=== PATIENT | male | born 1950 | race Caucasian/White ===

== ENCOUNTER → 2016-09-25 | Outpatient (CLI) | payer MEDICARE, OTHER ==
[2016-09-25 13:27] LABS: Blood Urea Nitrogen 21 mg/dL (9-20); Non-African American GFR(MDRD) >60 (>60 ml/min/1.73 sqM)
--- NOTE | 2016-09-25 15:21 | CT ---
CT urogram with and without contrast HISTORY: Microhematuria Helical acquisition obtained through the abdomen prior to intravenous contrast and following 100 cc O mni 300 IV through the abdomen and pelvis. No comparisons Precontrast images show a punctate posterior right renal stone. Abdominal aorta shows atheromatous ch trevor. There are some calcifications present within the dependent portion of the gallbladder. The live r shows multiple hypoattenuating foci of varying sizes, the largest measures approximately 17 to 18 m m within the right lobe posteriorly, these lesions do not show enhancement and are likely to represen t liver cysts. Colonic interposition is present anterior to the liver. The spleen, adrenal glands, an d pancreas are within normal limits. Postop changes noted to the lumbar spine, hardware causes some a rtifact, there is some lordosis centered at the thoracic lumbar level with some spinal curvature. Deg enerative disc changes, facet arthropathy change is present within the visualized spine. Postop walton e also noted to the left hip. Degenerative change, partial ankylosis suspected at the sacroiliac join t on the right with some associated postop change. Osteoarthritic change present in the right hip. Following contrast administration small cystic focus is noted at the upper pole of the right kidney m easuring approximately 13 to 14 mm. Within the left kidney upper to midpole there is also a cystic fo cus measuring approximately 13 mm. No hydronephrosis bilaterally. No evident ureteral calculus. The u reters show normal course and caliber, no filling defect. Delayed imaging shows smaller cystic foci a ssociated with both kidneys, subcentimeter cysts are suspected. The bladder shows thickened wall. Pro state is enlarged. No pelvic adenopathy or free fluid. Diverticular changes associated with the sigmo id colon. Retained fecal debris present throughout the distribution of the colon. The ascending aorta is dilated to 5.3 cm. No pleural or pericardial effusion. Lung bases show depende nt atelectasis. There are coronary artery calcifications. Distal thoracic aorta is 3.1 cm. IMPRESSION: Thoracic aortic aneurysm. Punctate right renal calculus. Multiple cystic foci within the liver and kidneys. Cholelithiasis. Correlate for fecal stasis. Possible chronic bladder outlet obstru ction, prostatic enlargement with associated calcifications. Diverticulosis and additional findings a danny.
== END | disposition home or self-care (01) ==
LOC: RADCTMAIN 12:43
PROVIDERS: ATTEND Urology
DX: N20.0 Calculus of kidney (principal); K80.20 Calculus of gallbladder without cholecystitis without obstruction; N28.1 Cyst of kidney, acquired; K76.89 Other specified diseases of liver; K57.30 Diverticulosis of large intestine without perforation or abscess without bleeding
CPT/HCPCS: 82565; 84520; 74178; 36415; 74400; Q9967

== ENCOUNTER → 2016-11-06 | Outpatient (CLI) | payer MEDICARE, OTHER ==
[2016-11-06 16:31] LABS: Blood Urea Nitrogen 21 mg/dL (9-20); Non-African American GFR(MDRD) >60 (>60 ml/min/1.73 sqM)
--- NOTE | 2016-11-06 17:22 | CT ---
EXAMINATION TYPE: CT angio chest DATE OF EXAM: 11/06/2016 5:09 PM COMPARISON: NONE HISTORY: Thoracic aneurysm found on prior Abdomen scan. No complaints at time of service. CT DLP: 794.5 mGycm Automated exposure control for dose reduction was used. CONTRAST: CTA scan of the thorax is performed with IV Contrast, patient injected with 100 mL of Omnipaque 350, pulmonary embolism protocol. . FINDINGS: The lungs are clear of consolidation. There is no evidence of a pulmonary mass. There is no pleural e ffusion. There is no pericardial effusion. There are no hilar masses. There is no mediastinal adenopa thy. There is normal contrast opacification of the pulmonary arteries. I see no filling defect. There is minimal aneurysm of the ascending aorta that measures up to 4.1 cm. There is no evidence of disse ction. There is mild atheromatous change in the thoracic aorta. The thoracic aorta at the aortic valv e measures 5.2 cm in diameter. There is some spurring in the thoracic spine. I see no focal bone destruction. There are some calcifi ed gallstones. There are low-density rounded foci in the liver that measure up to 2 cm consistent wit h several cysts. IMPRESSION: NO EVIDENCE OF PULMONARY EMBOLISM. THERE IS ANEURYSM OF THE ASCENDING AORTA. THE AORTA AT THE ROOT ME ASURES 5.2 CM AND THE MID ASCENDING AORTA MEASURES 4.1 CM. CHOLELITHIASIS. SMALL HEPATIC CYSTS.
== END | disposition home or self-care (01) ==
LOC: RADCTMAIN 15:51
PROVIDERS: ATTEND Surgery
DX: I71.2 Thoracic aortic aneurysm, without rupture (principal)
CPT/HCPCS: 82565; 84520; 71275; 36415; Q9967

== ENCOUNTER → 2016-12-04 | Outpatient (CLI) | payer MEDICARE, OTHER ==
[2016-12-04 15:55] LABS: CH 32.2; CHCM 33.6; HCT 42.7 % (39.0-53.0); HDW 2.34; HGB 14.7 gm/dL (13.0-17.5); MCH 33.2 pg (25.0-35.0); MCHC 34.5 g/dL (31.0-37.0); MCV 96.2 fL (80.0-100.0); Mean Platelet Volume 8.3; RBC 4.44 m/uL (4.30-5.90)
[2016-12-04 16:00] LABS: Anion Gap 13 mmol/L; Blood Urea Nitrogen 22 mg/dL (9-20); Carbon Dioxide 23 mmol/L (22-30); Chloride 110 mmol/L (98-107); Non-African American GFR(MDRD) >60 (>60 ml/min/1.73 sqM); Potassium 4.2 mmol/L (3.5-5.1); Sodium 146 mmol/L (137-145)
== END ==
LOC: LABWHC1 15:18
PROVIDERS: ATTEND Internal Medicine Interventional Cardiology
DX: I35.0 Nonrheumatic aortic (valve) stenosis (principal); Z01.818 Encounter for other preprocedural examination
CPT/HCPCS: 80051; 82565; 84520; 85027

== ENCOUNTER 2016-12-07 10:46 | Day surgery (SDC) | payer MEDICARE, OTHER ==
[2016-12-05 18:33] VITALS: BMI 28.8
[~2016-12-07 10:46] MED LIST: ALPRAZolam 0.25 MG TAB PO PRN; ALPRAZolam 0.5 MG TAB PO PRN; ASPIRIN 325 MG TAB PO STA; ATORVASTATIN 80 MG TAB PO STA; NITROGLYCERIN SL TABS 0.4 MG TAB SUBLINGUAL PRN; SODIUM CHLORIDE 0.9% 1,000 ML in EMPTY BAG 1 BAG IV ONE
[2016-12-07] MEDS ORDERED: fentaNYL (PF) 50 MCG/ML 2 ML AMP ONE (12:33)
[2016-12-07] MEDS ORDERED: MIDAZOLAM 2 MG/2 ML VIAL ONE (12:33)
[2016-12-07] MEDS: BENZOCAINE SPRAY 100 APPLIC/CAN TOPICAL ONE ×2 (12:41→12:49)
[2016-12-07 12:52] VITALS: RESP 18
[2016-12-07] MEDS ORDERED: MIDAZOLAM 2 MG/2 ML VIAL IVP ONE (12:58)
[2016-12-07] MEDS: fentaNYL (PF) 50 MCG/ML 2 ML AMP IV ONE ×2 (12:58→13:58)
[2016-12-07] MEDS: MIDAZOLAM 2 MG/2 ML VIAL IVP ONE ×2 (13:03→13:43)
[2016-12-07] MEDS ORDERED: LIDOCAINE 2% INJ 20 MG/ML (20 ML MDV) ONE (13:16)
[2016-12-07] MEDS ORDERED: IV FLUID CONTINUATION 1,000 ML IV ONE (13:17)
[2016-12-07] MEDS ORDERED: VERAPAMIL 2.5 MG/ML 2 ML AMP ONE (13:20)
[2016-12-07] MEDS ORDERED: LIDOCAINE 2% INJ 20 MG/ML SQ ONE (13:44)
[2016-12-07] MEDS ORDERED: HEPARIN SODIUM 1,000 UNIT/ML VIAL ONE (13:44)
[2016-12-07] MEDS ORDERED: VERAPAMIL SYRINGE (5 MG/10 ML) INTRAARTER ONE ×2 (13:45→14:02)
[2016-12-07] MEDS ORDERED: HEPARIN SODIUM 1,000 UNIT/ML VIAL IV ONE (13:46)
[2016-12-07] MEDS ORDERED: IOHEXOL 350 MG/ML 100 ML BOTTLE INJ ONE (14:04)
[2016-12-07] MEDS ORDERED: RX INFO: IV CONTRAST WAS GIVEN 1 EACH MISC MISCELLANE PRN (14:12)
[2016-12-07] MEDS ORDERED: SODIUM CHLORIDE 0.9% 1,000 ML IV SCH (14:15)
--- NOTE | 2016-12-07 14:57 | ECHOT ---
DATE OF SERVICE: December 07, 2016. CLINICAL INFORMATION: Performing physician: Osvaldo Lopes, drafter marine. PROCEDURE PERFORMED: Transesophageal echocardiogram. INDICATION: This is a pleasant 66-year-old gentleman who was seen and evaluated by Dr. Cano for aortic root dilatation and possible aortic root surgery. I was requested to perform a CLARISSA and heart catheterization on him to evaluate the aortic valve and the coronary arteries. Sedation: Conscious sedation was performed using a total of 2 mg of Versed on divided doses. COMPLICATIONS: None. Level of sedation: Moderate. DYE STAND LOADER: Osvaldo Kessler MD, drafter marine. PROCEDURE PERFORMED: Transesophageal echocardiogram. PROCEDURE DESCRIPTION: After obtaining an informed consent, explaining the procedure, benefits, risks, complications and alternatives, the patient was brought to the transesophageal echocardiogram suite. A pulse oximetry and heart rate monitors were attached to the patient prior to the procedure. The patient's throat was sprayed using lidocaine locally. Following that, the patient was turned into left lateral position. A bite guard was placed and the patient was then sedated with the above doses of Versed and fentanyl in divided doses. Following that, the transesophageal echocardiogram probe was advanced through the bite guard into the mid esophagus where 2-D echocardiogram images as well as color Doppler images of various cardiac structures were obtained. We evaluated the interatrial septum using 2-D echocardiogram, color Doppler, and contrast study. The procedure was completed. There were no complications. FINDINGS: The left ventricular dimension and systolic function appeared to be within normal limits. The ejection fraction appeared to be in the range of 50% to 55% with a normal wall motion. The right ventricle appeared to be of normal size and function. The left atrium appeared to be mildly dilated. The aortic root appeared to be dilated and measured 5.8 cm at the level of sinus of Valsalva. The aortic valve is trileaflet valve but the aortic valve annulus, seems to be dilated as well. There was mild aortic insufficiency seen. The mitral valve seems to be normal with trace physiologic MR. Normal tricuspid valve and pulmonic valve seen. CONCLUSION: 1. Dilated aortic root with 5.8 cm measurement at the level of sinus of Valsalva. 2. Trileaflet aortic valve with evidence of mild aortic insufficiency. 3. Normal mitral valve leaflets with mild physiologic MR. 4. Normal left ventricular dimension and systolic function. 5. Normal right ventricular dimension and systolic function. 6. Mild biatrial enlargement. 7. Normal left atrial appendage without any evidence of thrombus. 8. Patent vila ovale with evidence of [id number] shunt seen by bubble study.
[2016-12-07 15:08] VITALS: PULSE 48
[2016-12-07 17:55] VITALS: BP 146/56; TEMP 98.2
--- NOTE | 2016-12-08 10:00 | CC ---
DATE OF SERVICE: December 07, 2016. Performing physician: Osvaldo Kessler M.D. scabbler. PROCEDURE PERFORMED: 1. Selective right and left coronary angiogram. 2. Left heart catheterization. 3. Left ventriculography. 4. Aortic root angiogram. INDICATION: This is a pleasant 66-year-old gentleman who was found to have aneurysmal dilatation of the aortic root and the study is to evaluate the coronary artery before the surgery. Approach: Right radial artery. COMPLICATIONS: None. Level of sedation: Moderate with a sedation length of 45 minutes. PROCEDURE DESCRIPTION: After obtaining informed consent, the patient was brought to the cardiac boot and shoe laborer. The right radial artery was cannulated using micropuncture technique. The micropuncture wire passed easily, then I placed 6 Portuguese sheath in the right radial artery. Subsequently I gave the patient 2 mg of Verapamil IM 3000 units of heparin. Then I did selective right and left coronary angiogram using JR4 and JL5 catheters. Then I did left heart catheterization and LV gram and subsequently aortic root angiogram using a 6 Portuguese pigtail catheter. The procedure was completed without any complication. SELECTIVE CORONARY ANGIOGRAM: 1. The right coronary artery is a large-caliber vessel and it is a dominant vessel. It has mild disease in the midportion. Distally bifurcates into PDA and PLV branches; both are angiographically normal. 2. The left main is angiographically normal and bifurcates into the left circumflex and left anterior descending artery. 3. The left circumflex is a large-caliber vessel and it is a nondominant vessel. The proximal left circumflex has a lesion that seems to be eccentric, in the range of 70% to 80%. The mid left circumflex is normal and gives rise to the first OM branch, which seems to be angiographically normal and the circ continues as a small-caliber vessel in the AV groove. 4. Left anterior descending artery. The proximal left anterior descending coronary artery is angiographically normal and gives rise to small diagonal branch. The mid LAD is normal and the LAD distally is angiographically normal. The left anterior descending coronary artery in the midportion gives rise into the small diagonal branch. HEMODYNAMICS: The left ventricular end diastolic pressure was 16 mmHg and no gradient was identified across the aortic valve. AORTIC ROOT ANGIOGRAM: The aortic arch angiogram was performed in the ESTELA projection and using a power injection. The aortic root appeared to be dilated with evidence of 1+ aortic insufficiency. CONCLUSION: 1. Severe single vessel coronary artery disease with eccentric lesion involving the proximal left circumflex seems to be in the range of 70% to 80%. 2. Normal left ventricular systolic function. 3. Dilated aortic root. 4. 1+ aortic insufficiency.
== END 2016-12-07 18:14 | disposition home or self-care (01) ==
LOC: CATHCVL 10:46 → 3OBS 14:05 → CATHCVL 18:14
PROVIDERS: ATTEND Internal Medicine Interventional Cardiology
DX: I25.10 Atherosclerotic heart disease of native coronary artery without angina pectoris (principal); I35.1 Nonrheumatic aortic (valve) insufficiency; I71.2 Thoracic aortic aneurysm, without rupture; I51.7 Cardiomegaly; I10 Essential (primary) hypertension; E78.5 Hyperlipidemia, unspecified; Z79.82 Long term (current) use of aspirin; Z79.51 Long term (current) use of inhaled steroids; Z79.899 Other long term (current) drug therapy; F17.200 Nicotine dependence, unspecified, uncomplicated
CPT/HCPCS: 93312; 93320; 93325; 93458; 93567; 99152; C1894; J2001; J2250; Q9967; J3010; J1644

== ENCOUNTER → 2017-01-22 | Outpatient (CLI) | payer MEDICARE, OTHER ==
[2017-01-22 08:06] LABS: EKG EKG PERFORMED
[2017-01-22 09:45] LABS: CH 32.3; CHCM 33.5; HCT 43.2 % (39.0-53.0); HDW 2.33; HGB 14.4 gm/dL (13.0-17.5); MCH 32.3 pg (25.0-35.0); MCHC 33.3 g/dL (31.0-37.0); Mean Platelet Volume 8.7; Partial Thromboplastin Time 23.1 sec (22.0-30.0); Prothrombin Time 10.5 sec (9.0-12.0); RBC 4.45 m/uL (4.30-5.90); RDW 13.1 % (11.5-15.5); WBC 9.7 k/uL (3.8-10.6)
[2017-01-22 10:38] LABS: Appearance,Urine Clear (Clear); Bacteria,Urine Rare /hpf; Bilirubin,Urine Negative (Negative); Glucose,Urine (UA) Negative (Negative); Ketones,Urine Negative (Negative); Leukocyte Esterase,Urine Negative (Negative); Mucus,Urine Rare /hpf; Nitrite,Urine Negative (Negative); PH, Urine 5.5 (5.0-8.0); Particle Count 1438; Protein,Urine Negative (Negative); RBC,Urine 2 /hpf (0-5); Specific Gravity,Urine 1.018 (1.001-1.035); UA Billing (MACRO vs. MICRO) MICRO; Urobilinogen,Urine <2.0 mg/dL (<2.0); WBC,Urine 1 /hpf (0-5)
[2017-01-22 10:58] LABS: ALT 31 U/L (21-72); AST 21 U/L (17-59); Alkaline Phosphatase 79 U/L (38-126); Anion Gap 10 mmol/L; Blood Urea Nitrogen 24 mg/dL (9-20); Calcium 9.3 mg/dL (8.4-10.2); Carbon Dioxide 21 mmol/L (22-30); Chloride 111 mmol/L (98-107); Cholesterol 130 mg/dL (<200); Glucose 120 mg/dL (74-99); HDL Cholesterol 42 mg/dL (40-60); Magnesium 2.1 mg/dL (1.6-2.3); Non-African American GFR(MDRD) >60 (>60 ml/min/1.73 sqM); Potassium 4.5 mmol/L (3.5-5.1); Sodium 142 mmol/L (137-145); Total Bilirubin 1.1 mg/dL (0.2-1.3); Total Protein 6.6 g/dL (6.3-8.2); Triglycerides 155 mg/dL (<150)
[2017-01-22 11:22] LABS: Hepatitis B Surface Ag Index 0.08
[2017-01-22 11:28] LABS: Hepatitis B Core IgM Index 0.05
[2017-01-22 11:39] LABS: Hepatitis C Virus IgG Index 0.01
[2017-01-22 11:45] LABS: Hepatitis C Virus IgG Ab Negative (Negative)
[2017-01-22 11:59] LABS: Hemoglobin A1C 5.8 % (4.2-6.1)
--- NOTE | 2017-01-22 13:13 | US ---
EXAMINATION TYPE: US carotid duplex BILAT DATE OF EXAM: 01/22/2017 11:17 AM COMPARISON: NONE CLINICAL HISTORY: OPEN HEART. For presurgical clearance EXAM MEASUREMENTS: RIGHT: Peak Systolic Velocity (PSV) cm/sec ----- Right CCA: 56.5 ----- Right ICA: 60.6 ----- Right ECA: 53.5 ICA/CCA ratio: 1.1 RIGHT: End Diastole cm/sec ----- Right CCA: 14.5 ----- Right ICA: 14.5 ----- Right ECA: 16.9 LEFT: Peak Systolic Velocity (PSV) cm/sec ----- Left CCA: 84.4 ----- Left ICA: 82.2 ----- Left ECA: 71.1 ICA/CCA ratio: 1.0 LEFT: End Diastole cm/sec ----- Left CCA: 23.8 ----- Left ICA: 15.5 ----- Left ECA: 11.7 VERTEBRALS (direction of flow): Right Vertebral: Antegrade Left Vertebral: Antegrade Grayscale, color Doppler, spectral Doppler imaging performed of carotid arteries IMPRESSION: No hemodynamic significant stenosis of the proximal internal carotid arteries bilaterall y by Doppler criteria, an indirect measurement of carotid stenosis
--- NOTE | 2017-01-22 13:47 | XR ---
EXAMINATION TYPE: XR chest 2V DATE OF EXAM: 01/22/2017 11:41 AM COMPARISON: Prior chest x-ray 31 May 2014 HISTORY: Preop TECHNIQUE: Frontal and lateral views of the chest are obtained. FINDINGS: There is no focal air space opacity, pleural effusion, or pneumothorax seen. The cardiac silhouette size is within normal limits. The osseous structures are intact, postop changes stable t o distal right clavicle. Postop change noted to the lumbar spine. IMPRESSION: No acute cardiopulmonary process.
--- NOTE | 2017-01-26 11:51 | P.PN ---
Progress Note - Text 5 meter walk test: #1 5.0 sec, #2 4.98 sec, #3 4.87 sec
== END | disposition home or self-care (01) ==
LOC: LABPAT 07:58
PROVIDERS: ATTEND Surgery
DX: Z01.810 Encounter for preprocedural cardiovascular examination (principal); Z01.812 Encounter for preprocedural laboratory examination
CPT/HCPCS: 71020; 80053; 80061; 80074; 81001; 83036; 83735; 83880; 84443; 84484; 85027; 85610; 85730; 86850; 86900; 86901; 86920; 87070; 87086; 93005; 93880

== ENCOUNTER 2017-01-29 05:40 | Inpatient (IN) | payer MEDICARE, OTHER ==
[2017-01-25 15:51] VITALS: BMI 29.5
[~2017-01-29 05:40] MED LIST changes: +ALBUMIN HUMAN 25% 50 ML IV ONE; +ALBUMIN HUMAN 5% 500 ML IVPB ONE; -ALPRAZolam 0.25 MG TAB PO PRN; -ALPRAZolam 0.5 MG TAB PO PRN; +AMINOCAPROIC ACID 250 MG/ML 20 ML VIAL IV ONE; +AMINOCAPROIC ACID 5,000 MG in DEXTROSE 5% IN WATER 50 ML IV ONE; +ASPIRIN 325 MG TAB PO ONE; -ASPIRIN 325 MG TAB PO STA; +ATORVASTATIN 10 MG TAB PO ONE; -ATORVASTATIN 80 MG TAB PO STA; +CALCIUM CHLORIDE 100 MG/ML 10 ML SYRINGE IV ONE; +CHLORHEXIDINE GLUCONATE 15 ML CUP MUCOUS MEM ONE; +CLEVIDIPINE BUTYRATE 25 MG in EMPTY BAG 1 BAG IV ONE; +DEXTROSE 5% IN WATER 1,000 ML with POTASSIUM CHLORIDE 110 MEQ, MAGNESIUM SULFATE 16 MEQ... IV ONE; +DEXTROSE 5% IN WATER 1,000 ML with POTASSIUM CHLORIDE 25 MEQ, SODIUM CHLORIDE 4MEQ/ML V... IV ONE; +HEPARIN SODIUM 1,000 UNIT/ML VIAL IV ONE; +HEPARIN SODIUM,PORCINE 5,000 UNIT in SODIUM CHLORIDE 0.9% 500 ML IV ONE; +INSULIN REGULAR 100 UNIT in SODIUM CHLORIDE 0.9% 100 ML IV ONE; +LACTATED RINGERS 1,000 ML IV ONE; +MAGNESIUM SULFATE MG 500 MG/ML VIAL IV ONE; +MANNITOL 25% 12.5 GM/50 ML VIAL IV ONE; +METOPROLOL TARTRATE 12.5 MG TAB PO ONE; +MUPIROCIN 2% OINT 22 GM TUBE NASAL ONE; -NITROGLYCERIN SL TABS 0.4 MG TAB SUBLINGUAL PRN; +NITROGLYCERIN-D5W PMX 25 MG/250 ML BTL IV ONE; +NITROGLYCERIN-D5W PMX 50 MG in DEXTROSE/WATER 1 250ML.BAG IV ONE; +NOREPINEPHRIN 4 MG-0.9% NS PMX 4 MG/250 ML ML IV ONE; +PAPAVERINE 360 MG in SODIUM CHLORIDE 0.9% 90 ML IV ONE; +PHENYLEPHRINE 40 MG in SODIUM CHLORIDE 0.9% 250 ML IV ONE; +PHENYLEPHRINE-0.9% NACL SYG 1 MG/10 ML SYRINGE IV ONE; +PROPOFOL 50 ML IV ONE; +PROTAMINE SULFATE 10 MG/ML 25 ML VIAL IV ONE; +PROTAMINE SULFATE 250 MG in EMPTY BAG 1 BAG IV ONE; +SODIUM BICARB 8.4% 50 ML SYR (1 MEQ/ML) IV ONE; +SODIUM CHLORIDE 0.9% 1,000 ML IV ONE; -SODIUM CHLORIDE 0.9% 1,000 ML in EMPTY BAG 1 BAG IV ONE; +VANCOMYCIN 1,250 MG in SODIUM CHLORIDE 0.9% 250 ML IVPB ONE; +ceFAZolin 1,000 MG in SODIUM CHLORIDE 0.9% IRRIGATIO 1,000 ML IRRIGATION ONE; +ceFAZolin 2,000 MG in SODIUM CHLORIDE 0.9% 30 ML IVPB ONE
[2017-01-29] MEDS ORDERED: LACTATED RINGERS 1,000 ML IV SCH (05:47)
[2017-01-29] MEDS ORDERED: fentaNYL (PF) 50 MCG/ML 50 ML VIAL ONE (08:11)
[2017-01-29] MEDS ORDERED: PROPOFOL 10 MG/ML 20 ML VIAL IV ONE (08:11)
[2017-01-29] MEDS ORDERED: ELECTROLYTE-R (PH 7.4) 1,000 ML IV.SOLN IV ONE (08:11)
[2017-01-29] MEDS ORDERED: PROTAMINE SULFATE 10 MG/ML 25 ML VIAL IV ONE (08:11)
[2017-01-29] MEDS ORDERED: VECURONIUM 10 MG VIAL IV ONE (08:11)
[2017-01-29] MEDS ORDERED: SUCCINYLCHOLINE CHLORIDE 100 MG/5 ML SYR IV ONE (08:11)
[2017-01-29] MEDS ORDERED: MIDAZOLAM 2 MG/2 ML VIAL ONE (08:11)
[2017-01-29] MEDS ORDERED: fentaNYL (PF) 50 MCG/ML 2 ML AMP ONE (08:11)
[2017-01-29] MEDS ORDERED: SODIUM CHLORIDE 0.9% IRRIG 1,000 ML BTL IRRIGATION ONE (08:11)
[2017-01-29] MEDS ORDERED: HEPARIN SODIUM,PORCINE 10,000 UNIT/ML 1 ML VIAL ONE (08:11)
[2017-01-29] MEDS ORDERED: HEPARIN SODIUM 1,000 UNIT/ML VIAL ONE (08:11)
[2017-01-29] MEDS ORDERED: LIDOCAINE 2% SYG (PF) 100 MG/5 ML ONE (08:11)
[2017-01-29 08:56] LABS: Glucose,Whole Blood 103 mg/dL (75-99)
[2017-01-29 10:39] LABS: Glucose,Whole Blood 126 mg/dL (75-99)
[2017-01-29 11:25] LABS: Glucose,Whole Blood 214 mg/dL (75-99)
[2017-01-29 11:51] LABS: Glucose,Whole Blood 244 mg/dL (75-99)
[2017-01-29 12:36] LABS: Glucose,Whole Blood 269 mg/dL (75-99)
[2017-01-29 13:26] LABS: Glucose,Whole Blood 232 mg/dL (75-99)
[2017-01-29 14:14] LABS: Glucose,Whole Blood 286 mg/dL (75-99)
[2017-01-29 14:19] LABS: Glucose,Whole Blood 284 mg/dL (75-99)
[2017-01-29 15:53] LABS: Glucose,Whole Blood 189 mg/dL (75-99)
[2017-01-29] MEDS ORDERED: METOCLOPRAMIDE 5 MG/ML 2 ML VIAL IVP PRN (16:32)
[2017-01-29] MEDS ORDERED: ONDANSETRON 4 MG/2 ML VIAL IVP PRN (16:32)
[2017-01-29] MEDS ORDERED: CALCIUM GLUCONATE 2,000 MG in SODIUM CHLORIDE 0.9% 100 ML IVPB PRN (16:32)
[2017-01-29] MEDS ORDERED: Magnesium Replacement Protocol 1 EACH MISC MISCELLANE PRN (16:32)
[2017-01-29] MEDS ORDERED: Potassium Replacement Protocol 1 EACH MISC MISCELLANE PRN (16:32)
[2017-01-29] MEDS ORDERED: MORPHINE SULFATE 2 MG/ML SYRINGE IVP PRN (16:32)
[2017-01-29] MEDS ORDERED: Phosphorus Replacement Protoco 1 EACH MISC MISCELLANE PRN (16:32)
[2017-01-29] MEDS ORDERED: INSULIN REGULAR 100 UNIT in SODIUM CHLORIDE 0.9% 100 ML IV SCH (16:32)
[2017-01-29] MEDS ORDERED: NITROGLYCERIN-D5W PMX 50 MG in DEXTROSE/WATER 1 250ML.BAG IV SCH (16:32)
[2017-01-29] MEDS ORDERED: BENZOCAINE/MENTHOL LOZENG 1 EACH LOZENGE MUCOUS MEM PRN (16:32)
[2017-01-29 16:37] LABS: Glucose,Whole Blood 143 mg/dL (75-99)
--- NOTE | 2017-01-29 16:49 | XR ---
EXAMINATION TYPE: XR chest 1V portable DATE OF EXAM: 01/29/2017 4:45 PM HISTORY: Post Op CABG COMPARISON: 01/22/2017 TECHNIQUE: Single view of the chest is submitted. FINDINGS: Endotracheal tube, NG tube, SG catheter, mediastianal drains and chest tubes are appropriately placed . Post operative changes of CABG. No sizeable pneumothorax. Scattered Pleural-parencymal opacities may reflect atelectasis. The heart is not enlarged. IMPRESSION: 1. Post operative changes of CABG.
[2017-01-29 16:54] LABS: Ionized Calcium 4.7 mg/dL (4.5-5.3)
[2017-01-29 16:56] LABS: INR 1.2 (<1.1); Partial Thromboplastin Time 26.4 sec (22.0-30.0); Prothrombin Time 11.9 sec (9.0-12.0)
[2017-01-29 16:58] LABS: Basophils % (A) 0 %; CH 32.1; CHCM 34.1; Eosinophils % (A) 1 %; HCT 22.6 % (39.0-53.0); HDW 2.44; Luc # (Auto) 0.02; Luc % (Auto) 0; Lymphocytes # (A) 0.9 k/uL (1.0-4.8); Lymphocytes % (A) 15 %; MCH 32.5 pg (25.0-35.0); MCHC 34.3 g/dL (31.0-37.0); MCV 94.7 fL (80.0-100.0); Mean Platelet Volume 9.2; Monocytes # (A) 0.2 k/uL (0-1.0); Monocytes % (A) 3 %; Neutrophils # (A) 4.7 k/uL (1.3-7.7); Neutrophils % (A) 81 %; RBC 2.39 m/uL (4.30-5.90); RDW 12.9 % (11.5-15.5); WBC 5.8 k/uL (3.8-10.6); WBC (Perox) 5.73
[2017-01-29 17:01] LABS: HGB 7.8 gm/dL (13.0-17.5)
[2017-01-29 17:02] LABS: ALT 26 U/L (21-72); AST 36 U/L (17-59); Alkaline Phosphatase 38 U/L (38-126); Anion Gap 5 mmol/L; Blood Urea Nitrogen 17 mg/dL (9-20); Calcium 7.6 mg/dL (8.4-10.2); Carbon Dioxide 26 mmol/L (22-30); Chloride 109 mmol/L (98-107); Glucose 127 mg/dL (74-99); Magnesium 2.8 mg/dL (1.6-2.3); Non-African American GFR(MDRD) >60 (>60 ml/min/1.73 sqM); Potassium 3.8 mmol/L (3.5-5.1); Sodium 140 mmol/L (137-145); Total Protein 4.6 g/dL (6.3-8.2)
[2017-01-29] MEDS: ceFAZolin 2 GM in SODIUM CHLORIDE 0.9% 100 ML IVPB SCH ×2 (17:14→23:38)
[2017-01-29] MEDS: LACTATED RINGERS 1,000 ML IV SCH (17:16)
[2017-01-29] MEDS: ACETAMINOPHEN IV (For NPO) 1,000 MG in EMPTY BAG 1 BAG IVPB SCH ×2 (17:16→23:30)
[2017-01-29 17:21] LABS: ABG Base Excess 0.7 mmol/L; ABG HCO3 26 mmol/L (21-25); ABG PCO2 46 mmHg (35-45); ABG PH 7.36 (7.35-7.45); ABG PO2 261 mmHg (83-108); ABG TCO2 27 mmol/L (19-24)
[2017-01-29 17:33] LABS: Glucose,Whole Blood 124 mg/dL (75-99)
[2017-01-29] MEDS ORDERED: POTASSIUM CHLORIDE 20 MEQ in WATER FOR INJECTION 1 100ML.BAG IVPB ONE (18:00)
[2017-01-29 18:15] LABS: Glucose,Whole Blood 101 mg/dL (75-99)
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
[2017-01-29 18:59] LABS: Glucose,Whole Blood 108 mg/dL (75-99)
[2017-01-29 19:26] LABS: Basophils % (A) 0 %; CH 32.4; CHCM 33.6; Eosinophils # (A) 0.1 k/uL (0-0.7); Eosinophils % (A) 1 %; HCT 27.5 % (39.0-53.0); HDW 2.39; Luc # (Auto) 0.19; Luc % (Auto) 2; Lymphocytes # (A) 0.6 k/uL (1.0-4.8); Lymphocytes % (A) 7 %; MCH 31.9 pg (25.0-35.0); MCHC 32.9 g/dL (31.0-37.0); Mean Platelet Volume 8.4; Monocytes # (A) 0.6 k/uL (0-1.0); Monocytes % (A) 7 %; Neutrophils # (A) 7.2 k/uL (1.3-7.7); Neutrophils % (A) 83 %; RBC 2.83 m/uL (4.30-5.90); WBC 8.6 k/uL (3.8-10.6); WBC (Perox) 8.99
[2017-01-29] MEDS: PROPOFOL 500 MG in EMPTY BAG 1 BAG IV SCH ×2 (19:30→22:40)
--- NOTE | 2017-01-29 19:50 | P.PN ---
Progress Note - Text Procedure performed: Transesophageal echocardiography Indication for the procedure: Coronary artery bypass graft surgery, aortic valve replacement surgery, ischemia monitoring, assessment of valvular function , intracardiac air monitoring, assessment of regional wall motion abnormalities and hemodynamic monitoring. Probe insertion: Under general anesthesia, uneventful. Pre-bypass findings: Left ventricle normal in dimension and LV ejection fraction is approximately 50- 55%. Left atrium mildly dilated. No thrombus seen in the appendage. Right atrium normal in size. No patent foramen ovale or ASD seen. Right ventricle normal in structure and function. Aortic valve appears to be normal .There is mild to moderate aortic regurgitation noted. Aortic valve area by continuity equation is 4.5 cm Mitral valve normal in anatomy. No mitral regurgitation seen. Trivial tricuspid regurgitation seen. Pulmonic valve appears to be normal. Descending aorta grade 2 atheroma seen. No pericardial effusion noted. There is grade 2 diastolic dysfunction Post-bypass findings: Prosthetic aortic valve seen no paravalvular regurgitation noted. No aortic regurgitation noted. Mean gradient across the new prosthetic valve is about 8 mmHg. peak gradient 14 mmHg. LV ejection fraction appears to be 50%. No new regional wall motion abnormalities noted. The rest of the exam is same as pre-bypass.
[2017-01-29 19:58] LABS: INR 1.2 (<1.1); Prothrombin Time 11.5 sec (9.0-12.0)
[2017-01-29 20:06] LABS: Glucose,Whole Blood 141 mg/dL (75-99)
[2017-01-29] MEDS: IPRATROPIUM-ALBUTEROL 3 ML NEB INHALATION SCH ×2 (21:01→23:40)
[2017-01-29 21:03] LABS: Glucose,Whole Blood 147 mg/dL (75-99)
[2017-01-29] MEDS: CLEVIDIPINE BUTYRATE 25 MG in EMPTY BAG 1 BAG IV SCH (21:30)
[2017-01-29 22:06] LABS: Glucose,Whole Blood 122 mg/dL (75-99)
[2017-01-29 23:04] LABS: Glucose,Whole Blood 125 mg/dL (75-99)
[2017-01-29] MEDS: HEPARIN SODIUM,PORCINE 5,000 UNIT/ML 1 ML VIAL SQ SCH (23:44)
[2017-01-30 00:05] LABS: Glucose,Whole Blood 132 mg/dL (75-99)
[2017-01-30 01:08] LABS: Glucose,Whole Blood 146 mg/dL (75-99)
[2017-01-30 01:39] LABS: ABG Base Excess -0.7 mmol/L; ABG HCO3 23 mmol/L (21-25); ABG PCO2 34 mmHg (35-45); ABG PH 7.45 (7.35-7.45); ABG PO2 67 mmHg (83-108); ABG TCO2 24 mmol/L (19-24)
[2017-01-30 02:04] LABS: Glucose,Whole Blood 142 mg/dL (75-99)
[2017-01-30 03:04] LABS: Glucose,Whole Blood 137 mg/dL (75-99)
[2017-01-30 04:37] LABS: Ionized Calcium 4.8 mg/dL (4.5-5.3)
[2017-01-30 04:49] LABS: ALT 31 U/L (21-72); AST 51 U/L (17-59); Alkaline Phosphatase 46 U/L (38-126); Anion Gap 9 mmol/L; Blood Urea Nitrogen 14 mg/dL (9-20); Calcium 8.3 mg/dL (8.4-10.2); Carbon Dioxide 24 mmol/L (22-30); Chloride 108 mmol/L (98-107); Glucose 123 mg/dL (74-99); Magnesium 2.2 mg/dL (1.6-2.3); Non-African American GFR(MDRD) >60 (>60 ml/min/1.73 sqM); Potassium 3.9 mmol/L (3.5-5.1); Sodium 141 mmol/L (137-145); Total Bilirubin 1.3 mg/dL (0.2-1.3); Total Protein 5.1 g/dL (6.3-8.2)
[2017-01-30 04:56] LABS: Basophils % (A) 0 %; CH 32.2; CHCM 33.6; Eosinophils % (A) 0 %; HCT 24.1 % (39.0-53.0); HDW 2.41; HGB 7.9 gm/dL (13.0-17.5); Luc # (Auto) 0.12; Luc % (Auto) 1; Lymphocytes # (A) 0.5 k/uL (1.0-4.8); Lymphocytes % (A) 5 %; MCH 31.7 pg (25.0-35.0); MCHC 32.9 g/dL (31.0-37.0); MCV 96.5 fL (80.0-100.0); Monocytes # (A) 0.4 k/uL (0-1.0); Monocytes % (A) 5 %; Neutrophils # (A) 7.7 k/uL (1.3-7.7); Neutrophils % (A) 88 %; RDW 13.1 % (11.5-15.5); WBC 8.8 k/uL (3.8-10.6); WBC (Perox) 9.55
[2017-01-30] MEDS: ACETAMINOPHEN IV (For NPO) 1,000 MG in EMPTY BAG 1 BAG IVPB SCH ×3 (05:30→16:44)
[2017-01-30] MEDS ORDERED: POTASSIUM CHLORIDE ORAL LIQUID 40 MEQ/30 ML CUP NG-TUBE SCH (06:00)
[2017-01-30 06:22] LABS: Glucose,Whole Blood 132 mg/dL (75-99)
[2017-01-30 06:35] LABS: Glucose,Whole Blood 151 mg/dL (75-99)
[2017-01-30] MEDS: CLEVIDIPINE BUTYRATE 25 MG in EMPTY BAG 1 BAG IV SCH (07:11)
[2017-01-30 08:36] LABS: Glucose,Whole Blood 144 mg/dL (75-99)
[2017-01-30] MEDS: HEPARIN SODIUM,PORCINE 5,000 UNIT/ML 1 ML VIAL SQ SCH (08:49)
[2017-01-30] MEDS: ATORVASTATIN 40 MG TAB PO SCH (08:49)
[2017-01-30] MEDS: ceFAZolin 2 GM in SODIUM CHLORIDE 0.9% 100 ML IVPB SCH (08:49)
[2017-01-30] MEDS: METOPROLOL TARTRATE 12.5 MG TAB PO SCH ×3 (08:50→21:08)
[2017-01-30] MEDS ORDERED: ALBUMIN HUMAN 5% 250 ML IVPB ONE ×2 (08:57→08:58)
[2017-01-30] MEDS: ALBUMIN HUMAN 5% 250 ML in EMPTY BAG 1 BAG IVPB PRN ×3 (08:58→14:54)
[2017-01-30] MEDS ORDERED: CLOPIDOGREL 75 MG TAB PO SCH (09:00)
[2017-01-30] MEDS ORDERED: ASPIRIN 325 MG TAB PO SCH (09:00)
[2017-01-30] MEDS ORDERED: PANTOPRAZOLE 40 MG/10 ML VIAL IVP SCH (09:00)
--- NOTE | 2017-01-30 09:13 | XR ---
EXAMINATION TYPE: XR chest 1V portable DATE OF EXAM: 01/30/2017 6:14 AM COMPARISON: 01/29/2017 HISTORY: Postop cardiac surgery TECHNIQUE: Single frontal view of the chest is obtained. FINDINGS: ET and NG tube have been removed. Grafton-Lynnette catheter persists with mediastinal drain and c hest tube. Bilateral areas of subsegmental consolidation and tiny effusion. Heart is enlarged. Postsurgical loyd ge including valve replacement surgery noted. Could not exclude a tiny right apical pneumothorax. Hollie sures less than 5%. IMPRESSION: 1. Postsurgical change with bilateral infiltrate and pleural effusion. Could not exclude a tiny right apical pneumothorax measuring 5%.
[2017-01-30 09:30] LABS: Glucose,Whole Blood 137 mg/dL (75-99)
[2017-01-30] MEDS: ASPIRIN 81 MG CHEW PO SCH (10:05)
[2017-01-30 10:14] LABS: Glucose,Whole Blood 136 mg/dL (75-99)
--- NOTE | 2017-01-30 10:30 | OP ---
DATE OF SERVICE: 01/29/2017 SURGEON: Nadya Cano MD MATERIAL COORDINATOR: Dr. Charbel Mario. PREOPERATIVE DIAGNOSES: Aortic root, and ascending aortic aneurysm with moderate aortic valve regurgitation, single vessel coronary artery disease with stenosis of the obtuse marginal artery, preserved left ventricular function, hypertension, hyperlipidemia, mild chronic obstructive pulmonary disease. POSTOPERATIVE DIAGNOSES: Aortic root, and ascending aortic aneurysm with moderate aortic valve regurgitation, single vessel coronary artery disease with stenosis of the obtuse marginal artery, preserved left ventricular function, hypertension, hyperlipidemia, mild chronic obstructive pulmonary disease. OPERATION: 1. Aortic root and ascending aortic replacement using a modified Bentall technique with a 27 mm magna ease pericardial bioprosthesis and a 32 mm Valsalva graft with reimplantation of both coronary buttons. 2. Single vessel coronary artery bypass grafting using the left internal mammary artery to the obtuse marginal artery. 3. Intraoperative transesophageal echocardiogram and epiaortic scanning. INDICATIONS FOR SURGERY: Patient is a 66-year-old gentleman who had an incidental finding on CT scan of aortic root and ascending aortic aneurysm. Work-up included a 2-D echo and a CLARISSA that showed moderate aortic valve regurgitation, preserved left ventricular function, and a root more than 5.5 cm in diameter. The aorta before the takeoff of the innominate went back to within normal size. Cardiac catheterization showed significant stenosis of a large obtuse marginal artery. Patient is being taken today for elective ascending and aortic root replacement with modified Bentall procedure and single vessel coronary artery bypass grafting using his left internal mammary artery to the circumflex target. Risks, benefits, and alternatives were discussed and discussed with him and his . They understood and agreed to proceed. DESCRIPTION OF THE PROCEDURE: Patient in supine position, right internal jugular [place]-Lynnette catheter and left brachial arterial line were placed. Patient had normal PA pressure and good cardiac index. Subsequently was brought to the operating room, where general endotracheal anesthesia was induced uneventfully. Pringle catheter was inserted. The chest, abdomen and both lower extremities were prepped and draped using ChloraPrep. Ioban was used to cover the skin. Patient received 2 grams of cefazolin intravenously. Transesophageal echocardiogram confirmed the preoperative finding of moderate aortic valve regurgitation, dilated aortic root with asymmetric dilatation of noncoronary sinus, and preserved left ventricular function. Midline sternotomy was performed and no bone wax was used. The right pleura was opened in this process and was drained with 28 Malian chest tube. The left sternum was elevated and the left internal mammary artery was harvested in a somewhat skeletonized fashion. The left pleura was intentionally opened in this process and was drained with 28 Malian chest tube. After giving 5000 units of heparin intravenously. The mammary artery was double clipped distally and transected, had an excellent pulsatile flow in it; however, was thin-walled, spastic around 1.5 mm in diameter. Mediastinal fat was transected between 2 ties and epiaortic scanning revealed no protruding atheroma in the ascending aorta. Pericardium was opened in an inverted T-fashion and pericardial cradle was created. Findings included an aneurysmal aorta down to the root with a heart pushed inferiorly to the left side. There was no obvious visible coronary disease. The right coronary artery had a high takeoff. After placement of respective pledgeted pursestrings in the proximal arch and the right atrial appendage, aortic cannulation with a 21 Malian soft flow cannula and venous cannulation with a 29/37 dual stage venous cannula was performed. Antegrade as well as retrograde cardioplegia catheters were placed. Cardiopulmonary bypass was initiated and with the patient warm we looked at the target and we could identify the obtuse marginal artery. We dissected the mid aspect of the ascending aorta from the pulmonary artery posteriorly as a prelude for clamping. Patient's temperature was allowed to drift down to 34 degrees Celsius. The aorta was clamped and during aortic clamping, myocardial protection was achieved with an initial dose of 800 mL of antegrade cold blood cardioplegia with adequate arrest at around 400 mL, followed by 500 mL of retrograde cold blood cardioplegia. All subsequent doses were given retrograde with also additional doses eventually given via respective coronary ostia with perfusion cannula. First part of the surgery was to perform the left internal mammary artery to the obtuse marginal artery anastomosis which was a good vessel of around 2 mm in diameter using Prolene 70 in continuous fashion. This anastomosis was hemostatic. The mammary pedicle was affixed to the epicardium using Prolene 6-0 suture. Subsequently, thte aorta was transected in the middle part initially and again the right coronary artery, as predicted, had a high takeoff. The aortic valve was excised and was again asymmetrically distended and stretched at the non-coronary sinus. There was no fenestration in it. Subsequently, the coronary sinus was resected, leaving a rim of aorta. The left coronary button was developed and mobilized after placement of probe into the coronary artery to get a feel of its direction. The same was done also at the level of the right coronary where a right coronary button was developed and we took care of a conal branch, made sure not to injure it. Subsequently the annulus was sized at 27mm and a 27mm magna ease pericardial bioprosthesis was selected and prepared on the back table. We passed a total of 19 Tycron 2-0 pledgeted sutures in a horizontal fashion with the pledgets on the ventricular side at the level of the aortic annulus. Subsequently I selected a 32 mm Valsalva graft and anchored the magna ease prosthesis to the top of the graft after everting its cuff skirt, using the Malian cuff technique. All the sutures were passed into the valve cuff than this folded edge and then the needles were cut and the sutures hand tied with good apposition of the valve conduit to the aortic annulus. Subsequently I took a Prolene 4-0 SH and closed the second layer approximating the remnant of aortic wall and the cuff that we formed around the valsalva graft skirt in a running fashion. We tested this anastomosis using antegrade cardioplegia via the graft and it appeared hemostatic. I placed some CoSeal all around it. At this point, attention was moved at performing the left coronary button. Using eye-cautery and after distending the heart and judging the spot for the anastomosis, I made a hole and the Valsalva portion of the conduit. Using Prolene 5-0, we completed the left button after reinforcing the coronary side with felt as the tissue were friable. Testing again revealed good hemostasis with antegrade cardioplegia under pressure in the graft. CoSeal was applied over the left button. At this point, we distended and checked a spot for the right coronary button. A same button was made using an eye-cautery on the right sinus of the Valsalva conduit and the anastomosis of the right button completed using 5-0 Prolene without using pledgets at that level. CoSeal was applied after checking for hemostasis, which appeared satisfactory. At this point the rewarming was started. The ascending aorta was resected up to a 1 cm cuff from the clamp and the anastomosis of the conduit to the aorta was completed using Prolene 3-0 with reinforcement of the aortic wall with felt strips on the outside. Antegrade cardioplegia catheter and vent were placed into the graft now after placement of a 4-0 BB pledgeted pursestring. Usual de-airing maneuver followed and we administered lidocaine and magnesium before unclamping the aorta with the patient in tredelenburg position. . Hemostasis appeared satisfactory. After a period of reperfusion, the patient regained spontaneous sinus rhythm. De-airing was guided by CLARISSA. We had good left ventricular and right ventricular function. One bipolar ventricular pacing wire was driven via the inferior aspect of the right ventricle. Two monopolar pacing wires were affixed to the right atrial wall. The anastomosis of the mammary artery appeared to be hemostatic, however, the anchoring suture of the pedicle to the myocardium was bleeding so I disconnected it and placed 2 Prolene 6-0 superficially at the level of the myocardium to stop some venous bleeding. That was satisfactory. We were able to wean off cardiopulmonary bypass without the need of any inotropic for vasopressor support. Test dose and full dose protamine was given. Decannulation proceeded. Patient was given 2 units of platelets and 2 units of FFP to aid in hemostasis. The pericardium and pericardial fat was approximated over the heart and the aortic graft. After ensuring adequate hemostasis and hemodynamics and after correct sponge, instrument and needle count, the sternum was closed using 5 [id number] interrupted [place] cable after interposing fibrillary material between the sternal edges. Thorough irrigation with cefazolin followed. The rest of the closure proceeded in layers. Skin glue was applied. Patient was transferred to the ICU in stable condition with normal sinus rhythm at 74 and good hemodynamics, on no drips. [facility] HOSPITALDanny
--- NOTE | 2017-01-30 11:23 | PN ---
Mr. Reza underwent aortic root and ascending aortic replacement using a modified Bentall technique, a pericardial bioprosthesis and a 32 mm Valsalva graft with reimplantation of both coronary buttons as well as single vessel bypass grafting using a CARMEN to the obtuse marginal. He is doing well today postoperatively. He is alert, awake. He is extubated. Blood pressure is 103 systolic, heart rate is in the 80s. He has mild discomfort, but he looks fairly comfortable. Breath sounds are reduced bilaterally. Heart sounds are S1 and S2 are soft. No murmurs. Abdomen is soft. Extremities are warm, no edema. IMPRESSION: Aortic valve replacement, aortic root replacement and coronary artery disease, status post single vessel coronary artery bypass grafting. SUGGEST: Continue current medications for now. He is currently on aspirin, atorvastatin 40 mg a day, Plavix, and low-dose metoprolol. Today, I will not make any changes. I will reassess him tomorrow to see if there are any medication changes to be made.
[2017-01-30 11:29] LABS: Glucose,Whole Blood 137 mg/dL (75-99)
--- NOTE | 2017-01-30 11:35 | P.PN ---
Subjective Principal diagnosis: Coronary artery disease. Severe aortic stenosis. 66-year-old male patient who underwent a ascending root replacement/aortic valve replacement and single-vessel bypass surgery with CARMEN to OM1. The patient was brought into the intensive care unit for further monitoring. The patient received a total of 2 units of fresh frozen plasma and 5 units of platelet concentrates during the surgery. Currently he is intubated on a mechanical ventilator. I have an assist-control mode of ventilation at the rate of 16, tidal volume 550, FiO2 has been weaned down from 100% down to 60% with a PEEP of 5. His blood care this showed a pH of 7.36 with a pCO2 of 46 and pO2 of 261. Chest x-ray showed adequate expansion of both lungs and there is no evidence of any pneumothorax. The patient has 2 mediastinal chest tubes, a right pleural and left pleural. Output from the chest tubes were approximately no output from the right, 200 mL an hour from the mediastinal and 50 mL an hour from the left. The patient will be receiving additional platelets here in the ICU. His most recent plated count is 59,000. His hemoglobin is at 7.8. He is producing adequate amount of urine output. His cardiac index is at 2.2 with an output of 4.5. His PA pressures are 25/15 and the patient's cardiac rhythm is sinus at this point. He is sedated with Diprivan and is calm and comfortable. No other significant issues postop. The patient is seen again today 01/30/2017 in follow-up. He remains here in the intensive care unit. He was successfully extubated. He is currently awake and alert in no acute distress. He is hemodynamically stable. Most of his drips are off. He remains on insulin at 1 unit per hour. He is maintaining good O2 saturations in the low 90s on 8 L/m. His chest x-ray shows bilateral infiltrates and small pleural effusions. Chest tubes remain in place. I need to the orders the his pain is well controlled. His hemoglobin remained stable at 7.9. Objective - Vital Signs Vital signs: Vital Signs Temp 99 F 01/30/17 04:00 Pulse 86 01/30/17 10:00 Resp 24 01/30/17 10:00 BP 96/55 01/30/17 10:00 Pulse Ox 92 L 01/30/17 10:00 Intake & Output 0501/30/17 01/30/17 18:59 06:59 18:59 Intake Total 327.077 2856.266 899.742 Output Total 5051 1023 843 Balance -4678.767 -1378.734 56.742 Weight 87.997 kg 90 kg 90 kg Intake: IV 200 351 197 ACETAMINOPHEN IV (For NPO 100 ) 1,000 mg In Empty Bag 1 bag @ 400 mls/hr IVPB Q6HR [facility] Rx#:[id number] CO/CI 120 20 LR @50 100 50 150 Pressure Bag 81 27 ceFAZolin 2 gm In Sodium 100 Chloride 0.9% 100 ml @ 100 mls/hr IVPB Q8HR MIKE Rx#:[id number] Intake, IV Titration 1.233 98.266 582.742 Amount Albumin Human 5% 250 ml 250 As IVPB .STK-MED ONE Rx#: [id number] Albumin Human 5% 250 ml 250 As IVPB .STK-MED ONE Rx#: [id number] Clevidipine Butyrate 25 0.5 44.333 mg In Empty Bag 1 bag @ 1 MG/HR 2 mls/hr IV .Q24H [facility]KE Rx#:[id number] Insulin Regular 100 unit 0.458 0 22.159 In Sodium Chloride 0.9% 100 ml @ Per Protocol IV .Q0M [facility]KE Rx#:[id number] Nitroglycerin-D5w Pmx 50 0.775 16.725 16.25 mg In Dextrose/Water 1 250ml.bag @ 5 MCG/MIN 1.5 mls/hr IV .Q24H MIKE Rx#: [id number] Propofol 500 mg In Empty 81.041 Bag 1 bag @ Titrate IV . Q0M MIKE Rx#:[id number] Oral 120 Blood Product 0 693 Ffp 24 Cp2d Unit 190 [id number] Ffp 24 Cpd Unit 0 [id number] Ffp 24 Cpd Unit 0 [id number] Ffp 24 Cpd Unit 301 [id number] Platelet Pheresis Acda1 0 202 Unit [id number] Platelet Pheresis Acda2 0 Unit [id number] Output: Chest Tube Drainage 400 1041 519 Bilateral Mediastinal 310 755 207 Chest Tube Left Lateral 85 200 170 Chest Chest Tube Right Lateral 5 86 142 Chest Urine 2580 1480 324 Estimated Blood Loss 1900 Other: Voiding Method Indwelling Catheter Indwelling Catheter ABP, PAP, CO, CI - Last Documented Arterial Blood Pressure 102/44 Pulmonary Artery Pressure 21/8 Cardiac Output 5.4 Cardiac Index 2.7 - Exam GENERAL EXAM: Alert, fairly comfortable in no apparent distress. HEAD: Normocephalic. EYES: Normal reaction of pupils, equal size. NOSE: Clear with pink turbinates. THROAT: No erythema or exudates. NECK: No masses, no JVD. CHEST: No chest wall deformity. Surgical dressing is dry and intact. Chest tubes are in place. LUNGS: Equal air entry with crackles in the posterior bases. Diminished. CVS: S1 and S2 normal with no audible murmurs, regular rhythm. ABDOMEN: No hepatosplenomegaly, normal bowel sounds, no guarding or rigidity. SPINE: No scoliosis or deformity SKIN: No rashes CENTRAL NERVOUS SYSTEM: No focal deficits, tone is normal in all 4 extremities. Extremities: There is trace peripheral edema. Arsenio wraps to lower extremities. Peripheral pulses are intact. - Labs CBC & Chem 7: 01/30/17 04:05 01/30/17 04:05 Labs: Abnormal Lab Results - Last 24 Hours (Table) 01/22/17 01/29/17 01/29/17 Range/Units 09:05 11:14 11:48 RBC (4.30-5.90) m/uL Hgb (13.0-17.5) gm/dL Hct (39.0-53.0) % Plt Count (150-450) k/uL Lymphocytes # (1.0-4.8) k/uL ABG pCO2 (35-45) mmHg ABG pO2 (83-108) mmHg ABG HCO3 (21-25) mmol/L ABG Total CO2 (19-24) mmol/L ABG O2 Saturation (94-97) % Chloride (98-107) mmol/L Glucose (74-99) mg/dL POC Glucose (mg/dL) 214 H 244 H (75-99) mg/dL Calcium (8.4-10.2) mg/dL Magnesium (1.6-2.3) mg/dL Total Protein (6.3-8.2) g/dL Albumin (3.5-5.0) g/dL Crossmatch See Detail 01/29/17 01/29/17 01/29/17 Range/Units 12:33 13:22 14:10 RBC (4.30-5.90) m/uL Hgb (13.0-17.5) gm/dL Hct (39.0-53.0) % Plt Count (150-450) k/uL Lymphocytes # (1.0-4.8) k/uL ABG pCO2 (35-45) mmHg ABG pO2 (83-108) mmHg ABG HCO3 (21-25) mmol/L ABG Total CO2 (19-24) mmol/L ABG O2 Saturation (94-97) % Chloride (98-107) mmol/L Glucose (74-99) mg/dL POC Glucose (mg/dL) 269 H 232 H 286 H (75-99) mg/dL Calcium (8.4-10.2) mg/dL Magnesium (1.6-2.3) mg/dL Total Protein (6.3-8.2) g/dL Albumin (3.5-5.0) g/dL Crossmatch 01/29/17 01/29/17 01/29/17 Range/Units 14:16 15:38 16:35 RBC (4.30-5.90) m/uL Hgb (13.0-17.5) gm/dL Hct (39.0-53.0) % Plt Count (150-450) k/uL Lymphocytes # (1.0-4.8) k/uL ABG pCO2 (35-45) mmHg ABG pO2 (83-108) mmHg ABG HCO3 (21-25) mmol/L ABG Total CO2 (19-24) mmol/L ABG O2 Saturation (94-97) % Chloride (98-107) mmol/L Glucose (74-99) mg/dL POC Glucose (mg/dL) 284 H 189 H 143 H (75-99) mg/dL Calcium (8.4-10.2) mg/dL Magnesium (1.6-2.3) mg/dL Total Protein (6.3-8.2) g/dL Albumin (3.5-5.0) g/dL Crossmatch 01/29/17 01/29/17 01/29/17 Range/Units 16:36 16:36 17:10 RBC 2.39 L (4.30-5.90) m/uL Hgb 7.8 L D (13.0-17.5) gm/dL Hct 22.6 L (39.0-53.0) % Plt Count 59 L D (150-450) k/uL Lymphocytes # 0.9 L (1.0-4.8) k/uL ABG pCO2 46 H (35-45) mmHg ABG pO2 261 H (83-108) mmHg ABG HCO3 26 H (21-25) mmol/L ABG Total CO2 27 H (19-24) mmol/L ABG O2 Saturation 99.0 H (94-97) % Chloride 109 H (98-107) mmol/L Glucose 127 H (74-99) mg/dL POC Glucose (mg/dL) (75-99) mg/dL Calcium 7.6 L (8.4-10.2) mg/dL Magnesium 2.8 H (1.6-2.3) mg/dL Total Protein 4.6 L (6.3-8.2) g/dL Albumin 2.8 L (3.5-5.0) g/dL Crossmatch 01/29/17 01/29/17 01/29/17 Range/Units 17:12 18:08 18:56 RBC (4.30-5.90) m/uL Hgb (13.0-17.5) gm/dL Hct (39.0-53.0) % Plt Count (150-450) k/uL Lymphocytes # (1.0-4.8) k/uL ABG pCO2 (35-45) mmHg ABG pO2 (83-108) mmHg ABG HCO3 (21-25) mmol/L ABG Total CO2 (19-24) mmol/L ABG O2 Saturation (94-97) % Chloride (98-107) mmol/L Glucose (74-99) mg/dL POC Glucose (mg/dL) 124 H 101 H 108 H (75-99) mg/dL Calcium (8.4-10.2) mg/dL Magnesium (1.6-2.3) mg/dL Total Protein (6.3-8.2) g/dL Albumin (3.5-5.0) g/dL Crossmatch 01/29/17 01/29/17 01/29/17 Range/Units 19:20 20:04 21:01 RBC 2.83 L (4.30-5.90) m/uL Hgb 9.0 L (13.0-17.5) gm/dL Hct 27.5 L (39.0-53.0) % Plt Count 106 L D (150-450) k/uL Lymphocytes # 0.6 L (1.0-4.8) k/uL ABG pCO2 (35-45) mmHg ABG pO2 (83-108) mmHg ABG HCO3 (21-25) mmol/L ABG Total CO2 (19-24) mmol/L ABG O2 Saturation (94-97) % Chloride (98-107) mmol/L Glucose (74-99) mg/dL POC Glucose (mg/dL) 141 H 147 H (75-99) mg/dL Calcium (8.4-10.2) mg/dL Magnesium (1.6-2.3) mg/dL Total Protein (6.3-8.2) g/dL Albumin (3.5-5.0) g/dL Crossmatch 01/29/17 01/29/17 01/30/17 Range/Units 22:05 23:02 00:04 RBC (4.30-5.90) m/uL Hgb (13.0-17.5) gm/dL Hct (39.0-53.0) % Plt Count (150-450) k/uL Lymphocytes # (1.0-4.8) k/uL ABG pCO2 (35-45) mmHg ABG pO2 (83-108) mmHg ABG HCO3 (21-25) mmol/L ABG Total CO2 (19-24) mmol/L ABG O2 Saturation (94-97) % Chloride (98-107) mmol/L Glucose (74-99) mg/dL POC Glucose (mg/dL) 122 H 125 H 132 H (75-99) mg/dL Calcium (8.4-10.2) mg/dL Magnesium (1.6-2.3) mg/dL Total Protein (6.3-8.2) g/dL Albumin (3.5-5.0) g/dL Crossmatch 01/30/17 01/30/17 01/30/17 Range/Units 01:06 01:38 02:03 RBC (4.30-5.90) m/uL Hgb (13.0-17.5) gm/dL Hct (39.0-53.0) % Plt Count (150-450) k/uL Lymphocytes # (1.0-4.8) k/uL ABG pCO2 34 L (35-45) mmHg ABG pO2 67 L (83-108) mmHg ABG HCO3 (21-25) mmol/L ABG Total CO2 (19-24) mmol/L ABG O2 Saturation (94-97) % Chloride (98-107) mmol/L Glucose (74-99) mg/dL POC Glucose (mg/dL) 146 H 142 H (75-99) mg/dL Calcium (8.4-10.2) mg/dL Magnesium (1.6-2.3) mg/dL Total Protein (6.3-8.2) g/dL Albumin (3.5-5.0) g/dL Crossmatch 01/30/17 01/30/17 01/30/17 Range/Units 03:02 04:05 04:05 RBC 2.50 L (4.30-5.90) m/uL Hgb 7.9 L (13.0-17.5) gm/dL Hct 24.1 L (39.0-53.0) % Plt Count 100 L (150-450) k/uL Lymphocytes # 0.5 L (1.0-4.8) k/uL ABG pCO2 (35-45) mmHg ABG pO2 (83-108) mmHg ABG HCO3 (21-25) mmol/L ABG Total CO2 (19-24) mmol/L ABG O2 Saturation (94-97) % Chloride 108 H (98-107) mmol/L Glucose 123 H (74-99) mg/dL POC Glucose (mg/dL) 137 H (75-99) mg/dL Calcium 8.3 L (8.4-10.2) mg/dL Magnesium (1.6-2.3) mg/dL Total Protein 5.1 L (6.3-8.2) g/dL Albumin 3.3 L (3.5-5.0) g/dL Crossmatch 01/30/17 01/30/17 01/30/17 Range/Units 06:21 06:34 08:33 RBC (4.30-5.90) m/uL Hgb (13.0-17.5) gm/dL Hct (39.0-53.0) % Plt Count (150-450) k/uL Lymphocytes # (1.0-4.8) k/uL ABG pCO2 (35-45) mmHg ABG pO2 (83-108) mmHg ABG HCO3 (21-25) mmol/L ABG Total CO2 (19-24) mmol/L ABG O2 Saturation (94-97) % Chloride (98-107) mmol/L Glucose (74-99) mg/dL POC Glucose (mg/dL) 132 H 151 H 144 H (75-99) mg/dL Calcium (8.4-10.2) mg/dL Magnesium (1.6-2.3) mg/dL Total Protein (6.3-8.2) g/dL Albumin (3.5-5.0) g/dL Crossmatch 01/30/17 01/30/17 Range/Units 09:27 10:09 RBC (4.30-5.90) m/uL Hgb (13.0-17.5) gm/dL Hct (39.0-53.0) % Plt Count (150-450) k/uL Lymphocytes # (1.0-4.8) k/uL ABG pCO2 (35-45) mmHg ABG pO2 (83-108) mmHg ABG HCO3 (21-25) mmol/L ABG Total CO2 (19-24) mmol/L ABG O2 Saturation (94-97) % Chloride (98-107) mmol/L Glucose (74-99) mg/dL POC Glucose (mg/dL) 137 H 136 H (75-99) mg/dL Calcium (8.4-10.2) mg/dL Magnesium (1.6-2.3) mg/dL Total Protein (6.3-8.2) g/dL Albumin (3.5-5.0) g/dL Crossmatch Assessment and Plan Plan: Assessment: 1 aortic valve and aortic root replacement/Bentall procedure, along with a single-vessel bypass surgery with CARMEN to obtuse marginal. The patient is postop day #1 2 Post thoracotomy ventilator support. Successfully extubated. Chest tubes are all in place. 3 increased output from the mediastinal chest tubes, we'll monitor 4 postop to thrombocytopenia and the platelet count is at 59,000 5 postoperative anemia hemoglobin is at 7.8 6 hemodynamically stable with adequate blood pressure and urine output. Currently the patient is on no pressors. Cardiac output and index are well maintained 7 postoperative hypertension currently on nitroglycerin drip 8 hypertension 9 hyperlipidemia 10 diabetes mellitus currently on insulin drip for blood sugar control 11 history of BPH 12 COPD Plan: The patient was seen and evaluated by Dr. Rea. His chest x-ray and labs were reviewed. The patient is progressing nicely. We'll continue to wean down the FiO2 as tolerated. We've been again encourage increased use of the incentive spirometer and cough and deep breathing exercises. We'll continue with his current medications. He is on heparin for DVT prophylaxis. We will increase his activity as tolerated. We'll continue to follow. Time with Patient: Greater than 30
[2017-01-30 12:09] LABS: ABG Base Excess -2.2 mmol/L; ABG HCO3 22 mmol/L (21-25); ABG PCO2 40 mmHg (35-45); ABG PH 7.37 (7.35-7.45); ABG PO2 104 mmHg (83-108); ABG TCO2 24 mmol/L (19-24)
[2017-01-30 12:10] LABS: ABG Oxygen Saturation 97.8 % (94-97)
[2017-01-30 12:11] LABS: ABG Base Excess 0.3 mmol/L; ABG HCO3 24 mmol/L (21-25); ABG Oxygen Saturation 99.9 % (94-97); ABG PCO2 37 mmHg (35-45); ABG PH 7.43 (7.35-7.45); ABG PO2 277 mmHg (83-108); ABG TCO2 25 mmol/L (19-24)
[2017-01-30 12:12] LABS: ABG Base Excess -2.1 mmol/L; ABG HCO3 23 mmol/L (21-25); ABG Oxygen Saturation 98.4 % (94-97); ABG PCO2 42 mmHg (35-45); ABG PH 7.35 (7.35-7.45); ABG PO2 117 mmHg (83-108); ABG TCO2 24 mmol/L (19-24)
[2017-01-30] MEDS ORDERED: HYDROcodone/APAP 5-325MG 1 EACH TAB PO PRN (12:13)
[2017-01-30 12:14] LABS: ABG Base Excess -0.3 mmol/L; ABG HCO3 25 mmol/L (21-25); ABG Oxygen Saturation 99.8 % (94-97); ABG PCO2 48 mmHg (35-45); ABG PH 7.34 (7.35-7.45); ABG PO2 229 mmHg (83-108); ABG TCO2 27 mmol/L (19-24)
[2017-01-30 12:15] LABS: ABG HCO3 24 mmol/L (21-25); ABG Oxygen Saturation 99.7 % (94-97); ABG PCO2 46 mmHg (35-45); ABG PH 7.34 (7.35-7.45); ABG PO2 210 mmHg (83-108); ABG TCO2 26 mmol/L (19-24)
[2017-01-30 12:16] LABS: ABG Base Excess -1.1 mmol/L; ABG HCO3 24 mmol/L (21-25); ABG Oxygen Saturation 99.9 % (94-97); ABG PCO2 42 mmHg (35-45); ABG PH 7.37 (7.35-7.45); ABG PO2 288 mmHg (83-108); ABG TCO2 25 mmol/L (19-24)
[2017-01-30 12:18] LABS: ABG Base Excess -0.9 mmol/L; ABG HCO3 24 mmol/L (21-25); ABG Oxygen Saturation 99.9 % (94-97); ABG PCO2 43 mmHg (35-45); ABG PH 7.36 (7.35-7.45); ABG PO2 331 mmHg (83-108); ABG TCO2 25 mmol/L (19-24)
[2017-01-30 12:19] LABS: ABG Base Excess -0.8 mmol/L; ABG HCO3 23 mmol/L (21-25); ABG Oxygen Saturation 99.8 % (94-97); ABG PCO2 38 mmHg (35-45); ABG PO2 224 mmHg (83-108); ABG TCO2 24 mmol/L (19-24)
[2017-01-30] MEDS: HYDROcodone/APAP 5-325MG 1 EACH TAB PO PRN ×2 (12:25→16:37)
[2017-01-30 12:35] LABS: Glucose,Whole Blood 142 mg/dL (75-99)
[2017-01-30 13:06] LABS: Anion Gap 8 mmol/L; Blood Urea Nitrogen 17 mg/dL (9-20); Calcium 8.4 mg/dL (8.4-10.2); Carbon Dioxide 23 mmol/L (22-30); Chloride 111 mmol/L (98-107); Glucose 120 mg/dL (74-99); Magnesium 2.2 mg/dL (1.6-2.3); Non-African American GFR(MDRD) >60 (>60 ml/min/1.73 sqM); Potassium 4.2 mmol/L (3.5-5.1); Sodium 142 mmol/L (137-145)
[2017-01-30 13:15] LABS: Basophils % (A) 0 %; CH 32.5; CHCM 33.8; Eosinophils % (A) 0 %; HCT 22.9 % (39.0-53.0); HDW 2.43; HGB 7.6 gm/dL (13.0-17.5); Luc % (Auto) 2; Lymphocytes # (A) 0.7 k/uL (1.0-4.8); Lymphocytes % (A) 8 %; MCH 32.4 pg (25.0-35.0); MCHC 33.4 g/dL (31.0-37.0); Mean Platelet Volume 8.5; Monocytes # (A) 0.5 k/uL (0-1.0); Monocytes % (A) 5 %; Neutrophils # (A) 7.3 k/uL (1.3-7.7); Neutrophils % (A) 84 %; RBC 2.36 m/uL (4.30-5.90); RDW 13.3 % (11.5-15.5); WBC 8.7 k/uL (3.8-10.6); WBC (Perox) 8.87
[2017-01-30 14:11] LABS: Glucose,Whole Blood 170 mg/dL (75-99)
--- NOTE | 2017-01-30 14:42 | P.PN ---
<Marlene Patrick - Last Filed: 01/30/17 14:28> Subjective Principal diagnosis: Aortic root, and ascending aortic aneurysm with moderate aortic valve regurgitation, single vessel coronary artery disease with stenosis of the obtuse marginal artery, preserved left ventricular function, hypertension, hyperlipidemia, mild chronic obstructive pulmonary disease. POD #1 aortic root and ascending aortic replacement using a modified Bentall technique with a 27 mm magna ease pericardial bioprosthesis and a 32 mm Valsalva graft with reimplantation of both coronary buttons. Single vessel coronary artery bypass grafting using the left internal mammary artery to the obtuse marginal artery. Intraoperative transesophageal echocardiogram and epi- aortic scanning. Patient sitting up in the bed in no apparent distress. Had increased output in his chest tubes last night and received platelets. Had episode of hypotension this morning, reversed with albumin infusion. Objective - Vital Signs Vital signs: Vital Signs Temp 99.2 F 01/30/17 12:00 Pulse 101 H 01/30/17 13:00 Resp 35 H 01/30/17 13:00 BP 96/55 01/30/17 11:00 Pulse Ox 90 L 01/30/17 13:00 Intake & Output 01/29/17 01/30/17 01/30/17 18:59 06:59 18:59 Intake Total 308.455 6122.266 1062.816 Output Total 4880 2521 1243 Balance -4678.767 -1378.734 -180.184 Weight 87.997 kg 90 kg 90 kg Intake: IV 200 351 356 ACETAMINOPHEN IV (For NPO 100 100 ) 1,000 mg In Empty Bag 1 bag @ 400 mls/hr IVPB Q6HR [facility] Rx#:[id number] CO/CI 120 20 LR @50 100 50 200 Pressure Bag 81 36 ceFAZolin 2 gm In Sodium 100 Chloride 0.9% 100 ml @ 100 mls/hr IVPB Q8HR [facility] Rx#:[id number] Intake, IV Titration 1.233 98.266 586.816 Amount Albumin Human 5% 250 ml 250 As IVPB .STK-MED ONE Rx#: [id number] Albumin Human 5% 250 ml 250 As IVPB .STK-MED ONE Rx#: [id number] Clevidipine Butyrate 25 0.5 44.333 mg In Empty Bag 1 bag @ 1 MG/HR 2 mls/hr IV .Q24H [facility] Rx#:[id number] Insulin Regular 100 unit 0.458 0 26.233 In Sodium Chloride 0.9% 100 ml @ Per Protocol IV .Q0M [facility] Rx#:[id number] Nitroglycerin-D5w Pmx 50 0.775 16.725 16.25 mg In Dextrose/Water 1 250ml.bag @ 5 MCG/MIN 1.5 mls/hr IV .Q24H [facility] Rx#: [id number] Propofol 500 mg In Empty 81.041 Bag 1 bag @ Titrate IV . Q0M [facility] Rx#:[id number] Oral 120 Blood Product 0 693 Ffp 24 Cp2d Unit 190 [id number] Ffp 24 Cpd Unit 0 [id number] Ffp 24 Cpd Unit 0 [id number] Ffp 24 Cpd Unit 301 [id number] Platelet Pheresis Acda1 0 202 Unit [id number] Platelet Pheresis Acda2 0 Unit [id number] Output: Chest Tube Drainage 400 1041 849 Bilateral Mediastinal 310 755 337 Chest Tube Left Lateral 85 200 290 Chest Chest Tube Right Lateral 5 86 222 Chest Urine 2580 1480 394 Estimated Blood Loss 1900 Other: Voiding Method Indwelling Catheter Indwelling Catheter Indwelling Catheter ABP, PAP, CO, CI - Last Documented Arterial Blood Pressure 102/43 Pulmonary Artery Pressure 24/11 Cardiac Output 5.4 Cardiac Index 2.7 - Constitutional General appearance: Present: cooperative, no acute distress - Respiratory Details: Lungs sounds bilaterally. Respirations even, nonlabored. Currently on 6 L nasal cannula with this oxygen saturation 96%. Left pleural chest tube with 120 mL serosanguineous fluid drainage overnight, 300 mL since surgery. Mediastinal chest tube with 300 mL serosanguineous fluid overnight, 1200 mL since surgery. Right pleural chest tube had 65 mL serosanguineous fluid overnight, 130 mL since surgery. No air leaks present. Able to achieve 750 mL on his incentive spirometer. - Cardiovascular Details: S1, S2 present. Regular rate and rhythm, normal sinus rhythm on telemetry. Sternum stable. Heart hugger placed patient demonstrating appropriate use. Left brachial arterial line present, right internal jugular Cordis present. [place]te catheter DC'd this morning. A/V epicardial pacemaker wires present, attached to generator, generator off. Teds/SCDs present. - Gastrointestinal Gastrointestinal Comment(s): Abdomen soft, nontender, nondistended. Active bowel sounds 4 quadrants. Tolerating diet. - Genitourinary Genitourinary Comment(s): Pringle present draining clear, yellow urine. Output 60-150 mL per hour. - Integumentary Integumentary Comment(s): Anterior chest incision well approximated and covered with dry intact dressing. - Musculoskeletal Musculoskeletal: Present: strength equal bilaterally - Psychiatric Psychiatric: Present: A&O x's 3, appropriate affect, intact judgment & insight - Allied health notes Allied health notes reviewed: nursing - Labs CBC & Chem 7: 01/30/17 12:36 01/30/17 12:36 Labs: Abnormal Lab Results - Last 24 Hours (Table) 01/22/17 01/29/17 01/29/17 Range/Units 09:05 08:55 10:25 RBC (4.30-5.90) m/uL Hgb (13.0-17.5) gm/dL Hct (39.0-53.0) % Plt Count (150-450) k/uL Lymphocytes # (1.0-4.8) k/uL ABG pH (7.35-7.45) ABG pCO2 (35-45) mmHg ABG pO2 117 H (83-108) mmHg ABG HCO3 (21-25) mmol/L ABG Total CO2 (19-24) mmol/L ABG O2 Saturation 97.8 H 98.4 H (94-97) % ABG Hematocrit (34.0-46.0) % ABG Sodium 148 H 147 H (135-146) mmol/L ABG Potassium (3.4-4.5) mmol/L Chloride (98-107) mmol/L Glucose (74-99) mg/dL POC Glucose (mg/dL) (75-99) mg/dL Calcium (8.4-10.2) mg/dL Magnesium (1.6-2.3) mg/dL Total Protein (6.3-8.2) g/dL Albumin (3.5-5.0) g/dL Arterial Blood Potassium (3.4-4.5) mmol/L Crossmatch See Detail 01/29/17 01/29/17 01/29/17 Range/Units 11:14 11:48 12:34 RBC (4.30-5.90) m/uL Hgb (13.0-17.5) gm/dL Hct (39.0-53.0) % Plt Count (150-450) k/uL Lymphocytes # (1.0-4.8) k/uL ABG pH 7.34 L 7.34 L (7.35-7.45) ABG pCO2 48 H 46 H (35-45) mmHg ABG pO2 277 H 229 H 210 H (83-108) mmHg ABG HCO3 (21-25) mmol/L ABG Total CO2 25 H 27 H 26 H (19-24) mmol/L ABG O2 Saturation 99.9 H 99.8 H 99.7 H (94-97) % ABG Hematocrit 30 L 30 L 31 L (34.0-46.0) % ABG Sodium (135-146) mmol/L ABG Potassium 5.2 H 5.1 H 4.8 H (3.4-4.5) mmol/L Chloride (98-107) mmol/L Glucose (74-99) mg/dL POC Glucose (mg/dL) (75-99) mg/dL Calcium (8.4-10.2) mg/dL Magnesium (1.6-2.3) mg/dL Total Protein (6.3-8.2) g/dL Albumin (3.5-5.0) g/dL Arterial Blood Potassium 5.2 H 5.1 H 4.8 H (3.4-4.5) mmol/L Crossmatch 01/29/17 01/29/17 01/29/17 Range/Units 13:24 14:16 15:38 RBC (4.30-5.90) m/uL Hgb (13.0-17.5) gm/dL Hct (39.0-53.0) % Plt Count (150-450) k/uL Lymphocytes # (1.0-4.8) k/uL ABG pH (7.35-7.45) ABG pCO2 (35-45) mmHg ABG pO2 288 H 331 H (83-108) mmHg ABG HCO3 (21-25) mmol/L ABG Total CO2 25 H 25 H (19-24) mmol/L ABG O2 Saturation 99.9 H 99.9 H (94-97) % ABG Hematocrit 31 L 27 L (34.0-46.0) % ABG Sodium (135-146) mmol/L ABG Potassium 4.9 H 5.4 H (3.4-4.5) mmol/L Chloride (98-107) mmol/L Glucose (74-99) mg/dL POC Glucose (mg/dL) 189 H (75-99) mg/dL Calcium (8.4-10.2) mg/dL Magnesium (1.6-2.3) mg/dL Total Protein (6.3-8.2) g/dL Albumin (3.5-5.0) g/dL Arterial Blood Potassium 4.9 H 5.4 H (3.4-4.5) mmol/L Crossmatch 01/29/17 01/29/17 01/29/17 Range/Units 15:39 16:35 16:36 RBC 2.39 L (4.30-5.90) m/uL Hgb 7.8 L D (13.0-17.5) gm/dL Hct 22.6 L (39.0-53.0) % Plt Count 59 L D (150-450) k/uL Lymphocytes # 0.9 L (1.0-4.8) k/uL ABG pH (7.35-7.45) ABG pCO2 (35-45) mmHg ABG pO2 224 H (83-108) mmHg ABG HCO3 (21-25) mmol/L ABG Total CO2 (19-24) mmol/L ABG O2 Saturation 99.8 H (94-97) % ABG Hematocrit 29 L (34.0-46.0) % ABG Sodium (135-146) mmol/L ABG Potassium (3.4-4.5) mmol/L Chloride (98-107) mmol/L Glucose (74-99) mg/dL POC Glucose (mg/dL) 143 H (75-99) mg/dL Calcium (8.4-10.2) mg/dL Magnesium (1.6-2.3) mg/dL Total Protein (6.3-8.2) g/dL Albumin (3.5-5.0) g/dL Arterial Blood Potassium (3.4-4.5) mmol/L Crossmatch 01/29/17 01/29/17 01/29/17 Range/Units 16:36 17:10 17:12 RBC (4.30-5.90) m/uL Hgb (13.0-17.5) gm/dL Hct (39.0-53.0) % Plt Count (150-450) k/uL Lymphocytes # (1.0-4.8) k/uL ABG pH (7.35-7.45) ABG pCO2 46 H (35-45) mmHg ABG pO2 261 H (83-108) mmHg ABG HCO3 26 H (21-25) mmol/L ABG Total CO2 27 H (19-24) mmol/L ABG O2 Saturation 99.0 H (94-97) % ABG Hematocrit (34.0-46.0) % ABG Sodium (135-146) mmol/L ABG Potassium (3.4-4.5) mmol/L Chloride 109 H (98-107) mmol/L Glucose 127 H (74-99) mg/dL POC Glucose (mg/dL) 124 H (75-99) mg/dL Calcium 7.6 L (8.4-10.2) mg/dL Magnesium 2.8 H (1.6-2.3) mg/dL Total Protein 4.6 L (6.3-8.2) g/dL Albumin 2.8 L (3.5-5.0) g/dL Arterial Blood Potassium (3.4-4.5) mmol/L Crossmatch 01/29/17 01/29/17 01/29/17 Range/Units 18:08 18:56 19:20 RBC 2.83 L (4.30-5.90) m/uL Hgb 9.0 L (13.0-17.5) gm/dL Hct 27.5 L (39.0-53.0) % Plt Count 106 L D (150-450) k/uL Lymphocytes # 0.6 L (1.0-4.8) k/uL ABG pH (7.35-7.45) ABG pCO2 (35-45) mmHg ABG pO2 (83-108) mmHg ABG HCO3 (21-25) mmol/L ABG Total CO2 (19-24) mmol/L ABG O2 Saturation (94-97) % ABG Hematocrit (34.0-46.0) % ABG Sodium (135-146) mmol/L ABG Potassium (3.4-4.5) mmol/L Chloride (98-107) mmol/L Glucose (74-99) mg/dL POC Glucose (mg/dL) 101 H 108 H (75-99) mg/dL Calcium (8.4-10.2) mg/dL Magnesium (1.6-2.3) mg/dL Total Protein (6.3-8.2) g/dL Albumin (3.5-5.0) g/dL Arterial Blood Potassium (3.4-4.5) mmol/L Crossmatch 01/29/17 01/29/17 01/29/17 Range/Units 20:04 21:01 22:05 RBC (4.30-5.90) m/uL Hgb (13.0-17.5) gm/dL Hct (39.0-53.0) % Plt Count (150-450) k/uL Lymphocytes # (1.0-4.8) k/uL ABG pH (7.35-7.45) ABG pCO2 (35-45) mmHg ABG pO2 (83-108) mmHg ABG HCO3 (21-25) mmol/L ABG Total CO2 (19-24) mmol/L ABG O2 Saturation (94-97) % ABG Hematocrit (34.0-46.0) % ABG Sodium (135-146) mmol/L ABG Potassium (3.4-4.5) mmol/L Chloride (98-107) mmol/L Glucose (74-99) mg/dL POC Glucose (mg/dL) 141 H 147 H 122 H (75-99) mg/dL Calcium (8.4-10.2) mg/dL Magnesium (1.6-2.3) mg/dL Total Protein (6.3-8.2) g/dL Albumin (3.5-5.0) g/dL Arterial Blood Potassium (3.4-4.5) mmol/L Crossmatch 01/29/17 01/30/17 01/30/17 Range/Units 23:02 00:04 01:06 RBC (4.30-5.90) m/uL Hgb (13.0-17.5) gm/dL Hct (39.0-53.0) % Plt Count (150-450) k/uL Lymphocytes # (1.0-4.8) k/uL ABG pH (7.35-7.45) ABG pCO2 (35-45) mmHg ABG pO2 (83-108) mmHg ABG HCO3 (21-25) mmol/L ABG Total CO2 (19-24) mmol/L ABG O2 Saturation (94-97) % ABG Hematocrit (34.0-46.0) % ABG Sodium (135-146) mmol/L ABG Potassium (3.4-4.5) mmol/L Chloride (98-107) mmol/L Glucose (74-99) mg/dL POC Glucose (mg/dL) 125 H 132 H 146 H (75-99) mg/dL Calcium (8.4-10.2) mg/dL Magnesium (1.6-2.3) mg/dL Total Protein (6.3-8.2) g/dL Albumin (3.5-5.0) g/dL Arterial Blood Potassium (3.4-4.5) mmol/L Crossmatch 01/30/17 01/30/17 01/30/17 Range/Units 01:38 02:03 03:02 RBC (4.30-5.90) m/uL Hgb (13.0-17.5) gm/dL Hct (39.0-53.0) % Plt Count (150-450) k/uL Lymphocytes # (1.0-4.8) k/uL ABG pH (7.35-7.45) ABG pCO2 34 L (35-45) mmHg ABG pO2 67 L (83-108) mmHg ABG HCO3 (21-25) mmol/L ABG Total CO2 (19-24) mmol/L ABG O2 Saturation (94-97) % ABG Hematocrit (34.0-46.0) % ABG Sodium (135-146) mmol/L ABG Potassium (3.4-4.5) mmol/L Chloride (98-107) mmol/L Glucose (74-99) mg/dL POC Glucose (mg/dL) 142 H 137 H (75-99) mg/dL Calcium (8.4-10.2) mg/dL Magnesium (1.6-2.3) mg/dL Total Protein (6.3-8.2) g/dL Albumin (3.5-5.0) g/dL Arterial Blood Potassium (3.4-4.5) mmol/L Crossmatch 01/30/17 01/30/17 01/30/17 Range/Units 04:05 04:05 06:21 RBC 2.50 L (4.30-5.90) m/uL Hgb 7.9 L (13.0-17.5) gm/dL Hct 24.1 L (39.0-53.0) % Plt Count 100 L (150-450) k/uL Lymphocytes # 0.5 L (1.0-4.8) k/uL ABG pH (7.35-7.45) ABG pCO2 (35-45) mmHg ABG pO2 (83-108) mmHg ABG HCO3 (21-25) mmol/L ABG Total CO2 (19-24) mmol/L ABG O2 Saturation (94-97) % ABG Hematocrit (34.0-46.0) % ABG Sodium (135-146) mmol/L ABG Potassium (3.4-4.5) mmol/L Chloride 108 H (98-107) mmol/L Glucose 123 H (74-99) mg/dL POC Glucose (mg/dL) 132 H (75-99) mg/dL Calcium 8.3 L (8.4-10.2) mg/dL Magnesium (1.6-2.3) mg/dL Total Protein 5.1 L (6.3-8.2) g/dL Albumin 3.3 L (3.5-5.0) g/dL Arterial Blood Potassium (3.4-4.5) mmol/L Crossmatch 01/30/17 01/30/17 01/30/17 Range/Units 06:34 08:33 09:27 RBC (4.30-5.90) m/uL Hgb (13.0-17.5) gm/dL Hct (39.0-53.0) % Plt Count (150-450) k/uL Lymphocytes # (1.0-4.8) k/uL ABG pH (7.35-7.45) ABG pCO2 (35-45) mmHg ABG pO2 (83-108) mmHg ABG HCO3 (21-25) mmol/L ABG Total CO2 (19-24) mmol/L ABG O2 Saturation (94-97) % ABG Hematocrit (34.0-46.0) % ABG Sodium (135-146) mmol/L ABG Potassium (3.4-4.5) mmol/L Chloride (98-107) mmol/L Glucose (74-99) mg/dL POC Glucose (mg/dL) 151 H 144 H 137 H (75-99) mg/dL Calcium (8.4-10.2) mg/dL Magnesium (1.6-2.3) mg/dL Total Protein (6.3-8.2) g/dL Albumin (3.5-5.0) g/dL Arterial Blood Potassium (3.4-4.5) mmol/L Crossmatch 01/30/17 01/30/17 01/30/17 Range/Units 10:09 11:28 12:33 RBC (4.30-5.90) m/uL Hgb (13.0-17.5) gm/dL Hct (39.0-53.0) % Plt Count (150-450) k/uL Lymphocytes # (1.0-4.8) k/uL ABG pH (7.35-7.45) ABG pCO2 (35-45) mmHg ABG pO2 (83-108) mmHg ABG HCO3 (21-25) mmol/L ABG Total CO2 (19-24) mmol/L ABG O2 Saturation (94-97) % ABG Hematocrit (34.0-46.0) % ABG Sodium (135-146) mmol/L ABG Potassium (3.4-4.5) mmol/L Chloride (98-107) mmol/L Glucose (74-99) mg/dL POC Glucose (mg/dL) 136 H 137 H 142 H (75-99) mg/dL Calcium (8.4-10.2) mg/dL Magnesium (1.6-2.3) mg/dL Total Protein (6.3-8.2) g/dL Albumin (3.5-5.0) g/dL Arterial Blood Potassium (3.4-4.5) mmol/L Crossmatch 01/30/17 01/30/17 01/30/17 Range/Units 12:36 12:36 14:04 RBC 2.36 L (4.30-5.90) m/uL Hgb 7.6 L (13.0-17.5) gm/dL Hct 22.9 L (39.0-53.0) % Plt Count 95 L (150-450) k/uL Lymphocytes # 0.7 L (1.0-4.8) k/uL ABG pH (7.35-7.45) ABG pCO2 (35-45) mmHg ABG pO2 (83-108) mmHg ABG HCO3 (21-25) mmol/L ABG Total CO2 (19-24) mmol/L ABG O2 Saturation (94-97) % ABG Hematocrit (34.0-46.0) % ABG Sodium (135-146) mmol/L ABG Potassium (3.4-4.5) mmol/L Chloride 111 H (98-107) mmol/L Glucose 120 H (74-99) mg/dL POC Glucose (mg/dL) 170 H (75-99) mg/dL Calcium (8.4-10.2) mg/dL Magnesium (1.6-2.3) mg/dL Total Protein (6.3-8.2) g/dL Albumin (3.5-5.0) g/dL Arterial Blood Potassium (3.4-4.5) mmol/L Crossmatch - Imaging and Cardiology Chest x-ray: report reviewed, image reviewed Assessment and Plan (1) Ascending aortic aneurysm Status: Acute (2) Aortic valve regurgitation Status: Acute (3) Coronary artery disease Status: Acute (4) Hypertension Status: Acute (5) Hyperlipidemia Status: Acute (6) Chronic obstructive pulmonary disease Status: Acute Plan: 1. Continue low-dose aspirin, Lipitor, Lopressor. Hold Plavix, subcu heparin for now secondary to thrombus sideropenia. 2. [place]-Lynnette catheter remove this morning. Keep chest tubes, Pringle for 1 more day. 3. Wean O2 as tolerated. Encourage incentive spirometer use. 4. Increase activity, out of bed to chair. Physical therapy to follow. 5. GI/DVT prophylaxis. 6. Continue to monitor daily labs, chest x-rays, chest tube output. 7. Insulin drip/diabetic management per primary care service. 8. More recommendations as patient progresses. Time with Patient: Greater than 30 <Charbel Mario - Last Filed: 02/01/17 16:17> Objective - Vital Signs Vital signs: Vital Signs Temp 98.5 F 02/01/17 12:00 Pulse 72 02/01/17 12:00 Resp 18 02/01/17 12:00 BP 100/54 02/01/17 12:00 Pulse Ox 94 L 02/01/17 12:00 Intake & Output 01/31/17 02/01/17 02/01/17 18:59 06:59 18:59 Intake Total 872 600 200 Output Total 725 710 90 Balance 147 -110 110 Weight 94.4 kg 92.5 kg Intake: IV 212 0.9 at 30 ml/hr 120 LR @50 50 Pressure Bag 42 Oral 660 600 200 Output: Chest Tube Drainage 335 290 90 Bilateral Mediastinal 90 Chest Tube Left Lateral 110 110 30 Chest Chest Tube Right Lateral 135 180 60 Chest Urine 390 420 Other: Voiding Method Indwelling Catheter Indwelling Catheter Indwelling Catheter ABP, PAP, CO, CI - Last Documented Arterial Blood Pressure 101/52 Pulmonary Artery Pressure 24/11 Cardiac Output 5.4 Cardiac Index 2.7 - Labs CBC & Chem 7: 02/01/17 06:27 02/01/17 06:27 Labs: Abnormal Lab Results - Last 24 Hours (Table) 01/31/17 01/31/17 02/01/17 Range/Units 16:49 20:36 01:59 RBC (4.30-5.90) m/uL Hgb (13.0-17.5) gm/dL Hct (39.0-53.0) % Plt Count (150-450) k/uL Chloride (98-107) mmol/L BUN (9-20) mg/dL Glucose (74-99) mg/dL POC Glucose (mg/dL) 132 H 107 H 117 H (75-99) mg/dL Calcium (8.4-10.2) mg/dL Total Protein (6.3-8.2) g/dL Albumin (3.5-5.0) g/dL 02/01/17 02/01/17 02/01/17 Range/Units 05:38 06:27 06:27 RBC 2.17 L (4.30-5.90) m/uL Hgb 7.4 L (13.0-17.5) gm/dL Hct 21.0 L (39.0-53.0) % Plt Count 70 L (150-450) k/uL Chloride 108 H (98-107) mmol/L BUN 23 H (9-20) mg/dL Glucose 105 H (74-99) mg/dL POC Glucose (mg/dL) 128 H (75-99) mg/dL Calcium 8.2 L (8.4-10.2) mg/dL Total Protein 5.0 L (6.3-8.2) g/dL Albumin 2.9 L (3.5-5.0) g/dL 02/01/17 Range/Units 11:56 RBC (4.30-5.90) m/uL Hgb (13.0-17.5) gm/dL Hct (39.0-53.0) % Plt Count (150-450) k/uL Chloride (98-107) mmol/L BUN (9-20) mg/dL Glucose (74-99) mg/dL POC Glucose (mg/dL) 134 H (75-99) mg/dL Calcium (8.4-10.2) mg/dL Total Protein (6.3-8.2) g/dL Albumin (3.5-5.0) g/dL Assessment and Plan Plan: The patient was seen and examined. I agree with the above assessment and plan. The patient was extubated late last night. We will remove his [place]-Lynnette catheter this morning. He remains on a significant amount of supplemental oxygen. We will wean him as tolerated. His Plavix and subcutaneous heparin are currently on hold secondary to thrombocytopenia. He did receive low-dose aspirin. We will keep his chest tubes for now. We will get him up in a chair as tolerated.
[2017-01-30 14:54] LABS: Glucose,Whole Blood 147 mg/dL (75-99)
[2017-01-30 15:07] LABS: Glucose,Whole Blood 128 mg/dL (75-99)
[2017-01-30] MEDS ORDERED: MAGNESIUM HYDROXIDE 2,400 MG/10 ML CUP PO PRN (15:58)
[2017-01-30] MEDS ORDERED: BISACODYL 10 MG SUPP RECTAL PRN (15:58)
[2017-01-30 16:25] LABS: Glucose,Whole Blood 124 mg/dL (75-99)
[2017-01-30 17:40] LABS: Glucose,Whole Blood 121 mg/dL (75-99)
[2017-01-30] MEDS: INSULIN LISPRO (humaLOG) 300 UNIT/3 ML VIAL SQ SCH ×2 (17:40→21:08)
--- NOTE | 2017-01-30 19:09 | CONS ---
DATE OF CONSULTATION: 01/30/2017 REASON FOR CONSULTATION: Medical management requested by Dr. Cano. CONSULTATION: This is a pleasant 66-year-old patient of Dr. Meyers. The patient has undergone a single-vessel bypass and also underwent aortic root graft replacement. Patient has got 2 mediastinal and [address] pleural chest tubes in place. Sitting up in a chair earlier today, did tolerate clear liquids. The patient's chronic stable medical conditions include COPD, hyperlipidemia, hypertension, osteoarthritis, BPH. The patient does feel slightly short of short of breath and tired. REVIEW OF SYSTEMS: CONSTITUTIONAL: Tired. HEENT: None. RESPIRATORY: Baseline some shortness of breath. CARDIOVASCULAR: As above. GASTROINTESTINAL: None. GENITOURINARY: BPH symptoms. DERMATOLOGICAL: None. HEMATOLOGICAL: None. LYMPHATICS: None. PSYCHIATRY: None. NEUROLOGICAL: None. PAST HISTORY: COPD, coronary artery disease, hypertension, hyperlipidemia, GA previously, osteoarthritis, BPH. PAST SURGICAL HISTORY: Appendectomy, back surgery, cardiac catheterization, right knee and left knee replaced, right carpal tunnel trigger finger, bilateral knee arthroscopy, right rotator cuff repair. SOCIAL HISTORY: . Retired from the [employer]. Also retired from the [employer]. Worked as a ( ). Patient smoked cigars and cigarettes in the past. FAMILY HISTORY: DVT, colon, renal and lung cancer. HOME MEDICATIONS: 1. Crestor 10 mg p.o. q.h.s. 2. Motrin 800 mg p.o. every 6 hours p.r.n. 3. Gabapentin 800 milligrams p.o. b.i.d. 4. Felodipine ER 5 mg p.o. daily. 5. Vitamin B12 500 mg p.o. daily. 6. Vitamin D3, 1000 units p.o. daily. 7. Symbicort 160/4.5, 2 puffs b.i.d. 8. Tenormin 12.5 mg p.o. q.h.s. 9. Aspirin 81 mg daily. ALLERGIES: ( ) AND CRANBERRY. On examination, temperature 99.8, pulse 87, respirations 22, blood pressure 104/45, pulse ox 96% on 6L. GENERAL APPEARANCE: Well built, BMI of 30.2. Sitting up in a chair. EYES: Pupils equal. Conjunctivae normal. HEENT: Oral cavity normal. NECK: JVD difficult to assess. Mass not palpable. RESPIRATORY: Effort increased. LUNGS: Diminished breath sounds. CARDIOVASCULAR: First and second sounds normal. No edema. ABDOMEN: Soft. Liver and spleen not palpable. LYMPHATIC: No lymph nodes palpable in neck or axillae. PSYCHIATRY: Alert and oriented x3. Mood and affect normal. CHEST WALL. Patient has 2 mediastinal and [address]. INVESTIGATIONS: White count 5.8, hemoglobin 7.8, platelets 59. Potassium 3.8. BUN and creatinine are normal. Albumin 2.8. Patient's preop hemoglobin was 14.4 and preop platelets were 154. Chest x-ray: Small pleural effusion, small ( ) around 5%. ASSESSMENT: 1. Status post single-vessel coronary artery bypass and aortic root replacement with graft. 2. Coronary artery disease. 3. Chronic obstructive pulmonary disease in an ex-smoker. 4. Hyperlipidemia. 5. Essential hypertension. 6. Primary osteoarthritis of multiple joints, bilaterally. 7. Benign prostatic hypertrophy. 8. Acute postoperative blood loss anemia as expected from surgery. 9. Dilutional thrombocytopenia. 10. Atelectasis. PLAN: Patient is to receive Ativan and DuoNeb, also on aspirin and Lipitor, Lopressor, Protonix. Patient's blood pressure has been running on the lower side right now. I will also add JACKIE inhibitor. Care was discussed with the patient. Thank you, Dr. Cano.
[2017-01-30 20:28] LABS: Glucose,Whole Blood 120 mg/dL (75-99)
[2017-01-30 20:45] LABS: Glucose,Whole Blood 115 mg/dL (75-99)
[2017-01-30] MEDS: LACTATED RINGERS 1,000 ML IV SCH (21:07)
[2017-01-30] MEDS: SENNOSIDES-DOCUSATE SODIUM 1 EACH TAB PO SCH (21:08)
[2017-01-31] MEDS: HYDROcodone/APAP 5-325MG 1 EACH TAB PO PRN (00:01)
[2017-01-31 05:44] LABS: Basophils % (A) 0 %; CH 32.4; CHCM 34.6; Eosinophils # (A) 0.1 k/uL (0-0.7); Eosinophils % (A) 1 %; HCT 20.4 % (39.0-53.0); HDW 2.54; HGB 7.1 gm/dL (13.0-17.5); Luc # (Auto) 0.29; Luc % (Auto) 3; Lymphocytes % (A) 10 %; MCH 32.6 pg (25.0-35.0); MCHC 34.6 g/dL (31.0-37.0); MCV 94.1 fL (80.0-100.0); Mean Platelet Volume 9.1; Monocytes # (A) 0.5 k/uL (0-1.0); Monocytes % (A) 5 %; Neutrophils # (A) 7.9 k/uL (1.3-7.7); Neutrophils % (A) 81 %; RBC 2.17 m/uL (4.30-5.90); RDW 12.9 % (11.5-15.5); WBC 9.7 k/uL (3.8-10.6); WBC (Perox) 8.94
[2017-01-31 05:49] LABS: INR 1.1 (<1.1)
[2017-01-31 06:38] LABS: Ionized Calcium 4.9 mg/dL (4.5-5.3)
[2017-01-31 06:43] LABS: ALT 25 U/L (21-72); AST 47 U/L (17-59); Alkaline Phosphatase 43 U/L (38-126); Anion Gap 9 mmol/L; Blood Urea Nitrogen 16 mg/dL (9-20); Calcium 8.4 mg/dL (8.4-10.2); Carbon Dioxide 24 mmol/L (22-30); Chloride 107 mmol/L (98-107); Glucose 119 mg/dL (74-99); Non-African American GFR(MDRD) >60 (>60 ml/min/1.73 sqM); Potassium 3.9 mmol/L (3.5-5.1); Sodium 140 mmol/L (137-145); Total Bilirubin 1.4 mg/dL (0.2-1.3); Total Protein 5.3 g/dL (6.3-8.2)
[2017-01-31] MEDS: IPRATROPIUM-ALBUTEROL 3 ML NEB INHALATION PRN (07:21)
[2017-01-31] MEDS: KETOROLAC 30 MG/ML 1 ML VIAL IVP SCH ×3 (07:59→17:36)
[2017-01-31] MEDS ORDERED: POTASSIUM CHLORIDE ER 20 MEQ TAB.ER PO SCH (08:00)
[2017-01-31 08:14] LABS: Glucose,Whole Blood 148 mg/dL (75-99)
[2017-01-31] MEDS: PANTOPRAZOLE 40 MG TABLET PO SCH (08:22)
[2017-01-31] MEDS: ASPIRIN 81 MG CHEW PO SCH (08:22)
[2017-01-31] MEDS: INSULIN LISPRO (humaLOG) 300 UNIT/3 ML VIAL SQ SCH ×3 (08:23→17:43)
[2017-01-31] MEDS: ATORVASTATIN 40 MG TAB PO SCH (08:23)
[2017-01-31] MEDS: FERROUS SULFATE 325 MG TAB PO SCH ×2 (08:23→17:44)
[2017-01-31] MEDS: METOPROLOL TARTRATE 25 MG TAB PO SCH ×2 (08:24→21:39)
[2017-01-31] MEDS ORDERED: HYDROcodone/APAP 7.5-325MG 1 EACH TAB ONE (08:25)
[2017-01-31] MEDS: HYDROcodone/APAP 7.5-325MG 1 EACH TAB PO PRN ×3 (08:25→21:28)
--- NOTE | 2017-01-31 09:26 | XR ---
EXAMINATION TYPE: XR chest 1V portable DATE OF EXAM: 01/31/2017 5:54 AM COMPARISON: 01/30/2017 HISTORY: Post cardiac surgery TECHNIQUE: Single frontal view of the chest is obtained. FINDINGS: Bilateral infiltrate and small effusion. [place] catheter removed. Postsurgical changes noted. Less than 5% right apical pneumothorax stable. Chest tubes and mediastinal drain noted. IMPRESSION: 1. Stable less than 5% right apical pneumothorax. 2. Bilateral infiltrate and pleural effusion stable
[2017-01-31] MEDS: FONDAPARINUX 2.5 MG/0.5 ML SYRINGE SQ SCH (12:36)
[2017-01-31 12:40] LABS: Glucose,Whole Blood 130 mg/dL (75-99)
--- NOTE | 2017-01-31 13:31 | PN ---
Mr. Reza is doing very well. He underwent aortic root and ascending aortic root replacement and bypass grafting to the obtuse marginal. His central line is out. The mediastinal chest tube is out. His blood pressure is normal. His heart rates are 80s to 90s. He is in sinus rhythm. Breath sounds are equal bilaterally with good air entry bilaterally. Heart sounds are soft and distant. Abdomen is soft. Extremities are warm, no edema. IMPRESSION: Aortic valve replacement, aortic root replacement, coronary artery disease, status post single vessel coronary artery bypass grafting. He is on appropriate medical treatment right now. PLAN: Continue current medications without any changes and he may go to the telemetry.
--- NOTE | 2017-01-31 14:46 | P.PN ---
<Marlene Patrick - Last Filed: 01/31/17 14:46> Subjective Principal diagnosis: Aortic root, and ascending aortic aneurysm with moderate aortic valve regurgitation, single vessel coronary artery disease with stenosis of the obtuse marginal artery, preserved left ventricular function, hypertension, hyperlipidemia, mild chronic obstructive pulmonary disease. POD #2 aortic root and ascending aortic replacement using a modified Bentall technique with a 27 mm magna ease pericardial bioprosthesis and a 32 mm Valsalva graft with reimplantation of both coronary buttons. Single vessel coronary artery bypass grafting using the left internal mammary artery to the obtuse marginal artery. Intraoperative transesophageal echocardiogram and epi- aortic scanning. Patient currently sitting up in a recliner in no apparent distress. Has had some pain issues overnight. Blood pressure improved since yesterday. Objective - Vital Signs Vital signs: Vital Signs Temp 98.3 F 01/31/17 04:00 Pulse 94 01/31/17 07:34 Resp 28 H 01/31/17 07:00 BP 96/57 01/30/17 16:00 Pulse Ox 99 01/31/17 07:24 Intake & Output 01/30/17 01/31/17 01/31/17 18:59 06:59 18:59 Intake Total 2859.109 774 56 Output Total 1878 1090 205 Balance 981.109 -316 -149 Weight 90 kg 94.4 kg Intake: IV 810 534 56 ACETAMINOPHEN IV (For NPO 200 ) 1,000 mg In Empty Bag 1 bag @ 400 mls/hr IVPB Q6HR [facility] Rx#:[id number] CO/CI 20 LR @50 500 450 50 Pressure Bag 90 84 6 Intake, IV Titration 1089.109 Amount Albumin Human 5% 250 ml 250 As IVPB .STK-MED ONE Rx#: [id number] Albumin Human 5% 250 ml 250 As IVPB .STK-MED ONE Rx#: [id number] Albumin Human 5% 250 ml 500 In Empty Bag 1 bag @ 250 mls/hr IVPB Q1HR PRN Rx#: [id number] Clevidipine Butyrate 25 44.333 mg In Empty Bag 1 bag @ 1 MG/HR 2 mls/hr IV .Q24H [facility] Rx#:[id number] Insulin Regular 100 unit 28.526 In Sodium Chloride 0.9% 100 ml @ Per Protocol IV .Q0M [facility] Rx#:[id number] Nitroglycerin-D5w Pmx 50 16.25 mg In Dextrose/Water 1 250ml.bag @ 5 MCG/MIN 1.5 mls/hr IV .Q24H [facility] Rx#: [id number] Oral 960 240 Output: Chest Tube Drainage 1269 250 130 Bilateral Mediastinal 457 50 30 Chest Tube Left Lateral 520 140 50 Chest Chest Tube Right Lateral 292 60 50 Chest Urine 609 840 75 Other: Voiding Method Indwelling Catheter Indwelling Catheter ABP, PAP, CO, CI - Last Documented Arterial Blood Pressure 128/58 Pulmonary Artery Pressure 24/11 Cardiac Output 5.4 Cardiac Index 2.7 - Constitutional General appearance: Present: cooperative, no acute distress - Respiratory Details: Lungs sounds diminished bilaterally. Respirations even, nonlabored. Currently on 2 L nasal cannula with oxygen saturation 95%. Left pleural chest tube to - 20 cm wall suction, drained 100 mL serosanguineous fluid overnight, 400 mL in the last 24 hours. Right pleural chest tube to -20 cm wall suction, drained 50 mL serosanguineous fluid overnight, 270 mL in the last 24 hours. Mediastinal chest tube to -20 cm wall suction, drained 40 mL serosanguineous fluid overnight , 300 mL last 24 hours. Minimal air leak right pleural chest tube. Able to achieve 750 mL on incentive spirometry. - Cardiovascular Details: S1, S2 present. Regular rate and rhythm, normal sinus rhythm with occasional PACs on telemetry. Sternum stable. A/V epicardial pacemaker wires present, attached to generator, generator off. No edema present. Heart hugger in place with patient demonstrating appropriate use. Teds/SCDs present. Left brachial a line, right internal jugular Cordis still present. - Gastrointestinal Gastrointestinal Comment(s): Abdomen soft, nontender, nondistended. Active bowel sounds 4 quadrants. Tolerating diet. - Genitourinary Genitourinary Comment(s): Pringle present draining clear, yellow urine. Output 60-90 mL/h. - Integumentary Integumentary Comment(s): Anterior chest incision well approximated and covered with dry intact dressing. - Musculoskeletal Musculoskeletal: Present: strength equal bilaterally - Psychiatric Psychiatric: Present: A&O x's 3, appropriate affect, intact judgment & insight - Allied health notes Allied health notes reviewed: nursing - Labs CBC & Chem 7: 01/31/17 05:20 01/31/17 05:20 Labs: Abnormal Lab Results - Last 24 Hours (Table) 01/29/17 01/29/17 01/29/17 Range/Units 08:55 10:25 11:14 RBC (4.30-5.90) m/uL Hgb (13.0-17.5) gm/dL Hct (39.0-53.0) % Plt Count (150-450) k/uL Neutrophils # (1.3-7.7) k/uL Lymphocytes # (1.0-4.8) k/uL ABG pH (7.35-7.45) ABG pCO2 (35-45) mmHg ABG pO2 117 H 277 H (83-108) mmHg ABG Total CO2 25 H (19-24) mmol/L ABG O2 Saturation 97.8 H 98.4 H 99.9 H (94-97) % ABG Hematocrit 30 L (34.0-46.0) % ABG Sodium 148 H 147 H (135-146) mmol/L ABG Potassium 5.2 H (3.4-4.5) mmol/L Chloride (98-107) mmol/L Glucose (74-99) mg/dL POC Glucose (mg/dL) (75-99) mg/dL Total Bilirubin (0.2-1.3) mg/dL Total Protein (6.3-8.2) g/dL Albumin (3.5-5.0) g/dL Arterial Blood Potassium 5.2 H (3.4-4.5) mmol/L 01/29/17 01/29/17 01/29/17 Range/Units 11:48 12:34 13:24 RBC (4.30-5.90) m/uL Hgb (13.0-17.5) gm/dL Hct (39.0-53.0) % Plt Count (150-450) k/uL Neutrophils # (1.3-7.7) k/uL Lymphocytes # (1.0-4.8) k/uL ABG pH 7.34 L 7.34 L (7.35-7.45) ABG pCO2 48 H 46 H (35-45) mmHg ABG pO2 229 H 210 H 288 H (83-108) mmHg ABG Total CO2 27 H 26 H 25 H (19-24) mmol/L ABG O2 Saturation 99.8 H 99.7 H 99.9 H (94-97) % ABG Hematocrit 30 L 31 L 31 L (34.0-46.0) % ABG Sodium (135-146) mmol/L ABG Potassium 5.1 H 4.8 H 4.9 H (3.4-4.5) mmol/L Chloride (98-107) mmol/L Glucose (74-99) mg/dL POC Glucose (mg/dL) (75-99) mg/dL Total Bilirubin (0.2-1.3) mg/dL Total Protein (6.3-8.2) g/dL Albumin (3.5-5.0) g/dL Arterial Blood Potassium 5.1 H 4.8 H 4.9 H (3.4-4.5) mmol/L 01/29/17 01/29/17 01/30/17 Range/Units 14:16 15:39 08:33 RBC (4.30-5.90) m/uL Hgb (13.0-17.5) gm/dL Hct (39.0-53.0) % Plt Count (150-450) k/uL Neutrophils # (1.3-7.7) k/uL Lymphocytes # (1.0-4.8) k/uL ABG pH (7.35-7.45) ABG pCO2 (35-45) mmHg ABG pO2 331 H 224 H (83-108) mmHg ABG Total CO2 25 H (19-24) mmol/L ABG O2 Saturation 99.9 H 99.8 H (94-97) % ABG Hematocrit 27 L 29 L (34.0-46.0) % ABG Sodium (135-146) mmol/L ABG Potassium 5.4 H (3.4-4.5) mmol/L Chloride (98-107) mmol/L Glucose (74-99) mg/dL POC Glucose (mg/dL) 144 H (75-99) mg/dL Total Bilirubin (0.2-1.3) mg/dL Total Protein (6.3-8.2) g/dL Albumin (3.5-5.0) g/dL Arterial Blood Potassium 5.4 H (3.4-4.5) mmol/L 01/30/17 01/30/17 01/30/17 Range/Units 09:27 10:09 11:28 RBC (4.30-5.90) m/uL Hgb (13.0-17.5) gm/dL Hct (39.0-53.0) % Plt Count (150-450) k/uL Neutrophils # (1.3-7.7) k/uL Lymphocytes # (1.0-4.8) k/uL ABG pH (7.35-7.45) ABG pCO2 (35-45) mmHg ABG pO2 (83-108) mmHg ABG Total CO2 (19-24) mmol/L ABG O2 Saturation (94-97) % ABG Hematocrit (34.0-46.0) % ABG Sodium (135-146) mmol/L ABG Potassium (3.4-4.5) mmol/L Chloride (98-107) mmol/L Glucose (74-99) mg/dL POC Glucose (mg/dL) 137 H 136 H 137 H (75-99) mg/dL Total Bilirubin (0.2-1.3) mg/dL Total Protein (6.3-8.2) g/dL Albumin (3.5-5.0) g/dL Arterial Blood Potassium (3.4-4.5) mmol/L 01/30/17 01/30/17 01/30/17 Range/Units 12:33 12:36 12:36 RBC 2.36 L (4.30-5.90) m/uL Hgb 7.6 L (13.0-17.5) gm/dL Hct 22.9 L (39.0-53.0) % Plt Count 95 L (150-450) k/uL Neutrophils # (1.3-7.7) k/uL Lymphocytes # 0.7 L (1.0-4.8) k/uL ABG pH (7.35-7.45) ABG pCO2 (35-45) mmHg ABG pO2 (83-108) mmHg ABG Total CO2 (19-24) mmol/L ABG O2 Saturation (94-97) % ABG Hematocrit (34.0-46.0) % ABG Sodium (135-146) mmol/L ABG Potassium (3.4-4.5) mmol/L Chloride 111 H (98-107) mmol/L Glucose 120 H (74-99) mg/dL POC Glucose (mg/dL) 142 H (75-99) mg/dL Total Bilirubin (0.2-1.3) mg/dL Total Protein (6.3-8.2) g/dL Albumin (3.5-5.0) g/dL Arterial Blood Potassium (3.4-4.5) mmol/L 01/30/17 01/30/17 01/30/17 Range/Units 14:04 14:51 15:06 RBC (4.30-5.90) m/uL Hgb (13.0-17.5) gm/dL Hct (39.0-53.0) % Plt Count (150-450) k/uL Neutrophils # (1.3-7.7) k/uL Lymphocytes # (1.0-4.8) k/uL ABG pH (7.35-7.45) ABG pCO2 (35-45) mmHg ABG pO2 (83-108) mmHg ABG Total CO2 (19-24) mmol/L ABG O2 Saturation (94-97) % ABG Hematocrit (34.0-46.0) % ABG Sodium (135-146) mmol/L ABG Potassium (3.4-4.5) mmol/L Chloride (98-107) mmol/L Glucose (74-99) mg/dL POC Glucose (mg/dL) 170 H 147 H 128 H (75-99) mg/dL Total Bilirubin (0.2-1.3) mg/dL Total Protein (6.3-8.2) g/dL Albumin (3.5-5.0) g/dL Arterial Blood Potassium (3.4-4.5) mmol/L 01/30/17 01/30/17 01/30/17 Range/Units 16:23 17:38 20:26 RBC (4.30-5.90) m/uL Hgb (13.0-17.5) gm/dL Hct (39.0-53.0) % Plt Count (150-450) k/uL Neutrophils # (1.3-7.7) k/uL Lymphocytes # (1.0-4.8) k/uL ABG pH (7.35-7.45) ABG pCO2 (35-45) mmHg ABG pO2 (83-108) mmHg ABG Total CO2 (19-24) mmol/L ABG O2 Saturation (94-97) % ABG Hematocrit (34.0-46.0) % ABG Sodium (135-146) mmol/L ABG Potassium (3.4-4.5) mmol/L Chloride (98-107) mmol/L Glucose (74-99) mg/dL POC Glucose (mg/dL) 124 H 121 H 120 H (75-99) mg/dL Total Bilirubin (0.2-1.3) mg/dL Total Protein (6.3-8.2) g/dL Albumin (3.5-5.0) g/dL Arterial Blood Potassium (3.4-4.5) mmol/L 01/30/17 01/31/17 01/31/17 Range/Units 20:43 05:20 05:20 RBC 2.17 L (4.30-5.90) m/uL Hgb 7.1 L (13.0-17.5) gm/dL Hct 20.4 L (39.0-53.0) % Plt Count 76 L (150-450) k/uL Neutrophils # 7.9 H (1.3-7.7) k/uL Lymphocytes # (1.0-4.8) k/uL ABG pH (7.35-7.45) ABG pCO2 (35-45) mmHg ABG pO2 (83-108) mmHg ABG Total CO2 (19-24) mmol/L ABG O2 Saturation (94-97) % ABG Hematocrit (34.0-46.0) % ABG Sodium (135-146) mmol/L ABG Potassium (3.4-4.5) mmol/L Chloride (98-107) mmol/L Glucose 119 H (74-99) mg/dL POC Glucose (mg/dL) 115 H (75-99) mg/dL Total Bilirubin 1.4 H (0.2-1.3) mg/dL Total Protein 5.3 L (6.3-8.2) g/dL Albumin 3.2 L (3.5-5.0) g/dL Arterial Blood Potassium (3.4-4.5) mmol/L 01/31/17 Range/Units 08:11 RBC (4.30-5.90) m/uL Hgb (13.0-17.5) gm/dL Hct (39.0-53.0) % Plt Count (150-450) k/uL Neutrophils # (1.3-7.7) k/uL Lymphocytes # (1.0-4.8) k/uL ABG pH (7.35-7.45) ABG pCO2 (35-45) mmHg ABG pO2 (83-108) mmHg ABG Total CO2 (19-24) mmol/L ABG O2 Saturation (94-97) % ABG Hematocrit (34.0-46.0) % ABG Sodium (135-146) mmol/L ABG Potassium (3.4-4.5) mmol/L Chloride (98-107) mmol/L Glucose (74-99) mg/dL POC Glucose (mg/dL) 148 H (75-99) mg/dL Total Bilirubin (0.2-1.3) mg/dL Total Protein (6.3-8.2) g/dL Albumin (3.5-5.0) g/dL Arterial Blood Potassium (3.4-4.5) mmol/L - Imaging and Cardiology Chest x-ray: image reviewed Assessment and Plan (1) Ascending aortic aneurysm Status: Acute (2) Aortic valve regurgitation Status: Acute (3) Coronary artery disease Status: Acute (4) Hypertension Status: Acute (5) Hyperlipidemia Status: Acute (6) Chronic obstructive pulmonary disease Status: Acute Plan: 1. Continue low-dose aspirin, Lipitor. Will increase Lopressor to 25 mg twice a day. 2. No Plavix or subcu heparin. Will start Arixtra. Will add iron supplementation. 3. Add Toradol. Increase [place] for better pain control. 4. Wean O2 as tolerated. Encourage incentive spirometer use. 5. Increase activity, ambulate in hallway. Physical therapy to follow. 6. DC Pringle. Will DC mediastinal chest tubes. Ground epicardial pacemaker wires. 7. GI/DVT prophylaxis. 8. Continue to monitor daily labs, chest x-rays, chest tube output. 9. Diabetic management per primary care service. 10. Anticipate transfer out of the ICU within the next 24 hours. Time with Patient: Greater than 30 <Charbel Mario - Last Filed: 02/01/17 16:19> Objective - Vital Signs Vital signs: Vital Signs Temp 98.5 F 02/01/17 12:00 Pulse 72 02/01/17 12:00 Resp 18 02/01/17 12:00 BP 100/54 02/01/17 12:00 Pulse Ox 94 L 02/01/17 12:00 Intake & Output 01/31/17 02/01/17 02/01/17 18:59 06:59 18:59 Intake Total 872 600 200 Output Total 725 710 90 Balance 147 -110 110 Weight 94.4 kg 92.5 kg Intake: IV 212 0.9 at 30 ml/hr 120 LR @50 50 Pressure Bag 42 Oral 660 600 200 Output: Chest Tube Drainage 335 290 90 Bilateral Mediastinal 90 Chest Tube Left Lateral 110 110 30 Chest Chest Tube Right Lateral 135 180 60 Chest Urine 390 420 Other: Voiding Method Indwelling Catheter Indwelling Catheter Indwelling Catheter ABP, PAP, CO, CI - Last Documented Arterial Blood Pressure 101/52 Pulmonary Artery Pressure 24/11 Cardiac Output 5.4 Cardiac Index 2.7 - Labs CBC & Chem 7: 02/01/17 06:27 02/01/17 06:27 Labs: Abnormal Lab Results - Last 24 Hours (Table) 01/31/17 01/31/17 02/01/17 Range/Units 16:49 20:36 01:59 RBC (4.30-5.90) m/uL Hgb (13.0-17.5) gm/dL Hct (39.0-53.0) % Plt Count (150-450) k/uL Chloride (98-107) mmol/L BUN (9-20) mg/dL Glucose (74-99) mg/dL POC Glucose (mg/dL) 132 H 107 H 117 H (75-99) mg/dL Calcium (8.4-10.2) mg/dL Total Protein (6.3-8.2) g/dL Albumin (3.5-5.0) g/dL 02/01/17 02/01/17 02/01/17 Range/Units 05:38 06:27 06:27 RBC 2.17 L (4.30-5.90) m/uL Hgb 7.4 L (13.0-17.5) gm/dL Hct 21.0 L (39.0-53.0) % Plt Count 70 L (150-450) k/uL Chloride 108 H (98-107) mmol/L BUN 23 H (9-20) mg/dL Glucose 105 H (74-99) mg/dL POC Glucose (mg/dL) 128 H (75-99) mg/dL Calcium 8.2 L (8.4-10.2) mg/dL Total Protein 5.0 L (6.3-8.2) g/dL Albumin 2.9 L (3.5-5.0) g/dL 02/01/17 Range/Units 11:56 RBC (4.30-5.90) m/uL Hgb (13.0-17.5) gm/dL Hct (39.0-53.0) % Plt Count (150-450) k/uL Chloride (98-107) mmol/L BUN (9-20) mg/dL Glucose (74-99) mg/dL POC Glucose (mg/dL) 134 H (75-99) mg/dL Calcium (8.4-10.2) mg/dL Total Protein (6.3-8.2) g/dL Albumin (3.5-5.0) g/dL Assessment and Plan Plan: The patient was seen and examined. I agree with the above assessment and plan. Overall he looks much better today. His oxygen requirement is lower. His mediastinal chest tubes were removed. We will keep his pleural tubes for now. We'll continue to control his pain. A beta avani will be added as tolerated. He may be transferred to [facility] this afternoon.
[2017-01-31] MEDS: CLEVIDIPINE BUTYRATE 25 MG in EMPTY BAG 1 BAG IV SCH (16:03)
[2017-01-31 17:02] LABS: Glucose,Whole Blood 132 mg/dL (75-99)
--- NOTE | 2017-01-31 20:09 | PN ---
DATE OF SERVICE: 01/31/2017. PRESENTING COMPLAINT: Medical management in a patient status post CABG surgery. INTERVAL HISTORY: This is a 66-year-old patient who underwent a single vessel bypass and aortic root graft replacement. Today on exam, patient is sitting up in a chair. Three chest tubes remain in place. Heart hugger remains in place. Patient is awake and alert. No drips noted to be infusing. Patient does complain of feeling some pain, but it is manageable. Review of systems done for constitutional, cardiovascular, pulmonary; relevant findings as above. CURRENT MEDICATIONS: [place], aspirin, Lipitor, Arixtra, Humalog, Lopressor, Protonix, GENERAL APPEARANCE: Patient sitting up, looks slightly uncomfortable; however and holding heart hugger, says it makes his chest feels better. Has some pain but again patient states it is manageable. No acute distress noted or voiced. EYES: Pupils equal. Conjunctivae normal. JVD unable to assess. Mass not palpable. LUNGS: Diminished bilaterally. RESPIRATORY: Effort normal. Mildly labored. CARDIOVASCULAR: First and second sounds normal. +2 edema to bilateral lower extremities and ankles. ABDOMEN: Soft, nontender. Liver and spleen not palpable. PSYCHIATRY: Alert and oriented x3. Mood and affect normal. Chest wall, midline incision intact. Surgical dressing in place. Pacer wires noted. Three chest tubes in place, left right and mediastinal draining serosanguineous drainage. INVESTIGATIONS: White blood cell count 9.7, hemoglobin 7.1, platelet count 81. Sodium 140, potassium 3.9. BUN 16, creatinine 0.75. PLAN: Continue current medications and treatment plan. Tentatively planning to pull chest tubes out later this afternoon. As well as patient's central access. Patient is doing well enough where he may be stable enough to transfer to [address] [place] [address]. Will continue to follow closely. Patient was seen and examined by nurse practitioner, Dianne Hassan, and all elements of the case discussed with attending, Dr. Upton. I performed a history and physical examination of this patient and discussed the same with the dictator. I agree with the dictator's note. Any additional findings/opinions, etc. will be noted.
[2017-01-31 20:38] LABS: Glucose,Whole Blood 107 mg/dL (75-99)
[2017-01-31] MEDS: SENNOSIDES-DOCUSATE SODIUM 1 EACH TAB PO SCH (21:36)
[2017-02-01 02:01] LABS: Glucose,Whole Blood 117 mg/dL (75-99)
[2017-02-01 05:39] LABS: Glucose,Whole Blood 128 mg/dL (75-99)
[2017-02-01] MEDS: INSULIN LISPRO (humaLOG) 300 UNIT/3 ML VIAL SQ SCH ×5 (06:46→21:11)
[2017-02-01] MEDS: KETOROLAC 30 MG/ML 1 ML VIAL IVP SCH ×2 (06:47→06:49)
[2017-02-01] MEDS: MUPIROCIN 2% OINT 22 GM TUBE NASAL SCH ×3 (06:47→20:50)
[2017-02-01] MEDS: PANTOPRAZOLE 40 MG TABLET PO SCH (07:01)
[2017-02-01] MEDS: FERROUS SULFATE 325 MG TAB PO SCH ×2 (07:01→18:30)
[2017-02-01 07:15] LABS: ALT 25 U/L (21-72); AST 31 U/L (17-59); Alkaline Phosphatase 44 U/L (38-126); Anion Gap 6 mmol/L; Blood Urea Nitrogen 23 mg/dL (9-20); Calcium 8.2 mg/dL (8.4-10.2); Carbon Dioxide 24 mmol/L (22-30); Chloride 108 mmol/L (98-107); Glucose 105 mg/dL (74-99); Non-African American GFR(MDRD) >60 (>60 ml/min/1.73 sqM); Potassium 4.2 mmol/L (3.5-5.1); Sodium 138 mmol/L (137-145); Total Bilirubin 1.1 mg/dL (0.2-1.3)
[2017-02-01 07:52] LABS: Basophils % (A) 0 %; CHCM 33.2; Eosinophils # (A) 0.3 k/uL (0-0.7); Eosinophils % (A) 4 %; HGB 7.4 gm/dL (13.0-17.5); Luc # (Auto) 0.35; Luc % (Auto) 4; Lymphocytes # (A) 1.5 k/uL (1.0-4.8); Lymphocytes % (A) 16 %; MCH 34.2 pg (25.0-35.0); MCHC 35.3 g/dL (31.0-37.0); MCV 96.9 fL (80.0-100.0); Mean Platelet Volume 9.2; Monocytes # (A) 0.5 k/uL (0-1.0); Monocytes % (A) 6 %; Neutrophils # (A) 6.9 k/uL (1.3-7.7); Neutrophils % (A) 71 %; RBC 2.17 m/uL (4.30-5.90); WBC 9.7 k/uL (3.8-10.6)
[2017-02-01] MEDS: FONDAPARINUX 2.5 MG/0.5 ML SYRINGE SQ SCH (09:22)
[2017-02-01] MEDS: ASPIRIN 81 MG CHEW PO SCH (09:22)
[2017-02-01] MEDS: ATORVASTATIN 40 MG TAB PO SCH (09:22)
[2017-02-01] MEDS: HYDROcodone/APAP 7.5-325MG 1 EACH TAB PO PRN ×2 (09:23→20:59)
[2017-02-01] MEDS: METOPROLOL TARTRATE 25 MG TAB PO SCH ×2 (09:23→20:50)
--- NOTE | 2017-02-01 10:17 | XR ---
EXAMINATION TYPE: XR chest 1V DATE OF EXAM: 02/01/2017 10:04 AM COMPARISON: 01/31/2017 HISTORY: Postop TECHNIQUE: Single frontal view of the chest is obtained. FINDINGS: There are tiny bilateral less than 5% apical pneumothoraces with bilateral chest tubes. Postsurgical change, cardiomegaly and bilateral subsegmental consolidation are seen. Mediastinal drai n not noted with certainty. Correlate clinically. IMPRESSION: 1. Stable bilateral infiltrate. Central interstitial prominence on the left is stable mild underlying congestion in the differential. 2. Tiny less than 5% bilateral apical pneumothorax.
--- NOTE | 2017-02-01 10:22 | P.PN ---
<Wilson Hart Damien - Last Filed: 02/01/17 10:06> Progress Note - Text CV Surgery Nursing POD: #3, 1. aortic root and ascending aortic replacement using a modified Bentall technique with a 27 mm magna ease pericardial bioprosthesis and a 32 mm Valsalva graft with reimplantation of both coronary buttons. 2. Single-vessel coronary artery bypass graft using the left internal mammary artery to the obtuse marginal artery 3. Intraoperative transesophageal echocardiogram and epi-aortic ultrasonography Patient awake and alert, sitting in chair, no distress noted, no specific complaints. Vital Signs: Afebrile , T-max 100.5 yesterday Vital Signs - 24 hr 01/31/17 01/31/17 01/31/17 11:00 12:00 13:00 Temperature 100.3 F H Pulse Rate 83 75 75 Pulse Rate [ 87 Right Sitting Pulse Oximetery ] Respiratory 26 H 17 22 Rate Blood Pressure Blood Pressure [Sitting] O2 Sat by Pulse 91 L 99 93 L Oximetry 01/31/17 01/31/17 01/31/17 14:00 15:00 17:00 Temperature 98.7 F 96.9 F L Pulse Rate 75 74 Pulse Rate [ 79 Right Sitting Pulse Oximetery ] Respiratory 17 17 18 Rate Blood Pressure 101/60 91/55 Blood Pressure 104/61 [Sitting] O2 Sat by Pulse 97 98 93 L Oximetry 01/31/17 02/01/17 02/01/17 20:00 00:00 04:00 Temperature 98.4 F 98.3 F 97.2 F L Pulse Rate Pulse Rate [ 82 83 77 Right Sitting Pulse Oximetery ] Respiratory 20 20 20 Rate Blood Pressure Blood Pressure 100/58 109/59 108/58 [Sitting] O2 Sat by Pulse 91 L 92 L 94 L Oximetry Labs: Short CBC 02/01/17 Range/Units 06:27 WBC 9.7 (3.8-10.6) k/uL Hgb 7.4 L (13.0-17.5) gm/dL Hct 21.0 L (39.0-53.0) % Plt Count 70 L (150-450) k/uL Neutrophils # 6.9 (1.3-7.7) k/uL BMP 02/01/17 06:27 Sodium 138 Potassium 4.2 Chloride 108 H Carbon Dioxide 24 BUN 23 H Creatinine 0.83 Glucose 105 H Calcium 8.2 L Liver Function 02/01/17 Range/Units 06:27 Total Bilirubin 1.1 (0.2-1.3) mg/dL AST 31 (17-59) U/L ALT 25 (21-72) U/L Alkaline Phosphatase 44 (38-126) U/L Albumin 2.9 L (3.5-5.0) g/dL Lungs: Respirations are even and nonlabored, breath sounds slightly diminished bilaterally with few scattered rhonchi O2 sat: 94% on 4 L nasal cannula I/S: 1000 mL, patient gave return demonstration of proper use the incentive spirometer and stated that he has been making regular use of it Heart: S1S2, regular rate and rhythm, portable telemetry shows a normal sinus rhythm with a rate of 82 Sternum stable, chest incision clean with silverlon dressing clean and dry. Abdomen: Soft, Positive bowel sounds present in all 4 quadrants. CBGs: 107-132 mg/dL U/O: Patient is voiding urine without difficulty, urine output is adequate Chest Tubes: Left pleural chest tube without visible air leak and 110 mL of serosanguineous drainage over the last 8 hours. Right pleural chest tube without visible air leak and 180 mL of serosanguineous drainage over the last 8 hours. Intake & Output 01/30/17 01/31/17 02/01/17 02/02/17 06:59 06:59 06:59 06:59 Intake Total 2200.499 3633.109 1472 Output Total 7401 2968 1435 Balance -5200.501 665.109 37 Weight 90 kg 94.4 kg 92.5 kg Active Medications Hydrocodone Bitart/Acetaminophen ([place] 7.5-325) 1 each PO Q4H PRN PRN Reason: Pain Last Admin: 01/31/17 21:28 Dose: 1 each Hydrocodone Bitart/Acetaminophen ([place] 7.5-325) 2 each PO Q4H PRN PRN Reason: Pain Last Admin: 02/01/17 09:23 Dose: 2 each Albuterol/Ipratropium (Duoneb 0.5 Mg-3 Mg/3 Ml Soln) 3 ml INHALATION RT-Q2H PRN PRN Reason: Shortness Of Breath Or Wheezing Last Admin: 01/31/17 07:21 Dose: 3 ml Aspirin (Aspirin) 81 mg PO DAILY [facility] Last Admin: 02/01/17 09:22 Dose: 81 mg Atorvastatin Calcium (Lipitor) 40 mg PO DAILY [facility] Last Admin: 02/01/17 09:22 Dose: 40 mg Benzocaine/Menthol (Cepacol Lozenge) 1 each MUCOUS MEM Q2H PRN PRN Reason: Sore Throat Bisacodyl (Dulcolax) 10 mg RECTAL DAILY PRN PRN Reason: Constipation Ferrous Sulfate (Feosol) 325 mg PO BID-W/MEALS [facility] Last Admin: 02/01/17 07:01 Dose: 325 mg Fondaparinux (Arixtra) 2.5 mg SQ DAILY [facility] Last Admin: 02/01/17 09:22 Dose: 2.5 mg Insulin Human Lispro (Humalog) 0 unit SQ ACHS [facility] PRN Reason: Protocol Last Admin: 02/01/17 09:17 Dose: Not Given Magnesium Hydroxide (Milk Of Magnesia) 2,400 mg PO BID PRN PRN Reason: Constipation Metoprolol Tartrate (Lopressor) 25 mg PO BID [facility] Last Admin: 02/01/17 09:23 Dose: 25 mg Miscellaneous Information (Magnesium Per Protocol) 1 each MISCELLANE DAILY PRN ; Protocol PRN Reason: Per Protocol Miscellaneous Information (Phosphorus Per Protocol) 1 each MISCELLANE DAILY PRN ; Protocol PRN Reason: Per Protocol Miscellaneous Information (Potassium Per Protocol) 1 each MISCELLANE DAILY PRN ; Protocol PRN Reason: Per Protocol Mupirocin (Bactroban Oint) 1 applic NASAL BID [facility] Last Admin: 02/01/17 06:47 Dose: Not Given Ondansetron HCl (Zofran) 4 mg IVP Q6HR PRN PRN Reason: Nausea And Vomiting Pantoprazole Sodium (Protonix) 40 mg PO AC-BRKFST [facility] Last Admin: 02/01/17 07:01 Dose: 40 mg Senna/Docusate Sodium (Senokot-S) 2 each PO HS [facility] Last Admin: 01/31/17 21:36 Dose: 2 each Sodium Chloride (Saline Flush) 10 ml IV BID [facility] Last Admin: 02/01/17 07:02 Dose: 10 ml Sodium Chloride (Saline Flush) 10 ml IV Q12HR [facility] Last Admin: 02/01/17 09:25 Dose: 10 ml Plan: Continue aggressive pulmonary toilet utilizing incentive spirometry, coughing and deep breathing, and inhalation treatments per respiratory therapy department. Continue to increase activity as tolerated. Discontinue Toradol. Discontinue temporary pacemaker wires. Discontinue bilateral chest tubes. Check chest x-ray in a.m. <Charbel Mario - Last Filed: 02/01/17 16:47> Progress Note - Text The patient was seen and examined. I agree with the above assessment and plan. Overall he looks well. He remains on nasal cannula supplemental oxygen. His chest tubes were discontinued earlier today. We will continue to encourage ambulation. His pain is better controlled and his Toradol was discontinued.
[2017-02-01 12:12] LABS: Glucose,Whole Blood 134 mg/dL (75-99)
--- NOTE | 2017-02-01 12:25 | PN ---
DATE OF SERVICE: 02/01/2017 PRESENTING COMPLAINT: Medical management. The patient is status post CABG surgery. INTERVAL HISTORY: This is a 66-year-old patient who underwent a single vessel bypass and aortic root graft replacement. Today on exam, patient is sitting up in the chair; however, he looks more tired. Patient has lost laissez- faire type of attitude, meaning that he does not seem to care one way or the other. Two chest tubes remain in place. Heart hugger is on, patient is holding it currently. Patient does state his pain is fairly well-controlled, just took a walk with PT and stated that he is pretty tired right now. No drips infusing. Review of systems done for constitutional, cardiovascular, pulmonary; relevant findings as above. CURRENT MEDICATIONS: [place], aspirin, Lipitor, Arixtra, Humalog, Lopressor, Protonix. PHYSICAL EXAM: VITAL SIGNS: Temperature 98.7, pulse 72, respiratory rate 18, blood pressure 122/60, oxygen saturation 96% on 4 L nasal cannula. GENERAL APPEARANCE: Patient is sitting up in chair. However, does not look like he feels well today, patient does not look well-rested. Has some concerns regarding placement in a room with the patient has active pneumonia. EYES: Pupils equal. Conjunctivae are normal. NECK: JVD not raised. Mass not palpable. Lungs diminished bilaterally throughout bilateral lung herrera. RESPIRATORY: Effort normal, unlabored. CARDIOVASCULAR: S1, S2 noted, trace edema noted to bilateral lower extremities. ABDOMEN: Soft, nontender, abdomen and spleen not palpable. PSYCHIATRY: Alert and oriented x3. Mood and affect normal. CHEST WALL: Midline incision intact. Surgical dressing in place. Pacer wires noted. Two chest tubes remain in place, left and right draining serosanguineous drainage. INVESTIGATIONS: White blood cell count 9.7, hemoglobin 7.4, platelet count 70. Sodium 138, potassium 4.2, BUN 23, creatinine 0.83. Chest x-ray shows stable bilateral infiltrates and tiny, less than 5% bilateral apical pneumothorax. ASSESSMENT: 1. Status post single-vessel coronary artery bypass and aortic root replacement with graft. 2. Coronary artery disease. 3. Chronic obstructive pulmonary disease in an ex-smoker. 4. Hyperlipidemia. 5. Essential hypertension. 6. Primary osteoarthritis of multiple joints bilaterally. 7. Benign prostatic hypertrophy. 8. Acute postoperative blood loss anemia as expected from surgery. 9. Delusional thrombocytopenia. 10. Atelectasis. PLAN: Cardiothoracic Surgery planning to remove both chest tubes today provided drainage quantities are within the limits they allow for removal. Will continue with current medication and treatment plan. Will continue encouraging patient to cough and deep breathe, use his incentive spirometer and inhalation treatments. Will follow. Patient was seen and examined by nurse practitioner, Dianne Hassan and all elements of the case discussed with attending, Dr. Upton.
--- NOTE | 2017-02-01 13:36 | P.PN ---
Subjective Principal diagnosis: Aortic Valve Stenosis This is a pleasant 66-year-old gentleman who recently underwent aortic valve and ascending aortic root replacement with bypass grafting to the obtuse marginal. He is doing fairly well. He is now on the telemetry unit. Upon examination, he is resting comfortably in bed. Vital signs are stable. He has no current complaints. Says his pain is pretty well controlled. Does complain of some mild shortness of breath with ambulation. Is using his incentive spirometer reaching 750. Objective - Vital Signs Vital signs: Vital Signs Temp 98.7 F 02/01/17 08:00 Pulse 72 02/01/17 08:00 Resp 18 02/01/17 08:00 BP 122/60 02/01/17 08:00 Pulse Ox 96 02/01/17 08:00 Intake & Output 01/31/17 02/01/17 02/01/17 18:59 06:59 18:59 Intake Total 872 600 200 Output Total 725 710 90 Balance 147 -110 110 Weight 94.4 kg 92.5 kg Intake: IV 212 0.9 at 30 ml/hr 120 LR @50 50 Pressure Bag 42 Oral 660 600 200 Output: Chest Tube Drainage 335 290 90 Bilateral Mediastinal 90 Chest Tube Left Lateral 110 110 30 Chest Chest Tube Right Lateral 135 180 60 Chest Urine 390 420 Other: Voiding Method Indwelling Catheter Indwelling Catheter Indwelling Catheter ABP, PAP, CO, CI - Last Documented Arterial Blood Pressure 101/52 Pulmonary Artery Pressure 24/11 Cardiac Output 5.4 Cardiac Index 2.7 - Exam PHYSICAL EXAMINATION: HEENT: Head is atraumatic, normocephalic. Pupils equal, round. Neck is supple. There is no elevated jugular venous pressure. HEART EXAMINATION: Heart sounds regular, S1 and S2 normal. No murmur or gallop heard. CHEST EXAMINATION: Lungs are clear to auscultation and precussion. No chest wall tenderness is noted on palpation or with deep breathing. Midsternal dressing is intact ABDOMEN: Soft, nontender. Bowel sounds are heard. No organomegaly noted. EXTREMITIES: 2+ peripheral pulses with no evidence of peripheral edema and no calf tenderness noted. NEUROLOGIC patient is awake, alert and oriented x3. . - Labs CBC & Chem 7: 02/01/17 06:27 02/01/17 06:27 Labs: Abnormal Lab Results - Last 24 Hours (Table) 01/31/17 01/31/17 02/01/17 Range/Units 16:49 20:36 01:59 RBC (4.30-5.90) m/uL Hgb (13.0-17.5) gm/dL Hct (39.0-53.0) % Plt Count (150-450) k/uL Chloride (98-107) mmol/L BUN (9-20) mg/dL Glucose (74-99) mg/dL POC Glucose (mg/dL) 132 H 107 H 117 H (75-99) mg/dL Calcium (8.4-10.2) mg/dL Total Protein (6.3-8.2) g/dL Albumin (3.5-5.0) g/dL 02/01/17 02/01/17 02/01/17 Range/Units 05:38 06:27 06:27 RBC 2.17 L (4.30-5.90) m/uL Hgb 7.4 L (13.0-17.5) gm/dL Hct 21.0 L (39.0-53.0) % Plt Count 70 L (150-450) k/uL Chloride 108 H (98-107) mmol/L BUN 23 H (9-20) mg/dL Glucose 105 H (74-99) mg/dL POC Glucose (mg/dL) 128 H (75-99) mg/dL Calcium 8.2 L (8.4-10.2) mg/dL Total Protein 5.0 L (6.3-8.2) g/dL Albumin 2.9 L (3.5-5.0) g/dL 02/01/17 Range/Units 11:56 RBC (4.30-5.90) m/uL Hgb (13.0-17.5) gm/dL Hct (39.0-53.0) % Plt Count (150-450) k/uL Chloride (98-107) mmol/L BUN (9-20) mg/dL Glucose (74-99) mg/dL POC Glucose (mg/dL) 134 H (75-99) mg/dL Calcium (8.4-10.2) mg/dL Total Protein (6.3-8.2) g/dL Albumin (3.5-5.0) g/dL Assessment and Plan Plan: Assessment and plan #1 aortic stenosis with insufficiency, status post aortic valve and aortic root replacement #2 status post single vessel coronary artery bypass grafting #3 hypertension #4 hyperlipidemia #5 mild COPD From cardiac standpoint, patient is on appropriate medical therapy. We will continue the same. We will continue to follow the patient provide further recommendations accordingly. ASSOCIATE PROFESSOR OF COMMUNICATION note has been reviewed, I agree with a documented findings and plan of care. Patient was seen and examined.
--- NOTE | 2017-02-01 13:56 | P.PN ---
Progress Note - Text CV Surgery Nursing Note Addendum: Atrial pacing wires 2 and ventricular pacing wire DC'd without incident. Right pleural and left pleural chest tubes without visible air leak- discontinued without incident. Check chest x-ray in a.m.
--- NOTE | 2017-02-01 15:01 | P.PN ---
Subjective Principal diagnosis: Coronary artery disease. Severe aortic stenosis. 66-year-old male patient who underwent a ascending root replacement/aortic valve replacement and single-vessel bypass surgery with CARMEN to OM1. The patient was brought into the intensive care unit for further monitoring. The patient received a total of 2 units of fresh frozen plasma and 5 units of platelet concentrates during the surgery. Currently he is intubated on a mechanical ventilator. I have an assist-control mode of ventilation at the rate of 16, tidal volume 550, FiO2 has been weaned down from 100% down to 60% with a PEEP of 5. His blood care this showed a pH of 7.36 with a pCO2 of 46 and pO2 of 261. Chest x-ray showed adequate expansion of both lungs and there is no evidence of any pneumothorax. The patient has 2 mediastinal chest tubes, a right pleural and left pleural. Output from the chest tubes were approximately no output from the right, 200 mL an hour from the mediastinal and 50 mL an hour from the left. The patient will be receiving additional platelets here in the ICU. His most recent plated count is 59,000. His hemoglobin is at 7.8. He is producing adequate amount of urine output. His cardiac index is at 2.2 with an output of 4.5. His PA pressures are 25/15 and the patient's cardiac rhythm is sinus at this point. He is sedated with Diprivan and is calm and comfortable. No other significant issues postop. The patient is seen again today 01/30/2017 in follow-up. He remains here in the intensive care unit. He was successfully extubated. He is currently awake and alert in no acute distress. He is hemodynamically stable. Most of his drips are off. He remains on insulin at 1 unit per hour. He is maintaining good O2 saturations in the low 90s on 8 L/m. His chest x-ray shows bilateral infiltrates and small pleural effusions. Chest tubes remain in place. I need to the orders the his pain is well controlled. His hemoglobin remained stable at 7.9. The patient is seen again today 01/31/2017 in follow-up in the intensive care unit. He's been up ambulating with assistance. He is doing quite well. He denies any worsening shortness of breath, cough or congestion. He is working well with the incentive spirometer. His chest x-ray continues to real reveal small bilateral pleural effusions. Chest tubes remain in place and the plan is for them to be removed later this morning. He is maintaining good O2 saturations in the upper 90s on 6 L/m per nasal cannula. He has a slight temperature at 100.5 today. He has been hemodynamically stable. Hemoglobin 7.1 today. Platelet count 76,000. The patient is seen again today 02/01/2017 in follow-up on the regular medical floor. He is awake and alert in no acute distress. He is sitting up in bed. He had previously been up in the chair today as well. His pain is well controlled. He is requiring 4 L of oxygen per nasal cannula to maintain O2 saturations in the 90s. He is working well with the incentive spirometer. His chest tubes remain in place. Chest x-ray continues to show stable bilateral infiltrates with less than 5% bilateral apical pneumothoraces. He is currently afebrile. Hemodynamically stable. No leukocytosis. Hemoglobin is stable at 7.4. Platelet count 70,000. Objective - Vital Signs Vital signs: Vital Signs Temp 98.5 F 02/01/17 12:00 Pulse 72 02/01/17 12:00 Resp 18 02/01/17 12:00 BP 100/54 02/01/17 12:00 Pulse Ox 94 L 02/01/17 12:00 Intake & Output 01/31/17 02/01/17 02/01/17 18:59 06:59 18:59 Intake Total 872 600 200 Output Total 725 710 90 Balance 147 -110 110 Weight 94.4 kg 92.5 kg Intake: IV 212 0.9 at 30 ml/hr 120 LR @50 50 Pressure Bag 42 Oral 660 600 200 Output: Chest Tube Drainage 335 290 90 Bilateral Mediastinal 90 Chest Tube Left Lateral 110 110 30 Chest Chest Tube Right Lateral 135 180 60 Chest Urine 390 420 Other: Voiding Method Indwelling Catheter Indwelling Catheter Indwelling Catheter ABP, PAP, CO, CI - Last Documented Arterial Blood Pressure 101/52 Pulmonary Artery Pressure 24/11 Cardiac Output 5.4 Cardiac Index 2.7 - Exam GENERAL EXAM: Alert, fairly comfortable in no apparent distress. HEAD: Normocephalic. EYES: Normal reaction of pupils, equal size. NOSE: Clear with pink turbinates. THROAT: No erythema or exudates. NECK: No masses, no JVD. CHEST: No chest wall deformity. Surgical dressing is dry and intact. Chest tubes are in place. LUNGS: Equal air entry with crackles in the posterior bases. Diminished. CVS: S1 and S2 normal with no audible murmurs, regular rhythm. ABDOMEN: No hepatosplenomegaly, normal bowel sounds, no guarding or rigidity. SPINE: No scoliosis or deformity SKIN: No rashes CENTRAL NERVOUS SYSTEM: No focal deficits, tone is normal in all 4 extremities. Extremities: There is trace peripheral edema. Arsenio wraps to lower extremities. Peripheral pulses are intact. - Labs CBC & Chem 7: 02/01/17 06:27 02/01/17 06:27 Labs: Abnormal Lab Results - Last 24 Hours (Table) 01/31/17 01/31/17 02/01/17 Range/Units 16:49 20:36 01:59 RBC (4.30-5.90) m/uL Hgb (13.0-17.5) gm/dL Hct (39.0-53.0) % Plt Count (150-450) k/uL Chloride (98-107) mmol/L BUN (9-20) mg/dL Glucose (74-99) mg/dL POC Glucose (mg/dL) 132 H 107 H 117 H (75-99) mg/dL Calcium (8.4-10.2) mg/dL Total Protein (6.3-8.2) g/dL Albumin (3.5-5.0) g/dL 02/01/17 02/01/17 02/01/17 Range/Units 05:38 06:27 06:27 RBC 2.17 L (4.30-5.90) m/uL Hgb 7.4 L (13.0-17.5) gm/dL Hct 21.0 L (39.0-53.0) % Plt Count 70 L (150-450) k/uL Chloride 108 H (98-107) mmol/L BUN 23 H (9-20) mg/dL Glucose 105 H (74-99) mg/dL POC Glucose (mg/dL) 128 H (75-99) mg/dL Calcium 8.2 L (8.4-10.2) mg/dL Total Protein 5.0 L (6.3-8.2) g/dL Albumin 2.9 L (3.5-5.0) g/dL 02/01/17 Range/Units 11:56 RBC (4.30-5.90) m/uL Hgb (13.0-17.5) gm/dL Hct (39.0-53.0) % Plt Count (150-450) k/uL Chloride (98-107) mmol/L BUN (9-20) mg/dL Glucose (74-99) mg/dL POC Glucose (mg/dL) 134 H (75-99) mg/dL Calcium (8.4-10.2) mg/dL Total Protein (6.3-8.2) g/dL Albumin (3.5-5.0) g/dL Assessment and Plan Plan: Assessment: 1 aortic valve and aortic root replacement/Bentall procedure, along with a single-vessel bypass surgery with CARMEN to obtuse marginal. The patient is postop day #3 2 Post thoracotomy ventilator support. Successfully extubated. Chest tubes are all in place. 3 increased output from the mediastinal chest tubes, improved 4 postop to thrombocytopenia and the platelet count is at 70,000 5 postoperative anemia hemoglobin is at 7.4 6 hemodynamically stable with adequate blood pressure and urine output. 7 postoperative hypertension currently on nitroglycerin drip, recovered. 8 hypertension 9 hyperlipidemia 10 diabetes mellitus currently on insulin drip for blood sugar control 11 history of BPH 12 COPD Plan: The patient was seen and evaluated by Dr. Rea. His chest x-ray and labs were reviewed. The patient's pulmonary status is stable. We'll continue to wean down the FiO2 as tolerated. We have again encouraged the increased use of the incentive spirometer and cough and deep breathing exercises. We'll continue with his current medications. We will increase his activity as tolerated. We' ll continue to follow.
[2017-02-01 17:19] LABS: Glucose,Whole Blood 124 mg/dL (75-99)
--- NOTE | 2017-02-01 20:48 | PN ---
DATE OF SERVICE: 01/31/2017 ATTENDING NOTE: This patient was seen and examined by me yesterday on 01/31/17. This patient is status post single-vessel coronary artery bypass, now taken for ( ) graft replacement. Continues to do better. Three chest tubes are still in place. He did a little bit of food. Did sit out in the chair. Current medications are reviewed. On examination, pulse 22, respiration 16, blood pressure 101/52, pulse ox 96% on 6 L. GENERAL APPEARANCE: Lying in bed. LUNGS: Decreased breath sounds. RESPIRATORY: Effort normal. CARDIOVASCULAR: Heart sounds are muffled. Some edema is present. INVESTIGATIONS: BUN 16, creatinine 0.75. Hemoglobin 7.1. PLAN: Continue current medication and supportive care. Care was discussed with the patient. Will follow.
[2017-02-01] MEDS: SENNOSIDES-DOCUSATE SODIUM 1 EACH TAB PO SCH (20:50)
[2017-02-01 20:56] LABS: Glucose,Whole Blood 152 mg/dL (75-99)
--- NOTE | 2017-02-01 21:56 | PN ---
DATE OF SERVICE: 02/01/2017 ATTENDING NOTE: This patient was seen and examined by me. I reviewed the note of my nurse practitioner, Ms. Hassan, agree with the same and discussed with her. Patient is status post bypass, aortic root graft replacement. Doing well. Tolerating some diet. Tired. Has been out of bed. On examination, lungs have decreased breath sounds. CARDIOVASCULAR: First and second sounds normal. PSYCH: Alert and oriented x3. INVESTIGATIONS: Hemoglobin 7.4. Accu-Cheks are noted. ASSESSMENT: 1. Status post single-vessel coronary artery bypass and aortic ( ) replacement. 2. Coronary artery disease. PLAN: Continue current medication and treatment plan. Chest tubes are to be removed today. Will follow.
[2017-02-02 03:13] LABS: Glucose,Whole Blood 127 mg/dL (75-99)
[2017-02-02] MEDS: PANTOPRAZOLE 40 MG TABLET PO SCH (06:46)
[2017-02-02] MEDS: FERROUS SULFATE 325 MG TAB PO SCH ×2 (06:46→17:25)
[2017-02-02 06:47] LABS: Glucose,Whole Blood 117 mg/dL (75-99)
[2017-02-02] MEDS: INSULIN LISPRO (humaLOG) 300 UNIT/3 ML VIAL SQ SCH ×4 (06:47→21:14)
[2017-02-02 07:12] LABS: Basophils % (A) 0 %; CHCM 34.1; Eosinophils # (A) 0.4 k/uL (0-0.7); Eosinophils % (A) 4 %; HDW 2.74; HGB 7.6 gm/dL (13.0-17.5); Luc # (Auto) 0.44; Luc % (Auto) 5; Lymphocytes # (A) 2.6 k/uL (1.0-4.8); Lymphocytes % (A) 26 %; MCH 32.7 pg (25.0-35.0); MCHC 34.6 g/dL (31.0-37.0); MCV 94.6 fL (80.0-100.0); Mean Platelet Volume 8.6; Monocytes # (A) 0.5 k/uL (0-1.0); Monocytes % (A) 6 %; Neutrophils # (A) 5.8 k/uL (1.3-7.7); Neutrophils % (A) 59 %; RBC 2.33 m/uL (4.30-5.90); RDW 13.1 % (11.5-15.5); WBC 9.8 k/uL (3.8-10.6); WBC (Perox) 9.38
--- NOTE | 2017-02-02 07:52 | XR ---
EXAMINATION TYPE: XR chest 2V DATE OF EXAM: 02/02/2017 6:24 AM COMPARISON: 02/01/2017 HISTORY: 66 year-old male status post aortic valve replacement TECHNIQUE: Frontal and lateral views FINDINGS: Median sternotomy wires are present with post-CABG clips as well as prosthetic aortic valve. There is focal medial right basilar opacity. Left-sided chest tube has been removed. There is an edge seen pr ojecting at the left midlung but lung markings are seen beyond. The previous tiny apical pneumothorac es are no longer visualized. Patchy left basilar opacity is noted. IMPRESSION: 1. Left sided chest tube removed. The previous tiny apical pneumothoraces are no longer seen. However , there is a convexly marginated edge projecting at the left midlung. A skin fold is suspected. Pneum othorax is considered less likely as lung markings are seen beyond. Clinical and radiographic follow- up recommended. 2. Patchy bibasilar atelectasis or infiltrates with the former being favored.
[2017-02-02 08:18] LABS: ALT 36 U/L (21-72); AST 31 U/L (17-59); Alkaline Phosphatase 50 U/L (38-126); Anion Gap 7 mmol/L; Blood Urea Nitrogen 20 mg/dL (9-20); Calcium 8.4 mg/dL (8.4-10.2); Carbon Dioxide 24 mmol/L (22-30); Chloride 109 mmol/L (98-107); Glucose 105 mg/dL (74-99); Non-African American GFR(MDRD) >60 (>60 ml/min/1.73 sqM); Potassium 3.7 mmol/L (3.5-5.1); Sodium 140 mmol/L (137-145); Total Bilirubin 1.1 mg/dL (0.2-1.3); Total Protein 5.2 g/dL (6.3-8.2)
[2017-02-02] MEDS: METOPROLOL TARTRATE 25 MG TAB PO SCH ×2 (08:35→20:46)
[2017-02-02] MEDS: ASPIRIN 81 MG CHEW PO SCH (08:35)
[2017-02-02] MEDS: ATORVASTATIN 40 MG TAB PO SCH (08:35)
[2017-02-02] MEDS: MUPIROCIN 2% OINT 22 GM TUBE NASAL SCH ×2 (08:36→20:40)
[2017-02-02] MEDS: FONDAPARINUX 2.5 MG/0.5 ML SYRINGE SQ SCH (08:38)
--- NOTE | 2017-02-02 11:13 | P.PN ---
Progress Note - Text CV Surgery Nursing POD: #4 1. Aortic root and ascending aortic replacement using a modified Bentall technique with a 27 mm magna ease pericardial bioprosthesis and a 32 mm Valsalva graft with reimplantation of both coronary buttons. 2. Single-vessel coronary artery bypass graft utilizing the left internal mammary artery to the obtuse marginal branch. 3. Intraoperative transesophageal echocardiogram and epi-aortic ultrasonography. Patient awake and alert, no distress noted, no specific complaints. Patient states that his pain is greatly improved since chest tubes were discontinued. Vital Signs: Afebrile, T-max 98.7F Vital Signs - 24 hr 02/01/17 02/01/17 02/01/17 12:00 16:00 20:00 Temperature 98.5 F 97.8 F 97.4 F L Pulse Rate [ 72 85 83 Right Sitting Pulse Oximetery ] Respiratory 18 18 16 Rate Blood Pressure [Left Arm Sitting] Blood Pressure 100/54 105/62 91/68 [Sitting] O2 Sat by Pulse 94 L 93 L 93 L Oximetry 02/02/17 02/02/17 02/02/17 00:00 04:00 08:00 Temperature 97.4 F L 97.5 F L 98.7 F Pulse Rate [ 83 74 77 Right Sitting Pulse Oximetery ] Respiratory 16 17 18 Rate Blood Pressure 100/57 [Left Arm Sitting] Blood Pressure 91/68 88/44 102/55 [Sitting] O2 Sat by Pulse 93 L 97 99 Oximetry Labs: Short CBC 02/02/17 Range/Units 06:27 WBC 9.8 (3.8-10.6) k/uL Hgb 7.6 L (13.0-17.5) gm/dL Hct 22.0 L (39.0-53.0) % Plt Count 93 L (150-450) k/uL Neutrophils # 5.8 (1.3-7.7) k/uL BMP 02/02/17 06:27 Sodium 140 Potassium 3.7 Chloride 109 H Carbon Dioxide 24 BUN 20 Creatinine 0.80 Glucose 105 H Calcium 8.4 Liver Function 02/02/17 Range/Units 06:27 Total Bilirubin 1.1 (0.2-1.3) mg/dL AST 31 (17-59) U/L ALT 36 (21-72) U/L Alkaline Phosphatase 50 (38-126) U/L Albumin 3.0 L (3.5-5.0) g/dL Lungs: Respirations are even and nonlabored, breath sounds with few rhonchi in the right base. O2 sat: 99% on 3 L of oxygen delivered via nasal cannula I/S: 1000 mL-patient gave return demonstration of proper use of the incentive spirometer and verbalized the need for regular use of it. Heart: S1S2, regular rate and rhythm, portable telemetry shows a normal sinus rhythm with a rate of 71. Sternum stable, chest incision clean with silverlon dressing clean and dry. Abdomen: Soft, Positive bowel sounds present in all 4 quadrants. Positive flatus, no bowel movement to date since surgery CBGs: 117-152 mg/dL U/O: Patient is voiding adequate amounts of urine Intake & Output 01/31/17 02/01/17 02/02/17 02/03/17 06:59 06:59 06:59 06:59 Intake Total 3633.109 1472 1460 240 Output Total 2968 1435 765 Balance 665.109 37 695 240 Weight 94.4 kg 92.5 kg 68 kg Active Medications Hydrocodone Bitart/Acetaminophen ([place] 7.5-325) 1 each PO Q4H PRN PRN Reason: Pain Last Admin: 01/31/17 21:28 Dose: 1 each Hydrocodone Bitart/Acetaminophen ([place] 7.5-325) 2 each PO Q4H PRN PRN Reason: Pain Last Admin: 02/01/17 20:59 Dose: 2 each Albuterol/Ipratropium (Duoneb 0.5 Mg-3 Mg/3 Ml Soln) 3 ml INHALATION RT-Q2H PRN PRN Reason: Shortness Of Breath Or Wheezing Last Admin: 01/31/17 07:21 Dose: 3 ml Aspirin (Aspirin) 81 mg PO DAILY [facility] Last Admin: 02/02/17 08:35 Dose: 81 mg Atorvastatin Calcium (Lipitor) 40 mg PO DAILY [facility] Last Admin: 02/02/17 08:35 Dose: 40 mg Benzocaine/Menthol (Cepacol Lozenge) 1 each MUCOUS MEM Q2H PRN PRN Reason: Sore Throat Bisacodyl (Dulcolax) 10 mg RECTAL DAILY PRN PRN Reason: Constipation Ferrous Sulfate (Feosol) 325 mg PO BID-W/MEALS [facility] Last Admin: 02/02/17 06:46 Dose: 325 mg Fondaparinux (Arixtra) 2.5 mg SQ DAILY [facility] Last Admin: 02/02/17 08:38 Dose: 2.5 mg Insulin Human Lispro (Humalog) 0 unit SQ ACHS [facility] PRN Reason: Protocol Last Admin: 02/02/17 06:47 Dose: Not Given Magnesium Hydroxide (Milk Of Magnesia) 2,400 mg PO BID PRN PRN Reason: Constipation Last Admin: 02/02/17 10:11 Dose: 2,400 mg Metoprolol Tartrate (Lopressor) 25 mg PO BID [facility] Last Admin: 02/02/17 08:35 Dose: 25 mg Miscellaneous Information (Magnesium Per Protocol) 1 each MISCELLANE DAILY PRN ; Protocol PRN Reason: Per Protocol Miscellaneous Information (Phosphorus Per Protocol) 1 each MISCELLANE DAILY PRN ; Protocol PRN Reason: Per Protocol Miscellaneous Information (Potassium Per Protocol) 1 each MISCELLANE DAILY PRN ; Protocol PRN Reason: Per Protocol Mupirocin (Bactroban Oint) 1 applic NASAL BID [facility] Last Admin: 02/02/17 08:36 Dose: 1 applic Ondansetron HCl (Zofran) 4 mg IVP Q6HR PRN PRN Reason: Nausea And Vomiting Pantoprazole Sodium (Protonix) 40 mg PO AC-BRKFST [facility] Last Admin: 02/02/17 06:46 Dose: 40 mg Senna/Docusate Sodium (Senokot-S) 2 each PO HS [facility] Last Admin: 02/01/17 20:50 Dose: 2 each Sodium Chloride (Saline Flush) 10 ml IV BID [facility] Last Admin: 02/02/17 08:58 Dose: 10 ml Sodium Chloride (Saline Flush) 10 ml IV Q12HR [facility] Last Admin: 02/02/17 08:58 Dose: 10 ml Plan: Good progress postop day #4 Continue aggressive pulmonary toilet utilizing coughing and deep breathing, incentive spirometry, inhalation treatments per respiratory therapy department and wean oxygen as tolerated. Continue to increase activity as tolerated.
[2017-02-02 11:48] LABS: Glucose,Whole Blood 116 mg/dL (75-99)
--- NOTE | 2017-02-02 12:57 | PN ---
Gordo Reza is a 66-year-old male patient who underwent aortic root and aortic valve replacement and single-vessel bypass surgery. He is doing well. He is lying flat in bed. He is also walking around in the hallways. He is afebrile. Heart rates are in the 70s. Blood pressure 102/54 mmHg. Respirations are normal. Breath sounds are reduced, with some crackles on the left side. Heart sounds are soft. Abdomen is soft. Extremities are warm. No edema. IMPRESSION: Aortic valve disease, aortic root disease, status post surgery, single-vessel coronary artery bypass grafting. PLAN: Continue current medications. Hopefully he will be discharged in the next 24 to 48 hours.
--- NOTE | 2017-02-02 14:25 | P.PN ---
Subjective 66-year-old male patient who underwent a ascending root replacement/aortic valve replacement and single-vessel bypass surgery with CARMEN to OM1. The patient was brought into the intensive care unit for further monitoring. The patient received a total of 2 units of fresh frozen plasma and 5 units of platelet concentrates during the surgery. Currently he is intubated on a mechanical ventilator. I have an assist-control mode of ventilation at the rate of 16, tidal volume 550, FiO2 has been weaned down from 100% down to 60% with a PEEP of 5. His blood care this showed a pH of 7.36 with a pCO2 of 46 and pO2 of 261. Chest x-ray showed adequate expansion of both lungs and there is no evidence of any pneumothorax. The patient has 2 mediastinal chest tubes, a right pleural and left pleural. Output from the chest tubes were approximately no output from the right, 200 mL an hour from the mediastinal and 50 mL an hour from the left. The patient will be receiving additional platelets here in the ICU. His most recent plated count is 59,000. His hemoglobin is at 7.8. He is producing adequate amount of urine output. His cardiac index is at 2.2 with an output of 4.5. His PA pressures are 25/15 and the patient's cardiac rhythm is sinus at this point. He is sedated with Diprivan and is calm and comfortable. No other significant issues postop. The patient is seen again today 01/30/2017 in follow-up. He remains here in the intensive care unit. He was successfully extubated. He is currently awake and alert in no acute distress. He is hemodynamically stable. Most of his drips are off. He remains on insulin at 1 unit per hour. He is maintaining good O2 saturations in the low 90s on 8 L/m. His chest x-ray shows bilateral infiltrates and small pleural effusions. Chest tubes remain in place. I need to the orders the his pain is well controlled. His hemoglobin remained stable at 7.9. The patient is seen again today 01/31/2017 in follow-up in the intensive care unit. He's been up ambulating with assistance. He is doing quite well. He denies any worsening shortness of breath, cough or congestion. He is working well with the incentive spirometer. His chest x-ray continues to real reveal small bilateral pleural effusions. Chest tubes remain in place and the plan is for them to be removed later this morning. He is maintaining good O2 saturations in the upper 90s on 6 L/m per nasal cannula. He has a slight temperature at 100.5 today. He has been hemodynamically stable. Hemoglobin 7.1 today. Platelet count 76,000. The patient is seen again today 02/01/2017 in follow-up on the regular medical floor. He is awake and alert in no acute distress. He is sitting up in bed. He had previously been up in the chair today as well. His pain is well controlled. He is requiring 4 L of oxygen per nasal cannula to maintain O2 saturations in the 90s. He is working well with the incentive spirometer. His chest tubes remain in place. Chest x-ray continues to show stable bilateral infiltrates with less than 5% bilateral apical pneumothoraces. He is currently afebrile. Hemodynamically stable. No leukocytosis. Hemoglobin is stable at 7.4. Platelet count 70,000. On 02/02/2017 the patient is being seen in follow-up. The patient is resting comfortably in bed. The patient's chest tubes have been ordered removed. No chest pain. Surgical wound site is intact. The patient is using incentive spirometer. Hemoglobin is stable at 7.6. Rest of the electrolytes and renal function are all stable. The chest x-ray from today shows no pneumothorax. Patchy basilar atelectatic changes Seen bilaterally. Hemodynamically stable. No other significant events overnight. Objective - Vital Signs Vital signs: Vital Signs Temp 98.7 F 02/02/17 08:00 Pulse 75 02/02/17 12:00 Resp 16 02/02/17 12:00 BP 102/54 02/02/17 12:00 Pulse Ox 97 02/02/17 12:00 Intake & Output 02/01/17 02/02/17 02/02/17 18:59 06:59 18:59 Intake Total 200 1260 540 Output Total 90 675 150 Balance 110 585 390 Weight 68 kg Intake: IV 0 0.9 at 30 ml/hr 0 Oral 200 1260 540 Output: Chest Tube Drainage 90 Chest Tube Left Lateral 30 Chest Chest Tube Right Lateral 60 Chest Urine 675 150 Other: Voiding Method Indwelling Catheter Urinal Urinal # Voids 1 2 ABP, PAP, CO, CI - Last Documented Arterial Blood Pressure 101/52 Pulmonary Artery Pressure 24/11 Cardiac Output 5.4 Cardiac Index 2.7 - Exam The patient appeared well nourished and normally developed. Vital signs as documented. Head exam is unremarkable. No scleral icterus or corneal arcus noted. Neck is without jugular venous distension, thyromegaly, or carotid bruits. Carotid upstrokes are brisk bilaterally. Lungs diminished in lung bases bilaterally and the patient has some bibasilar crackles.. Cardiac exam reveals the PMI to be normally sized and situated. Rhythm is regular. First and second heart sounds normal. No murmurs, rubs or gallops. The sternum stable clean and intact.. Abdominal exam reveals normal bowel sounds, no masses, no organomegaly and no aortic enlargement. Extremities are nonedematous and both femoral and pedal pulses are normal. - Labs CBC & Chem 7: 02/02/17 06:27 02/02/17 06:27 Labs: Abnormal Lab Results - Last 24 Hours (Table) 02/01/17 02/01/17 02/02/17 Range/Units 17:00 20:54 03:12 RBC (4.30-5.90) m/uL Hgb (13.0-17.5) gm/dL Hct (39.0-53.0) % Plt Count (150-450) k/uL Chloride (98-107) mmol/L Glucose (74-99) mg/dL POC Glucose (mg/dL) 124 H 152 H 127 H (75-99) mg/dL Total Protein (6.3-8.2) g/dL Albumin (3.5-5.0) g/dL 02/02/17 02/02/17 02/02/17 Range/Units 06:27 06:27 06:45 RBC 2.33 L (4.30-5.90) m/uL Hgb 7.6 L (13.0-17.5) gm/dL Hct 22.0 L (39.0-53.0) % Plt Count 93 L (150-450) k/uL Chloride 109 H (98-107) mmol/L Glucose 105 H (74-99) mg/dL POC Glucose (mg/dL) 117 H (75-99) mg/dL Total Protein 5.2 L (6.3-8.2) g/dL Albumin 3.0 L (3.5-5.0) g/dL 02/02/17 Range/Units 11:46 RBC (4.30-5.90) m/uL Hgb (13.0-17.5) gm/dL Hct (39.0-53.0) % Plt Count (150-450) k/uL Chloride (98-107) mmol/L Glucose (74-99) mg/dL POC Glucose (mg/dL) 116 H (75-99) mg/dL Total Protein (6.3-8.2) g/dL Albumin (3.5-5.0) g/dL Assessment and Plan Plan: Assessment 1 aortic valve and aortic root replacement/Bentall procedure, along with a single-vessel bypass surgery with CARMEN to obtuse marginal. The patient is postop day #4 2 post thoracotomy ventilator support, recovered and the patient has been extubated without any major difficulties in the chest tubes have been all removed. Limited atelectatic changes in lung bases bilaterally. 3 skeletal chest wall pain secondary to thoracotomy, currently inactive in stable 4 postop to thrombocytopenia , improving 5 postoperative anemia hemoglobin, stable 6 hypertension 7 hyperlipidemia 8 diabetes mellitus , currently on Humalog for sliding scale coverage 9 history of BPH 10 COPD Plan Admit this patient a hallway. No active pulmonary issues. Continues incentive spirometer. Monitor hemoglobin. Chest x-ray was reviewed. The patient is progressing adequately. We'll continue to follow.
--- NOTE | 2017-02-02 15:27 | PN ---
DATE OF SERVICE: 02/02/2017 PRESENTING COMPLAINT: Medical management. Patient is status post CABG surgery. INTERVAL HISTORY: This is a 66-year-old patient who underwent a single-vessel bypass and aortic root graft replacement. Today on exam patient is sitting on the bedside having just worked with Physical Therapy. He looks well. Just washed up. States he feels better. Pain is well controlled. Tolerating his diet. Ambulating in the hallway. All chest tubes have been removed. Surgical dressing remains in place. Review of systems done for constitutional, cardiovascular, pulmonary; relevant findings as above. CURRENT MEDICATIONS: 1. [place]. 2. Aspirin. 3. Lipitor. 4. Arixtra. 5. Humalog. 6. Lopressor. 7. Protonix. PHYSICAL EXAMINATION: VITAL SIGNS: Temperature 98.7, pulse 77, respirations 18, blood pressure 102/55, oxygen saturation 99% on 3 L nasal cannula. GENERAL APPEARANCE: Patient is sitting up, looking well, awake, alert. No complaints of pain or distress noted or voiced. EYES: Pupils equal. Conjunctivae normal. NECK: JVD not raised. Mass not palpable. Lung sounds diminished bilaterally. RESPIRATORY: Effort normal, unlabored. CARDIOVASCULAR: First and second sounds noted. No edema. ABDOMEN: Soft, nontender. Liver and spleen not palpable. PSYCHIATRY: Alert and oriented x3. Mood and affect are normal. INVESTIGATIONS: Blood glucose 116. White blood cell count 9.8, hemoglobin 7.6, platelet count 93. Sodium 140, potassium 3.7. BUN 20, creatinine 0.80. Chest x-ray reveals patchy bibasilar atelectasis or infiltrates. ASSESSMENT: 1. Status post single-vessel coronary artery bypass graft and aortic root replacement with graft. 2. Coronary artery disease. 3. Chronic obstructive pulmonary disease in an ex-smoker. 4. Hyperlipidemia. 5. Essential hypertension. 6. 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 7. Benign prostatic hypertrophy. 8. Acute postoperative blood loss anemia as expected from surgery. 9. Dilutional thrombocytopenia. 10. Atelectasis, improving. PLAN: Will continue current medication and treatment regimen. Patient has made excellent progress in his postoperative course. Patient continues to be encouraged to use incentive spirometer, cough and deep breathing and continue to increase activity as he can tolerate. Will follow. Patient was seen and examined by nurse practitioner, Dianne Hassan, and all elements of the case were discussed with attending, Dr. Upton.
[2017-02-02 16:29] LABS: Glucose,Whole Blood 120 mg/dL (75-99)
--- NOTE | 2017-02-02 19:05 | PN ---
DATE OF SERVICE: 02/02/2017 ATTENDING NOTE: This patient was seen and examined by me earlier today. I reviewed the note of my nurse practitioner, Ms. Hassan, and discussed with her. the patient is status post bypass and aortic valve replacement, doing better. Has been up in the hallway, tolerating a diet. On examination, blood pressure 102/55, pulse ox 99% on 3L. LUNGS: Decreased breath sounds. CARDIOVASCULAR: First and second sounds normal. INVESTIGATIONS: Hemoglobin is 10.6. Potassium is 3.7. ASSESSMENT: Status post single-vessel coronary artery bypass grafting and aortic root replacement graft. PLAN: Continue current medication and treatment plan. The patient doing much better.
[2017-02-02] MEDS: SENNOSIDES-DOCUSATE SODIUM 1 EACH TAB PO SCH (20:46)
[2017-02-02] MEDS: HYDROcodone/APAP 7.5-325MG 1 EACH TAB PO PRN (20:47)
[2017-02-02] MEDS: IPRATROPIUM-ALBUTEROL 3 ML NEB INHALATION PRN (20:49)
[2017-02-02] MEDS: SYMBICORT 160-4.5 MCG INHALER INHALATION SCH (20:49)
[2017-02-02 21:05] LABS: Glucose,Whole Blood 131 mg/dL (75-99)
[2017-02-03 02:57] LABS: Glucose,Whole Blood 118 mg/dL (75-99)
[2017-02-03] MEDS: HYDROcodone/APAP 7.5-325MG 1 EACH TAB PO PRN ×2 (05:20→20:19)
[2017-02-03 05:32] LABS: Glucose,Whole Blood 123 mg/dL (75-99)
[2017-02-03] MEDS: INSULIN LISPRO (humaLOG) 300 UNIT/3 ML VIAL SQ SCH ×4 (05:49→21:22)
[2017-02-03] MEDS: FERROUS SULFATE 325 MG TAB PO SCH ×2 (06:43→17:25)
[2017-02-03] MEDS: PANTOPRAZOLE 40 MG TABLET PO SCH (06:43)
[2017-02-03 06:58] LABS: ALT 47 U/L (21-72); AST 34 U/L (17-59); Alkaline Phosphatase 52 U/L (38-126); Anion Gap 11 mmol/L; Blood Urea Nitrogen 16 mg/dL (9-20); Calcium 8.5 mg/dL (8.4-10.2); Carbon Dioxide 23 mmol/L (22-30); Chloride 106 mmol/L (98-107); Glucose 111 mg/dL (74-99); Non-African American GFR(MDRD) >60 (>60 ml/min/1.73 sqM); Potassium 3.8 mmol/L (3.5-5.1); Sodium 140 mmol/L (137-145); Total Bilirubin 1.1 mg/dL (0.2-1.3); Total Protein 5.1 g/dL (6.3-8.2)
--- NOTE | 2017-02-03 07:01 | P.PN ---
Subjective Patient is doing well. Breath sounds are improved since yesterday bilaterally especially on the left side He denies any chest discomfort No dizziness lightheadedness On examination His blood pressure is 115/66 mmHg Afebrile 98.2F earlier was 99.4F, normal respirations normal heart rates Breath sounds are better especially on the left side heart sounds are normal S2 are soft Heart sounds Impression Aortic valve and aortic root replacement and single-vessel coronary artery disease status post bypass surgery progressing well Plan Continue current medications Objective - Vital Signs Vital signs: Vital Signs Temp 98.2 F 02/03/17 04:00 Pulse 78 02/03/17 04:00 Resp 17 02/03/17 04:00 BP 115/66 02/03/17 04:00 Pulse Ox 92 L 02/03/17 04:00 Intake & Output 02/02/17 02/03/17 02/03/17 18:59 06:59 18:59 Intake Total 1020 480 Output Total 150 700 Balance 870 -220 Weight 69 kg Intake: Oral 1020 480 Output: Urine 150 700 Other: Voiding Method Urinal Urinal # Voids 2 1 ABP, PAP, CO, CI - Last Documented Arterial Blood Pressure 101/52 Pulmonary Artery Pressure 24/11 Cardiac Output 5.4 Cardiac Index 2.7 - Labs CBC & Chem 7: 02/02/17 06:27 02/02/17 06:27 Labs: Abnormal Lab Results - Last 24 Hours (Table) 02/02/17 02/02/17 02/02/17 Range/Units 06:27 06:27 11:46 RBC 2.33 L (4.30-5.90) m/uL Hgb 7.6 L (13.0-17.5) gm/dL Hct 22.0 L (39.0-53.0) % Plt Count 93 L (150-450) k/uL Chloride 109 H (98-107) mmol/L Glucose 105 H (74-99) mg/dL POC Glucose (mg/dL) 116 H (75-99) mg/dL Total Protein 5.2 L (6.3-8.2) g/dL Albumin 3.0 L (3.5-5.0) g/dL 02/02/17 02/02/17 02/03/17 Range/Units 16:28 21:03 02:45 RBC (4.30-5.90) m/uL Hgb (13.0-17.5) gm/dL Hct (39.0-53.0) % Plt Count (150-450) k/uL Chloride (98-107) mmol/L Glucose (74-99) mg/dL POC Glucose (mg/dL) 120 H 131 H 118 H (75-99) mg/dL Total Protein (6.3-8.2) g/dL Albumin (3.5-5.0) g/dL 02/03/17 Range/Units 05:31 RBC (4.30-5.90) m/uL Hgb (13.0-17.5) gm/dL Hct (39.0-53.0) % Plt Count (150-450) k/uL Chloride (98-107) mmol/L Glucose (74-99) mg/dL POC Glucose (mg/dL) 123 H (75-99) mg/dL Total Protein (6.3-8.2) g/dL Albumin (3.5-5.0) g/dL
[2017-02-03] MEDS: METOPROLOL TARTRATE 25 MG TAB PO SCH ×2 (08:13→20:19)
[2017-02-03] MEDS: ATORVASTATIN 40 MG TAB PO SCH (08:13)
[2017-02-03] MEDS: ASPIRIN 81 MG CHEW PO SCH (08:13)
[2017-02-03] MEDS: FONDAPARINUX 2.5 MG/0.5 ML SYRINGE SQ SCH (08:14)
[2017-02-03] MEDS: MUPIROCIN 2% OINT 22 GM TUBE NASAL SCH ×2 (08:14→20:19)
[2017-02-03] MEDS: SYMBICORT 160-4.5 MCG INHALER INHALATION SCH ×2 (11:27→20:20)
[2017-02-03 11:59] LABS: Glucose,Whole Blood 108 mg/dL (75-99)
--- NOTE | 2017-02-03 12:54 | P.PN ---
Progress Note - Text CV Surgery Nursing POD: #5, aortic root and ascending aortic replacement using a modified Bentall technique with a 27 mm magna ease pericardial bioprosthesis and a 32 mm Valsalva graft with reimplantation of both coronary buttons. Single-vessel coronary artery bypass graft utilizing the left internal mammary artery to the obtuse marginal branch. Intraoperative transesophageal echocardiogram and epi- aortic ultrasonography. Patient awake and alert, no distress noted, no specific complaints. Vital Signs: Afebrile, T-max 100.8F Vital Signs - 24 hr 02/02/17 02/02/17 02/02/17 15:54 20:00 20:49 Temperature 100.8 F H Pulse Rate 76 Pulse Rate [ 79 83 Right Sitting Pulse Oximetery ] Respiratory 16 17 Rate Blood Pressure 109/63 121/61 [Sitting] O2 Sat by Pulse 92 L 92 L Oximetry 02/02/17 02/03/17 02/03/17 21:00 00:00 03:28 Temperature 99.4 F Pulse Rate 80 Pulse Rate [ 85 Right Sitting Pulse Oximetery ] Respiratory 16 17 Rate Blood Pressure 117/62 [Sitting] O2 Sat by Pulse 92 L Oximetry 02/03/17 02/03/17 04:00 08:00 Temperature 98.2 F 98.9 F Pulse Rate Pulse Rate [ 78 79 Right Sitting Pulse Oximetery ] Respiratory 17 18 Rate Blood Pressure 115/66 105/58 [Sitting] O2 Sat by Pulse 92 L 93 L Oximetry Labs: [facility] 02/03/17 06:05 Sodium 140 Potassium 3.8 Chloride 106 Carbon Dioxide 23 BUN 16 Creatinine 0.80 Glucose 111 H Calcium 8.5 Liver Function 02/03/17 Range/Units 06:05 Total Bilirubin 1.1 (0.2-1.3) mg/dL AST 34 (17-59) U/L ALT 47 (21-72) U/L Alkaline Phosphatase 52 (38-126) U/L Albumin 2.9 L (3.5-5.0) g/dL Lungs: Respirations are even and nonlabored, breath sounds are essentially clear O2 sat: 93% on 2 L of oxygen delivered via nasal cannula I/S: 1500 mL Heart: S1S2, regular rate and rhythm, portable telemetry shows normal sinus rhythm with a rate of 71 Sternum stable, chest incision clean with dressing clean and dry. Abdomen: Soft, Positive bowel sounds present in all 4 quadrants. CBGs: 118-131 mg/dL U/O: Patient is voiding adequate amounts of urine Intake & Output 02/01/17 02/02/17 02/03/17 02/04/17 06:59 06:59 06:59 06:59 Intake Total 1472 1460 1500 370 Output Total 1435 765 850 Balance 37 695 650 370 Weight 92.5 kg 68 kg 69 kg Active Medications Hydrocodone Bitart/Acetaminophen ([place] 7.5-325) 1 each PO Q4H PRN PRN Reason: Pain Last Admin: 02/03/17 05:20 Dose: 1 each Hydrocodone Bitart/Acetaminophen ([place] 7.5-325) 2 each PO Q4H PRN PRN Reason: Pain Last Admin: 02/02/17 20:47 Dose: 2 each Albuterol/Ipratropium (Duoneb 0.5 Mg-3 Mg/3 Ml Soln) 3 ml INHALATION RT-Q2H PRN PRN Reason: Shortness Of Breath Or Wheezing Last Admin: 02/02/17 20:49 Dose: 3 ml Aspirin (Aspirin) 81 mg PO DAILY [facility] Last Admin: 02/03/17 08:13 Dose: 81 mg Atorvastatin Calcium (Lipitor) 40 mg PO DAILY [facility] Last Admin: 02/03/17 08:13 Dose: 40 mg Benzocaine/Menthol (Cepacol Lozenge) 1 each MUCOUS MEM Q2H PRN PRN Reason: Sore Throat Bisacodyl (Dulcolax) 10 mg RECTAL DAILY PRN PRN Reason: Constipation Last Admin: 02/03/17 05:25 Dose: 10 mg Budesonide/Formoterol Fumarate (Symbicort 160-4.5 Mcg Inhaler) 2 puff INHALATION RT-BID [facility] Last Admin: 02/03/17 11:27 Dose: Not Given Ferrous Sulfate (Feosol) 325 mg PO BID-W/MEALS [facility] Last Admin: 02/03/17 06:43 Dose: 325 mg Fondaparinux (Arixtra) 2.5 mg SQ DAILY [facility] Last Admin: 02/03/17 08:14 Dose: 2.5 mg Insulin Human Lispro (Humalog) 0 unit SQ ACHS [facility] PRN Reason: Protocol Last Admin: 02/03/17 12:10 Dose: Not Given Magnesium Hydroxide (Milk Of Magnesia) 2,400 mg PO BID PRN PRN Reason: Constipation Last Admin: 02/02/17 10:11 Dose: 2,400 mg Metoprolol Tartrate (Lopressor) 25 mg PO BID [facility] Last Admin: 02/03/17 08:13 Dose: 25 mg Miscellaneous Information (Magnesium Per Protocol) 1 each MISCELLANE DAILY PRN ; Protocol PRN Reason: Per Protocol Miscellaneous Information (Phosphorus Per Protocol) 1 each MISCELLANE DAILY PRN ; Protocol PRN Reason: Per Protocol Miscellaneous Information (Potassium Per Protocol) 1 each MISCELLANE DAILY PRN ; Protocol PRN Reason: Per Protocol Mupirocin (Bactroban Oint) 1 applic NASAL BID [facility] Last Admin: 02/03/17 08:14 Dose: 1 applic Ondansetron HCl (Zofran) 4 mg IVP Q6HR PRN PRN Reason: Nausea And Vomiting Pantoprazole Sodium (Protonix) 40 mg PO AC-BRKFST [facility] Last Admin: 02/03/17 06:43 Dose: 40 mg Senna/Docusate Sodium (Senokot-S) 2 each PO HS [facility] Last Admin: 02/02/17 20:46 Dose: 2 each Sodium Chloride (Saline Flush) 10 ml IV BID [facility] Last Admin: 02/02/17 20:51 Dose: 10 ml Sodium Chloride (Saline Flush) 10 ml IV Q12HR [facility] Last Admin: 02/03/17 08:14 Dose: 10 ml Plan: Continue aggressive pulmonary toilet Continue to increase activity Continue to wean O2 Home in 1-2 days if remains stable
--- NOTE | 2017-02-03 13:59 | P.PN ---
Subjective 66-year-old male patient who underwent a ascending root replacement/aortic valve replacement and single-vessel bypass surgery with CARMEN to OM1. The patient was brought into the intensive care unit for further monitoring. The patient received a total of 2 units of fresh frozen plasma and 5 units of platelet concentrates during the surgery. Currently he is intubated on a mechanical ventilator. I have an assist-control mode of ventilation at the rate of 16, tidal volume 550, FiO2 has been weaned down from 100% down to 60% with a PEEP of 5. His blood care this showed a pH of 7.36 with a pCO2 of 46 and pO2 of 261. Chest x-ray showed adequate expansion of both lungs and there is no evidence of any pneumothorax. The patient has 2 mediastinal chest tubes, a right pleural and left pleural. Output from the chest tubes were approximately no output from the right, 200 mL an hour from the mediastinal and 50 mL an hour from the left. The patient will be receiving additional platelets here in the ICU. His most recent plated count is 59,000. His hemoglobin is at 7.8. He is producing adequate amount of urine output. His cardiac index is at 2.2 with an output of 4.5. His PA pressures are 25/15 and the patient's cardiac rhythm is sinus at this point. He is sedated with Diprivan and is calm and comfortable. No other significant issues postop. The patient is seen again today 01/30/2017 in follow-up. He remains here in the intensive care unit. He was successfully extubated. He is currently awake and alert in no acute distress. He is hemodynamically stable. Most of his drips are off. He remains on insulin at 1 unit per hour. He is maintaining good O2 saturations in the low 90s on 8 L/m. His chest x-ray shows bilateral infiltrates and small pleural effusions. Chest tubes remain in place. I need to the orders the his pain is well controlled. His hemoglobin remained stable at 7.9. The patient is seen again today 01/31/2017 in follow-up in the intensive care unit. He's been up ambulating with assistance. He is doing quite well. He denies any worsening shortness of breath, cough or congestion. He is working well with the incentive spirometer. His chest x-ray continues to real reveal small bilateral pleural effusions. Chest tubes remain in place and the plan is for them to be removed later this morning. He is maintaining good O2 saturations in the upper 90s on 6 L/m per nasal cannula. He has a slight temperature at 100.5 today. He has been hemodynamically stable. Hemoglobin 7.1 today. Platelet count 76,000. The patient is seen again today 02/01/2017 in follow-up on the regular medical floor. He is awake and alert in no acute distress. He is sitting up in bed. He had previously been up in the chair today as well. His pain is well controlled. He is requiring 4 L of oxygen per nasal cannula to maintain O2 saturations in the 90s. He is working well with the incentive spirometer. His chest tubes remain in place. Chest x-ray continues to show stable bilateral infiltrates with less than 5% bilateral apical pneumothoraces. He is currently afebrile. Hemodynamically stable. No leukocytosis. Hemoglobin is stable at 7.4. Platelet count 70,000. On 02/02/2017 the patient is being seen in follow-up. The patient is resting comfortably in bed. The patient's chest tubes have been ordered removed. No chest pain. Surgical wound site is intact. The patient is using incentive spirometer. Hemoglobin is stable at 7.6. Rest of the electrolytes and renal function are all stable. The chest x-ray from today shows no pneumothorax. Patchy basilar atelectatic changes Seen bilaterally. Hemodynamically stable. No other significant events overnight. On 02/03/2017 the patient is being seen in follow-up. He has no specific complaints. Is doing extremely well. Surgical wound site is dry clean and intact. No nausea. No vomiting. He is ambulating. Still on oxygen at 2 L/m nasal cannula. Objective - Vital Signs Vital signs: Vital Signs Temp 98.9 F 02/03/17 08:00 Pulse 79 02/03/17 08:00 Resp 18 02/03/17 08:00 BP 105/58 02/03/17 08:00 Pulse Ox 93 L 02/03/17 08:00 Intake & Output 02/02/17 02/03/17 02/03/17 18:59 06:59 18:59 Intake Total 1020 480 370 Output Total 150 700 Balance 870 -220 370 Weight 69 kg Intake: Oral 1020 480 370 Output: Urine 150 700 Other: Voiding Method Urinal Urinal # Voids 2 1 1 ABP, PAP, CO, CI - Last Documented Arterial Blood Pressure 101/52 Pulmonary Artery Pressure 24/11 Cardiac Output 5.4 Cardiac Index 2.7 - Exam The patient appeared well nourished and normally developed. Vital signs as documented. Head exam is unremarkable. No scleral icterus or corneal arcus noted. Neck is without jugular venous distension, thyromegaly, or carotid bruits. Carotid upstrokes are brisk bilaterally. Lungs diminished in lung bases bilaterally and the patient has some bibasilar crackles.. Cardiac exam reveals the PMI to be normally sized and situated. Rhythm is regular. First and second heart sounds normal. No murmurs, rubs or gallops. The sternum stable clean and intact.. Abdominal exam reveals normal bowel sounds, no masses, no organomegaly and no aortic enlargement. Extremities are nonedematous and both femoral and pedal pulses are normal. - Labs CBC & Chem 7: 02/02/17 06:27 02/03/17 06:05 Labs: Abnormal Lab Results - Last 24 Hours (Table) 02/02/17 02/02/17 02/03/17 Range/Units 16:28 21:03 02:45 Glucose (74-99) mg/dL POC Glucose (mg/dL) 120 H 131 H 118 H (75-99) mg/dL Total Protein (6.3-8.2) g/dL Albumin (3.5-5.0) g/dL 02/03/17 02/03/17 02/03/17 Range/Units 05:31 06:05 11:58 Glucose 111 H (74-99) mg/dL POC Glucose (mg/dL) 123 H 108 H (75-99) mg/dL Total Protein 5.1 L (6.3-8.2) g/dL Albumin 2.9 L (3.5-5.0) g/dL Assessment and Plan Plan: Assessment 1 aortic valve and aortic root replacement/Bentall procedure, along with a single-vessel bypass surgery with CARMEN to obtuse marginal. The patient is postop day #5 2 post thoracotomy ventilator support, recovered and the patient has been extubated without any major difficulties in the chest tubes have been all removed. Limited atelectatic changes in lung bases bilaterally. 3 skeletal chest wall pain secondary to thoracotomy, currently inactive in stable 4 postop to thrombocytopenia , improving 5 postoperative anemia hemoglobin, stable 6 hypertension 7 hyperlipidemia 8 diabetes mellitus , currently on Humalog for sliding scale coverage 9 history of BPH 10 COPD Plan Clinically stable. Encourage using incentive spirometer. Wean off FiO2 and discontinue oxygen if the saturation remains above 92%. We'll follow
--- NOTE | 2017-02-03 16:13 | PN ---
DATE OF SERVICE: 02/03/2017 PRESENTING COMPLAINT: Medical management, patient is status post CABG surgery. INTERVAL HISTORY: This is a patient who underwent a single vessel bypass and aortic root graft replacement. Today on exam, patient is lying in bed, resting. States he feels better. Pain well controlled. Tolerating his diet. Ambulating in the hallway. Moved his bowels today. Review of systems done for constitutional, cardiovascular, pulmonary with relevant findings as above. CURRENT MEDICATIONS: [place], aspirin, Lipitor, ( ), Humalog, Lopressor, Protonix. PHYSICAL EXAMINATION: VITAL SIGNS: Temperature 98.9, pulse 79, respiratory rate 18, and blood pressure 105/58, oxygen saturation 92% on 2 liters nasal cannula. GENERAL APPEARANCE: Patient lying in bed appears comfortable. Pupils equal. Conjunctivae normal. NECK: JVD not raised. Mass not palpable. LUNGS: Diminished bilaterally. RESPIRATORY: Effort normal. Unlabored. CARDIOVASCULAR: First and second sounds noted. Trace edema. ABDOMEN: Soft, nontender. Liver and spleen not palpable. PSYCHIATRY: Alert and oriented x3. Mood and affect are normal. CHEST WALL: Midline incision exposed to air. Edges well approximated. No drainage noted. INVESTIGATIONS: Sodium 140, potassium 3.8, BUN 16, creatinine 0.80, calcium 8.5. Blood glucose 108. ASSESSMENT: 1. Status post single-vessel coronary artery bypass graft and aortic root replacement with graft, improving. 2. Coronary artery disease. 3. Chronic obstructive pulmonary disease in an ex-smoker. 4. Hyperlipidemia. 5. Essential hypertension. 6. Primary osteoarthritis of multiple joints bilaterally. 7. Benign prosthetic hypertrophy. 8. Acute postoperative blood loss anemia as expected from surgery. 9. Delusional thrombocytopenia. 10. Atelectasis, improving. PLAN: We will continue medication and treatment plan. Patient continues to do well in his postoperative course. Pulmonology will continue to follow as well as encouraging patient use incentive spirometer cough and deep breathe and increase activity as he can tolerate. Discharge plan for cardiothoracic surgery is in the next 1 to 2 days. Patient was seen and examined by nurse practitioner, Dianne Hassan, and all elements of the case were discussed with the attending, Dr. Upton.
[2017-02-03 16:55] LABS: Glucose,Whole Blood 111 mg/dL (75-99)
[2017-02-03] MEDS: SENNOSIDES-DOCUSATE SODIUM 1 EACH TAB PO SCH (20:19)
[2017-02-03 21:27] LABS: Glucose,Whole Blood 126 mg/dL (75-99)
[2017-02-04] MEDS: INSULIN LISPRO (humaLOG) 300 UNIT/3 ML VIAL SQ SCH ×2 (06:43→12:24)
[2017-02-04] MEDS: FERROUS SULFATE 325 MG TAB PO SCH (06:44)
[2017-02-04] MEDS: PANTOPRAZOLE 40 MG TABLET PO SCH (06:44)
[2017-02-04] MEDS: HYDROcodone/APAP 7.5-325MG 1 EACH TAB PO PRN ×2 (06:49→11:06)
[2017-02-04 07:07] LABS: Glucose,Whole Blood 127 mg/dL (75-99)
--- NOTE | 2017-02-04 08:38 | PN ---
DATE OF SERVICE: 02/03/2017 ATTENDING NOTE: This patient was seen and examined by me yesterday. I reviewed the note of my nurse practitioner, Ms. Hassan and discussed with her. Patient is doing better, up in the hallway. Family is at the bedside. Breathing is much improved. On examination, afebrile, blood pressure 105/58. LUNGS: Slightly decreased breath sounds. CARDIOVASCULAR: First and second sounds are normal. PSYCH: Alert and oriented x3. ASSESSMENT: 1. Status post single-vessel coronary artery bypass and aortic roof replacement with graft. 2. Chronic obstructive pulmonary disease. PLAN: Continue with current medication and treatment plan. Questions were answered.
[2017-02-04] MEDS: SYMBICORT 160-4.5 MCG INHALER INHALATION SCH (08:53)
[2017-02-04] MEDS: MUPIROCIN 2% OINT 22 GM TUBE NASAL SCH (09:26)
[2017-02-04] MEDS: METOPROLOL TARTRATE 25 MG TAB PO SCH (09:26)
[2017-02-04] MEDS: FONDAPARINUX 2.5 MG/0.5 ML SYRINGE SQ SCH (09:26)
[2017-02-04] MEDS: ASPIRIN 81 MG CHEW PO SCH (09:26)
[2017-02-04] MEDS: ATORVASTATIN 40 MG TAB PO SCH (09:27)
[2017-02-04 09:32] VITALS: RESP 18
--- NOTE | 2017-02-04 10:57 | P.PN ---
Subjective Principal diagnosis: Status post aortic valve replacement and single-vessel bypass surgery. 66-year-old male patient who underwent a ascending root replacement/aortic valve replacement and single-vessel bypass surgery with CARMEN to OM1. The patient was brought into the intensive care unit for further monitoring. The patient received a total of 2 units of fresh frozen plasma and 5 units of platelet concentrates during the surgery. Currently he is intubated on a mechanical ventilator. I have an assist-control mode of ventilation at the rate of 16, tidal volume 550, FiO2 has been weaned down from 100% down to 60% with a PEEP of 5. His blood care this showed a pH of 7.36 with a pCO2 of 46 and pO2 of 261. Chest x-ray showed adequate expansion of both lungs and there is no evidence of any pneumothorax. The patient has 2 mediastinal chest tubes, a right pleural and left pleural. Output from the chest tubes were approximately no output from the right, 200 mL an hour from the mediastinal and 50 mL an hour from the left. The patient will be receiving additional platelets here in the ICU. His most recent plated count is 59,000. His hemoglobin is at 7.8. He is producing adequate amount of urine output. His cardiac index is at 2.2 with an output of 4.5. His PA pressures are 25/15 and the patient's cardiac rhythm is sinus at this point. He is sedated with Diprivan and is calm and comfortable. No other significant issues postop. The patient is seen again today 01/30/2017 in follow-up. He remains here in the intensive care unit. He was successfully extubated. He is currently awake and alert in no acute distress. He is hemodynamically stable. Most of his drips are off. He remains on insulin at 1 unit per hour. He is maintaining good O2 saturations in the low 90s on 8 L/m. His chest x-ray shows bilateral infiltrates and small pleural effusions. Chest tubes remain in place. I need to the orders the his pain is well controlled. His hemoglobin remained stable at 7.9. The patient is seen again today 01/31/2017 in follow-up in the intensive care unit. He's been up ambulating with assistance. He is doing quite well. He denies any worsening shortness of breath, cough or congestion. He is working well with the incentive spirometer. His chest x-ray continues to real reveal small bilateral pleural effusions. Chest tubes remain in place and the plan is for them to be removed later this morning. He is maintaining good O2 saturations in the upper 90s on 6 L/m per nasal cannula. He has a slight temperature at 100.5 today. He has been hemodynamically stable. Hemoglobin 7.1 today. Platelet count 76,000. The patient is seen again today 02/01/2017 in follow-up on the regular medical floor. He is awake and alert in no acute distress. He is sitting up in bed. He had previously been up in the chair today as well. His pain is well controlled. He is requiring 4 L of oxygen per nasal cannula to maintain O2 saturations in the 90s. He is working well with the incentive spirometer. His chest tubes remain in place. Chest x-ray continues to show stable bilateral infiltrates with less than 5% bilateral apical pneumothoraces. He is currently afebrile. Hemodynamically stable. No leukocytosis. Hemoglobin is stable at 7.4. Platelet count 70,000. On 02/02/2017 the patient is being seen in follow-up. The patient is resting comfortably in bed. The patient's chest tubes have been ordered removed. No chest pain. Surgical wound site is intact. The patient is using incentive spirometer. Hemoglobin is stable at 7.6. Rest of the electrolytes and renal function are all stable. The chest x-ray from today shows no pneumothorax. Patchy basilar atelectatic changes Seen bilaterally. Hemodynamically stable. No other significant events overnight. On 02/03/2017 the patient is being seen in follow-up. He has no specific complaints. Is doing extremely well. Surgical wound site is dry clean and intact. No nausea. No vomiting. He is ambulating. Still on oxygen at 2 L/m nasal cannula. Patient was reevaluated today on 02/04/2017, doing well, asymptomatic, no cough no wheezing no shortness of breath, off oxygen, he is presently on room air. Patient is being considered for discharge planning today. Objective - Vital Signs Vital signs: Vital Signs Temp 98.2 F 02/04/17 08:00 Pulse 83 02/04/17 08:00 Resp 18 02/04/17 08:00 BP 112/53 02/04/17 08:00 Pulse Ox 93 L 02/04/17 08:00 Intake & Output 02/03/17 02/04/17 02/04/17 18:59 06:59 18:59 Intake Total 690 240 Output Total 250 1125 Balance 440 -1125 240 Weight 89.7 kg Intake: Oral 690 240 Output: Urine 250 1125 Other: Voiding Method Urinal Urinal # Voids 1 1 ABP, PAP, CO, CI - Last Documented Arterial Blood Pressure 101/52 Pulmonary Artery Pressure 24/11 Cardiac Output 5.4 Cardiac Index 2.7 - Exam Physical Exam: Revealed a 66-year-old in no distress HEENT:[Neck is supple.] [No neck masses.] [No thyromegaly.] [No JVD.] Chest: [Diminished breath sounds at the bases no crackles or rhonchi or wheezes] Cardiac Exam: [Normal S1 and S2, no S3 gallop, no murmur.] Abdomen: [Soft, nontender, no megaly, no rebound, no guarding, normal bowel sounds.] Extremities: [No clubbing, no edema, no cyanosis.] Neurological Exam: [No focal neurologic deficit.] - Labs CBC & Chem 7: 02/02/17 06:27 02/03/17 06:05 Labs: Abnormal Lab Results - Last 24 Hours (Table) 02/03/17 02/03/17 02/03/17 Range/Units 11:58 16:54 21:19 POC Glucose (mg/dL) 108 H 111 H 126 H (75-99) mg/dL 02/04/17 Range/Units 06:42 POC Glucose (mg/dL) 127 H (75-99) mg/dL Assessment and Plan Plan: 1 aortic valve and aortic root replacement/Bentall procedure, along with a single-vessel bypass surgery with CARMEN to obtuse marginal. The patient is postop day #6 2 post thoracotomy ventilator support, recovered and the patient has been extubated without any major difficulties in the chest tubes have been all removed. Limited atelectatic changes in lung bases bilaterally. 3 skeletal chest wall pain secondary to thoracotomy, currently inactive in stable 4 postop to thrombocytopenia , improving 5 postoperative anemia hemoglobin, stable 6 hypertension 7 hyperlipidemia 8 diabetes mellitus , currently on Humalog for sliding scale coverage 9 history of BPH 10 COPD Recommendation: Continue present treatment plan, cleared for discharge planning today, follow-up with Dr. Rea on outpatient basis. Advised to continue incentive spirometry on outpatient basis until reevaluated in our office by Dr. Rea. Time with Patient: Less than 30
--- NOTE | 2017-02-04 11:16 | P.DS ---
Providers Date of admission: 01/29/17 05:40 Attending physician: Nadya Cano Consults: 01/29/17 16:32 Consult Physician Routine Consulting Provider: Rachel Rea Consult Reason/Comments: [employer] Consult: post cardiac surgery Do you want consulting provider notified?: Yes Consult Physician Routine Consulting Provider: Raudel Upton Consult Reason/Comments: medical management Do you want consulting provider notified?: Yes Consult Physician Routine Consulting Provider: Osvaldo Kessler Consult Reason/Comments: [employer] Member Consult: post cardiac surgery Do you want consulting provider notified?: Yes Primary care physician: Noe Meyers - [place] Diagnosis(es) (1) Ascending aortic aneurysm Current Visit: Yes Status: Acute (2) Aortic valve regurgitation Current Visit: Yes Status: Acute (3) Coronary artery disease Current Visit: Yes Status: Acute (4) Hypertension Current Visit: Yes Status: Acute (5) Hyperlipidemia Current Visit: Yes Status: Acute (6) Chronic obstructive pulmonary disease Current Visit: Yes Status: Acute Hospital Course: FINAL DIAGNOSIS: 1.[Aortic root and ascending aortic aneurysm with moderate aortic valve regurgitation] 2.[Single vessel coronary artery disease with stenosis of the obtuse marginal artery, preserved left ventricular function] 3.[Hypertension] 4.[Hyperlipidemia] 5.[Mild chronic obstructive pulmonary disease] PRINCIPAL PROCEDURE: [] 1.[Aortic root and ascending aortic replacement using a modified Bentall technique with a 27 mm magna ease pericardial bioprosthesis and a 32 mm Valsalva graft with reimplantation of both coronary buttons. ] 2.[Single vessel coronary artery bypass grafting using the left internal mammary artery to the obtuse marginal artery.] 3.[Intraoperative transesophageal echocardiogram and epi-aortic scanning.] HISTORY OF PRESENT ILLNESS: [This 66-year-old gentleman had an incidental finding on CAT scan of aortic root and ascending aortic aneurysm. Workup included a 2-D echo and a CLARISSA that showed moderate aortic valve regurgitation, preserved left ventricular function, and a root more than 5.5 cm diameter. Current catheterization demonstrated significant stenosis in a large obtuse marginal artery. Dr. Cano from cardiothoracic surgery was consulted for the possibility of surgical revascularization as well as aortic valve replacement. An extensive discussion was had with the patient and his family, all risks and benefits were explained, and consent was obtained to proceed with surgery.] HOSPITAL COURSE:[The patient was brought to the hospital on 01/29/2017, taken to the preoperative area, prepared in the usual fashion, and subsequently taken to the operating room where Dr. Cano performed an elective aortic root and ascending aortic replacement using a modified Bentall technique with a 27 mm magna ease pericardial bioprosthesis and a 32 mm Valsalva graft with reimplantation of both coronary buttons, single vessel coronary artery bypass grafting using the left internal mammary artery to the obtuse marginal artery, intraoperative transesophageal echocardiogram and epi-aortic scanning. Upon completion of surgery, the patient was transferred to the cardiovascular intensive care unit where he was recovered, monitored hemodynamically, and where he progressed to cardiac rehabilitation phase 1. He was extubated, all lines, tubes, and drips were discontinued when appropriate, and he was transferred to [address] [place] [address] for further monitoring and rehabilitation. His oxygen was titrated down, he continued to work with physical therapy, and was ready to be discharged home on postoperative day #6 with [facility] to follow. He received written and verbal instruction regarding his medications , activity restrictions, signs and symptoms requiring physician notification, and follow-up appointments.] COMPLICATIONS: [The patient experienced thrombocytopenia which was treated appropriately.] CONSULTATIONS: 1.[Dr. Kessler for cardiology] 2.[Dr. Rea for pulmonology] 3.[Dr. Upton for medical management] DISCHARGE INSTRUCTIONS: 1. No driving for 4 weeks, or until physician gives their ok. 2. The patient should sleep in their own bed, no medical bed needed. 3. Stairs are not an issue. If the bedroom is upstairs, it is advised that the patient go up at night and down in the morning for the first week. Go slowly, using handrail and take 1 step at a time. 4. DALI hose are to be worn for 30 days or until physician discontinues. 5. Heart hugger is to be worn 100% of the time until physician discontinues.( except when showering) 6. No lifting, pushing, or pulling more than 5 pounds for 12 weeks. The physician will advise of any restriction changes. 7. The patient is expected to continue the prescribed walking program. 8. Continue pain control per as needed orders. 9. Continue with incentive spirometry and splinting/heart hugger until otherwise directed by the physician. 10. Must shower daily using liquid antibacterial soap and a separate white washcloth for each individual incision. 11. Routine sternal incision care. No lotions, powders, ointments on incisions. HOME HEALTH SERVICES TO PROVIDE: RN SKILLED HOME CARE SERVICES FOR POST-OP SURGICAL PATIENTS WITH THE FOLLOWING: Coronary Artery Bypass Surgery (CABG), Mitral Valve Replacement/ Repair ( MVR), Aortic Valve Replacement/Repair (AVR) RN TO CONTINUE EDUCATION FROM ``ROAD TO A HEALTH HEART PATIENT EDUCATION MANUAL (GIVEN TO PATIENT IN THE HOSPITAL) MEDICATION RECONCILIATION WITH EDUCATION NEEDED ON FIRST HOME VISIT EMPHASIZE IMPORTANCE OF WEARING HEART HUGGER ENCOURAGE USE OF INCENTIVE SPIROMETER 10 X EVERY HOUR WHILE AWAKE ENCOURAGE UTILIZATION OF LOWER EXTREMITY COMPRESSION STOCKINGS/DALI HOSE and ELEVATE LEGS ABOVE LEVEL OF HEART WHILE AT REST. ENCOURAGE AMBULATION 3-5x/day INCREASING TOLERATES, WHILE AVOID EXTREMES IN TEMPERATURE FREQUENCY: RN TO OPEN THE PATIENT WITHIN 24 HOURS OF DISCHARGE FROM THE HOSPITAL WITH TELEHEALTH INSTALLED AT [facility] [place], RN TO VISIT 2-3 X A WEEK FOR 4 WEEKS ESTABLISHED BY PATIENT NEEDS. REMOVAL OF SUTURES: NURSING SERVICES TO REMOVE SUTURES TWO WEEKS POST SURGICAL DATE [02/12/17 ]. If any questions regarding suture removal please call the office at [phone]. LABORATORY: CBC, CMP TO BE DRAWN ON THE THIRD DAY HOME, 02/07/2017 (RAN STAT ) FAX RESULTS TO [phone]. TELEHEALTH PARAMETERS: WEIGHT: NOTIFY MD OF WEIGHT GAIN OF 2 LBS IN 24 HOURS OR 5 LBS IN ONE WEEK HR: NOTIFY MD OF HR <55 BPM OR HR>100 BPM BP: NOTIFY MD IF BP <90/55 OR BP>140/100 O2 SAT: NOTIFY MD IF PO2<93% ON ROOM AIR SEND TELEHEALTH REPORT TO BUS GREASER AND CARDIOVASCULAR SURGEON THE FIRST WEEK OF CARE AND THEN BI-WEEKLY. PLEASE ADDITIONALLY COMMUNICATE ANY ABNORMALS AND NEW FINDINGS TO THE SURGEONS OFFICE. Plan - Discharge Summary New Discharge Prescriptions: Atorvastatin [Lipitor] 40 mg PO DAILY #30 tab HYDROcodone/APAP 7.5-325MG [[place] 7.5-325] 1 - 2 each PO Q6HR PRN #120 tab PRN Reason: Pain Metoprolol Tartrate [Lopressor] 25 mg PO BID #60 tab Pantoprazole [Protonix] 40 mg PO AC-BRKFST #30 tab Discharge Medication List Budesonide-Formot 160-4.5 Mcg [Symbicort 160-4.5 Mcg Inhaler] 2 puff INHALATION RT-BID 05/20/14 [History] Aspirin [Adult Low Dose Aspirin EC] 81 mg PO DAILY 12/01/15 [History] Cholecalciferol [Vitamin D3] 1,000 unit PO DAILY 12/01/15 [History] Cyanocobalamin [Vitamin B-12] 500 mg PO DAILY 12/01/15 [History] Gabapentin 800 mg PO BID 12/14/15 [History] Atorvastatin [Lipitor] 40 mg PO DAILY #30 tab 02/04/17 [Rx] HYDROcodone/APAP 7.5-325MG [[place] 7.5-325] 1 - 2 each PO Q6HR PRN #120 tab 02/04 [Rx] Metoprolol Tartrate [Lopressor] 25 mg PO BID #60 tab 02/04/17 [Rx] Pantoprazole [Protonix] 40 mg PO AC-BRKFST #30 tab 02/04/17 [Rx] Sennosides-Docusate Sodium [Senokot-S] 2 each PO HS tab 02/04/17 [Rx] Follow up Appointment(s)/Referral(s): [facility], [NON-STAFF] - As Needed Nadya Cano MD [STAFF PHYSICIAN] - 03/01/17 9:30 am Marlene Patrick NPC [Nurse Practitioner] - 02/08/17 12:00 pm Osvaldo Kessler MD [STAFF PHYSICIAN] - 02/15/17 3:00 pm Rachel Rea MD [STAFF PHYSICIAN] - 02/25/17 1:45 pm Noe Meyers MD [Primary Care Provider] - 02/18/17 12:00 pm Ambulatory/Diagnostic Orders: Complete Blood Count w/diff [LAB.AMB] Time Frame: 3 Days, Location: Determined By Patient Comprehensive Metabolic Panel [LAB.AMB] Time Frame: 3 Days, Location: Determined By Patient
[2017-02-04 11:23] VITALS: BP 106/60; PULSE 86; TEMP 98
[2017-02-04 12:07] LABS: Glucose,Whole Blood 101 mg/dL (75-99)
--- NOTE | 2017-02-04 14:50 | P.PN ---
Subjective Principal diagnosis: Aortic valve replacement and single-vessel bypass surgery This is a 66-year-old gentleman who is status post aortic valve and single- vessel bypass surgery, he was seen and examined today, overall doing well. Denies any chest pain or difficulty in breathing. He's been up ambulating without any difficulty. He is quite eager to be discharged home soon. At pressure today 106/60 with a heart rate in the 70s to 80s. He is 92% on room air. Objective - Vital Signs Vital signs: Vital Signs Temp 98.0 F 02/04/17 11:21 Pulse 86 02/04/17 11:23 Resp 18 02/04/17 11:23 BP 106/60 02/04/17 11:21 Pulse Ox 92 L 02/04/17 11:21 Intake & Output 02/03/17 02/04/17 02/04/17 18:59 06:59 18:59 Intake Total 690 400 Output Total 250 1125 425 Balance 440 -1125 -25 Weight 89.7 kg Intake: Oral 690 400 Output: Urine 250 1125 425 Other: Voiding Method Urinal Urinal # Voids 1 1 1 ABP, PAP, CO, CI - Last Documented Arterial Blood Pressure 101/52 Pulmonary Artery Pressure 24/11 Cardiac Output 5.4 Cardiac Index 2.7 - Exam PHYSICAL EXAMINATION: HEENT: [Head is atraumatic, normocephalic. Pupils equal, round. Neck is supple. There is no elevated jugular venous pressure.] HEART EXAMINATION: [Heart S1, S2 normal. No murmur or gallop heard.] CHEST EXAMINATION:[ Lungs are clear to auscultation and precussion. No chest wall tenderness is noted on palpation or with deep breathing.] ABDOMEN: [ Soft, nontender. Bowel sounds are heard. No organomegaly noted]. EXTREMITIES:[ 2+ peripheral pulses with no evidence of peripheral edema and no calf tenderness noted]. NEUROLOGIC [patient is awake, alert and oriented -3.] . - Labs CBC & Chem 7: 02/02/17 06:27 02/03/17 06:05 Labs: Abnormal Lab Results - Last 24 Hours (Table) 02/03/17 02/03/17 02/04/17 Range/Units 16:54 21:19 06:42 POC Glucose (mg/dL) 111 H 126 H 127 H (75-99) mg/dL 02/04/17 Range/Units 11:44 POC Glucose (mg/dL) 101 H (75-99) mg/dL Assessment and Plan (1) S/P AVR (aortic valve replacement) Status: Acute (2) S/P CABG x 1 Status: Acute (3) HTN (hypertension) Status: Acute (4) Hyperlipemia Status: Acute (5) Diabetes Status: Acute (6) COPD (chronic obstructive pulmonary disease) Status: Acute Plan: From cardiology's perspective, patient may be able to be discharged home today. We will make him a follow-up appointment in the office 2 weeks post discharge. DNP note has been reviewed, I agree with a documented findings and plan of care. Patient was seen and examined.
--- NOTE | 2017-02-05 11:28 | PN ---
DATE OF SERVICE: 02/04/2017 PRESENTING COMPLAINT: Status post CABG. INTERVAL HISTORY: This patient was seen and examined by me yesterday. Patient is status post CABG doing much better; up and about in the hallway, tolerating a diet. Breathing is better. Family is at the bedside. Review of systems done for constitutional, cardiovascular, GI, pulmonary; relevant findings as above. Current medications are reviewed. On examination, temperature 98, pulse 86, respiration 18, blood pressure was 106/60, pulse ox 92% on room air. GENERAL APPEARANCE: Lying in bed, comfortable. EYES: Pupils equal. Conjunctivae normal. NECK: JVD not raised. Mass not palpable. RESPIRATORY: Effort normal. LUNGS: Diminished breath sounds. CARDIOVASCULAR: Heart sounds first and second are normal. Minimal edema. ABDOMEN: Soft, nontender. PSYCHIATRY: Alert and oriented x3. Mood and affect normal. INVESTIGATIONS: Accu-Cheks are noted. ASSESSMENT: 1. Status post single-vessel coronary artery bypass grafting and aortic root replacement with graft. 2. Coronary artery disease. 3. Chronic obstructive pulmonary disease in an ex-smoker. 4. Hyperlipidemia. 5. Essential hypertension. 6. 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 7. Benign prostatic hypertrophy. 8. Acute postoperative blood loss anemia as expected from surgery. 9. Dilutional thrombocytopenia. 10. Atelectasis. PLAN: The patient doing much better. He can be discharged. He will follow up with his family doctor.
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
--- NOTE | 2017-03-05 23:29 | PN ---
ADDENDUM DATE OF SERVICE: 01/31/2017 ASSESSMENT: 1. Status post single-vessel coronary artery bypass and aortic root replacement with graft. 2. Coronary artery disease. 3. Chronic obstructive pulmonary disease in an ex-smoker. 4. Hyperlipidemia. 5. Essential hypertension. 6. 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 7. Benign prostrate hypertrophy. 8. Acute postoperative blood loss anemia, expected from surgery. 9. Dilutional thrombocytopenia. 10. Atelectasis.
== END 2017-02-04 14:42 | disposition home health service (06) | DRG 220 ==
LOC: 2ORMAIN 05:40 → 6ICU 15:15 → 6SEL 01-31 15:48
PROVIDERS: ADMIT Surgery; ATTEND Surgery
PROC: 02RF08Z Replacement of Aortic Valve with Zooplastic Tissue, Open Approach (ICD-10-PCS; 2017-01-29)
PROC: 30243R1 Transfusion of Nonautologous Platelets into Central Vein, Percutaneous Approach (ICD-10-PCS; principal; 2017-01-29 08:00)
PROC: 02100Z9 Bypass Coronary Artery, One Artery from Left Internal Mammary, Open Approach (ICD-10-PCS; principal; 2017-01-29 08:00)
PROC: 02RX08Z Replacement of Thoracic Aorta, Ascending/Arch with Zooplastic Tissue, Open Approach (ICD-10-PCS; principal; 2017-01-29 08:00)
PROC: 5A1221Z Performance of Cardiac Output, Continuous (ICD-10-PCS; principal; 2017-01-29 08:00)
PROC: 30243L1 Transfusion of Nonautologous Fresh Plasma into Central Vein, Percutaneous Approach (ICD-10-PCS; principal; 2017-01-29 08:00)
PROC: B24BZZ4 Ultrasonography of Heart with Aorta, Transesophageal (ICD-10-PCS; principal; 2017-01-29 08:00)
DX: I71.2 Thoracic aortic aneurysm, without rupture (principal); Q25.43 Congenital aneurysm of aorta; D69.59 Other secondary thrombocytopenia; J44.9 Chronic obstructive pulmonary disease, unspecified; D62 Acute posthemorrhagic anemia; J98.11 Atelectasis; I35.1 Nonrheumatic aortic (valve) insufficiency; I10 Essential (primary) hypertension; E78.5 Hyperlipidemia, unspecified; I25.10 Atherosclerotic heart disease of native coronary artery without angina pectoris; I25.2 Old myocardial infarction; J45.909 Unspecified asthma, uncomplicated; M19.91 Primary osteoarthritis, unspecified site; N40.0 Benign prostatic hyperplasia without lower urinary tract symptoms; I97.3 Postprocedural hypertension; E11.9 Type 2 diabetes mellitus without complications; Z96.651 Presence of right artificial knee joint; Z96.641 Presence of right artificial hip joint; Z87.891 Personal history of nicotine dependence; Z79.82 Long term (current) use of aspirin; Z79.51 Long term (current) use of inhaled steroids; Z79.899 Other long term (current) drug therapy
CPT/HCPCS: 71010; 71020; 80048; 80053; 82330; 82805; 83735; 85025; 85384; 85520; 85610; 85730; 86850; 86891; 86900; 86901; 86920; 88304; 88305; 94640

== ENCOUNTER → 2017-11-08 | Outpatient (CLI) | payer MEDICARE, OTHER ==
[2017-11-08 09:43] LABS: Appearance,Urine Clear (Clear); Bilirubin,Urine Negative (Negative); Blood,Urine Negative (Negative); Color,Urine Yellow; Glucose,Urine (UA) Negative (Negative); Ketones,Urine Negative (Negative); Leukocyte Esterase,Urine Negative (Negative); PH, Urine 5.5 (5.0-8.0); Protein,Urine Trace (Negative); Specific Gravity,Urine 1.022 (1.001-1.035); Urobilinogen,Urine <2.0 mg/dL (<2.0)
== END | disposition home or self-care (01) ==
LOC: LABPAT 08:47
PROVIDERS: ATTEND Orthopaedic Surgery
DX: Z01.812 Encounter for preprocedural laboratory examination (principal); Z79.01 Long term (current) use of anticoagulants
CPT/HCPCS: 36415; 81003; 86850; 86900; 86901; 87070

== ENCOUNTER 2017-11-19 10:09 | Inpatient (IN) | payer MEDICARE, OTHER ==
[2017-11-12 12:17] VITALS: BMI 30.4
[~2017-11-19 10:09] MED LIST changes: +ACETAMINOPHEN TAB 500 MG TAB PO ONE; -ALBUMIN HUMAN 25% 50 ML IV ONE; -ALBUMIN HUMAN 5% 500 ML IVPB ONE; -AMINOCAPROIC ACID 250 MG/ML 20 ML VIAL IV ONE; -AMINOCAPROIC ACID 5,000 MG in DEXTROSE 5% IN WATER 50 ML IV ONE; -ASPIRIN 325 MG TAB PO ONE; -ATORVASTATIN 10 MG TAB PO ONE; -CALCIUM CHLORIDE 100 MG/ML 10 ML SYRINGE IV ONE; -CHLORHEXIDINE GLUCONATE 15 ML CUP MUCOUS MEM ONE; -CLEVIDIPINE BUTYRATE 25 MG in EMPTY BAG 1 BAG IV ONE; +DEXAMETHASONE SOD PHOSPHATE 10 MG/ML 1 ML VIAL IV ONE; -DEXTROSE 5% IN WATER 1,000 ML with POTASSIUM CHLORIDE 110 MEQ, MAGNESIUM SULFATE 16 MEQ... IV ONE; -DEXTROSE 5% IN WATER 1,000 ML with POTASSIUM CHLORIDE 25 MEQ, SODIUM CHLORIDE 4MEQ/ML V... IV ONE; -HEPARIN SODIUM 1,000 UNIT/ML VIAL IV ONE; -HEPARIN SODIUM,PORCINE 5,000 UNIT in SODIUM CHLORIDE 0.9% 500 ML IV ONE; -INSULIN REGULAR 100 UNIT in SODIUM CHLORIDE 0.9% 100 ML IV ONE; -LACTATED RINGERS 1,000 ML IV ONE; -MAGNESIUM SULFATE MG 500 MG/ML VIAL IV ONE; -MANNITOL 25% 12.5 GM/50 ML VIAL IV ONE; +MELOXICAM 7.5 MG TAB PO ONE; -METOPROLOL TARTRATE 12.5 MG TAB PO ONE; +MIDAZOLAM 2 MG/2 ML VIAL IV PRN; -MUPIROCIN 2% OINT 22 GM TUBE NASAL ONE; -NITROGLYCERIN-D5W PMX 25 MG/250 ML BTL IV ONE; -NITROGLYCERIN-D5W PMX 50 MG in DEXTROSE/WATER 1 250ML.BAG IV ONE; -NOREPINEPHRIN 4 MG-0.9% NS PMX 4 MG/250 ML ML IV ONE; +ONDANSETRON 4 MG/2 ML VIAL IVP ONE; -PAPAVERINE 360 MG in SODIUM CHLORIDE 0.9% 90 ML IV ONE; -PHENYLEPHRINE 40 MG in SODIUM CHLORIDE 0.9% 250 ML IV ONE; -PHENYLEPHRINE-0.9% NACL SYG 1 MG/10 ML SYRINGE IV ONE; -PROPOFOL 50 ML IV ONE; -PROTAMINE SULFATE 10 MG/ML 25 ML VIAL IV ONE; -PROTAMINE SULFATE 250 MG in EMPTY BAG 1 BAG IV ONE; -SODIUM BICARB 8.4% 50 ML SYR (1 MEQ/ML) IV ONE; -SODIUM CHLORIDE 0.9% 1,000 ML IV ONE; +TRANEXAMIC ACID 1,000 MG in SODIUM CHLORIDE 0.9% 50 ML IVPB ONE; -VANCOMYCIN 1,250 MG in SODIUM CHLORIDE 0.9% 250 ML IVPB ONE; -ceFAZolin 1,000 MG in SODIUM CHLORIDE 0.9% IRRIGATIO 1,000 ML IRRIGATION ONE; -ceFAZolin 2,000 MG in SODIUM CHLORIDE 0.9% 30 ML IVPB ONE
[2017-11-19] MEDS ORDERED: LIDOCAINE 1% 20 ML VIAL (10MG/ML) FOR IV START INTRADERMA ONE (10:31)
[2017-11-19] MEDS: LACTATED RINGERS 1,000 ML IV SCH (10:59)
[2017-11-19] MEDS: ceFAZolin IN SWFI 2 GM/20 ML SYRINGE IVP ONE ×2 (13:04→13:25)
[2017-11-19] MEDS: ROPIVACAINE 246.25 MG, EPINEPHrine 0.5 MG, KETOROLAC 30 MG, cloNIDine HCL/PF 80 MCG, WA... MISCELLANE ONE ×10 (13:04→13:40)
[2017-11-19] MEDS ORDERED: LACTATED RINGERS 1,000 ML BAG IV ONE (13:14)
[2017-11-19] MEDS ORDERED: LIDOCAINE 1% INJ 10MG/ML (20 ML MDV) ONE (13:14)
[2017-11-19] MEDS ORDERED: MIDAZOLAM 2 MG/2 ML VIAL ONE (13:14)
[2017-11-19] MEDS ORDERED: SUCCINYLCHOLINE CHLORIDE 100 MG/5 ML SYR IV ONE (13:14)
[2017-11-19] MEDS ORDERED: SODIUM CHLORIDE 0.9% 100 ML BAG ONE (13:14)
[2017-11-19] MEDS ORDERED: TRANEXAMIC ACID 1,000 MG/10 ML VIAL ONE (13:14)
[2017-11-19] MEDS ORDERED: fentaNYL (PF) 50 MCG/ML 2 ML AMP ONE (13:14)
[2017-11-19] MEDS ORDERED: GLYCOPYRROLATE 0.2 MG/ML 2 ML VIAL ONE (13:14)
[2017-11-19] MEDS ORDERED: PROPOFOL 10 MG/ML 20 ML VIAL IV ONE (13:14)
[2017-11-19] MEDS ORDERED: HEPARIN SODIUM,PORCINE 10,000 UNIT/ML 1 ML VIAL ONE (13:14)
[2017-11-19] MEDS ORDERED: PHENYLEPHRINE-0.9% NACL SYG 1 MG/10 ML SYRINGE ONE (13:14)
[2017-11-19] MEDS ORDERED: ROCURONIUM BROMIDE 10 MG/ML 10 ML VIAL IV ONE (13:14)
[2017-11-19] MEDS ORDERED: NEOSTIGMINE 1 MG/ML 10 ML VIAL ONE (13:14)
[2017-11-19] MEDS ORDERED: MORPHINE SULFATE 4 MG/ML SYRINGE IVP PRN ×3 (13:23)
[2017-11-19] MEDS ORDERED: NALOXONE 0.4 MG/ML 1 ML VIAL IV PRN (13:23)
[2017-11-19] MEDS ORDERED: DIAZEPAM 5 MG TAB PO PRN ×2 (13:23)
[2017-11-19] MEDS ORDERED: hydrOXYzine PAMOATE 25 MG CAP PO PRN (13:23)
[2017-11-19] MEDS ORDERED: HYDROcodone/APAP 7.5-325MG 1 EACH TAB PO PRN (13:23)
[2017-11-19] MEDS ORDERED: MAGNESIUM HYDROXIDE 2,400 MG/10 ML CUP PO PRN (13:23)
[2017-11-19] MEDS ORDERED: ONDANSETRON 4 MG/2 ML VIAL IVP PRN (13:23)
[2017-11-19] MEDS ORDERED: ceFAZolin 3,000 MG in SODIUM CHLORIDE 0.9% IRRIGATIO 3,000 ML IRRIGATION ONE (13:41)
--- NOTE | 2017-11-19 14:43 | P.OP ---
Date of Procedure: 11/19/17 Preoperative Diagnosis: Severe osteoarthritis right hip Postoperative Diagnosis: Severe osteoarthritis right hip Procedure(s) Performed: Right total hip arthroplasty direct anterior approach Implants: Hines and nephew Polarstem size 2 standard with a collar [employer] R3, 3 hole acetabular shell, 54 mm [employer] reflection 6.5 mm cancellus screw, 20 mm 2 [employer] R3, XLPE 20 acetabular liner [employer]hew Oxinium femoral head 36 m, +4 All components were press-fit. The articulation is Oxinium on polyethylene. Anesthesia: spinal Surgeon: Scott Lerma Lowerator Operator #1: Jovita Rao Estimated Blood Loss (ml): 200 (64 mL returned with Cell Saver) Pathology: other (Femoral head) Condition: stable Disposition: PACU Indications for Procedure: After failure of conservative treatment we discussed the surgical and nonsurgical treatment options at length. Patient wishes to proceed with a total hip arthroplasty with a direct anterior approach. Complications specific to this procedure were discussed at length, including but not limited to infection, leg length discrepancy, dislocation, and nerve injury. Patient is aware of all these complications and informed consent was obtained Operative Findings: The operative findings are consistent with severe osteoarthritis of the right hip Description of Procedure: Patient was seen and evaluated in the preoperative area, consent was reviewed, and the surgical site was marked with a skin marker. Patient was then brought to the operating room and given prophylactic antibiotics intravenously. 1 g of Tranexamic acid was also given. A spinal anesthetic was administered by the anesthesia department. The patient was then placed on the [place] table with the bony prominences well-padded. The hip area was then prepped and draped in usual sterile fashion. A universal timeout was then performed, which confirmed the patient's name, surgical site, ALLERGIES, and procedure being performed. Next the incision site was located at 1 cm distal and 1 cm lateral to the anterior superior iliac spine. The skin and subcutaneous tissues were sharply incised. Incision was carefully dissected down to the fascia overlying the tensor fascia alena muscle. This fascia was then incised in line with the incision. Next, using blunt finger dissection, the tensor fascia alena muscle was dissected off its investing fascia. The muscle was then carefully retracted laterally with a cobra retractor over the lateral neck of the femur. Next, the circumflex vessels were identified and cauterized using the AquaMantis device. The anterior hip capsule was then exposed. The capsule was then opened and an inverted T fashion. Cobra retractors were then placed intracapsularly. The proximal femur was then visualized. The femoral neck was then osteotomized appropriate level above the lesser trochanter. Small amount of traction was placed with the [place] table. A small wedge of bone was then removed from the remaining femoral head. Next, using a corkscrew femoral head was easily removed from the acetabulum. On gross visual inspection, the femoral head had complete loss of articular cartilage in multiple periarticular osteophytes. Attention was then turned to the acetabulum. the acetabulum was exposed and any remaining labrum was excised. Sequential reaming of the acetabulum was performed using fluoroscopic guidance. When the appropriate size was reached, a trial was then placed. The position and fit of the trial was checked with fluoroscopy. The trial was then removed. Then, using fluoroscopic guidance, the final implant was impacted at 20 of anteversion and 40 of abduction, and fully seated in the acetabulum. 2 screws were then placed in the acetabulum. Again fluoroscopy was used to check position of the screws. Next, the liner was then impacted, with a 20 elevated liner located in the anterior superior quadrant. Component locking was confirmed. Attention was then directed to the femur. With the aid of the [place] table, the femur was externally rotated to approximately 130, extended, and abducted under the opposite leg. A side hook was then placed under the proximal femur, and the side hook elevator was used to elevate the proximal femur. Retractors were then placed. A capsular release was performed, as well as a release of the conjoined tendon, which afforded excellent visualization of the proximal femur. Next, a box osteotome was used to lateralize the proximal femur. A handling tech was then used to locate the femoral canal. Sequential broaching was then performed with appropriate size which afforded excellent fixation in the proximal femur. A trial was then placed with appropriate head and neck, and the hip was gently reduced with the aid of the [place] table. Fluoroscopy was then used to check position of the components, as well as to ensure equal leg lengths. The hip was then gently dislocated and the trials were then removed. Final implants were then impacted and the hip was again reduced. Final fluoroscopic x-rays confirmed that the components were in anatomic position, as well as equal leg lengths. The hip was also taken through range of motion, and found to be stable. The hip was then copiously irrigated with antibiotic solution with pulsatile lavage. The hip was then irrigated with Irrisept solution. The soft tissues were then injected with a ropivacaine solution, which consisted of 246.25 mg of ropivacaine, 0.5 mg of epinephrine, 30 mg of Toradol, 80 g of clonidine, and 48.45 mL of sterile water, for a total of 100 mL of fluid injected. A second dose of 1 g of Tranexamic acid was also given. the fascia was then closed with 2-0 strata fix suture. The subcutaneous tissue was closed with 3-0 Vicryl. The subcuticular tissue was closed with 3-0 strata fix suture. The skin was then closed with Dermabond glue and a sterile silver dressing. The patient was then transferred to the recovery room in stable condition. The university administrative assistant KARLIE Prince was required due to the complexity of surgery, and the need for skilled neurosurgical nurse for positioning, draping, exposure, retraction, and closure of the wound.
--- NOTE | 2017-11-19 14:45 | XR ---
EXAMINATION TYPE: XR Hip Limited RT DATE OF EXAM: 11/19/2017 COMPARISON: NONE HISTORY: Postop TECHNIQUE: One view submitted. FINDINGS: There is a prosthetic hip in near anatomic alignment. There is soft tissue edema and emphysema. IMPRESSION: 1. Postoperative change. Appears in near-anatomic alignment.
--- NOTE | 2017-11-19 14:45 | FL ---
EXAMINATION TYPE: FL guidance operating room DATE OF EXAM: 11/19/2017 HISTORY: Flouroscopy time 53 seconds of fluoroscopy provided. IMPRESSION: 1. Fluoroscopy time.
[2017-11-19] MEDS ORDERED: LACTATED RINGERS 1,000 ML IV ONE (14:53)
[2017-11-19] MEDS ORDERED: HYDROmorphone 0.5 MG/0.5 ML SYRINGE IVP ONE ×2 (15:15→15:20)
[2017-11-19] MEDS ORDERED: ONDANSETRON 4 MG/2 ML VIAL IVP ONE (15:31)
[2017-11-19] MEDS: MORPHINE SULFATE 4 MG/ML SYRINGE IV PRN ×2 (15:32→16:05)
[2017-11-19] MEDS: SODIUM CHLORIDE 0.9% 1,000 ML IV SCH (16:07)
[2017-11-19] MEDS ORDERED: ALBUTEROL NEBULIZED 2.5 MG/3 ML INHALATION PRN (17:11)
[2017-11-19] MEDS: HYDROcodone/APAP 7.5-325MG 1 EACH TAB PO PRN ×2 (17:25→23:22)
[2017-11-19] MEDS ORDERED: CHOLECALCIFEROL 1,000 UNIT TAB PO SCH (21:00)
[2017-11-19] MEDS ORDERED: GABAPENTIN 400 MG CAP PO SCH (21:00)
[2017-11-19] MEDS ORDERED: SENNOSIDES-DOCUSATE SODIUM 1 EACH TAB PO SCH (21:00)
[2017-11-19] MEDS ORDERED: ATORVASTATIN 40 MG TAB PO SCH (21:00)
[2017-11-19] MEDS: ceFAZolin IN SWFI 2 GM/20 ML SYRINGE IVP SCH (21:49)
[2017-11-19] MEDS: METOPROLOL TARTRATE 12.5 MG TAB PO SCH (21:49)
[2017-11-19] MEDS: ASPIRIN 325 MG TAB PO SCH (21:49)
[2017-11-20] MEDS: LACTATED RINGERS 1,000 ML IV SCH (04:51)
[2017-11-20] MEDS: ceFAZolin IN SWFI 2 GM/20 ML SYRINGE IVP SCH (05:16)
[2017-11-20] MEDS: SODIUM CHLORIDE 0.9% 1,000 ML IV SCH (05:17)
--- NOTE | 2017-11-20 05:42 | CONS ---
CONSULTATION DATE OF SERVICE: 11/19/2017. REASON FOR CONSULTATION: Advice regarding hypertension, hyperlipidemia requested by Orthopedic Surgery. HISTORY OF PRESENT ILLNESS: This 67-year-old gentleman with the past medical history of asthma, hypertension , hyperlipidemia, history of DJD, history of pneumonia being followed by Dr. Meyers in the outpatient setting underwent right total hip joint knee arthroplasty by Dr. Lerma. There is no history of any fever, rigors. No history of headache, loss of consciousness or seizures. PAST MEDICAL HISTORY: History of asthma, hypertension, hyperlipidemia, history of myocardial infarction, history of pneumonia, history of BPH. MEDICATIONS: Medications prior to admission include home medications: 1. Protonix 40 mg daily. 2. Lopressor 12.5 mg b.i.d. 3. [place] 7.5 q.6 p.r.n. 4. Gabapentin 800 mg q.h.s. 5. Vitamin B12, 500 mg p.o. daily. 6. Vitamin D3, 1000 q.h.s. 7. Lipitor 40 mg q.h.s. 8. Aspirin 81 mg q.h.s. 9. Albuterol 1 to 2 puffs q.6 p.r.n. ALLERGIES: VENOM, CRANBERRY. FAMILY HISTORY: History of cancer, DVT, colon and lung cancer. SOCIAL HISTORY: History of occasional alcohol. Previous history of smoking. REVIEW OF SYSTEMS: ENT: No diminished hearing or diminished vision. CARDIOVASCULAR SYSTEM: No angina or palpitations. RESPIRATORY SYSTEM: No cough. GI: No nausea. : No dysuria. NERVOUS SYSTEM: No numbness or weakness. ALLERGY/IMMUNOLOGY: Asthma. MUSCULOSKELETAL: As mentioned earlier. HEMATOLOGY/ONCOLOGY: No history of anemia. ENDOCRINE: No history of diabetes or hypothyroidism. CONSTITUTIONAL: As mentioned earlier. DERMATOLOGY: Negative. RHEUMATOLOGY: Negative. PSYCHIATRY: As mentioned earlier. PHYSICAL EXAMINATION: The patient is alert and oriented x3. Pulse is 86, blood pressure 100/55, respiration 18, temperature 98.9, pulse ox 98% on room air. HEENT: Conjunctivae normal. Oral mucosa moist. NECK: No jugular venous distention. No carotid bruit. No lymph node enlargement. CARDIOVASCULAR: S1 and S2 muffled. RESPIRATORY: Breath sounds diminished at the bases. No rhonchi, no crackles. ABDOMEN: Soft, nontender. No mass palpable. LEGS: No edema, no swelling. Status post hip surgery. NERVOUS SYSTEM: Higher function as mentioned earlier. Moves all 4 limbs. No focal motor or sensory deficits. LYMPHATICS: No lymphadenopathy of the neck, axillae or groin. SKIN: No ulcer, rash or bleeding. LABS: Labs are not available. The previous labs on 02/07 last year was hemoglobin 7.3. ASSESSMENT: 1. Status post right total hip joint arthroplasty. 2. History of asthma. 3. Hypertension. 4. Hyperlipidemia. 5. History of myocardial infarction. 6. History of degenerative joint disease. 7. History of benign prostatic hypertrophy. 8. History of back surgery. 9. History of coronary artery disease, stent. 10.History of abdominal aortic aneurysm and valve repair. 11.Remote history of nicotine dependence. RECOMMENDATIONS AND DISCUSSION: This 67-year-old gentleman who presented with multiple complex medical issues, we will monitor the patient closely. Continue the current medications. Continue symptomatic treatment. We will resume the home medications and otherwise I would also recommend repeat labs also. DVT prophylaxis. We will follow the patient closely with you. Thank you Dr. Lerma for letting us participate in the care of this patient. Patient may be asked to follow up with a primary physician closely after discharge. MMODL / IJN: [id number] / JORDANA
[2017-11-20] MEDS: HYDROcodone/APAP 7.5-325MG 1 EACH TAB PO PRN ×2 (06:46→11:57)
[2017-11-20 07:29] VITALS: BP 126/70; PULSE 81; RESP 16; TEMP 99.1
[2017-11-20] MEDS ORDERED: PANTOPRAZOLE 40 MG TABLET PO SCH (07:30)
[2017-11-20 08:03] LABS: Anisocytosis Slight; Basophils % (A) 0 %; Eosinophils % (A) 0 %; HCT 30.5 % (39.0-53.0); HGB 9.6 gm/dL (13.0-17.5); Lymphocytes # (A) 1.5 k/uL (1.0-4.8); Lymphocytes % (A) 11 %; MCH 25.3 pg (25.0-35.0); MCHC 31.4 g/dL (31.0-37.0); MCV 80.3 fL (80.0-100.0); Mean Platelet Volume 9.1; Microcytosis Slight; Monocytes % (A) 8 %; Neutrophils # (A) 10.2 k/uL (1.3-7.7); Neutrophils % (A) 78 %; Platelet Count 148 k/uL (150-450); RDW 17.7 % (11.5-15.5)
[2017-11-20 08:25] LABS: Albumin 3.2 g/dL (3.5-5.0); Potassium 4.2 mmol/L (3.5-5.1); Total Bilirubin 0.7 mg/dL (0.2-1.3); Total Protein 5.4 g/dL (6.3-8.2)
[2017-11-20] MEDS ORDERED: MELOXICAM 7.5 MG TAB PO SCH (09:00)
--- NOTE | 2017-11-20 09:12 | P.DS ---
Providers Date of admission: 11/19/17 10:09 Expected date of discharge: 11/20/17 Attending physician: Scott Lerma Consults: 11/19/17 13:23 Consult Physician Routine Consulting Provider: Raudel Upton Consult Reason/Comments: medical management Do you want consulting provider notified?: Yes Primary care physician: Neo Meyers - Discharge Diagnosis(es) (1) Primary osteoarthritis of right hip Current Visit: Yes Status: Acute (2) S/P total hip arthroplasty Current Visit: Yes Status: Acute Hospital Course: This is a 67-year-old male with known history of degenerative arthritis of the right hip. The patient presents for evaluation. After discussion and consideration patient elects to proceed with total hip arthroplasty. The patient is seen preoperatively by Dr. Lerma and medically cleared for surgery by their primary care physician. Patient is admitted to [facility] on 11/19/2017 for total hip arthroplasty. The procedures performed without complication or sequelae. The patient is doing well postoperatively. Labs and vital signs are stable on day of discharge. On day of discharge patient's hip incision is healing well. There is minimal erythema. There is no drainage noted at this time. There is minimal soft tissue swelling to the hip and thigh. Patient has full foot and ankle motion without difficulty or pain. Neurovascular status to the right lower extremity is intact. Patient is discharged home in good condition. Please see med rec for accurate list of home medications. Plan - Discharge Summary Discharge Rx Participant: Yes New Discharge Prescriptions: New Aspirin 325 mg PO BID #60 tab HYDROcodone/APAP 7.5-325MG [[place] 7.5-325] 1 - 2 tab PO Q4-6H PRN #90 tab PRN Reason: Pain Sennosides [Senokot] 1 tab PO BID #60 tablet No Action Cyanocobalamin [Vitamin B-12] 500 mg PO DAILY Cholecalciferol [Vitamin D3] 1,000 unit PO HS Aspirin [Adult Low Dose Aspirin EC] 81 mg PO HS Gabapentin 800 mg PO HS Pantoprazole [Protonix] 40 mg PO AC-BRKFST #30 tab Atorvastatin [Lipitor] 40 mg PO HS Metoprolol Tartrate [Lopressor] 12.5 mg PO BID Albuterol Inhaler [Ventolin Hfa Inhaler] 1 - 2 puff INHALATION RT-Q6H PRN PRN Reason: Dyspnea HYDROcodone/APAP 7.5-325MG [[place] 7.5-325] 1 - 2 tab PO Q6HR PRN PRN Reason: Pain Discharge Medication List Aspirin [Adult Low Dose Aspirin EC] 81 mg PO HS 12/01/15 [History] Cholecalciferol [Vitamin D3] 1,000 unit PO HS 12/01/15 [History] Cyanocobalamin [Vitamin B-12] 500 mg PO DAILY 12/01/15 [History] Gabapentin 800 mg PO HS 12/14/15 [History] Pantoprazole [Protonix] 40 mg PO AC-BRKFST #30 tab 02/04/17 [Rx] Albuterol Inhaler [Ventolin Hfa Inhaler] 1 - 2 puff INHALATION RT-Q6H PRN [History] Atorvastatin [Lipitor] 40 mg PO HS 11/12/17 [History] Metoprolol Tartrate [Lopressor] 12.5 mg PO BID 11/12/17 [History] HYDROcodone/APAP 7.5-325MG [[place] 7.5-325] 1 - 2 tab PO Q6HR PRN 11/19/17 [ History] Aspirin 325 mg PO BID #60 tab 11/20/17 [Rx] HYDROcodone/APAP 7.5-325MG [[place] 7.5-325] 1 - 2 tab PO Q4-6H PRN #90 tab [Rx] Sennosides [Senokot] 1 tab PO BID #60 tablet 11/20/17 [Rx] Follow up Appointment(s)/Referral(s): Scott Lerma DO [Doctor of Osteopathic Medicine] - 2 Weeks Activity/Diet/Wound Care/Special Instructions: Weightbearing as tolerated with walker Leave dressing intact. Dressing may be removed by home care nurse in 10 days, 11/29/2017. May shower with dressing on. Follow[facility]up with [facility] in 2 weeks, please call with any questions or concerns [phone] Discharge Disposition: HOME WITH HOME HEALTH SERVICES
[2017-11-20] MEDS: ASPIRIN 325 MG TAB PO SCH (09:23)
[2017-11-20] MEDS: METOPROLOL TARTRATE 12.5 MG TAB PO SCH (09:24)
[2017-11-20] MEDS ORDERED: CYANOCOBALAMIN 500 MCG TAB PO SCH (12:00)
[2017-11-20 12:28] LABS: Appearance,Urine Clear (Clear); Bilirubin,Urine Negative (Negative); Blood,Urine Negative (Negative); Color,Urine Yellow; Glucose,Urine (UA) Negative (Negative); Ketones,Urine Trace (Negative); Leukocyte Esterase,Urine Negative (Negative); PH, Urine 5.5 (5.0-8.0); Protein,Urine Trace (Negative); Specific Gravity,Urine 1.036 (1.001-1.035)
--- NOTE | 2017-11-20 16:30 | PN ---
PROGRESS NOTE DATE OF SERVICE: 11/20/2017 This 67-year-old gentleman who was admitted with right hip arthroplasty is improving significantly. No chest pain. No palpitations. No fever. EXAM: Alert and oriented times three. Pulse 81. Blood pressure 126/70, respirations 16, temperature 99.1, pulse ox 98% on room air. HEENT: Conjunctivae normal. Neck: No jugular venous distention. Cardiovascular: S1, S2 muffled. Respiratory: Breath sounds diminished in the bases. Abdomen soft, nontender. Legs: No edema. No swelling. Central nervous system: No focal deficits. LABS: WBC 13, hemoglobin 9.6. UA negative. ASSESSMENT: 1. Status post right total hip joint arthroplasty. 2. Increased WBC possibly reactive. 3. History of asthma. 4. Hypertension. 5. Hyperlipidemia. 6. History of myocardial infarction. 7. History of degenerative joint disease. 8. History of benign prostatic hypertrophy. 9. History of back surgery. 10.History of coronary artery disease stent. 11.History of abdominal aortic aneurysm and valve repair. 12.Remote history of nicotine dependence. DISCUSSION AND RECOMMENDATIONS: Recommend to continue current medications, management and symptomatic treatment. Otherwise at this time, UA is unremarkable. I would recommend repeat labs with the primary physician. The rest of the recommendations per Orthopedic surgery. The patient is stable currently, medically stable. MMODL / IJN: [id number] /
== END 2017-11-20 15:07 | disposition home health service (06) | DRG 470 ==
LOC: 2ORMAIN 10:09 → 3SUR 15:01
PROVIDERS: ADMIT Orthopaedic Surgery; ATTEND Orthopaedic Surgery
PROC: 30233N0 Transfusion of Autologous Red Blood Cells into Peripheral Vein, Percutaneous Approach (ICD-10-PCS; 2017-11-19)
PROC: 0SR906A Replacement of Right Hip Joint with Oxidized Zirconium on Polyethylene Synthetic Substitute, Uncemented, Open Approach (ICD-10-PCS; principal; 2017-11-19 12:10)
DX: M16.11 Unilateral primary osteoarthritis, right hip (principal); Z96.642 Presence of left artificial hip joint; E78.5 Hyperlipidemia, unspecified; I10 Essential (primary) hypertension; M25.751 Osteophyte, right hip; I25.10 Atherosclerotic heart disease of native coronary artery without angina pectoris; J45.909 Unspecified asthma, uncomplicated; N40.0 Benign prostatic hyperplasia without lower urinary tract symptoms; Z79.899 Other long term (current) drug therapy; Z79.891 Long term (current) use of opiate analgesic; Z79.82 Long term (current) use of aspirin; I25.2 Old myocardial infarction; Z91.018 Allergy to other foods; Z87.01 Personal history of pneumonia (recurrent); Z91.048 Other nonmedicinal substance allergy status; Z80.1 Family history of malignant neoplasm of trachea, bronchus and lung; Z83.2 Family history of diseases of the blood and blood-forming organs and certain disorders involving the immune mechanism; Z80.0 Family history of malignant neoplasm of digestive organs; Z95.5 Presence of coronary angioplasty implant and graft; Z86.79 Personal history of other diseases of the circulatory system; Z91.030 Bee allergy status; Z96.651 Presence of right artificial knee joint; Z90.49 Acquired absence of other specified parts of digestive tract; Z72.0 Tobacco use
CPT/HCPCS: 36415; 73501; 80053; 81003; 85025; 86850; 86891; 86900; 86901; 88300

== ENCOUNTER 2018-07-07 08:56 | Day surgery (SDC) | payer MEDICARE, OTHER ==
[2018-07-02 15:03] VITALS: BMI 29.6
[~2018-07-07 08:56] MED LIST changes: -ACETAMINOPHEN TAB 500 MG TAB PO ONE; -DEXAMETHASONE SOD PHOSPHATE 10 MG/ML 1 ML VIAL IV ONE; +LACTATED RINGERS 1,000 ML IV SCH; +LIDOCAINE 1% 20 ML VIAL (10MG/ML) FOR IV START INTRADERMA PRN; -MELOXICAM 7.5 MG TAB PO ONE; -ONDANSETRON 4 MG/2 ML VIAL IVP ONE; -TRANEXAMIC ACID 1,000 MG in SODIUM CHLORIDE 0.9% 50 ML IVPB ONE
[2018-07-07 09:57] VITALS: TEMP 97.8
[2018-07-07] MEDS ORDERED: LIDOCAINE 1% INJ 10MG/ML (20 ML MDV) ONE (11:06)
[2018-07-07] MEDS ORDERED: PROPOFOL 10 MG/ML 20 ML VIAL IV ONE (11:06)
[2018-07-07 11:41] VITALS: BP 107/50
--- NOTE | 2018-07-07 11:47 | P.PCN ---
Date of Procedure: 07/07/18 Procedure(s) Performed: Procedure: Total colonoscopy. Preoperative diagnosis: Screening for neoplasia. Postoperative diagnosis: 1. Sigmoid diverticulosis with no evidence of acute diverticulitis or strictures. 2. No polyps or tumors seen. 3. Low-grade internal hemorrhoids not bleeding at the time of this exam. Preparation: HalfLytely prep. Sedation: Was provided by anesthesia. Brief clinical history: The patient is a 67-year-old male who is scheduled for this evaluation for screening for neoplasia. He had several exams in the past because of history of polyps, the last was around 5 years ago. The patient has no abdominal complaints or anemia. Procedure: With the patient on his left lateral decubitus position and after informed consent and adequate sedation, the perianal area was inspected and it did not show any fissures or fistulas. There were no masses felt on digital rectal examination. The Olympus CFQ 160L video colonoscope was then inserted in the rectum in the usual fashion and advanced to the cecum. There were several diverticular orifices seen scattered in the sigmoid but I saw no evidence of acute diverticulitis or strictures. I retroflexed the endoscope in the rectum before the endoscope was withdrawn. Low-grade internal hemorrhoids were noted but there was no evidence of bleeding. The patient tolerated the procedure well. Plan: The patient was reassured. Discussed dietary measures and local care for hemorrhoids. He will follow up with you as planned. Repeat colonoscopy in 5 years.
[2018-07-07 12:05] VITALS: PULSE 51; RESP 16
== END 2018-07-07 12:29 | disposition home or self-care (01) ==
LOC: ORWHC2ENDO 08:56
DX: Z12.11 Encounter for screening for malignant neoplasm of colon (principal); K57.30 Diverticulosis of large intestine without perforation or abscess without bleeding; K64.8 Other hemorrhoids; Z86.010 Personal history of colon polyps; K21.9 Gastro-esophageal reflux disease without esophagitis; I10 Essential (primary) hypertension; E78.5 Hyperlipidemia, unspecified; N40.0 Benign prostatic hyperplasia without lower urinary tract symptoms; M19.90 Unspecified osteoarthritis, unspecified site; J45.909 Unspecified asthma, uncomplicated; Z95.1 Presence of aortocoronary bypass graft; I25.10 Atherosclerotic heart disease of native coronary artery without angina pectoris; Z87.891 Personal history of nicotine dependence; Z95.5 Presence of coronary angioplasty implant and graft; J44.9 Chronic obstructive pulmonary disease, unspecified; Z79.82 Long term (current) use of aspirin; Z79.891 Long term (current) use of opiate analgesic; Z79.899 Other long term (current) drug therapy; Z91.038 Other insect allergy status; Z91.018 Allergy to other foods
CPT/HCPCS: J2001; J2704; G0105; 45378

== ENCOUNTER → 2019-12-01 | Outpatient (CLI) | payer MEDICARE ==
--- NOTE | 2019-12-01 15:26 | NM ---
EXAMINATION TYPE: NM bone/joint limited DATE OF EXAM: 12/01/2019 COMPARISON: None, plain film is not supplied for correlation. HISTORY: Right knee pain since surgery 2016 TECHNIQUE: After the intravenous administration of 22.2 mCi Tc 99m MDP. Images acquired 3.5 hours p ost injection. Multiple views of the knees are submitted. FINDINGS: Photopenic area at the right knee is consistent with prior knee arthroplasty. There is upta ke along the distal metaphysis of the right femur which is mild, also along the proximal right tibia at the right patella. There is no abnormal uptake within the visualized osseous structures to suggest acute process. IMPRESSION: Correlate to exclude infection, loosening of the prosthesis not excluded. Correlate with plain film.
== END | disposition home or self-care (01) ==
LOC: RADNMMAIN 09:59
PROVIDERS: ATTEND Orthopaedic Surgery
DX: M25.561 Pain in right knee (principal); Z96.651 Presence of right artificial knee joint
CPT/HCPCS: 78300; A9503

== ENCOUNTER → 2020-06-28 | Outpatient (CLI) | payer MEDICARE ==
[2020-06-28 08:16] LABS: African American GFR (CKD) >90 (>60 ml/min/1.73 sqM); Blood Urea Nitrogen 26 mg/dL (9-20); Non-African American GFR(CKD) 83 (>60 ml/min/1.73 sqM)
--- NOTE | 2020-06-28 20:07 | CT ---
CT CHEST FOR PULMONARY EMBOLISM. EXAMINATION TYPE: CT angio chest DATE OF EXAM: 06/28/2020 INDICATION: Thoracic aortic aneurysm, without rupture CT DLP: 792.30 mGycm, Automated exposure control for dose reduction was used. CONTRAST: Patient injected with 100 ml mL of Isovue 370. COMPARISON: 11/06/2016 TECHNIQUE: CT of the chest is performed on a spiral scan at 2 mm thick sections. Study is performed with intravenous contrast timed for evaluation for pulmonary embolism. This will limit additional po rtions of the evaluation. 3-D MIP images reconstructed by the technologist are reviewed on the compu ter in the coronal and sagittal planes. FINDINGS: No suspicious acute pulmonary emboli are identified. The ascending thoracic aorta at the aortic root is 3.5 cm. Ascending thoracic aorta at the main pulmo nary artery is 3.7 cm. Aorta transverse dimension at the aortic arch is 2.9 cm. Aorta at the diaphrag m measures 3.2 cm. No dissection is evident. No mediastinal or hilar adenopathy enlarged by CT criteria is evident. The ascending aorta diameter at the level of the main pulmonary artery is 3.7 cm. The main pulmonary artery diameter at the bifur cation is 3.1 cm. Minimal compressive atelectasis within the dependent portions of the lung bases. Limited CT section through the upper abdomen are unremarkable. IMPRESSIONS: 1. Mild Fusiform prominence of the ascending thoracic aorta and distal thoracic aorta.
== END | disposition home or self-care (01) ==
LOC: RADCTMAIN 07:26
PROVIDERS: ATTEND Internal Medicine Interventional Cardiology
DX: I71.2 Thoracic aortic aneurysm, without rupture (principal)
CPT/HCPCS: 82565; 84520; 71275; 36415; Q9967

== ENCOUNTER → 2021-01-06 | Outpatient (CLI) | payer MEDICARE ==
--- NOTE | 2021-01-06 12:52 | US ---
EXAMINATION TYPE: US prostate transrectal DATE OF EXAM: 01/06/2021 COMPARISON: 01/13/2015 CLINICAL HISTORY: R97.20 elevated prostate. This examination was performed using the transrectal probe. EXAM MEASUREMENTS: Gland Size: 6.3 x 4.5 x 5.1cm Volume: 77.3 Predicted PSA: 9.3 Actual PSA (if available):patient states 10. The peripheral zone. Demonstrates diffuse heterogeneity increased from prior examination. Biopsy is r ecommended to exclude malignancy. Seminal vesicles are within normal limits IMPRESSION: The peripheral zone demonstrates diffuse heterogeneity increased from prior examination. Biopsy is recommended to exclude malignancy. Predicted PSA = volume x 0.12 ng/ml Calculated Volume = 0.5236 x L x W x H
== END | disposition home or self-care (01) ==
LOC: RADUSWWP 07:27
PROVIDERS: ATTEND Family Medicine
DX: R97.20 Elevated prostate specific antigen [PSA] (principal)
CPT/HCPCS: 76872

== ENCOUNTER → 2021-09-01 | Outpatient (CLI) | payer MEDICARE | END | disposition home or self-care (01) | LOC: LABWHC1 08:34 | PROVIDERS: ATTEND Urology | DX: C61 Malignant neoplasm of prostate (principal) | CPT/HCPCS: 36415; 84153 ==

== ENCOUNTER → 2021-09-01 | Outpatient (CLI) | payer MEDICARE ==
[2021-09-01 09:11] LABS: HCT 46.4 % (39.0-53.0); HGB 15.2 gm/dL (13.0-17.5); MCH 32.4 pg (25.0-35.0); MCHC 32.7 g/dL (31.0-37.0); Mean Platelet Volume 8.8; Platelet Count 156 k/uL (150-450); RBC 4.69 m/uL (4.30-5.90); RDW 13.6 % (11.5-15.5); WBC 12.9 k/uL (3.8-10.6)
[2021-09-01 09:19] LABS: Albumin 4.1 g/dL (3.5-5.0); Calcium 9.8 mg/dL (8.4-10.2); Potassium 4.7 mmol/L (3.5-5.1); Total Bilirubin 1.1 mg/dL (0.2-1.3); Total Protein 6.7 g/dL (6.3-8.2)
[2021-09-01 09:23] LABS: Partial Thromboplastin Time 22.4 sec (22.0-30.0); Prothrombin Time 10.7 sec (9.0-12.0)
[2021-09-01 09:49] LABS: Appearance,Urine Clear (Clear); Bilirubin,Urine Negative (Negative); Blood,Urine Trace (Negative); Color,Urine Yellow; Glucose,Urine (UA) Negative (Negative); Ketones,Urine Negative (Negative); Leukocyte Esterase,Urine Negative (Negative); Mucus,Urine Rare /hpf; Nitrite,Urine Negative (Negative); Protein,Urine Negative (Negative); RBC,Urine 6 /hpf (0-5); Squamous Epithelial Cell,Urine <1 /hpf (0-4); Urobilinogen,Urine <2.0 mg/dL (<2.0); WBC,Urine <1 /hpf (0-5)
== END | disposition home or self-care (01) ==
LOC: LABWHC1 07:51
PROVIDERS: ATTEND Orthopaedic Surgery
DX: Z01.812 Encounter for preprocedural laboratory examination (principal); C61 Malignant neoplasm of prostate
CPT/HCPCS: 80053; 81001; 85027; 85610; 85730; 87070; 93005

== ENCOUNTER 2021-09-25 05:35 | Inpatient (IN) | payer MEDICARE ==
[2021-09-11 14:28] VITALS: BMI 31.9
[~2021-09-25 05:35] MED LIST changes: +ACETAMINOPHEN TAB 500 MG TAB PO PRN; +GABAPENTIN 300 MG CAP PO PRN; -LACTATED RINGERS 1,000 ML IV SCH; -LIDOCAINE 1% 20 ML VIAL (10MG/ML) FOR IV START INTRADERMA PRN; +MELOXICAM 7.5 MG TAB PO PRN; -MIDAZOLAM 2 MG/2 ML VIAL IV PRN; +TRANEXAMIC ACID 1,000 MG in SODIUM CHLORIDE 0.9% 100 ML IVPB PRN
[2021-09-25] MEDS ORDERED: LIDOCAINE 1% (10MG/ML) FOR IV START INTRADERMA PRN (05:49)
[2021-09-25] MEDS ORDERED: DEXAMETHASONE SOD PHOSPHATE 4 MG/ML 1 ML VIAL IV ONE (05:49)
[2021-09-25] MEDS ORDERED: MIDAZOLAM 2 MG/2 ML VIAL IV PRN (05:49)
[2021-09-25] MEDS ORDERED: ONDANSETRON 4 MG/2 ML VIAL IVP ONE (05:49)
[2021-09-25] MEDS: LACTATED RINGERS 1,000 ML IV SCH (06:26)
[2021-09-25] MEDS ORDERED: MIDAZOLAM 2 MG/2 ML VIAL IVP ONE (06:38)
[2021-09-25] MEDS ORDERED: fentaNYL (PF) 50 MCG/ML 2 ML AMP IVP ONE (06:38)
[2021-09-25] MEDS ORDERED: HYDROmorphone (PF) 1 MG/ML ONE (07:05)
[2021-09-25] MEDS ORDERED: SODIUM CHLORIDE 0.9% (PF) 10 ML VIAL ONE (07:05)
[2021-09-25] MEDS ORDERED: NEOSTIGMINE 1 MG/ML 10 ML VIAL ONE (07:05)
[2021-09-25] MEDS ORDERED: PROPOFOL 10 MG/ML 20 ML VIAL IV ONE (07:05)
[2021-09-25] MEDS ORDERED: SUCCINYLCHOLINE CHLORIDE 100 MG/5 ML SYR IV ONE (07:05)
[2021-09-25] MEDS ORDERED: GLYCOPYRROLATE 0.2 MG/ML 2 ML VIAL ONE (07:05)
[2021-09-25] MEDS ORDERED: WATER FOR INJECTION, STERILE 10 ML VIAL IV ONE (07:05)
[2021-09-25] MEDS ORDERED: ROCURONIUM 10 MG/ML (5 ML VIAL) IV ONE (07:05)
[2021-09-25] MEDS ORDERED: ROPIVACAINE 5 MG/ML 30 ML VIAL ONE (07:05)
[2021-09-25] MEDS ORDERED: fentaNYL (PF) 50 MCG/ML 2 ML AMP ONE (07:05)
[2021-09-25] MEDS ORDERED: LIDOCAINE 1% INJ 10MG/ML (20 ML MDV) ONE (07:05)
[2021-09-25] MEDS ORDERED: SODIUM CHLORIDE 0.9% 100 ML BAG ONE (07:05)
[2021-09-25] MEDS ORDERED: TRANEXAMIC ACID 1,000 MG/10 ML VIAL ONE (07:05)
[2021-09-25] MEDS ORDERED: ePHEDrine 50 MG/ML 1 ML AMP ONE (07:05)
[2021-09-25] MEDS ORDERED: HYDROmorphone 0.5 MG/0.5 ML SYRINGE IVP PRN ×2 (07:08)
[2021-09-25] MEDS ORDERED: ONDANSETRON 4 MG/2 ML VIAL IVP PRN (07:08)
[2021-09-25] MEDS ORDERED: MAGNESIUM HYDROXIDE 2,400 MG/10 ML CUP PO PRN (07:08)
[2021-09-25] MEDS ORDERED: NA PHOS,M-B/NA PHOS,DI-BA 133 ML ENEMA RECTAL PRN (07:08)
[2021-09-25] MEDS ORDERED: bisacodyL 10 MG SUPP RECTAL PRN (07:08)
[2021-09-25] MEDS ORDERED: NALOXONE 0.4 MG/ML 1 ML VIAL IV PRN (07:08)
[2021-09-25] MEDS ORDERED: HYDROmorphone 0.2 MG/1 ML SYRINGE IVP PRN (07:08)
[2021-09-25] MEDS ORDERED: HYDROcodone/APAP 7.5-325MG 1 EACH TAB PO PRN (07:11)
--- NOTE | 2021-09-25 07:35 | P.ANPRN ---
Procedure Note - Anesthesia - Nerve Block Performed Right Adductor Canal Infusion Time Out Performed: Yes Date of Procedure: 09/25/21 Procedure Start Time: 06:36 Procedure Stop Time: 06:46 Location of Patient: PreOp Indication: Requested by Surgeon Specifically requested for management of pain by DrConcepción: Scott Lerma Sedation Type: Sedate with meaningful contact maintained Preparation: Sterile Prep, Sterile Dressing Position: Supine Catheter: Indwelling Needle Types: Pajunk Needle Gauge: 18 Ultrasound used to visualize needle placement: Yes Ultrasound used to observe medication spread: Yes Injectate: 0.5% Ropivacaine (see comment for volume) (15 ml +10 ml 0.9 % NS PF) Blood Aspirated: No Pain Paresthesia on Injection Noted: No Resistance on Injection: Normal Image Stored and Saved: Yes Events: Uneventful and Well Tolerated
[2021-09-25] MEDS ORDERED: LACTATED RINGERS 1,000 ML IV ONE (07:37)
--- NOTE | 2021-09-25 07:37 | P.ANPRN ---
Procedure Note - Anesthesia - Nerve Block Performed Right iPack Single Time Out Performed: Yes Date of Procedure: 09/25/21 Procedure Start Time: 06:47 Procedure Stop Time: 06:53 Location of Patient: PreOp Indication: Requested by Surgeon Specifically requested for management of pain by DrConcepción: Scott Lerma Sedation Type: Sedate with meaningful contact maintained Preparation: Sterile Prep Position: Left Lateral Needle Types: Pajunk Needle Gauge: 21 Ultrasound used to visualize needle placement: Yes Ultrasound used to observe medication spread: Yes Injectate: 0.5% Ropivacaine (see comment for volume) (15 ml + 10 ml 0.9 % NS) Blood Aspirated: No Pain Paresthesia on Injection Noted: No Resistance on Injection: Normal Image Stored and Saved: Yes Events: Uneventful and Well Tolerated
[2021-09-25] MEDS ORDERED: ROPIVACAINE 0.2%-NS ON-Q PUMP 1,090 MG, EMPTY PAIN BALL 1 EACH MISCELLANE PRN (07:58)
--- NOTE | 2021-09-25 09:21 | P.OP ---
Date of Procedure: 09/25/21 Preoperative Diagnosis: Failed right total knee arthroplasty Postoperative Diagnosis: Failed right total knee arthroplasty Procedure(s) Performed: Revision right total knee arthroplasty Implants: [employer] Legion Oxinium constrained femoral component size 5, right [employer] Legion press-fit stem, straight 13 mm x 160 mm [employer] legion revision tibial baseplate size 4, right [employer] Legion press-fit stem, straight 11 mm x 160 mm [employer] Angelique II constrained articular insert size 3-4, 21 mm All components were cemented using Simplex P bone cement with tobramycin 2 The articulation is Oxinium on polyethylene. Anesthesia: GETA Surgeon: Scott Lerma Frame Feeder #1: Jovita Rao Estimated Blood Loss (ml): 50 Pathology: other (Cultures 2) Condition: stable Disposition: PACU Indications for Procedure: This is a 71-year-old gentleman that has a painful total knee arthroplasty which was done in 2016. Continues to have more more pain in his right knee. The bone scan shows possibility of loosening of the tibial component. After discussing the surgical nonsurgical treatment options with her at length wished to proceed with a revision of his total knee arthroplasty and informed consent was obtained. Operative Findings: The operative findings are consistent with a failed right total knee arthroplasty with loosening of the tibial component. Description of Procedure: Patient was seen in the preoperative area consent was reviewed and operative site was marked with a skin marker. An adductor canal pain catheter and an iPACK block was placed by anesthesia in the preoperative area. Patient was then brought to the operating room and given preoperative antibiotics intravenously. A spinal anesthetic was administered by the anesthesia department. A tourniquet was placed on the upper thigh and the lower extremity was prepped and draped in usual sterile fashion. A gram of transexamic acid was given. A universal timeout was then performed which confirmed the patient's name, surgical site, ALLERGIES, and consent. The lower extremity was then exsanguinated and tourniquet was inflated to 250 mmHg. A standard and anterior midline approach to the knee was performed. The skin and subcutaneous tissue was dissected down to the patellar tendon. A medial parapatellar arthrotomy was then performed. The knee was then extended, the patellar was everted, and the knee was again flexed. The knee was then cultured 2. The prosthesis was then evaluated and the tibial component was found to be loose. Using a small oscillating saw, the cement implant interface was disrupted and the femoral and tibial components were then removed without difficulty. Next, sequential reaming of the femoral canal was then performed by hand. The femur was then sized and the distal cutting block was then placed in the distal femur was then freshened with a cut. Next the 4-in-1 cutting block was then placed, and set for the appropriate rotation. Anterior posterior chamfer cuts were then performed as well as anterior posterior cuts. The trial femur was then placed with appropriate length stem. Next the box cutting guide was placed in the bone for the box was then reamed and removed. Femoral trial was then removed. Attention was then directed to the tibia. Sequential reaming of the tibial canal was then performed with appropriate size. The intramedullary tibial cutting guide was then placed the tibia was then freshened with a minimal resection. The tibia was then sized and the canal was prepared for the stem. The tibial trial was then placed and found to have a good fit. The femoral trial was then placed as well. Next, the insert trials were then sequentially used until the appropriate-sized insert was reached. Knee was able to fully extend and flex to 120 and was stable to varus and valgus and anterior posterior stresses throughout all range of motion. Trials were then removed. The cut surfaces of bone were then irrigated with pulsatile lavage. The knee was also irrigated with Irrisept solution. The components were then opened, the cement was mixed, and the components were then cemented in place. The cement was allowed to harden with the knee in full extension. After the cemented hardened. The tourniquet was released, and hemostasis was obtained. A second gram of transexamic acid was given. The knee was again irrigated. The knee was again taken through range of motion and found to be stable throughout all range of motion of 0-130, and the patella tracked normally. The fascia was then closed with #2 strata fix suture. The subcutaneous tissue was closed with 3-0 Vicryl and 3-0 strata fix. Exofin glue was used for the skin and placed with the knee in flexion. The patient was placed in a sterile silver dressing. Patient was then transferred to recovery room in stable condition. The collections assistant KARLIE Prince was required due the complexity surgery and the need for a skilled captain's assistant. She assisted in positioning, draping, retraction, and closure of the wound.
[2021-09-25] MEDS: HYDROmorphone 0.5 MG/0.5 ML SYRINGE IVP PRN ×2 (10:11→10:43)
--- NOTE | 2021-09-25 10:14 | XR ---
Limited right knee HISTORY: Status post right knee arthroplasty Frontal and lateral views the right knee submitted on 3 images, correlation prior exam 12/14/2015 Patient is status post right knee arthroplasty revision. Joint space appears somewhat widened. Vascul ar calcifications are noted incidentally. There is lucency in the soft tissues. Alignment is anatomic . Small ossific density present at the medial aspect of the right femoral condyle. IMPRESSION: Orthopedic follow-up.
[2021-09-25] MEDS: SODIUM CHLORIDE 0.9% 1,000 ML IV SCH ×2 (13:49→23:56)
[2021-09-25] MEDS: HYDROcodone/APAP 7.5-325MG 1 EACH TAB PO PRN ×2 (13:49→20:02)
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
[2021-09-25] MEDS: CHOLECALCIFEROL 25 MCG (1000 IU) TABLET PO SCH (20:01)
[2021-09-25] MEDS: ASPIRIN 325 MG TAB PO SCH (20:02)
[2021-09-25] MEDS: GABAPENTIN 400 MG CAP PO SCH (20:02)
[2021-09-25] MEDS: SENNOSIDES-DOCUSATE SODIUM 1 EACH TAB PO SCH (20:02)
[2021-09-25] MEDS ORDERED: SENNOSIDES 8.6 MG TAB PO SCH (21:00)
[2021-09-26] MEDS: HYDROcodone/APAP 7.5-325MG 1 EACH TAB PO PRN ×4 (01:42→20:09)
--- NOTE | 2021-09-26 07:03 | P.PN ---
Progress Note - Text Progress Note Date: 09/26/21 Postoperative day # 1 status post total knee arthroplasty, and adductor canal catheter placed for postoperative analgesia, currently at ropivacaine 0.2% 8 mL per hour and continuous infusion, visual analogue scale is 4-5/10, patient using oral pain medication for breakthrough pain. Assessment and plan= Acute postoperative pain, adductor canal catheter for pain control, pain is well controlled we'll continue the same management.
[2021-09-26] MEDS: LACTATED RINGERS 1,000 ML IV SCH (07:21)
[2021-09-26] MEDS: GABAPENTIN 400 MG CAP PO SCH ×2 (07:39→20:08)
[2021-09-26] MEDS: ASPIRIN 325 MG TAB PO SCH ×2 (07:39→20:09)
[2021-09-26] MEDS: ATORVASTATIN 40 MG TAB PO SCH (07:40)
[2021-09-26] MEDS: PANTOPRAZOLE 40 MG TABLET PO SCH (07:41)
[2021-09-26] MEDS: CYANOCOBALAMIN 500 MCG TAB PO SCH (07:41)
[2021-09-26] MEDS: METOPROLOL TARTRATE 25 MG TAB PO SCH (07:41)
[2021-09-26] MEDS: LISINOPRIL-HCTZ 10-12.5 MG 1 EACH TAB PO SCH (07:45)
[2021-09-26] MEDS ORDERED: MELOXICAM 7.5 MG TAB PO SCH (09:00)
--- NOTE | 2021-09-26 09:57 | P.PN ---
Subjective Progress Note Date: 09/26/21 This is a 71-year-old male who is status post revision right total knee arthroplasty. This is postoperative day #1 and patient is seen and evaluated at bedside with Dr. Scott Lerma. Patient states that his pain is well controlled and he has been working with physical therapy. Patient denies any new complaints today. Objective - Vital Signs Vital signs: Vital Signs Temp 98.2 F 09/26/21 07:41 Pulse 65 09/26/21 07:41 Resp 18 09/26/21 07:41 BP 118/63 09/26/21 07:41 Pulse Ox 91 L 09/26/21 07:41 Intake & Output 09/25/21 09/26/21 09/26/21 18:59 06:59 18:59 Intake Total 1150 Output Total 50 Balance 1100 Weight 97 kg Intake: IV 1150 Output: Estimated Blood Loss 50 Other: Voiding Method Toilet Toilet # Voids 1 2 - Exam Vital signs are stable. Patient is in no acute distress and is alert and oriented 3. Calf is soft and nontender to palpation. Dressing is intact with mild bloody drainage present. Patient has full foot and ankle motion without pain or difficulty. Sensation intact. Neurovascular status and circulatory status are intact. - Labs Labs: Microbiology - Last 24 Hours (Table) 09/25/21 08:40 Gram Stain - Preliminary Knee - Right Wound Culture - Preliminary 09/25/21 08:40 Gram Stain - Preliminary Knee - Right Wound Culture - Preliminary 09/25/21 08:40 Anaerobic Culture - Preliminary Knee - Right 09/25/21 08:40 Anaerobic Culture - Preliminary Knee - Right Assessment and Plan (1) Status post revision of total replacement of right knee Current Visit: Yes Status: Acute Code(s): Z96.651 - PRESENCE OF RIGHT ARTIFICIAL KNEE JOINT SNOMED Code(s): 889530649097374 Plan: #1 Continue with routine postoperative care and pain control, leave dressing in place for ten days. #2 Anticoagulation with aspirin. #3 Physical therapy today. #4 Appreciate input from medicine. #5 Anticipate discharge to [facility] in the next 48 hours.
[2021-09-26 11:03] LABS: Basophils # (A) 0.02 X 10*3/uL (0.00-0.10); Basophils % (A) 0.1 %; Eosinophils # (A) 0.04 X 10*3/uL (0.04-0.35); Eosinophils % (A) 0.3 %; HGB 12.2 g/dL (13.0-17.0); Lymphocytes # (A) 2.71 X 10*3/uL (0.90-5.00); Lymphocytes % (A) 19.7 %; MCH 31.5 pg (27.0-32.0); MCHC 32.1 g/dL (32.0-37.0); MCV 98.2 fL (80.0-97.0); Mean Platelet Volume 11.7 fL (9.5-12.2); Monocytes % (A) 10.9 %; Neutrophils # (A) 9.43 X 10*3/uL (1.80-7.70); Neutrophils % (A) 68.5 %; Platelet Count 134 X 10*3/uL (140-440); RBC 3.87 X 10*6/uL (4.40-5.60); RDW 13.9 % (11.5-14.5); WBC 13.77 X 10*3/uL (4.50-10.00)
--- NOTE | 2021-09-26 11:23 | P.PN ---
<Mike Caicedo - Last Filed: 09/26/21 16:53> Subjective Progress Note Date: 09/26/21 Hospital course: Patient is a very pleasant 71-year-old male with a past medical history of aortic aneurysm with repair, CAD with history of CABG and aortic valve replacement, hypertension, hyperlipidemia, and asthma. Patient currently admitted under orthopedic surgery team status post revision of right total knee arthroplasty completed by Dr. Lerma on 09/25/21. We have been consulted for continued medical management throughout patient's hospitalization. Physical exam: Patient was seen and fully evaluated at bedside this morning he is postoperative day 1. He reports pain is currently controlled and denies having any numbness/tingling/weakness in his lower extremity. Patient denies having any other complaints or concerns at this time including headache, lightheadedness, dizziness, chest pain, palpitations, shortness of breath, abdominal pain, nausea, or vomiting. Morning labs revealed mild leukocytosis with WBC count of 13.77 and stable postoperative hemoglobin of 12.2. We will repeat CBC with a.m. labs. Preliminary wound cultures showing no growth at this time. Vital signs reviewed and stable. General: Nontoxic, no distress and appears stated age. Derm: Skin warm and dry, normal coloration for ethnicity. Dressing right lower extremity intact, mild shadowing noted on dressing from reports of postoperative bleeding. Head: Atraumatic, normocephalic and symmetric. Eyes: EOMs intact, no lid lag, and anicteric sclera Mouth: no lip lesions, mucus membranes moist Cardiovascular: regular rate and rhythm with normal S1S2, Systolic murmur, positive posterior tibial pulses bilaterally, and cap refill < 2 seconds. Lungs: Respirations even, regular, and unlabored on room air. Lungs CTA bilaterally, no rhonchi, no rales, no wheezing, and no accessory muscle usage. Abdominal: soft, nontender to palpation, no guarding, no appreciable organomegaly Ext: ROM intact. No gross muscle atrophy, no edema, no contractures Neuro: Speech clear, face symmetrical and CN II-XII grossly intact with no noted focal neuro deficits Psych: Alert and oriented to person, place, time, and situation. Appropriate and pleasant affect. Assessment and Plan of Care: Status post revision of right total knee arthroplasty, postop day 1 -Management per primary admitting orthopedic surgery team and including pain management, postoperative wound care, PT/OT, weightbearing, and DVT prophylaxis. -Safe and supportive care with pain management as needed. -Fall precautions -Encourage use of incentive spirometry 10-15 times hourly while awake. Hypertension Monitor vital signs and continue daily medication regimen with lisinopril/hydrochlorothiazide and metoprolol. Asthma Duo nebs as needed for shortness of breath and/or wheezing. Incentive spirometry, encourage use 10-15 times hourly while awake. Hyperlipidemia Continue daily medication regimen with atorvastatin 40 mg nightly. History of CAD with previous CABG and aortic valve replacement Continue daily medication regimen with aspirin, atorvastatin, and metoprolol. Thank you for allowing us to participate in the care of this pleasant patient. Do not hesitate to contact us with questions. Someone can be reached from the [facility] hospitalist group all hours of the day at [phone] or via [employer]. Objective - Vital Signs Vital signs: Vital Signs Temp 98.2 F 09/26/21 07:41 Pulse 65 09/26/21 07:41 Resp 18 09/26/21 07:41 BP 118/63 09/26/21 07:41 Pulse Ox 91 L 09/26/21 07:41 Intake & Output 09/25/21 09/26/21 09/26/21 18:59 06:59 18:59 Intake Total 1150 Output Total 50 Balance 1100 Weight 97 kg Intake: IV 1150 Output: Estimated Blood Loss 50 Other: Voiding Method Toilet Toilet # Voids 1 2 - Labs CBC & Chem 7: 09/26/21 05:19 Labs: Abnormal Lab Results - Last 24 Hours (Table) 09/26/21 Range/Units 05:19 WBC 13.77 H (4.50-10.00) X 10*3/uL RBC 3.87 L (4.40-5.60) X 10*6/uL Hgb 12.2 L (13.0-17.0) g/dL Hct 38.0 L (39.6-50.0) % MCV 98.2 H (80.0-97.0) fL Plt Count 134 L (140-440) X 10*3/uL Immature Gran # 0.07 H (0.00-0.04) X 10*3/uL Neutrophils # 9.43 H (1.80-7.70) X 10*3/uL Monocytes # 1.50 H (0.20-1.00) X 10*3/uL Microbiology - Last 24 Hours (Table) 09/25/21 08:40 Gram Stain - Preliminary Knee - Right Wound Culture - Preliminary 09/25/21 08:40 Gram Stain - Preliminary Knee - Right Wound Culture - Preliminary 09/25/21 08:40 Anaerobic Culture - Preliminary Knee - Right 09/25/21 08:40 Anaerobic Culture - Preliminary Knee - Right <Wally Joyner - Last Filed: 09/27/21 07:59> Subjective I reviewed the documentation as provided by the YUDI above, who is the original author of this note. I agree with the documented assessment and plan, with the following changes: none Objective - Vital Signs Vital signs: Vital Signs Temp 98.1 F 09/27/21 07:48 Pulse 94 09/27/21 07:48 Resp 20 09/27/21 07:48 BP 143/81 09/27/21 07:48 Pulse Ox 95 09/27/21 07:48 Intake & Output 09/26/21 09/27/21 09/27/21 18:59 06:59 18:59 Other: Voiding Method Toilet Toilet # Voids 4 2 - Labs CBC & Chem 7: 09/26/21 05:19 Labs: Abnormal Lab Results - Last 24 Hours (Table) 09/26/21 Range/Units 05:19 WBC 13.77 H (4.50-10.00) X 10*3/uL RBC 3.87 L (4.40-5.60) X 10*6/uL Hgb 12.2 L (13.0-17.0) g/dL Hct 38.0 L (39.6-50.0) % MCV 98.2 H (80.0-97.0) fL Plt Count 134 L (140-440) X 10*3/uL Immature Gran # 0.07 H (0.00-0.04) X 10*3/uL Neutrophils # 9.43 H (1.80-7.70) X 10*3/uL Monocytes # 1.50 H (0.20-1.00) X 10*3/uL Microbiology - Last 24 Hours (Table) 09/25/21 08:40 Gram Stain - Preliminary Knee - Right Wound Culture - Preliminary 09/25/21 08:40 Gram Stain - Preliminary Knee - Right Wound Culture - Preliminary
[2021-09-26] MEDS: SODIUM CHLORIDE 0.9% 1,000 ML IV SCH (11:31)
[2021-09-26] MEDS: SENNOSIDES-DOCUSATE SODIUM 1 EACH TAB PO SCH (20:09)
[2021-09-26] MEDS: CHOLECALCIFEROL 25 MCG (1000 IU) TABLET PO SCH (20:09)
[2021-09-26] MEDS ORDERED: ASPIRIN 81 MG PO SCH (21:00)
[2021-09-27] MEDS: HYDROcodone/APAP 7.5-325MG 1 EACH TAB PO PRN ×2 (04:09→10:18)
[2021-09-27] MEDS: SODIUM CHLORIDE 0.9% 1,000 ML IV SCH (05:03)
[2021-09-27] MEDS: LACTATED RINGERS 1,000 ML IV SCH (07:31)
[2021-09-27] MEDS: CYANOCOBALAMIN 500 MCG TAB PO SCH (07:37)
[2021-09-27] MEDS: PANTOPRAZOLE 40 MG TABLET PO SCH (07:37)
[2021-09-27] MEDS: METOPROLOL TARTRATE 25 MG TAB PO SCH (07:38)
[2021-09-27] MEDS: LISINOPRIL-HCTZ 10-12.5 MG 1 EACH TAB PO SCH (07:38)
[2021-09-27] MEDS: ASPIRIN 325 MG TAB PO SCH (07:38)
[2021-09-27] MEDS: ATORVASTATIN 40 MG TAB PO SCH (07:38)
[2021-09-27] MEDS: GABAPENTIN 400 MG CAP PO SCH (07:38)
--- NOTE | 2021-09-27 11:04 | P.PN ---
<Mike Caicedo - Last Filed: 09/27/21 14:47> Subjective Progress Note Date: 09/27/21 Hospital course: Patient is a very pleasant 71-year-old male with a past medical history of aortic aneurysm with repair, CAD with history of CABG and aortic valve replacement, hypertension, hyperlipidemia, and asthma. Patient currently admitted under orthopedic surgery team status post revision of right total knee arthroplasty completed by Dr. Lerma on 09/25/21. We have been consulted for continued medical management throughout patient's hospitalization. Physical exam: Patient was seen and fully evaluated at bedside this morning he is postoperative day 2. He reports pain is currently controlled, but reports increased pain with movement. Patient reports he has been ambulatory with assistance with walker in his room. He denies having any numbness/tingling/weakness in his lower extremity. Patient denies having any other complaints or concerns at this time including headache, lightheadedness, dizziness, chest pain, palpitations, shortness of breath, abdominal pain, nausea, or vomiting. Patient is medically stable at this time. Vital signs reviewed and stable. General: Nontoxic, no distress and appears stated age. Derm: Skin warm and dry, normal coloration for ethnicity. Dressing right lower extremity intact, mild shadowing noted on dressing from reports of postoperative bleeding. Head: Atraumatic, normocephalic and symmetric. Eyes: EOMs intact, no lid lag, and anicteric sclera Mouth: no lip lesions, mucus membranes moist Cardiovascular: regular rate and rhythm with normal S1S2, Systolic murmur, positive posterior tibial pulses bilaterally, and cap refill < 2 seconds. Lungs: Respirations even, regular, and unlabored on room air. Lungs CTA bilaterally, no rhonchi, no rales, no wheezing, and no accessory muscle usage. Abdominal: soft, nontender to palpation, no guarding, no appreciable organomegaly Ext: ROM intact. No gross muscle atrophy, no edema, no contractures Neuro: Speech clear, face symmetrical and CN II-XII grossly intact with no noted focal neuro deficits Psych: Alert and oriented to person, place, time, and situation. Appropriate and pleasant affect. Assessment and Plan of Care: Status post revision of right total knee arthroplasty, postop day 2 -Management per primary admitting orthopedic surgery team and including pain management, postoperative wound care, PT/OT, weightbearing, and DVT prophylaxis. -Safe and supportive care with pain management as needed. -Fall precautions -Encourage use of incentive spirometry 10-15 times hourly while awake. Hypertension Monitor vital signs and continue daily medication regimen with lisinopril/hydrochlorothiazide and metoprolol. Asthma Duo nebs as needed for shortness of breath and/or wheezing. Incentive spirometry, encourage use 10-15 times hourly while awake. Hyperlipidemia Continue daily medication regimen with atorvastatin 40 mg nightly. History of CAD with previous CABG and aortic valve replacement Continue daily medication regimen with aspirin, atorvastatin, and metoprolol. Thank you for allowing us to participate in the care of this pleasant patient. Do not hesitate to contact us with questions. Someone can be reached from the [facility] hospitalist group all hours of the day at [phone] or via [employer]. Objective - Vital Signs Vital signs: Vital Signs Temp 98.1 F 09/27/21 07:48 Pulse 94 09/27/21 07:48 Resp 20 09/27/21 07:48 BP 143/81 09/27/21 07:48 Pulse Ox 95 09/27/21 07:48 Intake & Output 09/26/21 09/27/21 09/27/21 18:59 06:59 18:59 Other: Voiding Method Toilet Toilet Toilet # Voids 4 2 - Labs CBC & Chem 7: 09/26/21 05:19 Labs: Microbiology - Last 24 Hours (Table) 09/25/21 08:40 Gram Stain - Preliminary Knee - Right Wound Culture - Preliminary 09/25/21 08:40 Gram Stain - Preliminary Knee - Right Wound Culture - Preliminary <Wally Joyner - Last Filed: 09/27/21 16:59> Subjective I reviewed the documentation as provided by the YUDI above, who is the original author of this note. I agree with the documented assessment and plan, with the following changes: None Objective - Vital Signs Vital signs: Vital Signs Temp 97.8 F 09/27/21 14:00 Pulse 67 09/27/21 14:00 Resp 18 09/27/21 14:00 BP 110/68 09/27/21 14:00 Pulse Ox 96 09/27/21 14:00 Intake & Output 09/26/21 09/27/21 09/27/21 18:59 06:59 18:59 Other: Voiding Method Toilet Toilet Toilet # Voids 4 2 - Labs CBC & Chem 7: 09/26/21 05:19 Labs: Microbiology - Last 24 Hours (Table) 09/25/21 08:40 Anaerobic Culture - Preliminary Knee - Right 09/25/21 08:40 Anaerobic Culture - Preliminary Knee - Right 09/25/21 08:40 Gram Stain - Final Knee - Right Wound Culture - Final 09/25/21 08:40 Gram Stain - Final Knee - Right Wound Culture - Final
--- NOTE | 2021-09-27 13:32 | P.DS ---
Providers Date of admission: 09/25/21 05:35 Expected date of discharge: 09/27/21 Attending physician: Scott Lerma Consults: 09/25/21 07:08 Consult Physician Routine Consulting Provider: Wally Joyner Consult Reason/Comments: medical management Do you want consulting provider notified?: Yes Primary care physician: Noe Meyers MD - Discharge Diagnosis(es) (1) Failed orthopedic implant Current Visit: Yes Status: Acute (2) Status post revision of total replacement of right knee Current Visit: Yes Status: Acute Hospital Course: This is a 71 year-old male last seen in our office with complaints of right knee pain. The patient has a known history of a right total knee arthroplasty by Dr. Kiran. The tibial component was found to be loose by bone scan. After discussion and consideration the patient elected to proceed with a right revision total knee arthroplasty. The patient was seen preoperatively by his primary care physician and cleared for surgery. The patient was admitted to [facility] on 09/25/2021 and underwent a right revision total knee arthroplasty by Dr. Scott Lerma. The procedure was performed without complications or sequelae. The patient was seen and evaluated at bedside today. The patient's pain is well-controlled. The patient has no new complaints today denies any fevers, chills, nausea, vomiting, or shortness of breath. Vital signs are stable. The dressing is changed to due to bloody drainage. Incision looks fine with no erythema or active drainage. Calf is soft and nontender. The patient has full ankle motion without difficulty. The patient's right lower extremity is neurovascularly intact. The patient is orthopedically stable for discharge home today in stable condition. Pertinent Studies: Laboratory Tests 09/26/21 05:19 WBC 13.77 H RBC 3.87 L Hgb 12.2 L Hct 38.0 L MCV 98.2 H Patient Condition at Discharge: Stable Plan - Discharge Summary Discharge Rx Participant: No New Discharge Prescriptions: New HYDROcodone/APAP 7.5-325MG [[place] 7.5-325] 1 - 2 tab PO Q6H PRN #32 tab PRN Reason: Pain Sennosides [Senokot] 2 tab PO DAILY PRN #60 tablet PRN Reason: Constipation Aspirin 325 mg PO BID #60 tab No Action Cyanocobalamin [Vitamin B-12] 1,000 mg PO DAILY Cholecalciferol [Vitamin D3 (25 Mcg = 1000 Iu)] 1,000 unit PO HS Aspirin [Adult Low Dose Aspirin EC] 81 mg PO HS Gabapentin 800 mg PO BID Atorvastatin [Lipitor] 40 mg PO DAILY Metoprolol Tartrate [Lopressor] 25 mg PO QAM Albuterol Inhaler (Mhu) [Ventolin Hfa Inhaler] 1 - 2 puff INHALATION RT-Q6H PRN PRN Reason: Dyspnea HYDROcodone/APAP 7.5-325MG [[place] 7.5-325] 1 - 2 tab PO Q6HR PRN PRN Reason: Pain Sennosides [Senokot] 1 tab PO BID #60 tablet Pantoprazole [Protonix] 40 mg PO QAM Lisinopril-Hctz 10-12.5 mg [Zestoretic 10-12.5] 1 tab PO QAM Meloxicam 15 mg PO QAM Discharge Medication List Aspirin [Adult Low Dose Aspirin EC] 81 mg PO HS 12/01/15 [History] Cholecalciferol [Vitamin D3 (25 Mcg = 1000 Iu)] 1,000 unit PO HS 12/01/15 [History] Cyanocobalamin [Vitamin B-12] 1,000 mg PO DAILY 12/01/15 [History] Gabapentin 800 mg PO BID 12/14/15 [History] Albuterol Inhaler (Mhu) [Ventolin Hfa Inhaler] 1 - 2 puff INHALATION RT-Q6H PRN 11/12/17 [History] Atorvastatin [Lipitor] 40 mg PO DAILY 11/12/17 [History] Metoprolol Tartrate [Lopressor] 25 mg PO QAM 11/12/17 [History] HYDROcodone/APAP 7.5-325MG [[place] 7.5-325] 1 - 2 tab PO Q6HR PRN 11/19/17 [History] Sennosides [Senokot] 1 tab PO BID #60 tablet 11/20/17 [Rx] Lisinopril-Hctz 10-12.5 mg [Zestoretic 10-12.5] 1 tab PO QAM 09/11/21 [History] Meloxicam 15 mg PO QAM 09/11/21 [History] Pantoprazole [Protonix] 40 mg PO QAM 12/27/21 [History] Aspirin 325 mg PO BID #60 tab 09/25/21 [Rx] HYDROcodone/APAP 7.5-325MG [[place] 7.5-325] 1 - 2 tab PO Q6H PRN #32 tab 09/25/21 [Rx] Sennosides [Senokot] 2 tab PO DAILY PRN #60 tablet 09/25/21 [Rx] Follow up Appointment(s)/Referral(s): Scott Lerma DO [Doctor of Osteopathic Medicine] - 10/11/21 1:35 pm [facility] Visiting Nurse, [NON-STAFF] - As Needed Activity/Diet/Wound Care/Special Instructions: Weightbearing as tolerated with a walker. Leave dressing intact. Dressing may be removed by home care nurse or by patient in 7 days. Then change dressing twice daily until follow up. May shower with initial dressing intact and after removal. If dressing become saturated, please remove. Recommend use of compression stockings daily until follow up to help prevent swelling and blood clots. May remove at night before sleeping. Please take aspirin 325mg twice daily for 30 days to prevent blood clots. Please follow up with [facility] and call with any questions or concerns, . Discharge Disposition: HOME WITH HOME HEALTH SERVICES
[2021-09-27 14:38] VITALS: BP 110/68; PULSE 67; RESP 18; TEMP 97.8
--- NOTE | 2021-09-29 08:31 | CDI ---
Documentation Clarification Form Date: 09/29/2021 08:17:00 AM From: Stacia Ríos Admit Date: 09/25/2021 05:35:00 AM Patient Name: Gordo Reza Visit Number: [id number] Discharge Date: 09/27/2021 03:29:00 PM ATTENTION: The Clinical Documentation Specialists (CDI) and [facility] Coding Staff appreciate your assistance in clarifying documentation. Please respond to the clarification below the line at the bottom and electronically sign. The CDI & [facility] Coding staff will review the response and follow-up if needed. Please note: Queries are made part of the Legal Health Record. If you have any questions, please contact the author of this message via ITS. Dr. Scott Lerma The COVID-19 test obtained on 09/23/2021 is documented as detected (positive). There is no documentation in chart of patient being Covid positive. Please clarify if patient had Covid 19. History/risk factors: Positive Covid test Clinical Indicators: Positive Covid Test Please clarify the COVID-19 status: [ ] False positive test [ ] COVID-19 ruled out [ ] Covid 19 positive [ ] Other, please specify MTDD
--- NOTE | 2021-10-05 12:51 | CDI ---
Documentation Clarification Form Date: 09/29/2021 08:17:00 AM From: Stacia Ríos Admit Date: 09/25/2021 05:35:00 AM Patient Name: Gordo Reza Visit Number: [id number] Discharge Date: 09/27/2021 03:29:00 PM ATTENTION: The Clinical Documentation Specialists (CDI) and [facility] Coding Staff appreciate your assistance in clarifying documentation. Please respond to the clarification below the line at the bottom and electronically sign. The CDI & [facility] Coding staff will review the response and follow-up if needed. Please note: Queries are made part of the Legal Health Record. If you have any questions, please contact the author of this message via ITS. Dr. Scott Lerma The COVID-19 test obtained on 09/23/2021 is documented as detected (positive). There is no documentation in chart of patient being Covid positive. Please clarify if patient had Covid 19. History/risk factors: Positive Covid test Clinical Indicators: Positive Covid Test Please clarify the COVID-19 status: [ ] False positive test [ ] COVID-19 ruled out [ ] Covid 19 positive [ ] Other, please specify MTDD
== END 2021-09-27 15:29 | disposition home health service (06) | DRG 468 ==
LOC: 2ORMAIN 05:35 → EDSTATUS 07:00 → 4SSUR 13:16
PROVIDERS: ADMIT Orthopaedic Surgery; ATTEND Orthopaedic Surgery
PROC: 0SRC069 Replacement of Right Knee Joint with Oxidized Zirconium on Polyethylene Synthetic Substitute, Cemented, Open Approach (ICD-10-PCS; principal; 2021-09-25 07:00)
PROC: 0SPC0LZ Removal of Medial Unicondylar Synthetic Substitute from Right Knee Joint, Open Approach (ICD-10-PCS; principal; 2021-09-25 07:00)
DX: T84.032A Mechanical loosening of internal right knee prosthetic joint, initial encounter (principal); T84.84XA Pain due to internal orthopedic prosthetic devices, implants and grafts, initial encounter; Y79.2 Prosthetic and other implants, materials and accessory orthopedic devices associated with adverse incidents; Y83.1 Surgical operation with implant of artificial internal device as the cause of abnormal reaction of the patient, or of later complication, without mention of misadventure at the time of the procedure; N40.0 Benign prostatic hyperplasia without lower urinary tract symptoms; I10 Essential (primary) hypertension; J45.909 Unspecified asthma, uncomplicated; M19.90 Unspecified osteoarthritis, unspecified site; Z79.82 Long term (current) use of aspirin; Z79.899 Other long term (current) drug therapy; Z80.1 Family history of malignant neoplasm of trachea, bronchus and lung; Z80.42 Family history of malignant neoplasm of prostate; Z80.8 Family history of malignant neoplasm of other organs or systems; Z87.891 Personal history of nicotine dependence; Z95.1 Presence of aortocoronary bypass graft; M16.0 Bilateral primary osteoarthritis of hip; I25.2 Old myocardial infarction; I25.10 Atherosclerotic heart disease of native coronary artery without angina pectoris; E78.5 Hyperlipidemia, unspecified; Z20.822 Contact with and (suspected) exposure to COVID-19; Z95.2 Presence of prosthetic heart valve; Z96.643 Presence of artificial hip joint, bilateral; Z96.651 Presence of right artificial knee joint; Z91.018 Allergy to other foods; Z91.048 Other nonmedicinal substance allergy status; Z98.890 Other specified postprocedural states
CPT/HCPCS: 64448; 64999; 76942; 85025; 87070; 87075; 87205; 87635

== ENCOUNTER 2021-11-10 15:03 | Inpatient (IN) | payer MEDICARE ==
[2021-11-10] MEDS ORDERED: SODIUM CHLORIDE 0.9% 500 ML 500 ML IV STA (15:54)
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
[2021-11-10 16:36] LABS: Basophils # (A) 0.1 k/uL (0-0.2); Basophils % (A) 1 %; Eosinophils # (A) 0.1 k/uL (0-0.7); Eosinophils % (A) 0 %; HGB 13.5 gm/dL (13.0-17.5); Lymphocytes # (A) 1.8 k/uL (1.0-4.8); Lymphocytes % (A) 9 %; MCH 33.4 pg (25.0-35.0); MCHC 33.7 g/dL (31.0-37.0); MCV 99.1 fL (80.0-100.0); Mean Platelet Volume 9.1; Monocytes # (A) 0.8 k/uL (0-1.0); Monocytes % (A) 4 %; Neutrophils # (A) 16.3 k/uL (1.3-7.7); Neutrophils % (A) 84 %; Platelet Count 107 k/uL (150-450); RBC 4.04 m/uL (4.30-5.90); RDW 13.4 % (11.5-15.5); WBC 19.5 k/uL (3.8-10.6)
[2021-11-10 16:45] LABS: Albumin 3.6 g/dL (3.5-5.0); Calcium 9.2 mg/dL (8.4-10.2); Magnesium 2.1 mg/dL (1.6-2.3); Total Bilirubin 2.3 mg/dL (0.2-1.3); Total Protein 6.4 g/dL (6.3-8.2)
[2021-11-10 16:53] LABS: Potassium 4.7 mmol/L (3.5-5.1)
[2021-11-10 16:54] LABS: INR 0.9 (<1.2); Partial Thromboplastin Time 22.7 sec (22.0-30.0); Prothrombin Time 10.4 sec (9.0-12.0)
[2021-11-10 16:58] LABS: Appearance,Urine Cloudy (Clear); Bacteria,Urine Many /hpf; Bilirubin,Urine Negative (Negative); Blood,Urine Moderate (Negative); Color,Urine Yellow; Glucose,Urine (UA) Negative (Negative); Ketones,Urine Negative (Negative); Leukocyte Esterase,Urine Large (Negative); Mucus,Urine Few /hpf; Nitrite,Urine Positive (Negative); PH, Urine 6.5 (5.0-8.0); Protein,Urine 1+ (Negative); RBC,Urine 3 /hpf (0-5); Specific Gravity,Urine 1.024 (1.001-1.035); Squamous Epithelial Cell,Urine <1 /hpf (0-4); Urobilinogen,Urine <2.0 mg/dL (<2.0); WBC,Urine 42 /hpf (0-5)
[2021-11-10] MEDS ORDERED: HEPARIN SODIUM 1,000 UN/ML (10ML VL) IV ONE (17:37)
[2021-11-10] MEDS ORDERED: HEPARIN SODIUM 1,000 UN/ML (10ML VL) IV PRN (17:37)
[2021-11-10] MEDS ORDERED: ASPIRIN 81 MG PO STA (17:38)
[2021-11-10] MEDS ORDERED: KETOROLAC 15 MG/ML 1 ML VIAL IVP PRN (17:51)
[2021-11-10] MEDS ORDERED: NALOXONE 0.4 MG/ML 1 ML VIAL IV PRN (17:51)
[2021-11-10] MEDS ORDERED: MORPHINE SULFATE 4 MG/ML SYRINGE IV PRN (17:51)
[2021-11-10] MEDS ORDERED: ONDANSETRON 4 MG/2 ML VIAL IVP PRN (17:51)
--- NOTE | 2021-11-10 18:01 | XR ---
EXAMINATION TYPE: XR chest 2V DATE OF EXAM: 11/10/2021 COMPARISON: 02/25/2017 HISTORY: 71 years Male. STUDY INDICATION GIVEN: Weakness . TECHNIQUE: Frontal and lateral chest radiographs. IMPRESSION: Low lung volumes, medial lung base atelectasis greater on the left, cannot exclude developing infecti on in the left lower lobe. Normal heart size. Midline sternotomy wires and prosthetic valve, no significant change. No acute fracture or dislocation seen.
[2021-11-10] MEDS: HEPARIN SOD,PORK IN 0.45% NACL 25,000 UNIT in 0.45% NACL 1 250ML.BAG IV SCH (19:18)
[2021-11-10] MEDS: ACETAMINOPHEN TAB 325 MG TAB PO PRN (19:33)
[2021-11-10] MEDS: GABAPENTIN 400 MG CAP PO SCH (21:06)
[2021-11-10 23:17] LABS: Glucose,Whole Blood 136 mg/dL (75-99)
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
[2021-11-11] MEDS: KETOROLAC 30 MG/ML 1 ML VIAL IVP PRN ×2 (05:30→23:04)
[2021-11-11] MEDS: PANTOPRAZOLE 40 MG TABLET PO SCH (05:30)
[2021-11-11 07:45] LABS: African American GFR (CKD) >90 (>60 ml/min/1.73 sqM); Anion Gap 5 mmol/L; Basophils % (A) 0 %; Blood Urea Nitrogen 29 mg/dL (9-20); Calcium 8.3 mg/dL (8.4-10.2); Carbon Dioxide 22 mmol/L (22-30); Chloride 108 mmol/L (98-107); Eosinophils # (A) 0.2 k/uL (0-0.7); Eosinophils % (A) 1 %; Glucose 110 mg/dL (74-99); HCT 37.6 % (39.0-53.0); HGB 12.3 gm/dL (13.0-17.5); Lymphocytes # (A) 1.3 k/uL (1.0-4.8); Lymphocytes % (A) 8 %; MCH 32.3 pg (25.0-35.0); MCHC 32.7 g/dL (31.0-37.0); Mean Platelet Volume 9.2; Monocytes # (A) 0.7 k/uL (0-1.0); Monocytes % (A) 5 %; Neutrophils # (A) 12.4 k/uL (1.3-7.7); Neutrophils % (A) 81 %; Non-African American GFR(CKD) 79 (>60 ml/min/1.73 sqM); Platelet Count 106 k/uL (150-450); Potassium 3.5 mmol/L (3.5-5.1); RDW 13.8 % (11.5-15.5); Sodium 135 mmol/L (137-145); WBC 15.3 k/uL (3.8-10.6)
[2021-11-11 08:02] LABS: Prothrombin Time 10.4 sec (9.0-12.0)
[2021-11-11] MEDS: GABAPENTIN 400 MG CAP PO SCH ×2 (09:17→19:53)
[2021-11-11] MEDS: METOPROLOL SUCCINATE (ER) 25 MG TAB.ER.24H PO SCH (09:17)
[2021-11-11] MEDS: LISINOPRIL-HCTZ 10-12.5 MG 1 EACH TAB PO SCH (09:17)
[2021-11-11] MEDS: ATORVASTATIN 40 MG TAB PO SCH (09:18)
--- NOTE | 2021-11-11 10:00 | ECHOF ---
Referral Reason:NSTEMI MEASUREMENTS -------- HEIGHT: 172.7 cm WEIGHT: 92.1 kg BP: 124/61 RVIDd: 3.9 cm (< 3.3) IVSd: 1.6 cm (0.6 - 1.1) LVIDd: 5.3 cm (3.9 - 5.3) LVPWd: 1.3 cm (0.6 - 1.1) IVSs: 2.0 cm LVIDs: 3.3 cm LVPWs: 1.9 cm LAESV Index (A-L): 29.16 ml/m Ao Diam: 3.9 cm (2.0 - 3.7) MV EXCURSION: 20.216 mm (> 18.000) MV EF SLOPE: 69 mm/s (70 - 150) EPSS: 0.9 cm MV E Vincenzo: 0.85 m/s MV DecT: 289 ms MV A Vincenzo: 0.95 m/s MV E/A Ratio: 0.89 AV maxP.99 mmHg AV meanP.76 mmHg AR PHT: 576 ms RAP: 5.00 mmHg RVSP: 27.59 mmHg FINDINGS -------- Sinus rhythm. This was a technically adequate study. The left ventricular size is normal. There is moderate concentric left ventricular hypertrophy. O verall left ventricular systolic function is low-normal with, an EF between 50 - 55 %. Septal wall motion is delayed and consistent with prior cardiac surgery. The right ventricle is mild to moderately enlarged. LA is midly dilated 29-33ml/m2. The right atrium is mildly enlarged. Interatrial and interventricular septum intact. The maximum pressure gradient across the aortic valve is 40.99mmHg. Peak/mean gradient across the A ortic Valve is 40.99mmHg / 22.76mmHg. There is mild regurgitation of the bioprosthetic aortic valve . There is mild stenosis of the bioprosthetic aortic valve. Mild mitral regurgitation is present. Mild tricuspid regurgitation present. There is no evidence of pulmonary hypertension. The right v entricular systolic pressure, as measured by Doppler, is 27.59mmHg. There is no pulmonic regurgitation present. S/P ascending aorta repair IVC Not well visulized. Echo free space represents a pericardial fat pad. There is no pericardial effusion. CONCLUSIONS -------- 1. The left ventricular size is normal. 2. There is moderate concentric left ventricular hypertrophy. 3. Overall left ventricular systolic function is low-normal with, an EF between 50 - 55 %. 4. Septal wall motion is delayed and consistent with prior cardiac surgery. 5. The right ventricle is mild to moderately enlarged. 6. LA is midly dilated 29-33ml/m2. 7. The right atrium is mildly enlarged. 8. The maximum pressure gradient across the aortic valve is 40.99mmHg. 9. Peak/mean gradient across the Aortic Valve is 40.99mmHg / 22.76mmHg. 10. There is mild regurgitation of the bioprosthetic aortic valve. 11. There is mild stenosis of the bioprosthetic aortic valve. 12. Mild mitral regurgitation is present. 13. Mild tricuspid regurgitation present. 14. S/P ascending aorta repair BARREL CLEANER: Flores Braun RDCS
--- NOTE | 2021-11-11 10:16 | P.PN ---
Subjective Progress Note Date: 11/11/21 Principal diagnosis: CC dysuria Patient is a 71-year-old male with a PMH of coronary artery disease status post CABG, hypertension, hyperlipidemia, asthma, status post right knee revision surgery 1 month ago who presents to the emergency room with complaints of chills, urinary complaints, and generalized weakness. Patient was found to have a UTI. He was started on IV Rocephin This morning patient states that he still having dysuria however it is improving. He states that he did feel warm this morning and had asked the nurse to remove blankets that were covering his legs. Patient denies any chest pain or shortness of breath Objective - Vital Signs Vital signs: Vital Signs Temp 98.7 F 11/11/21 08:00 Pulse 65 11/11/21 08:00 Resp 16 11/11/21 08:00 BP 102/45 11/11/21 08:00 Pulse Ox 96 11/11/21 08:00 Intake & Output 11/10/21 11/11/21 11/11/21 18:59 06:59 18:59 Intake Total 156.667 87.687 Output Total 300 Balance -143.333 87.687 Weight 91.172 kg 92.2 kg Intake: Intake, IV Titration 56.667 87.687 Amount Heparin Sod,Pork in 0.45% 56.667 87.687 NaCl 25,000 unit In 0.45 % NaCl 1 250ml.bag @ 10. 968 UNITS/KG/HR 10 mls/hr IV .Q24H [facility] Rx#: [id number] Oral 100 Output: Urine 300 Other: Voiding Method Urinal Urinal - Exam General examination - Alert and Oriented 3 in NAD Heart - + S1S2 no murmurs Lungs - Clear to auscultation Abdomen soft NT ND +ve BS Extremities - No edema NIGHT ASSISTANT - Moving all 4 extremities spontaneously Psych - Calm and cooperative - Labs CBC & Chem 7: 11/11/21 07:28 11/11/21 07:28 Labs: Abnormal Lab Results - Last 24 Hours (Table) 11/10/21 11/10/21 11/10/21 Range/Units 16:00 16:00 16:00 WBC 19.5 H (3.8-10.6) k/uL RBC 4.04 L (4.30-5.90) m/uL Hgb (13.0-17.5) gm/dL Hct (39.0-53.0) % Plt Count 107 L (150-450) k/uL Neutrophils # 16.3 H (1.3-7.7) k/uL APTT (22.0-30.0) sec Sodium 134 L (137-145) mmol/L Chloride (98-107) mmol/L BUN 30 H (9-20) mg/dL Glucose (74-99) mg/dL POC Glucose (mg/dL) (75-99) mg/dL Calcium (8.4-10.2) mg/dL Total Bilirubin 2.3 H (0.2-1.3) mg/dL Troponin I (0.000-0.034) ng/mL Urine Protein 1+ H (Negative) Urine Blood Moderate H (Negative) Ur Leukocyte Esterase Large H (Negative) Urine WBC 42 H (0-5) /hpf Urine Bacteria Many H (None) /hpf Urine Mucus Few H (None) /hpf 11/10/21 11/10/21 11/10/21 Range/Units 16:00 18:48 23:00 WBC (3.8-10.6) k/uL RBC (4.30-5.90) m/uL Hgb (13.0-17.5) gm/dL Hct (39.0-53.0) % Plt Count (150-450) k/uL Neutrophils # (1.3-7.7) k/uL APTT 35.3 H (22.0-30.0) sec Sodium (137-145) mmol/L Chloride (98-107) mmol/L BUN (9-20) mg/dL Glucose (74-99) mg/dL POC Glucose (mg/dL) (75-99) mg/dL Calcium (8.4-10.2) mg/dL Total Bilirubin (0.2-1.3) mg/dL Troponin I 0.139 H* 0.130 H* (0.000-0.034) ng/mL Urine Protein (Negative) Urine Blood (Negative) Ur Leukocyte Esterase (Negative) Urine WBC (0-5) /hpf Urine Bacteria (None) /hpf Urine Mucus (None) /hpf 11/10/21 11/10/21 11/11/21 Range/Units 23:00 23:16 07:28 WBC 15.3 H (3.8-10.6) k/uL RBC 3.80 L (4.30-5.90) m/uL Hgb 12.3 L (13.0-17.5) gm/dL Hct 37.6 L (39.0-53.0) % Plt Count 106 L (150-450) k/uL Neutrophils # 12.4 H (1.3-7.7) k/uL APTT (22.0-30.0) sec Sodium (137-145) mmol/L Chloride (98-107) mmol/L BUN (9-20) mg/dL Glucose (74-99) mg/dL POC Glucose (mg/dL) 136 H (75-99) mg/dL Calcium (8.4-10.2) mg/dL Total Bilirubin (0.2-1.3) mg/dL Troponin I 0.120 H* (0.000-0.034) ng/mL Urine Protein (Negative) Urine Blood (Negative) Ur Leukocyte Esterase (Negative) Urine WBC (0-5) /hpf Urine Bacteria (None) /hpf Urine Mucus (None) /hpf 11/11/21 11/11/21 11/11/21 Range/Units 07:28 07:28 07:28 WBC (3.8-10.6) k/uL RBC (4.30-5.90) m/uL Hgb (13.0-17.5) gm/dL Hct (39.0-53.0) % Plt Count (150-450) k/uL Neutrophils # (1.3-7.7) k/uL APTT 38.1 H (22.0-30.0) sec Sodium 135 L (137-145) mmol/L Chloride 108 H (98-107) mmol/L BUN 29 H (9-20) mg/dL Glucose 110 H (74-99) mg/dL POC Glucose (mg/dL) (75-99) mg/dL Calcium 8.3 L (8.4-10.2) mg/dL Total Bilirubin (0.2-1.3) mg/dL Troponin I 0.090 H* (0.000-0.034) ng/mL Urine Protein (Negative) Urine Blood (Negative) Ur Leukocyte Esterase (Negative) Urine WBC (0-5) /hpf Urine Bacteria (None) /hpf Urine Mucus (None) /hpf Microbiology - Last 24 Hours (Table) 11/10/21 16:00 Urine Culture - Preliminary Urine,Voided Assessment and Plan Assessment: Sepsis on admission UTI -Resume IV Rocephin -Resume IV fluids -Follow blood cultures and urine culture -Patient will need to follow with his urologist outpatient -WBC trending down -Patient afebrile this morning. T-max of 101.1 and past 24 hours -Blood pressure is normotensive Non-ST elevation DE -Continue with heparin drip -Cardiology consult -Troponins are flat so unlikely ACS -Resume aspirin -Check echocardiogram Thrombocytopenia -Stable. Monitor platelets Chronic conditions: Hypertension, hyperlipidemia, asthma -Continue with home meds DVT prophylaxis -Heparin infusion CODE STATUS: Full Code Discussed with: Patient Anticipated discharge date: 2-[address]: Home
[2021-11-11 11:31] LABS: Glucose,Whole Blood 95 mg/dL (75-99)
[2021-11-11] MEDS: HEPARIN SOD,PORK IN 0.45% NACL 25,000 UNIT in 0.45% NACL 1 250ML.BAG IV SCH (14:29)
--- NOTE | 2021-11-11 15:16 | CONS ---
CONSULTATION Gordo Reza is a 71-year-old gentleman who sees Dr. Kessler in the outpatient setting. He has a history of severe aortic regurgitation and severe dilatation of his ascending aorta. He underwent aortic valve replacement with repair of ascending aorta with a conduit. He had also single-vessel bypass surgery performed at that time. He was going through rehab for his right knee arthroplasty that was performed in September, which was a redo procedure. While he was at the rehab facility in [facility], he felt feverish and somewhat weak and clammy. He went home and he had the same fever with chills. He lay down room under a blanket, then his granddaughter came and saw him and advised that he should be going to the hospital. After arrival his main complaint was feeling weak tired, lack of energy, some chills and a feverish sensation. His urinalysis is positive for urinary tract infection. His clinical presentation strongly suggests sepsis with fever and chills. He does not have any elevated temperature, but white count is elevated. He has had previous urological evaluations performed. I do not know exactly what his urological problem is, but he sees Dr. Stephenson. He has no evidence of any chest discomfort to suggest angina. His troponins are equivocal at 0.1 and 0.1. He has no anginal symptoms. He is not short of breath but just feels weak and exhausted. PAST MEDICAL HISTORY: 1. CAD. 2. Aortic valve regurgitation and ascending aortic dilatation. 3. Status post aortic valve replacement with ascending aorta repair with conduit. 4. Hypertension. 5. Hyperlipidemia. 6. History of degenerative joint disease with recent redo right total knee arthroplasty. MEDICATIONS: Medications at home include lisinopril, hydrochlorothiazide, atorvastatin, aspirin, metoprolol succinate, meloxicam, albuterol inhaler and Protonix. PHYSICAL EXAMINATION: Blood pressure is 124/70, pulse rate is about 60 per minute. HEENT unremarkable. Fundus was not examined by me. Neck is supple. There is no JVD. I do not hear a carotid bruit. Heart exam reveals S1, S2 with ejection systolic murmur at the base. Second heart sound is preserved. Lungs reveal decent air entry. Abdomen is soft. Lower extremities reveal palpable pulses. No edema. Central nervous system is normal. EKG revealed a sinus mechanism with right bundle branch block pattern, leftward axis and repolarization abnormality. IMPRESSION: 1. Rule out sepsis in a patient with fever, chills and elevated white count. Urinary tract infection is evident. 2. History of coronary artery disease, which I think is stable. 3. Status post aortic valve replacement and repair of ascending aorta. 4. History of hypertension. 5. Hyperlipidemia. RECOMMENDATIONS: I am recommending blood cultures to be performed and if abnormal to seek input from Infectious Disease. Given the fact he has a prosthetic aortic valve and clinical picture of sepsis, I will do an echocardiogram today. I discussed my thoughts in detail with the patient. We will keep him well hydrated. Continue the IV heparin for now until one more level of troponin comes back and then make further recommendations. Discussed my thoughts in detail with the patient and his . ABRAHAN / SHERI: [id number] /
--- NOTE | 2021-11-11 19:00 | US ---
EXAMINATION TYPE: US kidneys/renal and bladder DATE OF EXAM: 11/11/2021 COMPARISON: US 2011 , CT 09/25/2016. CLINICAL HISTORY: uti and bacteremia. EXAM MEASUREMENTS: Right Kidney: 10.9 x 5.7 x 6.1 cm Left Kidney: 11.4 x 6.1 x 6.9 cm Right Kidney: No hydronephrosis or masses seen Left Kidney: Lateral septated cyst measures 1.1 x 1.2 x 1.3 cm Bladder: wnl Incidental note is made of prominent prostate gland There is no evidence for hydronephrosis at this point in time. No nephrolithiasis is seen. No esperanza s are identified. The urinary bladder is anechoic. IMPRESSION: 1. No evidence of hydronephrosis 2. Minimally complex left renal cyst with septation as seen in 2016.
[2021-11-11] MEDS: ASPIRIN 81 MG PO SCH (19:53)
[2021-11-11] MEDS: HEPARIN SODIUM,PORCINE/PF 5,000 UNIT/0.5 ML SYRINGE SQ SCH (19:53)
[2021-11-11] MEDS: ALBUTEROL NEBULIZED 2.5 MG/3 ML INHALATION PRN (20:09)
[2021-11-11] MEDS ORDERED: bisacodyL 5 MG TABLET.DR PO STA (21:04)
[2021-11-11] MEDS: SODIUM CHLORIDE 0.9% 1,000 ML IV SCH (21:10)
[2021-11-12] MEDS: PANTOPRAZOLE 40 MG TABLET PO SCH (06:45)
[2021-11-12] MEDS: KETOROLAC 30 MG/ML 1 ML VIAL IVP PRN ×2 (06:45→21:25)
[2021-11-12] MEDS: SODIUM CHLORIDE 0.9% 1,000 ML IV SCH ×2 (06:46→18:19)
[2021-11-12] MEDS: ALBUTEROL NEBULIZED 2.5 MG/3 ML INHALATION PRN (07:28)
[2021-11-12] MEDS ORDERED: POTASSIUM CHLORIDE ER 20 MEQ TAB.ER PO STA (07:52)
[2021-11-12 08:10] LABS: African American GFR (CKD) >90 (>60 ml/min/1.73 sqM); Anion Gap 9 mmol/L; Blood Urea Nitrogen 25 mg/dL (9-20); Calcium 8.3 mg/dL (8.4-10.2); Carbon Dioxide 19 mmol/L (22-30); Chloride 109 mmol/L (98-107); Glucose 139 mg/dL (74-99); Magnesium 1.9 mg/dL (1.6-2.3); Non-African American GFR(CKD) 87 (>60 ml/min/1.73 sqM); Potassium 3.5 mmol/L (3.5-5.1); Sodium 137 mmol/L (137-145)
[2021-11-12] MEDS: HEPARIN SODIUM,PORCINE/PF 5,000 UNIT/0.5 ML SYRINGE SQ SCH ×2 (08:19→21:25)
[2021-11-12] MEDS: LISINOPRIL-HCTZ 10-12.5 MG 1 EACH TAB PO SCH (08:20)
[2021-11-12] MEDS: GABAPENTIN 400 MG CAP PO SCH ×2 (08:20→21:25)
[2021-11-12] MEDS: ATORVASTATIN 40 MG TAB PO SCH (08:20)
[2021-11-12] MEDS: METOPROLOL SUCCINATE (ER) 25 MG TAB.ER.24H PO SCH (08:20)
[2021-11-12 08:22] LABS: HGB 12.5 gm/dL (13.0-17.5); MCH 32.5 pg (25.0-35.0); MCHC 32.8 g/dL (31.0-37.0); MCV 99.1 fL (80.0-100.0); Mean Platelet Volume 9.5; Platelet Count 117 k/uL (150-450); RBC 3.84 m/uL (4.30-5.90); RDW 13.6 % (11.5-15.5); WBC 9.7 k/uL (3.8-10.6)
[2021-11-12 08:25] LABS: C Reactive Protein 17.5 mg/dL (<1.0)
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
[2021-11-12 09:50] LABS: Erythrocyte Sedimentation Rate 48 mm/hr (0-15)
[2021-11-12 10:16] LABS: Eosinophils # (M) 0.29 k/uL (0-0.7); Lymphocytes # (M) 1.07 k/uL (1.0-4.8); Monocytes # (M) 0.49 k/uL (0-1.0); Neutrophils # (M) 7.86 k/uL (1.3-7.7); Neutrophils % (M) 81 %; Nucleated Red Blood Cells 0 /100 WBC (0-0); Total Cells Counted 100
[2021-11-12 10:31] LABS: Anisocytosis (M) Present; Poikilocytosis (M) Present
--- NOTE | 2021-11-12 11:39 | PN ---
PROGRESS NOTE This gentleman has UTI and Gram-negative sepsis. Also had aortic valve replacement with repair of ascending aorta with a conduit. He is in sinus rhythm, comfortable, resting, feels better. He is less febrile. I have requested Dr. Armenta from Infectious Disease to see him. Cardiac-jara, overall doing better. We will continue current medications and repeat blood cultures. No other intervention necessary at this time, but we will continue to follow. Vitals are stable. Ejection systolic murmur is audible. Second heart sound is preserved. Lungs are clear. Abdomen is soft. Lower extremities reveal diminished pulses. Central nervous system is normal. Awaiting input from Infectious Disease and Urology. Continue current medications for now. MMODL / IJN: [id number] /
--- NOTE | 2021-11-12 12:36 | P.PN ---
Subjective Progress Note Date: 11/12/21 Principal diagnosis: CC dysuria Patient stated that he is feeling much better since admission. His is concerned about his knee locking up since he recently had knee surgery done and she is wondering if physical therapy can be consultative and also orthopedic surgery. I told patient that he can follow up with orthopedic surgery as outpatient and we will consult physical therapy while he is in the hospital. Patient is denying any fever chills nausea vomiting. Objective - Vital Signs Vital signs: Vital Signs Temp 97.5 F L 11/12/21 12:10 Pulse 86 11/12/21 12:10 Resp 18 11/12/21 12:10 BP 114/65 11/12/21 12:10 Pulse Ox 97 11/12/21 12:10 Intake & Output 11/11/21 11/12/21 11/12/21 18:59 06:59 18:59 Intake Total 170.934 200 180 Output Total 751 Balance 170.934 -551 180 Intake: Intake, IV Titration 170.934 Amount Heparin Sod,Pork in 0.45% 170.934 NaCl 25,000 unit In 0.45 % NaCl 1 250ml.bag @ 10. 968 UNITS/KG/HR 10 mls/hr IV .Q24H [facility] Rx#: [id number] Oral 200 180 Output: Urine 750 Stool 1 Other: Voiding Method Toilet Toilet Toilet Urinal Urinal Urinal # Voids 1 400 - Exam General examination - Alert and Oriented 3 in NAD Heart - + S1S2 no murmurs Lungs - Clear to auscultation Abdomen soft NT ND +ve BS Extremities - No edema SERVER SYSTEMS ADMINISTRATOR - Moving all 4 extremities spontaneously Psych - Calm and cooperative - Labs CBC & Chem 7: 11/12/21 07:37 11/12/21 07:37 Labs: Abnormal Lab Results - Last 24 Hours (Table) 11/11/21 11/12/21 11/12/21 Range/Units 14:20 07:37 07:37 RBC 3.84 L (4.30-5.90) m/uL Hgb 12.5 L (13.0-17.5) gm/dL Hct 38.0 L (39.0-53.0) % Plt Count 117 L (150-450) k/uL Neutrophils # (Manual) 7.86 H (1.3-7.7) k/uL ESR 48 H (0-15) mm/hr APTT 37.0 H (22.0-30.0) sec Chloride 109 H (98-107) mmol/L Carbon Dioxide 19 L (22-30) mmol/L BUN 25 H (9-20) mg/dL Glucose 139 H (74-99) mg/dL Calcium 8.3 L (8.4-10.2) mg/dL C-Reactive Protein 17.5 H (<1.0) mg/dL Microbiology - Last 24 Hours (Table) 11/10/21 18:57 Blood Culture Gram Stain - Preliminary Blood 11/10/21 18:57 Blood Culture - Final Blood 11/10/21 16:00 Urine Culture - Preliminary Urine,Voided Gram Neg Bacilli 11/10/21 18:57 Blood Culture Gram Stain - Preliminary Blood Blood Culture - Preliminary Escherichia coli 11/10/21 18:57 Blood Culture - Final Blood Assessment and Plan Assessment: Sepsis on admission Gram-negative bacilli bacteremia UTI -Resume IV Rocephin -Resume IV fluids -Follow blood cultures and urine culture until finalized -Patient will need to follow with his urologist outpatient -WBC normalized -Blood pressure is normotensive -Awaiting for cultures to be finalized so that we can give final antibiotic recommendations from infectious disease. Anticipate patient will be going home on oral antibiotics Non-ST elevation OR -Continue with heparin drip -Cardiology on board -Troponins are flat so unlikely ACS -Resume aspirin -Echocardiogram showed EF of 50-55% and there is no documentation of any vegetation Thrombocytopenia -Stable. Monitor platelets Chronic conditions: Hypertension, hyperlipidemia, asthma -Continue with home meds DVT prophylaxis -Heparin infusion Patient's labs are unremarkable from this morning. We'll stop trending labs. CODE STATUS: Full Code Discussed with: Patient Anticipated discharge date: [address]: Home
--- NOTE | 2021-11-12 21:14 | P.PN ---
Subjective Progress Note Date: 11/12/21 Principal diagnosis: E. coli bacteremia Patient is a 71-year-old male with a surgical history significant for recent right knee replacement patient also have a history of aortic aneurysm repair and aortic valve replacement, admitted to the hospital with the fever and chills difficult urination noticed to have a symptomatic UTI and E. coli bacteremia. On today's evaluation that is 11/12/2021, the patient denies having any fever or chills, patient is feeling slightly better today, the patient denies having any chest pain shortness of breath or cough no nausea no vomiting no abdominal pain or diarrhea Objective - Vital Signs Vital signs: Vital Signs Temp 97.6 F 11/12/21 17:08 Pulse 72 11/12/21 17:08 Resp 18 11/12/21 17:08 BP 152/76 11/12/21 17:08 Pulse Ox 95 11/12/21 17:08 Intake & Output 11/12/21 11/12/21 11/13/21 06:59 18:59 06:59 Intake Total 200 540 Output Total 751 600 Balance -551 -60 Intake: Oral 200 540 Output: Urine 750 600 Stool 1 Other: Voiding Method Toilet Toilet Urinal Urinal # Voids 400 - Exam GENERAL DESCRIPTION: An elderly male lying in bed in no distress RESPIRATORY SYSTEM: Unlabored breathing , decreased breath sounds at bases HEART: S1 S2 regular rate and rhythm , ABDOMEN: Soft , no tenderness EXTREMITIES: No edema feet - Labs CBC & Chem 7: 11/12/21 07:37 11/12/21 07:37 Labs: Abnormal Lab Results - Last 24 Hours (Table) 11/12/21 11/12/21 Range/Units 07:37 07:37 RBC 3.84 L (4.30-5.90) m/uL Hgb 12.5 L (13.0-17.5) gm/dL Hct 38.0 L (39.0-53.0) % Plt Count 117 L (150-450) k/uL Neutrophils # (Manual) 7.86 H (1.3-7.7) k/uL ESR 48 H (0-15) mm/hr Chloride 109 H (98-107) mmol/L Carbon Dioxide 19 L (22-30) mmol/L BUN 25 H (9-20) mg/dL Glucose 139 H (74-99) mg/dL Calcium 8.3 L (8.4-10.2) mg/dL C-Reactive Protein 17.5 H (<1.0) mg/dL Microbiology - Last 24 Hours (Table) 11/10/21 18:57 Blood Culture Gram Stain - Preliminary Blood 11/10/21 18:57 Blood Culture Gram Stain - Preliminary Blood Blood Culture - Preliminary Escherichia coli 11/10/21 18:57 Blood Culture - Final Blood 11/10/21 16:00 Urine Culture - Preliminary Urine,Voided Gram Neg Bacilli Assessment and Plan (1) UTI (urinary tract infection) Current Visit: Yes Status: Acute Code(s): N39.0 - URINARY TRACT INFECTION, SITE NOT SPECIFIED SNOMED Code(s): 13900139 Plan: 1patient with gram-negative bacteremia source is likely urinary in this patient did have urinary symptoms of difficulty urination, patient did have a recent right knee replacement however no swelling redness of the right knee was noticed also have a history of aortic valve replacement with repair of the ascending aorta with a short-term bacteremia secondary seeding of the aortic valve will be less likely but not entirely excluded. 2repeat blood cultures to document clearance of bacteremia has been negative so far. 3 ultrasound of the kidney was negative for any hydronephrosis 4patient to continue with Rocephin to 2 g daily Time with Patient: Less than 30
[2021-11-12] MEDS: ASPIRIN 81 MG PO SCH (21:25)
[2021-11-13] MEDS: SODIUM CHLORIDE 0.9% 1,000 ML IV SCH ×2 (05:12→15:26)
[2021-11-13] MEDS: PANTOPRAZOLE 40 MG TABLET PO SCH (06:33)
[2021-11-13] MEDS: METOPROLOL SUCCINATE (ER) 25 MG TAB.ER.24H PO SCH (09:56)
[2021-11-13] MEDS: ATORVASTATIN 40 MG TAB PO SCH (09:56)
[2021-11-13] MEDS: LISINOPRIL-HCTZ 10-12.5 MG 1 EACH TAB PO SCH (09:56)
[2021-11-13] MEDS: GABAPENTIN 400 MG CAP PO SCH ×2 (09:56→22:15)
[2021-11-13] MEDS: HEPARIN SODIUM,PORCINE/PF 5,000 UNIT/0.5 ML SYRINGE SQ SCH ×2 (09:57→22:15)
[2021-11-13 11:36] LABS: HCT 38.5 % (39.0-53.0); HGB 12.7 gm/dL (13.0-17.5); Hypochromasia Slight; MCH 33.9 pg (25.0-35.0); MCHC 32.9 g/dL (31.0-37.0); MCV 102.8 fL (80.0-100.0); Macrocytosis Slight; Mean Platelet Volume 9.2; Platelet Count 150 k/uL (150-450); RBC 3.74 m/uL (4.30-5.90); RDW 13.6 % (11.5-15.5); WBC 9.6 k/uL (3.8-10.6)
[2021-11-13 11:52] LABS: ALT 62 U/L (4-49); AST 52 U/L (17-59); African American GFR (CKD) >90 (>60 ml/min/1.73 sqM); Albumin 3.2 g/dL (3.5-5.0); Alkaline Phosphatase 89 U/L (38-126); Anion Gap 8 mmol/L; Blood Urea Nitrogen 16 mg/dL (9-20); Calcium 8.8 mg/dL (8.4-10.2); Carbon Dioxide 20 mmol/L (22-30); Chloride 110 mmol/L (98-107); Glucose 100 mg/dL (74-99); Magnesium 1.9 mg/dL (1.6-2.3); Non-African American GFR(CKD) >90 (>60 ml/min/1.73 sqM); Sodium 138 mmol/L (137-145); Total Bilirubin 1.1 mg/dL (0.2-1.3)
--- NOTE | 2021-11-13 14:21 | P.PN ---
Subjective Progress Note Date: 11/13/21 HISTORY OF PRESENT ILLNESS: Patient examined this morning at the bedside. Patient denies chest pain or pressure. Denies SOB. Vital signs are stable. Patient is receiving antibiotics p er infectious disease. Echocardiogram completed revealing ejection fraction 50- 55%. PHYSICAL EXAM: VITAL SIGNS: Reviewed. GENERAL: Well-developed in no acute distress. NECK: Supple. No JVD or thyromegaly LUNGS: Respirations even and unlabored. Lungs essentially clear to auscultation bilaterally. HEART: Regular rate and rhythm. S1 and S2 heard. EXTREMITIES: Normal range of motion. No clubbing or cyanosis. Peripheral pulses intact. No lower extremity edema ASSESSMENT: Urinary tract infection Abnormal troponin, secondary to above Coronary artery disease History of AVR Hypertension Hyperlipidemia PLAN: Continue current cardiac medications No further inpatient recommendations from a cardiac standpoint We will sign off. Please reconsult if needed. Nurse practitioner note has been reviewed by physician. Signing provider agrees with the documented findings, assessment, and plan of care. Objective - Vital Signs Vital signs: Vital Signs Temp 97.7 F 11/13/21 12:00 Pulse 57 L 11/13/21 12:00 Resp 18 11/13/21 12:00 BP 146/72 11/13/21 12:00 Pulse Ox 96 11/13/21 12:00 Intake & Output 11/12/21 11/13/21 11/13/21 18:59 06:59 18:59 Intake Total 540 Output Total 600 575 Balance -60 -575 Intake: Oral 540 Output: Urine 600 575 Other: Voiding Method Toilet Toilet Toilet Urinal Urinal Urinal # Voids 1 # Bowel Movements 1 - Labs CBC & Chem 7: 11/13/21 11:19 11/13/21 11:19 Labs: Abnormal Lab Results - Last 24 Hours (Table) 11/13/21 11/13/21 Range/Units 11:19 11:19 RBC 3.74 L (4.30-5.90) m/uL Hgb 12.7 L (13.0-17.5) gm/dL Hct 38.5 L (39.0-53.0) % MCV 102.8 H (80.0-100.0) fL Chloride 110 H (98-107) mmol/L Carbon Dioxide 20 L (22-30) mmol/L Glucose 100 H (74-99) mg/dL ALT 62 H (4-49) U/L Total Protein 6.0 L (6.3-8.2) g/dL Albumin 3.2 L (3.5-5.0) g/dL Microbiology - Last 24 Hours (Table) 11/10/21 18:57 Blood Culture Gram Stain - Final Blood Blood Culture - Final Escherichia coli 11/10/21 18:57 Blood Culture Gram Stain - Final Blood Blood Culture - Final Escherichia coli 11/12/21 07:37 Blood Culture - Preliminary Blood No Growth after 24 hours 11/10/21 16:00 Urine Culture - Final Urine,Voided Escherichia coli
--- NOTE | 2021-11-13 16:48 | P.PN ---
Subjective Progress Note Date: 11/13/21 (delayed charting seen at 1045) Principal diagnosis: fatigue Patient is a 71-year-old male with coronary artery disease status post CABG, hypertension, dyslipidemia, and recent right knee revision approximately one month ago who presented to the emergency room with complaints of dysuria and generalized weakness. In the ER he underwent an extensive evaluation. He was ultimately found to have a urinary tract infection with sepsis. Patient does have a history of BPH. He was found to have gram-negative bacteremia. Both bacteremia and urinary tract infection or due to E. coli. Infectious disease was consulted. Patient has a history of a bioprosthetic aortic valve. Echocardiogram showed some mild regurgitation and stenosis, ejection fraction was 50-55%. He did undergo a renal ultrasound which did not demonstrate any signs of hydronephrosis. He does have a minimally complex left renal cyst which was seen prior in 2017. Patient seen and examined at bedside. No chest pain. Reports that he is feeling much better than on admission but still feeling very tired. He states he's been having diarrhea multiple times this morning. He initially had constipation and did take one dose of the laxative is now having significant diarrhea. General: Ill-appearing, no distress, appears at stated age Derm: warm, dry Head: atraumatic, normocephalic, symmetric Eyes: EOMI, no lid lag, anicteric sclera Mouth: no lip lesion, mucus membranes dry Cardiovascular: S1S2 reg, no murmur, positive posterior tibial pulse bilateral, Lungs: Course bs bilateral, no rhonchi, no rales , no accessory muscle use Abdominal: soft, +tender to palpation RLQ and LLQ, no guarding, no appreciable organomegaly Ext: no gross muscle atrophy, no edema, no contractures Neuro: CN II-XI grossly intact, no focal neuro deficits Psych: Alert, oriented, appropriate affect Assessment/Plan: Sepsis on admission E. Coli bacteremia deu to E. Coli UTI -Resume IV Rocephin -Resume IV fluids -Follow blood cultures and urine culture until finalized -Patient will need to follow with his urologist outpatient -WBC normalized Non-ST elevation [place], due to demand ischemia from sepsis -Cardiology recs appreciated and have signed off -ASA, statin -Echocardiogram showed EF of 50-55% and there is no documentation of any vegetation Thrombocytopenia, resolved Chronic conditions: Hypertension, hyperlipidemia, asthma -Continue with home meds DVT prophylaxis: Heparin CODE STATUS: Full Code Discussed with: Patient Anticipated discharge date: in AM Anticipated discharge place: Home Objective - Vital Signs Vital signs: Vital Signs Temp 97.7 F 11/13/21 12:00 Pulse 57 L 11/13/21 14:00 Resp 18 11/13/21 14:00 BP 146/72 11/13/21 12:00 Pulse Ox 96 11/13/21 12:00 Intake & Output 11/12/21 11/13/21 11/13/21 18:59 06:59 18:59 Intake Total 540 Output Total 600 575 1 Balance -60 -575 -1 Intake: Oral 540 Output: Urine 600 575 Stool 1 Other: Voiding Method Toilet Toilet Urinal Urinal Urinal # Voids 1 # Bowel Movements 1 - Labs CBC & Chem 7: 11/13/21 11:19 11/13/21 11:19 Labs: Abnormal Lab Results - Last 24 Hours (Table) 11/13/21 11/13/21 Range/Units 11:19 11:19 RBC 3.74 L (4.30-5.90) m/uL Hgb 12.7 L (13.0-17.5) gm/dL Hct 38.5 L (39.0-53.0) % MCV 102.8 H (80.0-100.0) fL Chloride 110 H (98-107) mmol/L Carbon Dioxide 20 L (22-30) mmol/L Glucose 100 H (74-99) mg/dL ALT 62 H (4-49) U/L Total Protein 6.0 L (6.3-8.2) g/dL Albumin 3.2 L (3.5-5.0) g/dL Microbiology - Last 24 Hours (Table) 11/10/21 18:57 Blood Culture Gram Stain - Final Blood Blood Culture - Final Escherichia coli 11/10/21 18:57 Blood Culture Gram Stain - Final Blood Blood Culture - Final Escherichia coli 11/12/21 07:37 Blood Culture - Preliminary Blood No Growth after 24 hours 11/10/21 16:00 Urine Culture - Final Urine,Voided Escherichia coli
[2021-11-13] MEDS: KETOROLAC 30 MG/ML 1 ML VIAL IVP PRN (18:13)
[2021-11-13] MEDS: ASPIRIN 81 MG PO SCH (22:14)
[2021-11-13] MEDS: ACETAMINOPHEN TAB 325 MG TAB PO PRN (22:15)
--- NOTE | 2021-11-13 23:02 | P.PN ---
Subjective Progress Note Date: 11/13/21 Principal diagnosis: E. coli bacteremia Patient is a 71-year-old male with a surgical history significant for recent right knee replacement patient also have a history of aortic aneurysm repair and aortic valve replacement, admitted to the hospital with the fever and chills difficult urination noticed to have a symptomatic UTI and E. coli bacteremia. On today's evaluation that is 11/13/2021, the patient remains to be afebrile, the patient denies having any chest pain shortness of breath or cough the patient denies having any nausea or abdominal pain however has been complaining of diarrhea with multiple loose stools, stool for C. diff has been ordered by the admitting team Objective - Vital Signs Vital signs: Vital Signs Temp 98.1 F 11/13/21 04:45 Pulse 68 11/13/21 04:45 Resp 20 11/13/21 04:45 BP 127/66 11/13/21 04:45 Pulse Ox 95 11/13/21 04:45 Intake & Output 11/12/21 11/13/21 11/13/21 18:59 06:59 18:59 Intake Total 540 Output Total 600 575 Balance -60 -575 Intake: Oral 540 Output: Urine 600 575 Other: Voiding Method Toilet Toilet Urinal Urinal # Voids 1 # Bowel Movements 1 - Exam GENERAL DESCRIPTION: An elderly male lying in bed in no distress RESPIRATORY SYSTEM: Unlabored breathing , decreased breath sounds at bases HEART: S1 S2 regular rate and rhythm , ABDOMEN: Soft , no tenderness EXTREMITIES: No edema feet - Labs CBC & Chem 7: 11/13/21 11:19 11/13/21 11:19 Labs: Abnormal Lab Results - Last 24 Hours (Table) 11/13/21 11/13/21 Range/Units 11:19 11:19 RBC 3.74 L (4.30-5.90) m/uL Hgb 12.7 L (13.0-17.5) gm/dL Hct 38.5 L (39.0-53.0) % MCV 102.8 H (80.0-100.0) fL Chloride 110 H (98-107) mmol/L Carbon Dioxide 20 L (22-30) mmol/L Glucose 100 H (74-99) mg/dL ALT 62 H (4-49) U/L Total Protein 6.0 L (6.3-8.2) g/dL Albumin 3.2 L (3.5-5.0) g/dL Microbiology - Last 24 Hours (Table) 11/12/21 07:37 Blood Culture - Preliminary Blood No Growth after 24 hours 11/10/21 16:00 Urine Culture - Final Urine,Voided Escherichia coli 11/10/21 18:57 Blood Culture Gram Stain - Preliminary Blood 11/10/21 18:57 Blood Culture Gram Stain - Preliminary Blood Blood Culture - Preliminary Escherichia coli Assessment and Plan (1) UTI (urinary tract infection) Current Visit: Yes Status: Acute Code(s): N39.0 - URINARY TRACT INFECTION, SITE NOT SPECIFIED SNOMED Code(s): 59720519 Plan: 1patient with gram-negative bacteremia source is likely urinary in this patient did have urinary symptoms of difficulty urination, patient did have a recent right knee replacement however no swelling redness of the right knee was noticed also have a history of aortic valve replacement with repair of the ascending aorta with a short-term bacteremia secondary seeding of the aortic valve will be less likely but not entirely excluded. 2repeat blood cultures to document clearance of bacteremia has been negative so far. 3 ultrasound of the kidney was negative for any hydronephrosis 4patient to continue with Rocephin to 2 g daily with a plan to finish therapy with oral Cipro 5-diarrhea. Doubt C. diff colitis, patient been advised to increase his yogurt intake will add Questran for symptomatic relief Time with Patient: Less than 30
[2021-11-14] MEDS: ACETAMINOPHEN TAB 325 MG TAB PO PRN (04:58)
--- NOTE | 2021-11-14 06:42 | P.EN ---
A- team: Indication: Shaking chills Arrived on Scene to find: Patient resting comfortably in bed, complaining of R knee pain. Vital signs reviewed: The RN noted that the patient's vitals at time of activation of A-team were BP 217/101, P 129, SpO2 92% on RA, w/ Temp 98.1 Patient seen and examined at bedside. General: [non toxic], [no distress], [appears at stated age] Derm: [warm], [dry] Head: [atraumatic], [normocephalic], [symmetric] Eyes: [EOMI], [no lid lag], [anicteric sclera] Mouth: [no lip lesion], [mucus membranes moist] Cardiovascular: [S1S2 reg], [no murmur], [positive posterior tibial pulse bilateral], Lungs: [CTA bilateral], [no rhonchi, no rales] , [no accessory muscle use] Abdominal: [soft], [ nontender to palpation], [no guarding], [no appreciable organomegaly] Ext: [no gross muscle atrophy], [no edema], [no contractures], R knee mild warmth and tenderness without skin changes or swelling Neuro: [ CN II-XI grossly intact], [no focal neuro deficits] Psych: [Alert], [oriented], [appropriate affect] Assessment: R knee tenderness and warmth with SIRS Plan: Patient's vitals at time of evaluation: BP 164/72, P 97, SpO2 98% on RA, T 98.4 The patient currently receiving Ceftriaxone for Urosepsis C/w Ceftriaxone for now RN contacted ID regarding further Abx changes A Total of 35 minutes of critical care time was spent on the complex care of this patient.
[2021-11-14] MEDS: PANTOPRAZOLE 40 MG TABLET PO SCH (06:49)
[2021-11-14 09:41] VITALS: RESP 18
[2021-11-14] MEDS: GABAPENTIN 400 MG CAP PO SCH ×2 (09:42→20:59)
[2021-11-14] MEDS: METOPROLOL SUCCINATE (ER) 25 MG TAB.ER.24H PO SCH (09:42)
[2021-11-14] MEDS: LISINOPRIL-HCTZ 10-12.5 MG 1 EACH TAB PO SCH (09:42)
[2021-11-14] MEDS: ATORVASTATIN 40 MG TAB PO SCH (09:42)
[2021-11-14] MEDS: HEPARIN SODIUM,PORCINE/PF 5,000 UNIT/0.5 ML SYRINGE SQ SCH ×2 (09:43→21:00)
[2021-11-14] MEDS: CHOLESTYRAMINE (WITH SUGAR) 4 GM PACKET PO SCH ×2 (09:48→17:09)
--- NOTE | 2021-11-14 18:28 | P.PN ---
Subjective Progress Note Date: 11/14/21 (delayed charting seen at 1030) Principal diagnosis: fatigue Patient is a 71-year-old male with coronary artery disease status post CABG, hypertension, dyslipidemia, and recent right knee revision approximately one month ago who presented to the emergency room with complaints of dysuria and generalized weakness. In the ER he underwent an extensive evaluation. He was ultimately found to have a urinary tract infection with sepsis. Patient does have a history of BPH. He was found to have gram-negative bacteremia. Both bacteremia and urinary tract infection or due to E. coli. Infectious disease was consulted. Patient has a history of a bioprosthetic aortic valve. Echocardiogram showed some mild regurgitation and stenosis, ejection fraction was 50-55%. He did undergo a renal ultrasound which did not demonstrate any signs of hydronephrosis. He does have a minimally complex left renal cyst which was seen prior in 2017. 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 He reports that he feels terrible. He recounts the events of last night and was worried that he again had rigors. He c/o pain with urination and wants to see urology we discussed this could be done in the clinic but he wants to see Dr. Stephenson now. He denies any pain his right leg. General: Ill-appearing, no distress, appears at stated age Derm: warm, dry Head: atraumatic, normocephalic, symmetric Eyes: EOMI, no lid lag, anicteric sclera Mouth: no lip lesion, mucus membranes dry Cardiovascular: S1S2 reg, no murmur, positive posterior tibial pulse bilateral, Lungs: Course bs bilateral, no rhonchi, no rales , no accessory muscle use Abdominal: soft, nontender to palpation, no guarding, no appreciable organomegaly Ext: no gross muscle atrophy, no edema, no contractures - right lower extremity without warmth, erythema, swelling, and range of motion intact Neuro: CN II-XI grossly intact, no focal neuro deficits Psych: Alert, oriented, appropriate affect Assessment/Plan: Sepsis on admission E. Coli bacteremia deu to E. Coli UTI BPH - IV Rocephin cipro on discharge - IV fluids complete - Consult urology at patient request -WBC normalized Diarrhea - C diff negative - continue with questran Non-ST elevation [place], due to demand ischemia from sepsis -Cardiology recs appreciated and have signed off -ASA, statin -Echocardiogram showed EF of 50-55% and there is no documentation of any vegetation Thrombocytopenia, resolved Chronic conditions: Hypertension, hyperlipidemia, asthma -Continue with home meds DVT prophylaxis: Heparin CODE STATUS: Full Code Discussed with: Patient Anticipated discharge date: in AM Anticipated discharge place: Home Active Medications Generic Name Dose Route Start Last Admin Trade Name Freq PRN Reason Stop Dose Admin Acetaminophen 650 mg 11/10/21 19:23 11/14/21 04:58 Acetaminophen Tab 325 Mg Tab PO 650 mg Q4HR PRN Administration Fever and/ or Pain Albuterol Sulfate 2.5 mg 11/11/21 15:26 11/12/21 07:28 Albuterol Nebulized 2.5 Mg/3 Ml INHALATION 2.5 mg RT-Q6H PRN Administration Shortness Of Breath Aspirin 81 mg 11/11/21 21:00 11/13/21 22:14 Aspirin 81 Mg PO 81 mg HS MIKE Administration Atorvastatin Calcium 40 mg 11/11/21 09:00 11/14/21 09:42 Atorvastatin 40 Mg Tab PO 40 mg DAILY MIKE Administration Cholestyramine Resin 4 gm 11/14/21 10:00 11/14/21 17:09 Cholestyramine (With Sugar) 4 Gm Packet PO 4 gm BID@1000,1800 MIKE Administration Gabapentin 800 mg 11/10/21 21:00 11/14/21 09:42 Gabapentin 400 Mg Cap PO 800 mg BID MIKE Administration Lisinopril/HCTZ 1 each 11/11/21 09:00 11/14/21 09:42 Lisinopril-Hctz 10-12.5 Mg 1 Each Tab PO 1 each DAILY MIKE Administration Heparin Sodium (Porcine) 5,000 unit 11/11/21 21:00 11/14/21 09:43 Heparin Sodium,Porcine/Pf 5,000 Unit/0.5 Ml Syringe SQ 5,000 unit Q12HR MIKE Administration Ceftriaxone Sodium 2 gm/ 50 mls @ 100 mls/hr 11/11/21 16:00 11/14/21 09:43 Sodium Chloride IVPB 100 mls/hr Q24HR MIKE Administration Ketorolac Tromethamine 15 mg 11/11/21 04:56 11/13/21 18:13 Ketorolac 30 Mg/Ml 1 Ml Vial IVP 11/16/21 04:57 15 mg Q6HR PRN Administration Moderate Pain Metoprolol Succinate 25 mg 11/11/21 09:00 11/14/21 09:42 Metoprolol Succinate (Er) 25 Mg Tab.Er.24h PO 25 mg DAILY MIKE Administration Morphine Sulfate 4 mg 11/10/21 17:51 Morphine Sulfate 4 Mg/Ml Syringe IV Q4HR PRN Severe Pain Naloxone HCl 0.2 mg 11/10/21 17:51 Naloxone 0.4 Mg/Ml 1 Ml Vial IV Q2M PRN Opioid Reversal Ondansetron HCl 4 mg 11/10/21 17:51 Ondansetron 4 Mg/2 Ml Vial IVP Q8HR PRN Nausea And Vomiting Pantoprazole Sodium 40 mg 11/11/21 07:30 11/14/21 06:49 Pantoprazole 40 Mg Tablet PO 40 mg [id number] MIKE Administration Objective - Vital Signs Vital signs: Vital Signs Temp 98.7 F 11/14/21 08:00 Pulse 63 11/14/21 16:00 Resp 18 11/14/21 16:00 BP 117/62 11/14/21 16:00 Pulse Ox 99 11/14/21 16:00 Intake & Output 11/13/21 11/14/21 11/14/21 18:59 06:59 18:59 Intake Total 342 1078 Output Total 1 925 801 Balance 341 -925 277 Intake: Oral 342 1078 Output: Urine 925 800 Stool 1 1 Other: Voiding Method Urinal Urinal Urinal # Bowel Movements 1 - Labs CBC & Chem 7: 11/13/21 11:19 11/13/21 11:19 Labs: Microbiology - Last 24 Hours (Table) 11/12/21 07:37 Blood Culture - Preliminary Blood No Growth after 48 hours
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
[2021-11-14] MEDS: ASPIRIN 81 MG PO SCH (21:00)
--- NOTE | 2021-11-14 23:13 | P.PN ---
Subjective Progress Note Date: 11/14/21 Principal diagnosis: E. coli bacteremia Patient is a 71-year-old male with a surgical history significant for recent right knee replacement patient also have a history of aortic aneurysm repair and aortic valve replacement, admitted to the hospital with the fever and chills difficult urination noticed to have a symptomatic UTI and E. coli bacteremia. On today's evaluation that is 11/14/2021, the patient remains to be afebrile, however the patient seemed to have some problem with tachycardia this morning and some shortness of breath patient denies having any chest pain or nausea no vomiting no abdominal pain denies pain to the right knee area and no worsening diarrhea Objective - Vital Signs Vital signs: Vital Signs Temp 98.7 F 11/14/21 08:00 Pulse 89 11/14/21 08:00 Resp 18 11/14/21 08:00 BP 109/63 11/14/21 08:00 Pulse Ox 96 11/14/21 08:00 Intake & Output 11/13/21 11/14/21 11/14/21 18:59 06:59 18:59 Intake Total 342 480 Output Total 1 925 200 Balance 341 -925 280 Intake: Oral 342 480 Output: Urine 925 200 Stool 1 Other: Voiding Method Urinal Urinal # Bowel Movements 1 - Exam GENERAL DESCRIPTION: An elderly male lying in bed in no distress RESPIRATORY SYSTEM: Unlabored breathing , decreased breath sounds at bases HEART: S1 S2 regular rate and rhythm , ABDOMEN: Soft , no tenderness EXTREMITIES: No edema feet - Labs CBC & Chem 7: 11/13/21 11:19 11/13/21 11:19 Labs: Abnormal Lab Results - Last 24 Hours (Table) 11/13/21 11/13/21 Range/Units 11:19 11:19 RBC 3.74 L (4.30-5.90) m/uL Hgb 12.7 L (13.0-17.5) gm/dL Hct 38.5 L (39.0-53.0) % MCV 102.8 H (80.0-100.0) fL Chloride 110 H (98-107) mmol/L Carbon Dioxide 20 L (22-30) mmol/L Glucose 100 H (74-99) mg/dL ALT 62 H (4-49) U/L Total Protein 6.0 L (6.3-8.2) g/dL Albumin 3.2 L (3.5-5.0) g/dL Microbiology - Last 24 Hours (Table) 11/12/21 07:37 Blood Culture - Preliminary Blood No Growth after 48 hours 11/10/21 18:57 Blood Culture Gram Stain - Final Blood Blood Culture - Final Escherichia coli 11/10/21 18:57 Blood Culture Gram Stain - Final Blood Blood Culture - Final Escherichia coli Assessment and Plan (1) UTI (urinary tract infection) Current Visit: Yes Status: Acute Code(s): N39.0 - URINARY TRACT INFECTION, SITE NOT SPECIFIED SNOMED Code(s): 11029439 Plan: 1patient with gram-negative bacteremia source is likely urinary in this patient did have urinary symptoms of difficulty urination, patient did have a recent right knee replacement however no swelling redness of the right knee was noticed also have a history of aortic valve replacement with repair of the ascending aorta with a short-term bacteremia secondary seeding of the aortic valve will be less likely but not entirely excluded. 2repeat blood cultures to document clearance of bacteremia which remains to be negative. 3 ultrasound of the kidney was negative for any hydronephrosis 4patient is currently being treated with Rocephin to 2 g daily with a plan to finish therapy with oral Cipro 5-diarrhea. Stool for C. diff was negative to continue with the Questran and advised to increase her yogurt intake Time with Patient: Less than 30
[2021-11-15] MEDS: PANTOPRAZOLE 40 MG TABLET PO SCH (06:25)
[2021-11-15 06:41] LABS: HCT 38.8 % (39.0-53.0); HGB 12.2 gm/dL (13.0-17.5); Hypochromasia Slight; MCH 32.2 pg (25.0-35.0); MCHC 31.5 g/dL (31.0-37.0); Macrocytosis Slight; Mean Platelet Volume 9.1; Platelet Count 169 k/uL (150-450); RBC 3.81 m/uL (4.30-5.90); RDW 13.3 % (11.5-15.5); WBC 12.7 k/uL (3.8-10.6)
[2021-11-15 06:58] LABS: African American GFR (CKD) >90 (>60 ml/min/1.73 sqM); Anion Gap 4 mmol/L; Blood Urea Nitrogen 15 mg/dL (9-20); Calcium 8.6 mg/dL (8.4-10.2); Carbon Dioxide 20 mmol/L (22-30); Chloride 110 mmol/L (98-107); Glucose 112 mg/dL (74-99); Non-African American GFR(CKD) 86 (>60 ml/min/1.73 sqM); Potassium 3.7 mmol/L (3.5-5.1); Sodium 134 mmol/L (137-145)
[2021-11-15] MEDS: LISINOPRIL-HCTZ 10-12.5 MG 1 EACH TAB PO SCH (08:36)
[2021-11-15] MEDS: METOPROLOL SUCCINATE (ER) 25 MG TAB.ER.24H PO SCH (08:36)
[2021-11-15] MEDS: GABAPENTIN 400 MG CAP PO SCH (08:36)
[2021-11-15] MEDS: HEPARIN SODIUM,PORCINE/PF 5,000 UNIT/0.5 ML SYRINGE SQ SCH (08:36)
[2021-11-15] MEDS: ATORVASTATIN 40 MG TAB PO SCH (08:36)
[2021-11-15] MEDS: CHOLESTYRAMINE (WITH SUGAR) 4 GM PACKET PO SCH (08:37)
[2021-11-15 12:28] VITALS: BP 116/65; PULSE 61; TEMP 98.4
--- NOTE | 2021-11-15 17:30 | P.DS ---
Providers Date of admission: 11/10/21 17:51 Expected date of discharge: 11/15/21 Attending physician: Fortunato Michel MD Consults: 11/11/21 12:47 Consult Physician Stat Consulting Provider: Kaya Armenta Consult Reason/Comments: positive blood cultures, hx valve replacement, uti. Do you want consulting provider notified?: Yes 11/14/21 10:11 Consult Physician Routine Consulting Provider: Xavi Stephenson Consult Reason/Comments: UTI with BPH Do you want consulting provider notified?: Yes Primary care physician: Noe Meyers MD Hospital Course: Discharge Diagnosis: Sepsis on admission E. Coli bacteremia due to E. Coli UTI BPH Diarrhea Non-ST elevation [place], due to demand ischemia from sepsis Thrombocytopenia, resolved Hypertension Hyperlipidemia Asthma Hospital Course: Patient is a 71-year-old male with coronary artery disease status post CABG, hypertension, dyslipidemia, and recent right knee revision approximately one month ago who presented to the emergency room with complaints of dysuria and generalized weakness. In the ER he underwent an extensive evaluation. He was ultimately found to have a urinary tract infection with sepsis. Patient does have a history of BPH. He was found to have gram-negative bacteremia. Both bacteremia and urinary tract infection or due to E. coli. Infectious disease was consulted. Patient has a history of a bioprosthetic aortic valve. Echocardiogram showed some mild regurgitation and stenosis, ejection fraction was 50-55%. He did undergo a renal ultrasound which did not demonstrate any signs of hydronephrosis. He does have a minimally complex left renal cyst which was seen prior in 2017. 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 He continued to do well. He felt back to his normal self on the morning of 11/15/21 and was determined stable for dishcharge. He will follow with Dr. Stephenson in the out patient setting, he will complete a 2 week course of antibiotics with oral cipro. He will have [facility]. He will follow with [facility] and Dr. Armenta as well. Patient seen and examined at bedside. Denies any chest pain, shortness breath, nausea, vomiting. Vital signs reviewed and stable. General: non toxic, no distress, appears at stated age Derm: warm, dry Head: atraumatic, normocephalic, symmetric Eyes: EOMI, no lid lag, anicteric sclera Mouth: no lip lesion, mucus membranes moist Cardiovascular: S1S2 reg, no murmur, positive posterior tibial pulse bilateral, Lungs: CTA bilateral, no rhonchi, no rales , no accessory muscle use Abdominal: soft, nontender to palpation, no guarding, no appreciable organomegaly Ext: no gross muscle atrophy, no edema, no contractures Neuro: CN II-XI grossly intact, no focal neuro deficits Psych: Alert, oriented, appropriate affect A total of 35 minutes of time were spent preparing this complex discharge summary . Patient Condition at Discharge: Stable Plan - Discharge Summary Discharge Rx Participant: No New Discharge Prescriptions: New Ciprofloxacin HCl [Cipro] 500 mg PO BID 9 Days #18 tab Continue Aspirin [Adult Low Dose Aspirin EC] 81 mg PO HS Gabapentin 800 mg PO BID Atorvastatin [Lipitor] 40 mg PO DAILY Pantoprazole [Protonix] 40 mg PO DAILY Cyanocobalamin (Vitamin B-12) [Vitamin B-12] 1,000 mcg PO DAILY Cholecalciferol [Vitamin D3 (25 Mcg = 1000 Iu)] 25 mcg PO HS Metoprolol Succinate [Toprol XL] 25 mg PO DAILY Lisinopril-Hctz 10-12.5 mg [Zestoretic 10-12.5] 1 tab PO DAILY Meloxicam 15 mg PO DAILY HYDROcodone/APAP 7.5-325MG [White 7.5-325] 1 tab PO Q6H PRN PRN Reason: Pain Albuterol Sulfate [Albuterol Sulfate Hfa] 2 puff PO RT-Q6H PRN PRN Reason: Shortness Of Breath Discharge Medication List Aspirin [Adult Low Dose Aspirin EC] 81 mg PO HS 12/01/15 [History] Gabapentin 800 mg PO BID 12/14/15 [History] Atorvastatin [Lipitor] 40 mg PO DAILY 11/12/17 [History] Lisinopril-Hctz 10-12.5 mg [Zestoretic 10-12.5] 1 tab PO DAILY 09/11/21 [History] Meloxicam 15 mg PO DAILY 09/11/21 [History] Pantoprazole [Protonix] 40 mg PO DAILY 09/11/21 [History] Albuterol Sulfate [Albuterol Sulfate Hfa] 2 puff PO RT-Q6H PRN 11/10/21 [History] Cholecalciferol [Vitamin D3 (25 Mcg = 1000 Iu)] 25 mcg PO HS 11/10/21 [History] Cyanocobalamin (Vitamin B-12) [Vitamin B-12] 1,000 mcg PO DAILY 11/10/21 [History] HYDROcodone/APAP 7.5-325MG [White 7.5-325] 1 tab PO Q6H PRN 11/10/21 [History] Metoprolol Succinate [Toprol XL] 25 mg PO DAILY 11/10/21 [History] Ciprofloxacin HCl [Cipro] 500 mg PO BID 9 Days #18 tab 11/15/21 [Rx] Follow up Appointment(s)/Referral(s): [facility] [Provider Group] - 2 Weeks (SaturdayDecember 04, 3:[address] ) [facility], [NON-STAFF] - Noe Meyers MD [Primary Care Provider] - 1-2 days (November 21 9:30) Kaya Armenta MD [STAFF PHYSICIAN] - 1 Week (SaturdayNovember 21, 1:45) Xavi Stephenson MD [STAFF PHYSICIAN] - 2 Weeks (SaturdayDecember 01 10:20) Patient Instructions/Handouts: Heart Attack (DC), Urinary Tract Infection in Men (DC) Activity/Diet/Wound Care/Special Instructions: Activity: as tolerated Diet: Heart healthy Special Instructions: Thanks for trusting us with your care. We wish you well on your journey to better health. Please take all antibiotics as prescribed. Discharge Disposition: HOME SELF-CARE
== END 2021-11-15 14:58 | disposition home or self-care (01) | DRG 871 ==
LOC: EC 15:03 → 3SCARD 17:51
PROVIDERS: ADMIT Internal Medicine; ATTEND Internal Medicine
DX: A41.51 Sepsis due to Escherichia coli [E. coli] (principal); I21.A1 Myocardial infarction type 2; J98.11 Atelectasis; N39.0 Urinary tract infection, site not specified; G89.18 Other acute postprocedural pain; C61 Malignant neoplasm of prostate; D69.6 Thrombocytopenia, unspecified; E78.5 Hyperlipidemia, unspecified; I10 Essential (primary) hypertension; I25.10 Atherosclerotic heart disease of native coronary artery without angina pectoris; I25.2 Old myocardial infarction; I35.1 Nonrheumatic aortic (valve) insufficiency; J45.909 Unspecified asthma, uncomplicated; K59.00 Constipation, unspecified; N28.1 Cyst of kidney, acquired; Z20.822 Contact with and (suspected) exposure to COVID-19; N40.0 Benign prostatic hyperplasia without lower urinary tract symptoms; N40.2 Nodular prostate without lower urinary tract symptoms; Z79.1 Long term (current) use of non-steroidal anti-inflammatories (NSAID); Z79.82 Long term (current) use of aspirin; Z79.899 Other long term (current) drug therapy; Z80.1 Family history of malignant neoplasm of trachea, bronchus and lung; Z80.42 Family history of malignant neoplasm of prostate; Z80.8 Family history of malignant neoplasm of other organs or systems; Z86.79 Personal history of other diseases of the circulatory system; Z87.891 Personal history of nicotine dependence; Z95.1 Presence of aortocoronary bypass graft; B96.20 Unspecified Escherichia coli [E. coli] as the cause of diseases classified elsewhere; Z95.3 Presence of xenogenic heart valve; Z96.643 Presence of artificial hip joint, bilateral; Z96.651 Presence of right artificial knee joint; M25.561 Pain in right knee; R19.7 Diarrhea, unspecified
CPT/HCPCS: 36415; 71046; 76770; 80048; 80053; 81001; 83605; 83735; 84484; 85025; 85027; 85610; 85652; 85730; 86140; 87040; 87077; 87086; 87186; 87324; 87635; 93005; 93306; 94640; 96361; 96374; 99285

== ENCOUNTER 2022-06-01 15:18 | Inpatient (IN) | payer MEDICARE ==
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
[2022-06-01 16:57] LABS: Appearance,Urine Cloudy (Clear); Bacteria,Urine Rare /hpf; Bilirubin,Urine Negative (Negative); Blood,Urine Negative (Negative); Budding Yeast,Urine Rare /hpf; Color,Urine Yellow; Glucose,Urine (UA) Negative (Negative); Hyaline Casts,Urine 3 /lpf (0-2); Ketones,Urine Negative (Negative); Leukocyte Esterase,Urine Large (Negative); Mucus,Urine Rare /hpf; Nitrite,Urine Negative (Negative); Protein,Urine Trace (Negative); RBC,Urine 15 /hpf (0-5); Specific Gravity,Urine 1.024 (1.001-1.035); Squamous Epithelial Cell,Urine 1 /hpf (0-4); Urobilinogen,Urine <2.0 mg/dL (<2.0); WBC,Urine 63 /hpf (0-5)
[2022-06-01] MEDS ORDERED: SODIUM CHLORIDE 0.9% 1,000 ML IV STA (17:14)
[2022-06-01] MEDS ORDERED: cefTRIAXone IN SWFI 1,000 MG/10 ML SYRINGE IVP STA (17:38)
[2022-06-01] MEDS ORDERED: SODIUM CHLORIDE 0.9% IV STA (17:39)
[2022-06-01 17:40] LABS: Basophils % (A) 0 %; Eosinophils # (A) 0.2 k/uL (0-0.7); Eosinophils % (A) 2 %; HCT 38.5 % (39.0-53.0); HGB 12.3 gm/dL (13.0-17.5); Hypochromasia Slight; Lymphocytes # (A) 1.4 k/uL (1.0-4.8); Lymphocytes % (A) 15 %; MCH 29.1 pg (25.0-35.0); MCV 91.1 fL (80.0-100.0); Mean Platelet Volume 8.8; Monocytes # (A) 0.6 k/uL (0-1.0); Monocytes % (A) 7 %; Neutrophils # (A) 6.4 k/uL (1.3-7.7); Neutrophils % (A) 71 %; Platelet Count 195 k/uL (150-450); RBC 4.22 m/uL (4.30-5.90); RDW 14.6 % (11.5-15.5); WBC 8.9 k/uL (3.8-10.6)
[2022-06-01 17:51] LABS: Albumin 4.1 g/dL (3.5-5.0); Calcium 9.2 mg/dL (8.4-10.2); Magnesium 2.1 mg/dL (1.6-2.3); Potassium 4.6 mmol/L (3.5-5.1); Total Bilirubin 0.5 mg/dL (0.2-1.3); Total Protein 6.4 g/dL (6.3-8.2)
[2022-06-01 18:06] LABS: INR 0.9 (<1.2); Partial Thromboplastin Time 23.4 sec (22.0-30.0); Prothrombin Time 10.1 sec (9.0-12.0)
--- NOTE | 2022-06-01 18:09 | XR ---
EXAMINATION TYPE: XR chest 1V portable DATE OF EXAM: 06/01/2022 COMPARISON: 11/10/2021 HISTORY: Weakness. Short of breath TECHNIQUE: FINDINGS: Heart is normal. Lungs are clear of infiltrate. No heart failure. There are sternal wires. No sign of pleural effusion. There are chest leads. IMPRESSION: No active cardiopulmonary disease. Normal heart.
--- NOTE | 2022-06-01 18:20 | CT ---
EXAMINATION TYPE: CT brain wo con DATE OF EXAM: 06/01/2022 COMPARISON: None HISTORY: headaches CT DLP: 1099.4 mGycm Automated exposure control for dose reduction was used. Images of the brain obtained without contrast. There is cerebral cortical atrophy. There is no mass effect or midline shift. No sign of intracranial hemorrhage. Calvarium is intact. No evidence of cerebral edema. Skull base is intact. There is tyson l aeration of the mastoid sinuses. IMPRESSION: Cerebral atrophy. No acute intracranial abnormality. There is likely small 2 cm infarct left posterio r frontal lobe blair and white matter.
[2022-06-01] MEDS ORDERED: NALOXONE 0.4 MG/ML 1 ML VIAL IV PRN (19:30)
--- NOTE | 2022-06-01 21:16 | US ---
EXAMINATION TYPE: US kidneys/renal and bladder DATE OF EXAM: 06/01/2022 COMPARISON: 11/11/2021 CLINICAL HISTORY: selena. EXAM MEASUREMENTS: Right Kidney: 10.6 x 5.6 x 5.5 cm Left Kidney: 10.5 x 5.7 x 5.2 cm Right Kidney: lateral cyst measuring 1.0 x 0.9 x 0.9cm Left Kidney: No hydronephrosis or masses seen Bladder: wnl IMPRESSION: No sign of renal mass or obstruction. No bladder mass. No adverse change compared to old exam.
--- NOTE | 2022-06-01 22:22 | NM ---
EXAMINATION TYPE: NM pul vent and perfuse DATE OF EXAM: 06/01/2022 COMPARISON: NONE HISTORY: Short of breath TECHNIQUE: Utilizing inhalation of 65.8 mCi Tc 99m DTPA aerosol and intravenous injection of 5.19 mC i of Tc 99m MAA, ventilation and perfusion images are acquired post injection in multiple projections . FINDINGS: No evidence of any segmental or significant subsegmental perfusion defect. There is no ventilation/pe rfusion mismatch. There is small subsegmental posterior peripheral matching defects in the posterior left lower lobe. IMPRESSION: Matching subsegmental defects in the posterior left lower lobe consistent with airway disease. There is low probability of pulmonary embolism.
[2022-06-01] MEDS: SODIUM CHLORIDE 0.9% 1,000 ML IV SCH (22:33)
[2022-06-02] MEDS: SODIUM CHLORIDE 0.9% 1,000 ML IV SCH ×2 (03:07→09:18)
[2022-06-02 08:45] LABS: African American GFR (CKD) 63 (>60 ml/min/1.73 sqM); Anion Gap 9 mmol/L; Blood Urea Nitrogen 18 mg/dL (9-20); Calcium 8.3 mg/dL (8.4-10.2); Carbon Dioxide 19 mmol/L (22-30); Chloride 111 mmol/L (98-107); Glucose 98 mg/dL (74-99); Magnesium 1.9 mg/dL (1.6-2.3); Non-African American GFR(CKD) 55 (>60 ml/min/1.73 sqM); Potassium 4.1 mmol/L (3.5-5.1); Sodium 139 mmol/L (137-145)
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
[2022-06-02] MEDS ORDERED: ALBUTEROL NEBULIZED 2.5 MG/3 ML INHALATION PRN (11:08)
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
--- NOTE | 2022-06-02 14:08 | US ---
EXAMINATION TYPE: US carotid duplex BILAT DATE OF EXAM: 06/02/2022 COMPARISON: None CLINICAL HISTORY: 71-year-old male Stroke TECHNIQUE: Carotid duplex ultrasound examination. Indirect Doppler criteria was utilized. FINDINGS: EXAM MEASUREMENTS: RIGHT: Peak Systolic Velocity (PSV) cm/sec ----- Right CCA: 79.3 ----- Right ICA: 105 ----- Right ECA: 94.8 ICA/CCA ratio: 1.3 RIGHT: End Diastole cm/sec ----- Right CCA: 20.1 ----- Right ICA: 16.9 ----- Right ECA: 14.3 LEFT: Peak Systolic Velocity (PSV) cm/sec ----- Left CCA: 95.5 ----- Left ICA: 101 ----- Left ECA: 114 ICA/CCA ratio: 1.1 LEFT: End Diastole cm/sec ----- Left CCA: 20.1 ----- Left ICA: 23.4 ----- Left ECA: 13.6 VERTEBRALS (direction of flow): Right Vertebral: Antegrade Left Vertebral: Antegrade Rhythm: Normal DE ALCHOLIZER NOTES: No significant stenosis seen IMPRESSION: No hemodynamically significant internal carotid artery stenosis on either side. Criteria for Assigning % of Stenosis / Diameter reduction (Estimation based on the indirect measurements of the internal carotid artery velocities (ICA PSV). 1. Normal (no stenosis)=ICA PSV < 125 cm/s: ratio < 2.0: ICA EDV<40 cm/s. 2. Less than 50% stenosis=ICA PSV < 125 cm/s: ratio < 2.0: ICA EDV<40 cm/s. 3. 50 to 69% stenosis=ICA PSV of 125 to 230 cm/s: ration 2.0 ? 4.0: ICA EDV 40-100 cm/s. 4. Greater than 70% stenosis to near occlusion= ICA PSV > 230 cm/s: ratio > 4.0: ICA EDV > 100 cm/s. 5. Near occlusion= ICA PSV velocities may be low or undetectable: variable ratio and ICA EDV. 6. Total occlusion=unable to detect flow.
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
[2022-06-02 17:01] LABS: Chol/HDL Ratio 3.79 Ratio; LDL Cholesterol,Calculated 47.7 mg/dL (0.0-131.0)
[2022-06-03] MEDS: SODIUM CHLORIDE 0.9% 1,000 ML IV SCH ×2 (03:31→12:09)
[2022-06-03] MEDS: ACETAMINOPHEN TAB 500 MG TAB PO SCH (07:55)
[2022-06-03] MEDS: PANTOPRAZOLE 40 MG TABLET PO SCH (07:55)
[2022-06-03] MEDS: CYANOCOBALAMIN 500 MCG TAB PO SCH (07:56)
[2022-06-03] MEDS: ATORVASTATIN 40 MG TAB PO SCH (07:56)
[2022-06-03] MEDS: TAMSULOSIN 0.4 MG CAP.ER.24H PO SCH (07:56)
[2022-06-03] MEDS: ASPIRIN 81 MG PO SCH (07:56)
[2022-06-03] MEDS: RIVAROXABAN 2.5 MG TABLET PO SCH (08:03)
[2022-06-03 09:22] LABS: Basophils # (A) 0.03 X 10*3/uL (0.00-0.10); Basophils % (A) 0.5 %; Eosinophils # (A) 0.22 X 10*3/uL (0.04-0.35); Eosinophils % (A) 3.7 %; HCT 31.8 % (39.6-50.0); HGB 10.2 g/dL (13.0-17.0); Immature Grans, Automated 0.3 %; Lymphocytes # (A) 2.08 X 10*3/uL (0.90-5.00); Lymphocytes % (A) 35.4 %; MCH 28.8 pg (27.0-32.0); MCHC 32.1 g/dL (32.0-37.0); MCV 89.8 fL (80.0-97.0); Mean Platelet Volume 11.4 fL (9.5-12.2); Monocytes # (A) 0.64 X 10*3/uL (0.20-1.00); Monocytes % (A) 10.9 %; NRBC Per 100 WBC 0 /100 WBCS (0.0-0.0); Neutrophils # (A) 2.88 X 10*3/uL (1.80-7.70); Neutrophils % (A) 49.2 %; Platelet Count 178 X 10*3/uL (140-440); RBC 3.54 X 10*6/uL (4.40-5.60); RDW 14.8 % (11.5-14.5); WBC 5.87 X 10*3/uL (4.50-10.00)
[2022-06-03 09:43] LABS: African American GFR (CKD) 74.1 (60.0-200.0); Anion Gap 8.6 mmol/L (10.00-18.00); BUN/Creat Ratio 10.61 Ratio (12.00-20.00); Blood Urea Nitrogen 12.1 mg/dL (9.0-27.0); Calcium 8.7 mg/dL (8.7-10.3); Carbon Dioxide 20.7 mmol/L (20.0-27.5); Magnesium 2.1 mg/dL (1.5-2.4); Non-African American GFR(CKD) 63.9 (60.0-200.0); Potassium 4.6 mmol/L (3.5-5.5)
--- NOTE | 2022-06-03 10:41 | P.PN ---
Subjective patient is seen in follow-up for acute kidney injury. Renal function continues to improve. No vomiting or diarrhea. Blood pressure stable. has been voiding. No active complaints. Vital signs are stable. General: awake. No acute distress. HEENT: Head exam is unremarkable. LUNGS: Breath sounds decreased. HEART: Rate and Rhythm are regular. ABDOMEN:soft, no distention. EXTREMITITES: No edema. Objective - Vital Signs Vital signs: Vital Signs Temp 98.4 F 06/02/22 20:00 Pulse 58 L 06/03/22 08:40 Resp 18 06/03/22 08:40 BP 116/70 06/03/22 08:15 Pulse Ox 95 06/03/22 02:00 FiO2 Intake & Output 06/02/22 06/03/22 06/03/22 18:59 06:59 18:59 Intake Total 890 485 Balance 890 485 Intake: Intake, IV Titration 650 Amount Sodium Chloride 0.9% 1, 600 000 ml @ 75 mls/hr IV . [id number] MIKE Rx#:[id number] 1 gm In 50 Sodium Chloride 0.9% 50 ml @ 100 mls/hr IVPB Q24HR MIKE Rx#:[id number] Oral 240 485 Other: Voiding Method Toilet Toilet Toilet # Voids 3 2 2 # Bowel Movements 2 - Labs CBC & Chem 7: 06/03/22 05:15 06/03/22 05:15 Labs: Abnormal Lab Results - Last 24 Hours (Table) 06/01/22 06/02/22 06/03/22 Range/Units 17:23 07:58 05:15 RBC (4.40-5.60) X 10*6/uL Hgb (13.0-17.0) g/dL Hct (39.6-50.0) % RDW (11.5-14.5) % Chloride 114 H (96-109) mmol/L Anion Gap 8.60 L (10.00-18.00) mmol/L BUN/Creatinine Ratio 10.61 L (12.00-20.00) Ratio Hemoglobin A1c 6.1 H (0.0-6.0) % HDL Cholesterol 25.80 L (40.00-60.00) mg/dL 06/03/22 Range/Units 05:15 RBC 3.54 L (4.40-5.60) X 10*6/uL Hgb 10.2 L (13.0-17.0) g/dL Hct 31.8 L (39.6-50.0) % RDW 14.8 H (11.5-14.5) % Chloride (96-109) mmol/L Anion Gap (10.00-18.00) mmol/L BUN/Creatinine Ratio (12.00-20.00) Ratio Hemoglobin A1c (0.0-6.0) % HDL Cholesterol (40.00-60.00) mg/dL Microbiology - Last 24 Hours (Table) 06/01/22 18:20 Blood Culture - Preliminary Blood No Growth after 24 hours 06/01/22 18:23 Blood Culture - Preliminary Blood No Growth after 24 hours 06/01/22 16:04 Urine Culture - Final Urine,Voided Assessment and Plan Plan: assessment: 1. Acute kidney injury mostly prerenal secondary to hypovolemia from poor intake, diarrhea, JACKIE inhibitor and diuretics. Also component of hypotension. Creatinine was 2 on admission and is 1.1 today. Baseline creatinine near 1. 2. UTI. on antibiotics. no growth on urine culture so far. 3. Metabolic acidosis secondary to acute kidney injury and GI losses. better. plan: Maintain IV fluids for another day. Follow-up urine culture. Continue to hold antihypertensives and diuretics. Avoid nephrotoxins. Continue monitor renal function and urine output. add oral bicarbonate.
--- NOTE | 2022-06-03 11:07 | CA ---
Transthoracic Echo Report Name: Gordo Reza Age: 71 Gender: M : 1950 Exam Date: 06/02/2022 13:43 Exam Location: [facility] Ht (in): 69 Wt (lb): 205 Ordering Physician: Charbel Bass MD Attending/Referring Phys: Buffing Line Set Up Worker Flores Braun RDCS Procedure CPT: Indications: stroke Cardiac Hx: Technical Quality: Fair Contrast 1: Total Dose (mL): Contrast 2: Total Dose (mL): MEASUREMENTS (Male / Female) Normal Values 2D ECHO LV Diastolic Diameter PLAX 4.7 cm 4.2 - 5.9 / 3.9 - 5.3 cm LV Systolic Diameter PLAX 2.7 cm IVS Diastolic Thickness 1.5 cm 0.6 - 1.0 / 0.6 - 0.9 cm LVPW Diastolic Thickness 1.3 cm 0.6 - 1.0 / 0.6 - 0.9 cm LV Relative Wall Thickness 0.6 LA Volume 64.2 cm??? 18 - 58 / 22 - 52 cm??? M-MODE Aortic Root Diameter MM 3.5 cm AV Cusp Separation MM 1.9 cm DOPPLER AV Peak Velocity 238.1 cm/s AV Peak Gradient 22.7 mmHg AV Mean Velocity 157.0 cm/s AV Mean Gradient 11.8 mmHg AV Velocity Time Integral 42.4 cm AI Peak Velocity 356.6 cm/s AI Peak Gradient 50.9 mmHg AI Pressure Half Time 578.6 ms LVOT Peak Velocity 110.3 cm/s LVOT Peak Gradient 4.9 mmHg MV Area PHT 2.8 cm??? Mitral E Point Velocity 66.9 cm/s Mitral A Point Velocity 58.6 cm/s Mitral E to A Ratio 1.1 MV Deceleration Time 268.3 ms MV E' Velocity 8.8 cm/s Mitral E to MV E' Ratio 7.6 TR Peak Velocity 236.3 cm/s TR Peak Gradient 22.3 mmHg Right Ventricular Systolic Press 27.3 mmHg FINDINGS Left Ventricle Moderately increased left ventricular wall thickness. No obvious regional wall motion abnormalities. Abnormal (paradoxical) septal motion consistent with postoperative state. Left ventricular ejection fraction is estimated at 55 %. Right Ventricle Normal right ventricular size and function. Right Atrium Normal right atrial size. Left Atrium Mildly increased left atrial volume. Mitral Valve Structurally normal mitral valve. No mitral stenosis, regurgitation or prolapse. Aortic Valve Normally functioning bioprosthetic aortic valve without stenosis with a peak velocity of 2 m/s, peak gradient 23 mmHg, mean gradient 12 mmHg. Mild paravalvular aortic regurgitation. Trace to mild aortic regurgitation. Tricuspid Valve Mild tricuspid regurgitation. Pulmonic Valve Trace pulmonic regurgitation. Pericardium No pericardial effusion. Aorta Normal size aortic root and proximal ascending aorta. CONCLUSIONS Normal left ventricular dimension and systolic function Bioprosthetic aortic valve. The valve opened well. Mild aortic regurgitation No evidence of pericardial effusion Previewed by: Dr. Osvaldo Kessler MD (Electronically Signed) Final Date: 03 June 2022 11:06
[2022-06-03] MEDS: SODIUM BICARBONATE TAB 650 MG TAB PO SCH (12:09)
--- NOTE | 2022-06-03 12:33 | P.PN ---
Subjective Progress Note Date: 06/03/22 The patient is seen at bedside and feels he is doing great, denies headache, any focal deficits. He stated he mis-spoke and it seem he was started on anticoagulation by cardiology in 2017 but per nurse there is mis-understanding if he should still be continued on it or not. Objective - Vital Signs Vital signs: Vital Signs Temp 98.4 F 06/02/22 20:00 Pulse 58 L 06/03/22 12:11 Resp 18 06/03/22 12:11 BP 113/61 06/03/22 12:11 Pulse Ox 96 06/03/22 12:11 FiO2 Intake & Output 06/02/22 06/03/22 06/03/22 18:59 06:59 18:59 Intake Total 890 485 Balance 890 485 Intake: Intake, IV Titration 650 Amount Sodium Chloride 0.9% 1, 600 000 ml @ 75 mls/hr IV . [id number] [facility] Rx#:[id number] cefTRIAXone 1 gm In 50 Sodium Chloride 0.9% 50 ml @ 100 mls/hr IVPB Q24HR [facility] Rx#:[id number] Oral 240 485 Other: Voiding Method Toilet Toilet Toilet # Voids 3 2 2 # Bowel Movements 2 - Exam GENERAL: The patient is lying in bed and is not in acute distress. NEUROLOGICAL: Higher mental function: The patient is awake, alert, oriented to self, place and time. Patient is following commands. No aphasia and no neglect. Cranial nerves: The pupils are round, equal and reactive to light and accommodation. Visual herrera are full to confrontation throughout. Extraocular movement is intact no nystagmus is noted. Facial sensation is normal to touch throughout. The facial strength is normal throughout. Hearing is normal bilaterally to hand rub. Tongue is midline and moved [id number] without any difficulty. No dysarthria is noted. Shoulder shrug is normal bilaterally. Motor: Gait is normal. The strength is 5 over 5 throughout. Normal tone and bulk. Cerebellum: Normal finger to nose bilaterally. Sensation: Sensation is normal to touch throughout. Reflexes (right/left): 2+ throughout. Plantars are downgoing bilaterally. Some other workup during this hospital visit consisted of: TSH: 1.20 Lipid panel triglyceride of 121, cholesterol of 98, LDL of 47 and HDL of 25 Hemoglobin A1c 6.1. Carotid duplex is reported as no hemodynamically significant internal carotid artery stenosis on either side. Carotid duplex is reported as normal left ventricle dye mentioned in salt function. Bioprosthetic aortic valve. The valve opened well. Mild aortic regurgitation. No evidence of pericardial effusion. Left atrium is mildly increased left atrial volume. Urinalysis is positive for urinary tract infection. CT of the head is reported as cerebral atrophy. No acute intracranial abnormality. There is likely a small 2 cm inferior left posterior frontal lobe blair and white matter pressure reviewed the CT of the head and that the reason that were described and the report seems subacute and not acute in nature. Otherwise there is no intraocular hemorrhage or any bleed - Labs CBC & Chem 7: 06/03/22 05:15 06/03/22 05:15 Labs: Abnormal Lab Results - Last 24 Hours (Table) 06/01/22 06/02/22 06/03/22 Range/Units 17:23 07:58 05:15 RBC (4.40-5.60) X 10*6/uL Hgb (13.0-17.0) g/dL Hct (39.6-50.0) % RDW (11.5-14.5) % Chloride 114 H (96-109) mmol/L Anion Gap 8.60 L (10.00-18.00) mmol/L BUN/Creatinine Ratio 10.61 L (12.00-20.00) Ratio Hemoglobin A1c 6.1 H (0.0-6.0) % HDL Cholesterol 25.80 L (40.00-60.00) mg/dL 06/03/22 Range/Units 05:15 RBC 3.54 L (4.40-5.60) X 10*6/uL Hgb 10.2 L (13.0-17.0) g/dL Hct 31.8 L (39.6-50.0) % RDW 14.8 H (11.5-14.5) % Chloride (96-109) mmol/L Anion Gap (10.00-18.00) mmol/L BUN/Creatinine Ratio (12.00-20.00) Ratio Hemoglobin A1c (0.0-6.0) % HDL Cholesterol (40.00-60.00) mg/dL Microbiology - Last 24 Hours (Table) 06/01/22 18:20 Blood Culture - Preliminary Blood No Growth after 24 hours 06/01/22 18:23 Blood Culture - Preliminary Blood No Growth after 24 hours 06/01/22 16:04 Urine Culture - Final Urine,Voided Assessment and Plan Assessment: Possible acute to subacute ischemic stroke over the left subcortical frontal region seen on CT head (No focal deficit on examination). Acute urinary tract infection with slight elevated kidney function trending down. Hyperlipidemia History of cardiac valve replacement History of CABG History of aortic aneurysm status post surgery Plan: Pending MRI of the brain to assess if truly stroke or artifact, Patient is already on aspirin 81 and Xarelto 5 mg daily home medication ( I will not modify until obtaining MRI Brain). He knew Lipitor 40 mg daily for secondary stroke prophylaxis Recommend further evaluation whether the patient truly needs to be on anticoagulation consider a cardiology consult. Seems she was started on it in 2017 after his cardiac surgery but patient denies any A. fib or flutter. Every 4 hours neuro checks Placed on cardiac monitoring PT and OT are consulted We'll defer the rest of the medical management to the primary team For DVT prophylaxis the patient is on Xarelto Plan was discussed with the patient and his nurse Dr. Malone will start neurology service tomorrow ARomie Bass M.D. Neuro-Hospitalist Time with Patient: Less than 30
--- NOTE | 2022-06-03 18:06 | P.PN ---
Subjective Progress Note Date: 06/03/22 Principal diagnosis: Dizziness; possible acute versus subacute ischemic stroke Acute UTI Mild acute renal injury 71-year-old male presents emergency department for abnormal EKG. Patient states he was out driving [id number] with his family over the weekend there was a lot of dust when he started to develop a slowly insidiously oncoming headache. States that it's to his bilateral frontal area. He does have nasal congestion. On Saturday he started expressing dysuria. He went to a clinic where he saw mid-level provider was diagnosed with urinary tract infection. Prescribed antibiotic and medication for his prostate., Unable to tell me exactly what these medications are. 2 days later he followed back up for follow-up with his blood results. Today he feels like he was not getting any better and represented back to the clinic were EKG is performed and is told to come to the emergency department. Patient does feel mildly short of breath. Feels a little worse with exertion. Denies any chest pain or palpitations. Some dysuria. Patient states that recently admitted to the hospital earlier this year for UTI sepsis. completed and he reveals a WBC of 8.9, hemoglobin 12.3 and platelet count of 185, sodium 139, potassium 4.1, BUN/creatinine of 18/1.30; d-dimer is elevated at 1.47; UA is positive VQ scan completed which was low probability for PE Urinalysis is positive for urinary tract infection. CT of the head is reported as cerebral atrophy. No acute intracranial abnormality. There is likely a small 2 cm inferior left posterior frontal lobe blair and white matter pressure reviewed the CT of the head ---- Pending MRI of the brain to assess if truly stroke or artifact Patient is on aspirin 81 and Xarelto 5 mg daily; Lipitor 40 mg daily for secondary stroke prophylaxis Recommend further evaluation whether the patient truly needs to be on anticoagulation consider a cardiology consult; started on it in 2017 after his cardiac surgery but patient denies any A. fib or flutter. Every 4 hours neuro checks PT and OT are consulted Objective - Vital Signs Vital signs: Vital Signs Temp 98.4 F 06/02/22 20:00 Pulse 58 L 06/03/22 12:11 Resp 18 06/03/22 12:11 BP 113/61 06/03/22 12:11 Pulse Ox 96 06/03/22 12:11 FiO2 Intake & Output 06/02/22 06/03/22 06/03/22 18:59 06:59 18:59 Intake Total 890 485 Balance 890 485 Intake: Intake, IV Titration 650 Amount Sodium Chloride 0.9% 1, 600 000 ml @ 75 mls/hr IV . [id number] [facility] Rx#:[id number] cefTRIAXone 1 gm In 50 Sodium Chloride 0.9% 50 ml @ 100 mls/hr IVPB Q24HR [facility] Rx#:[id number] Oral 240 485 Other: Voiding Method Toilet Toilet Toilet # Voids 3 2 2 # Bowel Movements 2 - Exam General Impression: Alert and oriented x3, not in acute distress HEENT: Normocephalic atraumatic, extra-ocular movements intact, pupils equal and reactive to light bilaterally, mucous membranes moist. Cardiovascular: Heart regular rate and rhythm Chest: Able to complete full sentences, no retractions, no tachypnea Abdomen: abdomen soft, non-tender, non-distended, no organomegaly Musculoskeletal: Pulses present and equal in all extremities, no peripheral edema Motor: no focal deficits noted Neurological: CN II-XII grossly intact, no focal motor or sensory deficits noted Skin: Intact with no visualized rashes Psych: Normal affect and mood - Labs CBC & Chem 7: 06/03/22 05:15 06/03/22 05:15 Labs: Abnormal Lab Results - Last 24 Hours (Table) 06/01/22 06/02/22 06/03/22 Range/Units 17:23 07:58 05:15 RBC (4.40-5.60) X 10*6/uL Hgb (13.0-17.0) g/dL Hct (39.6-50.0) % RDW (11.5-14.5) % Chloride 114 H (96-109) mmol/L Anion Gap 8.60 L (10.00-18.00) mmol/L BUN/Creatinine Ratio 10.61 L (12.00-20.00) Ratio Hemoglobin A1c 6.1 H (0.0-6.0) % HDL Cholesterol 25.80 L (40.00-60.00) mg/dL 06/03/22 Range/Units 05:15 RBC 3.54 L (4.40-5.60) X 10*6/uL Hgb 10.2 L (13.0-17.0) g/dL Hct 31.8 L (39.6-50.0) % RDW 14.8 H (11.5-14.5) % Chloride (96-109) mmol/L Anion Gap (10.00-18.00) mmol/L BUN/Creatinine Ratio (12.00-20.00) Ratio Hemoglobin A1c (0.0-6.0) % HDL Cholesterol (40.00-60.00) mg/dL Microbiology - Last 24 Hours (Table) 06/01/22 18:20 Blood Culture - Preliminary Blood No Growth after 24 hours 06/01/22 18:23 Blood Culture - Preliminary Blood No Growth after 24 hours 06/01/22 16:04 Urine Culture - Final Urine,Voided Assessment and Plan Assessment: 1. Dizziness; possible acute versus subacute ischemic stroke - CT head reveals a 2 cm infarct or left subcortical frontal region - Neurology is consulted and recommending MRI of the brain to assess true stroke versus artifact; 2-D echo, carotid Doppler, lipid panel, HbA1c and TSH is ordered - Patient is currently on aspirin and Xarelto 5 mg daily; patient is not sure why he is taking Xarelto; also taking Lipitor 40 mg daily -- Every 4 hours neuro checks; cardiac monitoring PT and OT are consulted 2. Acute UTI; patient has been placed on IV Rocephin; blood culture and urine culture is obtained and results are pending - We will monitor CBC, CMP and pro-calcitonin 3. Mild acute renal injury - Patient remains on IV fluid hydration ; we will monitor renal function and electrolytes ; strict EMELY's ; avoid nephrotoxins and hypotension - Nephrology on board 4. Hyperlipidemia; Lipitor 40 mg daily 5. Hypertension; blood pressure remained soft - Patient takes lisinoprilhydrochlorothiazide and metoprolol at home which had been placed on hold until blood pressure improves 6. BPH ; continue with home dose of Flomax 7. Extensive cardiothoracic history; cardiac valve replacement, CABG; aortic aneurysm DVT prophylaxis; SCDs/Xarelto CODE STATUS; full code
[2022-06-04] MEDS: SODIUM CHLORIDE 0.9% 1,000 ML IV SCH ×2 (02:29→18:11)
[2022-06-04] MEDS: ACETAMINOPHEN TAB 500 MG TAB PO SCH (08:42)
[2022-06-04] MEDS: ATORVASTATIN 40 MG TAB PO SCH (08:42)
[2022-06-04] MEDS: CYANOCOBALAMIN 500 MCG TAB PO SCH (08:42)
[2022-06-04] MEDS: TAMSULOSIN 0.4 MG CAP.ER.24H PO SCH (08:43)
[2022-06-04] MEDS: SODIUM BICARBONATE TAB 650 MG TAB PO SCH (08:43)
[2022-06-04] MEDS: PANTOPRAZOLE 40 MG TABLET PO SCH (08:43)
[2022-06-04] MEDS: ASPIRIN 81 MG PO SCH (08:43)
[2022-06-04 09:34] LABS: African American GFR (CKD) 86.8 (60.0-200.0); BUN/Creat Ratio 11.9 Ratio (12.00-20.00); Blood Urea Nitrogen 11.9 mg/dL (9.0-27.0); Calcium 8.6 mg/dL (8.7-10.3); Magnesium 2.1 mg/dL (1.5-2.4); Non-African American GFR(CKD) 74.9 (60.0-200.0); Potassium 4.6 mmol/L (3.5-5.5)
[2022-06-04 09:36] LABS: Basophils # (A) 0.02 X 10*3/uL (0.00-0.10); Basophils % (A) 0.3 %; Eosinophils # (A) 0.22 X 10*3/uL (0.04-0.35); Eosinophils % (A) 3.2 %; HGB 10.2 g/dL (13.0-17.0); Immature Grans, Automated 0.6 %; Lymphocytes # (A) 2.28 X 10*3/uL (0.90-5.00); Lymphocytes % (A) 33.1 %; MCH 28.7 pg (27.0-32.0); MCHC 31.9 g/dL (32.0-37.0); MCV 90.1 fL (80.0-97.0); Mean Platelet Volume 11.5 fL (9.5-12.2); Monocytes # (A) 0.65 X 10*3/uL (0.20-1.00); Monocytes % (A) 9.4 %; NRBC Per 100 WBC 0 /100 WBCS (0.0-0.0); Neutrophils # (A) 3.67 X 10*3/uL (1.80-7.70); Neutrophils % (A) 53.4 %; Platelet Count 170 X 10*3/uL (140-440); RBC 3.55 X 10*6/uL (4.40-5.60); RDW 14.6 % (11.5-14.5); WBC 6.88 X 10*3/uL (4.50-10.00)
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
--- NOTE | 2022-06-04 13:28 | MR ---
MR brain without contrast, MR angiogram of the head without contrast HISTORY: Stroke, headache [id number] imaging obtained through the [place] [facility] [place], three-dimensional postprocessing was pe rformed on an alternate workstation and reviewed. Multiplanar multisequence imaging obtained through the brain. Correlation to CT brain 06/01/2022 MR brain without contrast: There is no restricted diffusion. There are areas of encephalomalacia in t he left frontal white matter, inferior left cerebellar hemisphere similar to that seen on CT as well as inferior right cerebellar hemisphere, some associated T2 and inversion recovery hyperintensity is noted at the level of the left frontal encephalomalacia consistent with gliosis. There is some scatte red hyperintensities on inversion recovery T2-weighted sequences within the subcortical and periventr icular white matter, approximately 5-10 lesions. There are expected vascular flow voids. Inflammatory changes extensive in the right maxillary sinus greater than left, ethmoid air cells, sphenoid sinus. Orbits show symmetric appearance. There is no hemorrhage or hydrocephalus. The corpus callosum, pitu itary, cervical medullary junction, cerebellopontine angles are within normal limits. There is cortic al atrophy. IMPRESSION: Extensive sinus disease. Remote cerebrovascular accidents. Age-related changes of atrophy and chronic small vessel ischemia. MRA of the brain: The anterior and posterior circulation is intact. There is no evident dissection, a neurysm, stenosis, or embolus. The left vertebral artery is dominant. IMPRESSION: No significant abnormality of the [place]
--- NOTE | 2022-06-04 14:16 | P.PN ---
Subjective Progress Note Date: 06/04/22 Patient was initially seen by Dr. Charbel Bass. Please refer to his note for details. Patient is a 71-year-old male who has presented with new onset headache. Patient's headache started on 06/01/2022 when he was just laying down and had a sudden throbbing headache, as if "someone hit his head wit h baseball bat". He states his eyes were hurting, for head was hurting. He stated the headache 8-9/10. He states that he "couldn't stand it". Denies any problem with the vision. He was initially concerned about UTI, which he suffered from in October 2021. Patient says that he does have sinus problems since he was young. He does not have headaches otherwise, except very occasionally when he used to get hangover headache after drinking when he was much younger. He states that headache has slightly improved, and is staying around 5/10. At present patient states that when he is laying still with eyes closed, the headache is 0/10. However when his opening his eyes, moving, then it goes up to 5-6/10. He denies any fever or jaw claudication. Denies any family history of cerebral aneurysm. Some other workup during this hospital visit consisted of: TSH: 1.20 Lipid panel triglyceride of 121, cholesterol of 98, LDL of 47 and HDL of 25 Hemoglobin A1c 6.1. Carotid duplex is reported as no hemodynamically significant internal carotid artery stenosis on either side. 2-D echo is reported as normal left ventricle dye mentioned in salt function. Bioprosthetic aortic valve. The valve opened well. Mild aortic regurgitation. No evidence of pericardial effusion. Left atrium is mildly increased left atrial volume. Urinalysis is positive for urinary tract infection. CT of the head is reported as cerebral atrophy. No acute intracranial abnormality. There is likely a small 2 cm infarct left posterior frontal lobe blair and white matter. I personally reviewed CT head, appears chronic in nature. There is evidence of an acute right maxillary sinusitis with evidence of air-fluid level. Other sinuses are clear. Objective - Vital Signs Vital signs: Vital Signs Temp 97.7 F 06/04/22 02:00 Pulse 53 L 06/04/22 02:00 Resp 16 06/04/22 02:00 BP 115/53 06/04/22 02:00 Pulse Ox 94 L 06/04/22 02:00 FiO2 Intake & Output 06/03/22 06/04/22 06/04/22 18:59 06:59 18:59 Intake Total 240 825 Output Total 600 800 Balance -360 25 Intake: IV 825 Sodium Chloride 0.9% 1, 825 000 ml @ 75 mls/hr IV . [id number] MIKE Rx#:[id number] Oral 240 Output: Urine 600 800 Other: Voiding Method Toilet Toilet # Voids 2 3 # Bowel Movements 2 - Exam Patient is an elderly male, in no acute distress. Patient is alert awake oriented to time place and person. Speech and language functions are normal. Patient can name and repeat very well. No aphasia or dys arthria. Attention, concentration and fund of knowledge is adequate. On cranial nerve examination, pupils are equal, round and reacting to light, visual herrera are full on confrontation, with no neglect on double simultaneous stimulation. Extraocular muscles are intact with no nystagmus. Face is symmetric, tongue protrudes to the midline. Palatal elevation and sensation normal, hearing and shoulder shrug normal, facial sensation normal. On muscle strength testing, there is no pronator drift and the strength is normal in arms and legs distally and proximally. Deep tendon reflexes are symmetric Sensory to touch is equal with no neglect on double simultaneous stimulation. Cerebellar function showed no ataxia for [id number]-wvwu testing. No dysdiadochokinesia. No ataxia for baaq-pa-dfuw testing on either side. Tone and bulk of muscles normal. Gait deferred.. On general examination, there is no carotid bruit or murmur, S1-S2 audible. Chest is clear on consultation. Abdomen is soft nontender. No organomegaly, bowel sounds present. Peripheral pulses are present. No edema. - Labs CBC & Chem 7: 06/04/22 05:00 06/04/22 05:00 Labs: Abnormal Lab Results - Last 24 Hours (Table) 06/04/22 06/04/22 Range/Units 05:00 05:00 RBC 3.55 L (4.40-5.60) X 10*6/uL Hgb 10.2 L (13.0-17.0) g/dL Hct 32.0 L (39.6-50.0) % MCHC 31.9 L (32.0-37.0) g/dL RDW 14.6 H (11.5-14.5) % Chloride 113 H (96-109) mmol/L Anion Gap 7.00 L (10.00-18.00) mmol/L BUN/Creatinine Ratio 11.90 L (12.00-20.00) Ratio Calcium 8.6 L (8.7-10.3) mg/dL Microbiology - Last 24 Hours (Table) 06/01/22 18:20 Blood Culture - Preliminary Blood No Growth after 48 hours 06/01/22 18:23 Blood Culture - Preliminary Blood No Growth after 48 hours Assessment and Plan Assessment: New-onset acute cephalalgia, possibly related to acute right maxillary sinusitis, rule out thunderclap headache, rule out temporal arteritis. Acute urinary tract infection with slight elevated kidney function trending down . Acute right maxillary sinusitis with air-fluid level. Hyperlipidemia History of cardiac valve replacement History of CABG History of aortic aneurysm status post surgery Plan: Await MRI of the brain. We will also add MRA of the brain to rule out any cerebral aneurysm. ESR, CRP, rule out temporal arteritis. Patient currently on ceftriaxone for UTI, which hopefully will help with also right negative for any sinusitis. Patient is already on aspirin 81 and Xarelto 5 mg daily home medication, cardiology on board. Continue Lipitor 40 mg daily for secondary stroke prophylaxis We'll defer the rest of the medical management to the primary team
[2022-06-04] MEDS: RIVAROXABAN 2.5 MG TABLET PO SCH (16:46)
--- NOTE | 2022-06-04 20:47 | P.PN ---
Subjective 71-year-old male presents emergency department for abnormal EKG. Patient states he was out driving [id number] with his family over the weekend there was a lot of dust when he started to develop a slowly insidiously oncoming headache. States that it's to his bilateral frontal area. He does have nasal congestion. On Saturday he started expressing dysuria. He went to a clinic where he saw mid-level provider was diagnosed with urinary tract infection. Prescribed antibiotic and medication for his prostate., Unable to tell me exactly what these medications are. 2 days later he followed back up for follow-up with his blood results. Today he feels like he was not getting any better and represented back to the clinic were EKG is performed and is told to come to the emergency department. Patient does feel mildly short of breath. Feels a little worse with exertion. Denies any chest pain or palpitations. Some dysuria. Patient states that recently admitted to the hospital earlier this year for UTI sepsis. completed and he reveals a WBC of 8.9, hemoglobin 12.3 and platelet count of 185, sodium 139, potassium 4.1, BUN/creatinine of 18/1.30; d-dimer is elevated at 1.47; UA is positive VQ scan completed which was low probability for PE Urinalysis is positive for urinary tract infection. CT of the head is reported as cerebral atrophy. No acute intracranial abnormality. There is likely a small 2 cm inferior left posterior frontal lobe blair and white matter pressure reviewed the CT of the head ---- Pending MRI of the brain to assess if truly stroke or artifact Patient is on aspirin 81 and Xarelto 5 mg daily; Lipitor 40 mg daily for secondary stroke prophylaxis Recommend further evaluation whether the patient truly needs to be on anticoagulation consider a cardiology consult; started on it in 2017 after his cardiac surgery but patient denies any A. fib or flutter. Every 4 hours neuro checks PT and OT are consulted 192106/04/2022 patient is still complaining of from headache /10, he says it's a frontal headache and nonspecific. Patient was able to walk by himself to the bathroom today. Patient denies any urinary tract symptoms. Urine culture came back negative. Patient may discontinue ceftriaxone. Patient may start on Augmentin, short course for possible sinusitis Sack Lifter recommended no indication for Xarelto, patient was asked and he could not give clear answer. MRI of the brain: Extensive sinus disease. Remote cerebrovascular accidents. Age related changes of atrophy and chronic small vessel ischemia. MRA of the brain: No abnormality of the [place] ESR 7 and CRP 0.4, both are normal Possible discharge in 24-48 hours Objective - Vital Signs Vital signs: Vital Signs Temp 97.7 F 06/04/22 02:00 Pulse 53 L 06/04/22 02:00 Resp 16 06/04/22 02:00 BP 115/53 06/04/22 02:00 Pulse Ox 94 L 06/04/22 02:00 FiO2 Intake & Output 06/03/22 06/04/22 06/04/22 18:59 06:59 18:59 Intake Total 240 825 Output Total 600 800 Balance -360 25 Intake: IV 825 Sodium Chloride 0.9% 1, 825 000 ml @ 75 mls/hr IV . [id number] MIKE Rx#:[id number] Oral 240 Output: Urine 600 800 Other: Voiding Method Toilet Toilet # Voids 2 3 # Bowel Movements 2 - Exam GENERAL: The patient is alert and oriented x3, not in any acute distress. Well developed, well nourished. HEENT: Pupils are round and equally reacting to light. EOMI. No scleral icterus. No conjunctival pallor. Normocephalic, atraumatic. No pharyngeal erythema. No thyromegaly. CARDIOVASCULAR: S1 and S2 present. No murmurs, rubs, or gallops. PULMONARY: Chest is clear to auscultation, no wheezing or crackles. ABDOMEN: Soft, nontender, nondistended, normoactive bowel sounds. No palpable organomegaly. MUSCULOSKELETAL: No joint swelling or deformity. EXTREMITIES: No cyanosis, clubbing, or pedal edema. NEUROLOGICAL: Gross neurological examination did not reveal any focal deficits. SKIN: No rashes. no petechiae. - Labs CBC & Chem 7: 06/04/22 05:00 06/04/22 05:00 Labs: Abnormal Lab Results - Last 24 Hours (Table) 06/04/22 06/04/22 Range/Units 05:00 05:00 RBC 3.55 L (4.40-5.60) X 10*6/uL Hgb 10.2 L (13.0-17.0) g/dL Hct 32.0 L (39.6-50.0) % MCHC 31.9 L (32.0-37.0) g/dL RDW 14.6 H (11.5-14.5) % Chloride 113 H (96-109) mmol/L Anion Gap 7.00 L (10.00-18.00) mmol/L BUN/Creatinine Ratio 11.90 L (12.00-20.00) Ratio Calcium 8.6 L (8.7-10.3) mg/dL Microbiology - Last 24 Hours (Table) 06/01/22 18:20 Blood Culture - Preliminary Blood No Growth after 48 hours 06/01/22 18:23 Blood Culture - Preliminary Blood No Growth after 48 hours Assessment and Plan Assessment: Headache, most likely tension headache,could be related to sinusitis as well, rule out temporal arteritis, Extensive bilateral sinusitis Coronary artery disease status post one vessel CABG CARMEN to OM in 2017 Severe aortic regurgitation status post aortic valve replacement with repair of ascending aorta in 2017 Acute kidney injury, resolved 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 Possible acute urinary tract infection Hypertension Hyperlipidemia History of BPH Plan: This is a pleasant 71 years old male with headache Continue with the neurology consult, continue with pain management Sack Lifter for further recommendation regarding anticoagulation Discontinue ceftriaxone for UTI Start Augmentin for possible sinusitis Discontinue IV fluids Continue with aspirin Neurology consult recommendation No indication front for Xarelto, patient may discontinue L. On discharge Labs and medication were reviewed.. Continue same treatment. Continue with symptomatic treatment. Resume home medication. Monitor lytes and vitals. DVT and GI prophylaxis. Further recommendations as per clinical course of the patient DVT prophylaxis: Xarelto GI Prophylaxis: Ppi PT/OT: Pending Prognosis is guarded consult cardiology for management
[2022-06-04] MEDS: AMOXIC-POT CLAV 500-125 MG 1 EACH TAB PO SCH (23:42)
[2022-06-05] MEDS: PANTOPRAZOLE 40 MG TABLET PO SCH (07:51)
[2022-06-05] MEDS: ACETAMINOPHEN TAB 500 MG TAB PO SCH (08:12)
[2022-06-05] MEDS: AMOXIC-POT CLAV 500-125 MG 1 EACH TAB PO SCH ×2 (08:12→20:46)
[2022-06-05] MEDS: SODIUM BICARBONATE TAB 650 MG TAB PO SCH (08:13)
[2022-06-05] MEDS: ATORVASTATIN 40 MG TAB PO SCH (08:13)
[2022-06-05] MEDS: CYANOCOBALAMIN 500 MCG TAB PO SCH (08:13)
[2022-06-05] MEDS: ASPIRIN 81 MG PO SCH (08:13)
[2022-06-05] MEDS: TAMSULOSIN 0.4 MG CAP.ER.24H PO SCH (08:13)
[2022-06-05] MEDS: RIVAROXABAN 2.5 MG TABLET PO SCH (08:14)
[2022-06-05] MEDS ORDERED: FLUTICASONE 50MCG/SPRAY NASAL 16GM EA NOSTRIL PRN (10:17)
--- NOTE | 2022-06-05 10:39 | XR ---
EXAMINATION TYPE: XR chest 1V portable DATE OF EXAM: 06/05/2022 COMPARISON: Chest x-ray 06/01/2022 HISTORY: Congestion and cough TECHNIQUE: Single frontal view of the chest is obtained. FINDINGS: Patient is post median sternotomy. Aorta is dense. There are overlying leads. Cardiac medi astinal silhouette is stable. No evident airspace disease, pneumothorax, or pleural effusion. Bones a re stable. Probable gas-filled stomach noted in the left upper quadrant. IMPRESSION: No acute process. Consider alternate imaging to assess for possible air distended stomac h.
--- NOTE | 2022-06-05 13:54 | P.PN ---
Subjective Progress Note Date: 06/05/22 06/05/2022: Patient was seen for a follow-up. Patient continues to have bifrontal headache which he rates 5/10. He states that it feels like someone is pushing on his eyeballs. He has not seen a vision rehabilitation therapist for last 4 years since he underwent cataract surgery. He denies any neck stiffness. No nausea vomiting, no fever. He is photophobic, but no phonophobia. 06/04/2022: Patient was initially seen by Dr. Charbel Bass. Please refer to his note for details. Patient is a 71-year-old male who has presented with new onset headache. Patient's headache started on 06/01/2022 when he was just laying down and had a sudden throbbing headache, as if "someone hit his he ad with baseball bat". He states his eyes were hurting, for head was hurting. He stated the headache 8-9/10. He states that he "couldn't stand it". Denies any problem with the vision. He was initially concerned about UTI, which he suffered from in October 2021. Patient says that he does have sinus problems since he was young. He does not have headaches otherwise, except very occasionally when he used to get hangover headache after drinking when he was much younger. He states that headache has slightly improved, and is staying around 5/10. At present patient states that when he is laying still with eyes closed, the headache is 0/10. However when his opening his eyes, moving, then it goes up to 5-6/10. He denies any fever or jaw claudication. Denies any family history of cerebral aneurysm. Some other workup during this hospital visit consisted of: TSH: 1.20 Lipid panel triglyceride of 121, cholesterol of 98, LDL of 47 and HDL of 25 Hemoglobin A1c 6.1. Carotid duplex is reported as no hemodynamically significant internal carotid artery stenosis on either side. 2-D echo is reported as normal left ventricle dye mentioned in salt function. Bioprosthetic aortic valve. The valve opened well. Mild aortic regurgitation. No evidence of pericardial effusion. Left atrium is mildly increased left atrial volume. Urinalysis is positive for urinary tract infection. CT of the head is reported as cerebral atrophy. No acute intracranial abnormality. There is likely a small 2 cm infarct left posterior frontal lobe blair and white matter. I personally reviewed CT head, appears chronic in nature. There is evidence of an acute right maxillary sinusitis with evidence of air-fluid level. Other sinuses are clear. Objective - Vital Signs Vital signs: Vital Signs Temp 97.6 F 06/05/22 07:26 Pulse 87 06/05/22 07:26 Resp 17 06/05/22 07:26 BP 148/67 06/05/22 07:26 Pulse Ox 94 L 06/05/22 04:45 FiO2 Intake & Output 06/04/22 06/05/22 06/05/22 18:59 06:59 18:59 Intake Total 120 Output Total 900 Balance -900 120 Intake: Oral 120 Output: Urine 900 Other: Voiding Method Toilet Toilet # Voids 3 - Exam Patient is an elderly male, in no acute distress. Patient is alert awake oriented to time place and person. Speech and language functions are normal. Patient can name and repeat very well. No aphasia or dysarthria. Attention, concentration and fund of knowledge is adequate. On cranial nerve examination, pupils are equal, round and reacting to light, visual herrera are full on confrontation, with no neglect on double simultaneous stimulation. Extraocular muscles are intact with no nystagmus. Face is symmetric, tongue protrudes to the midline. Palatal elevation and sensation normal, hearing and shoulder shrug normal, facial sensation normal. On muscle strength testing, there is no pronator drift and the strength is normal in arms and legs distally and proximally. Deep tendon reflexes are symmetric Sensory to touch is equal with no neglect on double simultaneous stimulation. Cerebellar function showed no ataxia for vakuco-wy-jzoz testing. No dysdiadochokinesia. No ataxia for [id number] testing on either side. Tone and bulk of muscles normal. Gait deferred.. On general examination, there is no carotid bruit or murmur, S1-S2 audible. Chest is clear on consultation. Abdomen is soft nontender. No organomegaly, bowel sounds present. Peripheral pulses are present. No edema. - Labs CBC & Chem 7: 06/04/22 05:00 06/04/22 05:00 Labs: Microbiology - Last 24 Hours (Table) 06/01/22 18:20 Blood Culture - Preliminary Blood No Growth after 72 hours 06/01/22 18:23 Blood Culture - Preliminary Blood No Growth after 72 hours Assessment and Plan Assessment: New-onset acute cephalalgia, possibly related to acute right maxillary and right ethmoid sinusitis. MRA of the brain negative for any aneurysm. ESR CRP normal, therefore temporal arteritis unlikely. Acute urinary tract infection with slight elevated kidney function trending down. Acute right maxillary sinusitis with air-fluid level. Hyperlipidemia History of cardiac valve replacement History of CABG History of aortic aneurysm status post surgery Plan: MRI of the brain revealed extensive sinus disease. Remote cerebrovascular accidents. Age-related changes of atrophy and chronic small vessel ischemia. I reviewed MRI, I agree with the findings. Patient has severe right maxillary sinus disease with air fluid level and almost complete opacification of the right maxillary sinus. Also involvement of the right ethmoid sinus. Patient started on Augmentin by primary physician. MRA of the brain negative for any cerebral aneurysm. I personally reviewed MRA, agree with the findings. ESR 7, CRP 0.40 normal. No evidence of temporal arteritis. Patient is already on aspirin 81 and Xarelto 5 mg daily home medication, cardiology on board. Continue Lipitor 40 mg daily for secondary stroke pro phylaxis Recommend patient follow up with plaque maker rule out any ocular cause of headache. If the headache persists despite completing course of antibiotics, then recommend follow-up with ENT as an outpatient. Neurologically clear for discharge.
--- NOTE | 2022-06-05 14:12 | XR ---
EXAMINATION TYPE: XR KUB DATE OF EXAM: 06/05/2022 1:37 PM INDICATION: Patient age:Male; 71 years old; Reason for study: distended stomach; COMPARISON: Hip radiographs from 2018. TECHNIQUE: One radiographic view of the abdomen was obtained. FINDINGS: There is no obstructive bowel gas pattern. There is gaseous distention of the stomach and f ew scattered bowel loops. Surgical clips project over the mediastinum. This prosthetic aortic valve. Multilevel disc degeneration changes with associated fixation changes of the lower lumbar spine. Hard galo appears intact. Bilateral hip arthroplasty changes hardware appears intact. Heterotropic calcifi cations are noted on the left hip. IMPRESSION: Nonobstructive bowel gas pattern. Gaseous distention of the gastric lumen and scattered bowel loops..
[2022-06-05] MEDS: LORATADINE 10 MG TAB PO SCH (14:41)
--- NOTE | 2022-06-05 19:12 | P.PN ---
Subjective 71-year-old male presents emergency department for abnormal EKG. Patient states he was out driving [id number] with his family over the weekend there was a lot of dust when he started to develop a slowly insidiously oncoming headache. States that it's to his bilateral frontal area. He does have nasal congestion. On Saturday he started expressing dysuria. He went to a clinic where he saw mid-level provider was diagnosed with urinary tract infection. Prescribed antibiotic and medication for his prostate., Unable to tell me exactly what these medications are. 2 days later he followed back up for follow-up with his blood results. Today he feels like he was not getting any better and represented back to the clinic were EKG is performed and is told to come to the emergency department. Patient does feel mildly short of breath. Feels a little worse with exertion. Denies any chest pain or palpitations. Some dysuria. Patient states that recently admitted to the hospital earlier this year for UTI sepsis. completed and he reveals a WBC of 8.9, hemoglobin 12.3 and platelet count of 185, sodium 139, potassium 4.1, BUN/creatinine of 18/1.30; d-dimer is elevated at 1.47; UA is positive VQ scan completed which was low probability for PE Urinalysis is positive for urinary tract infection. CT of the head is reported as cerebral atrophy. No acute intracranial abnormality. There is likely a small 2 cm inferior left posterior frontal lobe blair and white matter pressure reviewed the CT of the head ---- Pending MRI of the brain to assess if truly stroke or artifact Patient is on aspirin 81 and Xarelto 5 mg daily; Lipitor 40 mg daily for secondary stroke prophylaxis Recommend further evaluation whether the patient truly needs to be on anticoagulation consider a cardiology consult; started on it in 2017 after his cardiac surgery but patient denies any A. fib or flutter. Every 4 hours neuro checks PT and OT are consulted 06/04/22 06/04/2022 patient is still complaining of from headache 5/10, he says it's a frontal headache and nonspecific. Patient was able to walk by himself to the bathroom today. Patient denies any urinary tract symptoms. Urine culture came back negative. Patient may discontinue ceftriaxone. Patient may start on Augmentin, short course for possible sinusitis Template Checker recommended no indication for Xarelto, patient was asked and he could not give clear answer. MRI of the brain: Extensive sinus disease. Remote cerebrovascular accidents. Age related changes of atrophy and chronic small vessel ischemia. MRA of the brain: No abnormality of the havasupai of Zhao ESR 7 and CRP 0.4, both are normal Possible discharge in 24-48 hours 06/05/2022 patient headache is a stable, MRI of the brain is negative as well as normal ESR and CRP, neurologist. The patient with recommendation to follow up as an outpatient with plastic finisher and ENT specialist, patient and at bedside agree with this recommendation and states they will follow up with Dr. Dumas for ENT and either Dr. Martinez or there specific plastic finisher as an outpatient. Patient was still complaining from coughing and annoying him, just x-ray showed no pneumonia but gastric distention which is confirmed with KUB. Patient tolerates that well, no constipation, no abdominal pain. We will keep monitoring for 24 hours. Patient may benefit from surgical evaluation. As per patient was placed on Xarelto by his PCP Dr. james for unknown reason, patient currently follow-up with a new PCP Dr. griffiths and they going to discuss with him the need for continuation of Xarelto. Patient tolerated the Zartan here in the hospital. Patient and they like to continue with subtotal see Dr. Griffiths, they told me he has prescription for it at home. Risks and benefits are explained for them extensively. They verbalized understanding and acceptance. Objective - Vital Signs Vital signs: Vital Signs Temp 97.6 F 06/05/22 07:26 Pulse 87 06/05/22 07:26 Resp 17 06/05/22 07:26 BP 148/67 06/05/22 07:26 Pulse Ox 94 L 06/05/22 04:45 FiO2 Intake & Output 06/04/22 06/05/22 06/05/22 18:59 06:59 18:59 Intake Total 120 Output Total 900 Balance -900 120 Intake: Oral 120 Output: Urine 900 Other: Voiding Method Toilet Toilet # Voids 3 - Exam GENERAL: The patient is alert and oriented x3, not in any acute distress. Well developed, well nourished. HEENT: Pupils are round and equally reacting to light. EOMI. No scleral icterus. No conjunctival pallor. Normocephalic, atraumatic. No pharyngeal erythema. No th yromegaly. CARDIOVASCULAR: S1 and S2 present. No murmurs, rubs, or gallops. PULMONARY: Chest is clear to auscultation, no wheezing or crackles. ABDOMEN: Soft, nontender, nondistended, normoactive bowel sounds. No palpable organomegaly. MUSCULOSKELETAL: No joint swelling or deformity. EXTREMITIES: No cyanosis, clubbing, or pedal edema. NEUROLOGICAL: Gross neurological examination did not reveal any focal deficits. SKIN: No rashes. no petechiae. - Labs CBC & Chem 7: 06/04/22 05:00 06/04/22 05:00 Labs: Microbiology - Last 24 Hours (Table) 06/01/22 18:20 Blood Culture - Preliminary Blood No Growth after 72 hours 06/01/22 18:23 Blood Culture - Preliminary Blood No Growth after 72 hours Assessment and Plan Assessment: Headache, most likely tension headache,could be related to sinusitis as well, . Other intracranial lesions or temporal arteritis ruled out. Extensive bilateral sinusitis Distended stomach Coronary artery disease status post one vessel CABG CARMEN to OM in 2017 Severe aortic regurgitation status post aortic valve replacement with repair of ascending aorta in 2017 Acute kidney injury, resolved 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 Possible acute urinary tract infection Hypertension Hyperlipidemia History of BPH Plan: This is a pleasant 71 years old male with headache Continue with the neurology consult, continue with pain management Template Checker for further recommendation regarding anticoagulation Discontinue ceftriaxone for UTI Start Augmentin for possible sinusitis Discontinue IV fluids Continue with aspirin Surgery consult Neurology consult recommendation No indication front for Xarelto, patient may discontinue L. On discharge Labs and medication were reviewed.. Continue same treatment. Continue with symptomatic treatment. Resume home medication. Monitor lytes and vitals. DVT and GI prophylaxis. Further recommendations as per clinical course of the patient DVT prophylaxis: Xarelto GI Prophylaxis: Ppi PT/OT: Pending Prognosis is guarded consult cardiology for management
[2022-06-05] MEDS: IOPAMIDOL CONTRAST (ORAL USE) VIAL PO PRN ×2 (20:08→21:02)
--- NOTE | 2022-06-05 22:03 | CT ---
EXAMINATION TYPE: CT abdomen pelvis wo con CT DLP: 1014.6 mGycm, Automated exposure control for dose reduction was used. DATE OF EXAM: 06/05/2022 9:46 PM COMPARISON: 09/25/2016 CLINICAL INDICATION:Male, 71 years old with history of bowel obstruction; TECHNIQUE: Axial CT of the abdomen and pelvis. Sagittal and coronal reformats were created on a [employer] workstation. Contrast used: Oral contrast used: with Oral Contrast FINDINGS: LOWER CHEST: Sternotomy wires are present. Aortic valve repair changes. Atherosclerosis of the arteri al vasculature. Heart is mildly enlarged. ABDOMEN LIVER: Unremarkable GALLBLADDER AND BILE DUCTS: Layering increased densities within the lumen consistent with gallstones are present. PANCREAS: Unremarkable. SPLEEN: Unremarkable. ADRENAL GLANDS: Unremarkable. KIDNEYS AND URETERS: No evidence of hydronephrosis or renal calculus. The ureters are unremarkable. PELVIS BLADDER: Unremarkable REPRODUCTIVE: Unremarkable. ABDOMEN & PELVIS STOMACH AND BOWEL: No evidence of bowel obstruction. Large stool burden throughout the colon. Gaseous distention of the stomach noted. Scattered clonic diverticula are present. PERITONEUM: No evidence of pneumoperitoneum or free fluid. VASCULATURE: No evidence of aortic aneurysm. Sclerosis of the arterial vasculature. MUSCULOSKELETAL: No acute osseous abnormalities multilevel disc degeneration changes are seen through out the spine including L3-S1. Bilateral hip arthroplasty changes. T11 vertebral body hemangioma. LYMPH NODES: No gross evidence for lymphadenopathy. SOFT TISSUE/ABDOMINAL WALL: Unremarkable IMPRESSION: 1. No evidence of bowel obstruction. 2. Gaseous distention of the stomach with large stool burden throughout the colon. 3. Clonic diverticulosis. 4. Cholelithiasis.
[2022-06-06] MEDS: ATORVASTATIN 40 MG TAB PO SCH (08:31)
[2022-06-06] MEDS: CYANOCOBALAMIN 500 MCG TAB PO SCH (08:31)
[2022-06-06] MEDS: PANTOPRAZOLE 40 MG TABLET PO SCH (08:31)
[2022-06-06] MEDS: SODIUM BICARBONATE TAB 650 MG TAB PO SCH (08:31)
[2022-06-06] MEDS: TAMSULOSIN 0.4 MG CAP.ER.24H PO SCH (08:31)
[2022-06-06] MEDS: ACETAMINOPHEN TAB 500 MG TAB PO SCH (08:32)
[2022-06-06] MEDS: ASPIRIN 81 MG PO SCH (08:32)
[2022-06-06] MEDS: LORATADINE 10 MG TAB PO SCH (08:32)
[2022-06-06] MEDS: RIVAROXABAN 2.5 MG TABLET PO SCH (08:37)
[2022-06-06] MEDS ORDERED: LACTULOSE 20 GM/30 ML CUP PO SCH (09:45)
[2022-06-06] MEDS ORDERED: DOCUSATE 100 MG CAP PO SCH (09:45)
[2022-06-06] MEDS: AMOXIC-POT CLAV 500-125 MG 1 EACH TAB PO SCH (10:10)
[2022-06-06 12:42] VITALS: BP 112/69; PULSE 65; RESP 16; TEMP 98
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
--- NOTE | 2022-06-06 22:25 | P.DS ---
Providers Date of admission: 06/01/22 19:30 Attending physician: Katherine Coley Consults: 06/01/22 19:30 Consult Physician Routine Consulting Provider: Shorty Desai Consult Reason/Comments: selena Do you want consulting provider notified?: Yes 06/02/22 10:58 Consult Physician Routine Consulting Provider: Charbel Bass Consult Reason/Comments: Poss CVA Do you want consulting provider notified?: Yes 06/03/22 13:08 Consult Physician Routine Consulting Provider: Osvaldo Kessler Consult Reason/Comments: known to pt, if pt still needs to be on Xarelto Do you want consulting provider notified?: Yes 06/05/22 15:16 Consult Physician Urgent Consulting Provider: Damon Martinez Consult Reason/Comments: distended bowel and intesine and stomach Do you want consulting provider notified?: Yes Primary care physician: Wilson [facility] Course: Diagnoses: Headache, most likely tension headache,could be related to sinusitis as well, . Other intracranial lesions or temporal arteritis ruled out. Extensive bilateral sinusitis Distended stomach Coronary artery disease status post one vessel CABG CARMEN to in 2017 Severe aortic regurgitation status post aortic valve replacement with repair of ascending aorta in 2017 Acute kidney injury, resolved 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 Possible acute urinary tract infection Hypertension Hyperlipidemia History of BPH Hospital course: 71-year-old male, Patient states he was out driving [id number] with his family over the weekend there was a lot of dust when he started to develop a slowly insidiously oncoming headache. States that it's to his bilateral frontal area. He does have nasal congestion. On Saturday he started expressing dysuria. Patient found to have UTI. Urine culture came back negative and patient does not have symptoms, therefore antibiotics was started for this purpose because it wasn't believed he has UTI and it was only as symptomatic bacteriuria versus abnormal urinalysis without active infection. The patient still complaining of from headache, it was 5/5, mostly frontal associated with frontal sinusitis with positive pain and tenderness on tapping and runny nose and excessive lacrimation, patient states he has similar symptoms seasonally every year, temporal arteritis was executed with normal ESR and CRP, computed tomography scan of the brain and further and neurology workup was negative and neurologist clear him for discharge with recommendation to follow up as an outpatient with ENT and special education associate Portia patient informed as well as at bedside and they agreed to follow-up with their on special education associate and Dr. Dumas. However patient was started on Claritin and Augmentin yesterday and today he states for the first time his headache is significantly improved from 5/10 down to 3/10 and he is less congested. Patient On Flonase, Claritin and Augmentin 5 days upon discharge. Patient has distended stomach with CT of the abdomen showing moderate stool impaction with distended stomach however patient with no nausea vomiting, no epigastric or abdominal pain or tenderness, and he tolerates regular diet well and today he started having bowel movement without taking laxative. Patient was cleared for discharge by all consultants including neurologist, bottom filler and surgical team His acute kidney injury on admission resolved Problems and management plan were discussed with the patient and he verbalized understanding and acceptance Patient was found stable and can be discharged home and guarded prognosis however he needs follow-up as an outpatient. Patient was instructed to follow up with PCP within one week and patient agrees Physical exam Gen: patient is a AAOx3, no distress CVS: S1-S2, RRR, no murmur Lungs: B/L CTA, no wheezing Abdomen: soft, no distention, no tenderness, positive bowel sounds Extremity: no leg edema or induration Time spent more than 35 minutes Patient Condition at Discharge: Fair Plan - Discharge Summary Discharge Rx Participant: No New Discharge Prescriptions: New Amoxic-Pot Clav 500-125 mg [Augmentin 500-125 mg] 1 each PO BID 5 Days #10 tab Fluticasone Nasal [place] [Flonase Nasal [place]] 2 spray EA NOSTRIL DAILY PRN 5 Days #1 each PRN Reason: Allergy Symptoms Loratadine [Claritin] 5 mg PO DAILY 14 Days #14 tab Continue Aspirin [Adult Low Dose Aspirin EC] 81 mg PO DAILY Atorvastatin [Lipitor] 40 mg PO DAILY Pantoprazole [Protonix] 40 mg PO DAILY Cyanocobalamin (Vitamin B-12) [Vitamin B-12] 1,000 mcg PO DAILY Metoprolol Succinate [Toprol XL] 25 mg PO DAILY Albuterol Sulfate [Albuterol Sulfate Hfa] 2 puff PO RT-Q6H PRN PRN Reason: Shortness Of Breath Acetaminophen [Tylenol Extra Strength] 1,000 mg PO DAILY Tamsulosin HCl [Flomax] 0.4 mg PO DAILY Discontinued Lisinopril-Hctz 10-12.5 mg [Zestoretic 10-12.5] 1 tab PO DAILY Sulfamethox-Tmp 800-160Mg [Bactrim DS 800-160 mg] 1 tab PO Q12HR No Action Gabapentin 800 mg PO BID Rivaroxaban [Xarelto] 5 mg PO DAILY Discharge Medication List Aspirin [Adult Low Dose Aspirin EC] 81 mg PO DAILY 12/01/15 [History] Gabapentin 800 mg PO BID 12/14/15 [History] Atorvastatin [Lipitor] 40 mg PO DAILY 11/12/17 [History] Pantoprazole [Protonix] 40 mg PO DAILY 09/11/21 [History] Albuterol Sulfate [Albuterol Sulfate Hfa] 2 puff PO RT-Q6H PRN 11/10/21 [History] Cyanocobalamin (Vitamin B-12) [Vitamin B-12] 1,000 mcg PO DAILY 11/10/21 [History] Metoprolol Succinate [Toprol XL] 25 mg PO DAILY 11/10/21 [History] Acetaminophen [Tylenol Extra Strength] 1,000 mg PO DAILY 06/01/22 [History] Rivaroxaban [Xarelto] 5 mg PO DAILY 06/01/22 [History] Tamsulosin HCl [Flomax] 0.4 mg PO DAILY 06/01/22 [History] Amoxic-Pot Clav 500-125 mg [Augmentin 500-125 mg] 1 each PO BID 5 Days #10 tab 06/05/22 [Rx] Fluticasone Nasal [place] [Flonase Nasal [place]] 2 spray EA NOSTRIL DAILY PRN 5 Days #1 each 06/05/22 [Rx] Loratadine [Claritin] 5 mg PO DAILY 14 Days #14 tab 06/06/22 [Rx] Follow up Appointment(s)/Referral(s): Perez Garcia MD [REFERRING] - 1 Week (The office will call you with an appointment time and date.) Wilson Silva MD [Primary Care Provider] - 06/07/22 9:00 am (Please come 15 minutes early and please bring all medications you are on.) Dontae Caldwell MD [STAFF PHYSICIAN] - 06/15/22 9:00 am Raj Velazquez MD [STAFF PHYSICIAN] - 1 Week (The office is closed please call and make follow up appointment.) Damon Martinez MD [STAFF PHYSICIAN] - 2 Weeks (Surgeon for your distended stomach and Stool retention) Patient Instructions/Handouts: Loratadine (By mouth), Amoxicillin/Clavulanate Potassium (By mouth), Laxative, Stool Softeners (By mouth), Lactulose (By mouth), Fluticasone (Into the nose), Urinary Tract Infection in Men (DC), Heart Healthy Diet (DC), Hypotension (DC) Activity/Diet/Wound Care/Special Instructions: Heart healthy diet Activity is restricted till you see your doctor Discharge Disposition: HOME SELF-CARE
--- NOTE | 2022-06-08 08:39 | P.PN ---
Subjective Progress Note Date: 06/06/22 06/06/2022: Patient was seen for a follow-up. Patient's also present today. Patient states his headache has completely resolved. No new neurological symptoms. 06/05/2022: Patient was seen for a follow-up. Patient continues to have bifrontal headache which he rates 5/10. He states that it feels like someone is pushing on his eyeballs. He has not seen a mill tender warm up for last 4 years since he underwent cataract surgery. He denies any neck stiffness. No nausea vomit ing, no fever. He is photophobic, but no phonophobia. 06/04/2022: Patient was initially seen by Dr. Charbel Bass. Please refer to his note for details. Patient is a 71-year-old male who has presented with new onset headache. Patient's headache started on 06/01/2022 when he was just laying down and had a sudden throbbing headache, as if "someone hit his head with baseball bat". He states his eyes were hurting, for head was hurting. He stated the headache 8-9/10. He states that he "couldn't stand it". Denies any problem with the vision. He was initially concerned about UTI, which he suffered from in October 2021. Patient says that he does have sinus problems since he was young. He does not have headaches otherwise, except very occasionally when he used to get hangover headache after drinking when he was much younger. He states that headache has slightly improved, and is staying around 5/10. At present patient states that when he is laying still with eyes closed, the headache is 0/10. However when his opening his eyes, moving, then it goes up to 5-6/10. He denies any fever or jaw claudication. Denies any family history of cerebral aneurysm. Some other workup during this hospital visit consisted of: TSH: 1.20 Lipid panel triglyceride of 121, cholesterol of 98, LDL of 47 and HDL of 25 Hemoglobin A1c 6.1. Carotid duplex is reported as no hemodynamically significant internal carotid artery stenosis on either side. 2-D echo is reported as normal left ventricle dye mentioned in salt function. Bioprosthetic aortic valve. The valve opened well. Mild aortic regurgitation. No evidence of pericardial effusion. Left atrium is mildly increased left atrial volume. Urinalysis is positive for urinary tract infection. CT of the head is reported as cerebral atrophy. No acute intracranial abnormality. There is likely a small 2 cm infarct left posterior frontal lobe blair and white matter. I personally reviewed CT head, appears chronic in nature. There is evidence of an acute right maxillary sinusitis with evidence of air-fluid level. Other sinuses are clear. Objective - Vital Signs Vital signs: Vital Signs Temp 98 F 06/06/22 12:41 Pulse 65 06/06/22 12:41 Resp 16 06/06/22 12:41 BP 112/69 06/06/22 12:41 Pulse Ox 95 06/06/22 12:41 FiO2 - Exam Patient is an elderly male, in no acute distress. Patient is alert awake oriented to time place and person. Speech and language functions are normal. Patient can name and repeat very well. No aphasia or dysarthria. Attention, concentration and fund of knowledge is adequate. Face is symmetric. Pupils are equal and round and reacting. On muscle strength testing, there is no pronator drift and the strength is normal in arms and legs distally and proximally. Deep tendon reflexes are symmetric Sensory to touch is equal with no neglect on double simultaneous stimulation. Cerebellar function showed no ataxia for [id number]-dl-[id number] testing. Gait deferred.. - Labs CBC & Chem 7: 06/04/22 05:00 06/04/22 05:00 Labs: Microbiology - Last 24 Hours (Table) 06/01/22 18:20 Blood Culture - Final Blood No Growth after 144 hours 06/01/22 18:23 Blood Culture - Final Blood No Growth after 144 hours Assessment and Plan Assessment: New-onset acute cephalalgia, possibly related to acute right maxillary and right ethmoid sinusitis. MRA of the brain negative for any aneurysm. ESR CRP normal, therefore temporal arteritis unlikely. Cephalalgia has resolved. Acute urinary tract infection with slight elevated kidney function trending down. Acute right maxillary sinusitis with air-fluid level. Hyperlipidemia History of cardiac valve replacement History of CABG History of aortic aneurysm status post surgery Plan: Patient's headache has resolved today. No other neurological workup indicated. MRI of the brain revealed extensive sinus disease. Remote cerebrovascular accidents. Age-related changes of atrophy and chronic small vessel ischemia. I reviewed MRI, I agree with the findings. Patient has severe right maxillary sinus disease with air fluid level and almost complete opacification of the right maxillary sinus. Also involvement of the right ethmoid sinus. Patient started on Augmentin by primary physician. MRA of the brain negative for any cerebral aneurysm. I personally reviewed MRA, agree with the findings. ESR 7, CRP 0.40 normal. No evidence of temporal arteritis. Patient is already on aspirin 81 and Xarelto 5 mg daily home medication, cardiology on board. Continue Lipitor 40 mg daily for secondary stroke prophylaxis Recommend patient follow up with behavioral health consultant for a routine check, especially if headache reappears. If the headache recurs despite completing course of antibiotics, then recommend follow-up with ENT as an outpatient. Neurologically clear for discharge.
== END 2022-06-06 16:42 | disposition home or self-care (01) | DRG 103 ==
LOC: EC 15:18 → 4SSUR 19:30 → 5NMEDONC 06-02 06:26
PROVIDERS: ADMIT Hospitalist; ATTEND Hospitalist
DX: G44.209 Tension-type headache, unspecified, not intractable (principal); E87.2 Acidosis; N17.9 Acute kidney failure, unspecified; I48.92 Unspecified atrial flutter; E78.5 Hyperlipidemia, unspecified; E86.0 Dehydration; E86.1 Hypovolemia; I10 Essential (primary) hypertension; I25.10 Atherosclerotic heart disease of native coronary artery without angina pectoris; I25.2 Old myocardial infarction; I44.0 Atrioventricular block, first degree; I45.10 Unspecified right bundle-branch block; J01.00 Acute maxillary sinusitis, unspecified; I08.2 Rheumatic disorders of both aortic and tricuspid valves; T46.4X5A Adverse effect of angiotensin-converting-enzyme inhibitors, initial encounter; T50.1X5A Adverse effect of loop [high-ceiling] diuretics, initial encounter; J45.909 Unspecified asthma, uncomplicated; Z87.01 Personal history of pneumonia (recurrent); K31.89 Other diseases of stomach and duodenum; K56.41 Fecal impaction; I95.9 Hypotension, unspecified; K57.30 Diverticulosis of large intestine without perforation or abscess without bleeding; G31.89 Other specified degenerative diseases of nervous system; K80.20 Calculus of gallbladder without cholecystitis without obstruction; N40.0 Benign prostatic hyperplasia without lower urinary tract symptoms; Z79.01 Long term (current) use of anticoagulants; Z79.82 Long term (current) use of aspirin; Z79.899 Other long term (current) drug therapy; Z86.73 Personal history of transient ischemic attack (TIA), and cerebral infarction without residual deficits; Z86.79 Personal history of other diseases of the circulatory system; Z87.891 Personal history of nicotine dependence; Z90.49 Acquired absence of other specified parts of digestive tract; Z95.1 Presence of aortocoronary bypass graft; Z95.3 Presence of xenogenic heart valve; Z96.643 Presence of artificial hip joint, bilateral; Z98.42 Cataract extraction status, left eye; Z98.41 Cataract extraction status, right eye; Z96.651 Presence of right artificial knee joint; Z91.038 Other insect allergy status; Z91.018 Allergy to other foods; X58.XXXA Exposure to other specified factors, initial encounter
CPT/HCPCS: 36415; 70450; 70544; 70551; 71045; 74018; 74176; 76770; 78582; 80048; 80053; 80061; 81001; 83036; 83605; 83735; 84443; 84484; 85025; 85379; 85610; 85652; 85730; 86140; 87040; 87086; 93005; 93306; 93880; 96361; 96374; 99285

== ENCOUNTER → 2022-07-03 | Outpatient (CLI) | payer MEDICARE ==
--- NOTE | 2022-07-03 10:33 | CT ---
EXAMINATION TYPE: CT sinus wo con DATE OF EXAM: 07/03/2022 COMPARISON: None HISTORY: Chronic sinusitis CT DLP: 615.9 mGycm. Automated Exposure Control for Dose Reduction was Utilized. TECHNIQUE: CT scan of the sinuses is performed without contrast, axial images are obtained, coronal r eformatted images are also reviewed. FINDINGS: The paranasal sinuses show near complete opacification of the right maxillary sinus althou gh the ostiomeatal units are patent bilaterally. Lobular soft tissue within the right maxillary sinus may be indicative of polyp disease or mucous retention cyst. Some mucosal disease present within the left maxillary sinus. Some mild inflammatory change present within the sphenoid sinus and ethmoid ai r cells, frontal sinus, there is mucosal disease. Visualized portion of mastoid air cells show no abnormal opacification. The globes are intact bilate rally. Periventricular white matter shows some patchy low-attenuation suggesting chronic small vesse l ischemic changes. Some age-related atrophy is noted within the visualized brain. IMPRESSION: Correlate for chronic sinusitis.
== END | disposition home or self-care (01) ==
LOC: RADCTMAIN 07:53
PROVIDERS: ATTEND Otolaryngology
DX: J32.9 Chronic sinusitis, unspecified (principal)
CPT/HCPCS: 70486

== ENCOUNTER 2022-07-04 08:47 | Day surgery (SDC) | payer MEDICARE ==
[2022-07-03 10:43] VITALS: BMI 31.1
[~2022-07-04 08:47] MED LIST changes: +DEXAMETHASONE SOD PHOSPHATE 4 MG/ML 1 ML VIAL IV ONE; -GABAPENTIN 300 MG CAP PO PRN; +HEPARIN SODIUM,PORCINE/PF 5,000 UNIT/0.5 ML SYRINGE SQ PRN; +HYDROmorphone 0.5 MG/0.5 ML SYRINGE IVP PRN; +LACTATED RINGERS 1,000 ML IV SCH; -MELOXICAM 7.5 MG TAB PO PRN; +ONDANSETRON 4 MG/2 ML VIAL IVP ONE; -TRANEXAMIC ACID 1,000 MG in SODIUM CHLORIDE 0.9% 100 ML IVPB PRN
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
[2022-07-04] MEDS ORDERED: NEOSTIGMINE 1 MG/ML 10 ML VIAL ONE (09:54)
[2022-07-04] MEDS ORDERED: LIDOCAINE 4% LTA KIT (4 ML) TOPICAL ONE (09:54)
[2022-07-04] MEDS ORDERED: SUCCINYLCHOLINE CHLORIDE 200 MG/10 ML VIAL IV ONE (09:54)
[2022-07-04] MEDS ORDERED: KETAMINE 10 MG/ML 20 ML VIAL ONE (09:54)
[2022-07-04] MEDS ORDERED: GLYCOPYRROLATE 0.2 MG/ML 2 ML VIAL ONE (09:54)
[2022-07-04] MEDS ORDERED: LIDOCAINE 2% INJ 20 MG/ML (2 ML VIAL) ONE (09:54)
[2022-07-04] MEDS ORDERED: KETOROLAC 30 MG/ML 1 ML VIAL ONE (09:54)
[2022-07-04] MEDS ORDERED: ePHEDrine 50 MG/ML 1 ML VIAL ONE (09:54)
[2022-07-04] MEDS ORDERED: MIDAZOLAM 2 MG/2 ML VIAL ONE (09:54)
[2022-07-04] MEDS ORDERED: PHENYLEPHRINE-0.9% NACL SYG 1,000 MCG/10 ML SYRINGE ONE (09:54)
[2022-07-04] MEDS ORDERED: ROCURONIUM 10 MG/ML (5 ML VIAL) IV ONE (09:54)
[2022-07-04] MEDS ORDERED: fentaNYL (PF) 50 MCG/ML 2 ML AMP ONE (09:54)
[2022-07-04] MEDS ORDERED: PROPOFOL 10 MG/ML 20 ML VIAL IV ONE (09:54)
[2022-07-04] MEDS ORDERED: LIDOCAINE 1%-EPI 1:100,000 20 ML VIAL SQ ONE ×2 (09:58→10:15)
--- NOTE | 2022-07-04 10:40 | P.OP ---
Date of Procedure: 07/04/22 Preoperative Diagnosis: Chronic cholecystitis Cholelithiasis Postoperative Diagnosis: Chronic cholecystitis Cholelithiasis Procedure(s) Performed: Laparoscopic cholecystectomy Anesthesia: LISSA Surgeon: Damon Martinez Estimated Blood Loss (ml): 5 Pathology: other (Gallbladder) Condition: stable Disposition: PACU Description of Procedure: The patient was placed on the operating table. The patient received a general endotracheal tube anesthesia. The patients abdomen was prepped and draped in the usual sterile fashion. Through an infraumbilical stab incision, the fascia of the anterior abdominal wall was grasped with a pair of Kochers and then the Veress needle was placed in the peritoneal cavity. Position of the Veress needle was confirmed with positive drop test. The abdomen was then insufflated. After adequate insufflation, the 10 mm trocar was placed in the peritoneal cavity. Following this the laparoscope was placed in the peritoneal cavity. The patient was placed in the head-up, right side up position and then a 5 mm trocar was placed in the right lateral and right subcostal position under direct visualization. A 8 mm trocar was placed in the epigastric position. The gallbladder was grasped in the fundus and infundibulum. Traction on the gallbladder was placed in the lateral and the cephalad positions. The triangle of Calot was visualized.. The cystic duct was bluntly dissected until the union of the cystic duct and common bile duct was seen. A critical view of safety was achieved. The cystic duct was then divided and sealed with the Harmonic scissors. A PDS Endoloop was then placed throughout the cystic duct stump. The cystic artery divided and sealed with the Harmonic scissors. The gallbladder was then removed from the liver bed using Harmonic scissors. The gallbladder was then extracted through the epigastric port site. Operative field was checked for any bleeding spots and Harmonic scissors was used to coagulate the liver bed. The abdomen was irrigated. The trocars were removed. The skin was closed using interrupted 3-0 Vicryl suture. Dermabond dressing were applied. The patient tolerated the procedure well.
[2022-07-04] MEDS ORDERED: ALBUTEROL NEBULIZED 2.5 MG/3 ML INHALATION ONE (10:50)
[2022-07-04 10:54] VITALS: TEMP 96.9
[2022-07-04 13:04] VITALS: RESP 20
[2022-07-04 13:44] VITALS: BP 122/70; PULSE 55
== END 2022-07-04 13:40 | disposition home or self-care (01) ==
LOC: OR 08:47
PROVIDERS: ATTEND Surgery
DX: K80.20 Calculus of gallbladder without cholecystitis without obstruction (principal); J45.909 Unspecified asthma, uncomplicated; E78.5 Hyperlipidemia, unspecified; I10 Essential (primary) hypertension; M19.90 Unspecified osteoarthritis, unspecified site; J18.9 Pneumonia, unspecified organism; N42.9 Disorder of prostate, unspecified; N40.0 Benign prostatic hyperplasia without lower urinary tract symptoms; F10.10 Alcohol abuse, uncomplicated; Z90.89 Acquired absence of other organs; Z90.49 Acquired absence of other specified parts of digestive tract; Z98.890 Other specified postprocedural states; Z95.1 Presence of aortocoronary bypass graft; Z87.891 Personal history of nicotine dependence; Z80.0 Family history of malignant neoplasm of digestive organs; Z83.2 Family history of diseases of the blood and blood-forming organs and certain disorders involving the immune mechanism; Z80.42 Family history of malignant neoplasm of prostate; Z79.82 Long term (current) use of aspirin; Z79.1 Long term (current) use of non-steroidal anti-inflammatories (NSAID); Z79.51 Long term (current) use of inhaled steroids; Z91.038 Other insect allergy status; Z91.018 Allergy to other foods
CPT/HCPCS: 88304; 47562; J2250; J0330; J1100; J2710; J0690; J2405; J3010; J1885; J2370; J2704; J1644; J2001

== ENCOUNTER → 2023-06-25 | Outpatient (CLI) | payer MEDICARE | END | disposition home or self-care (01) | LOC: LABWHC1 08:35 | PROVIDERS: ATTEND Urology | DX: C61 Malignant neoplasm of prostate (principal) | CPT/HCPCS: 36415; 84153 ==

== ENCOUNTER → 2023-07-19 | Outpatient (CLI) | payer MEDICARE ==
--- NOTE | 2023-07-19 09:17 | XR ---
EXAMINATION TYPE: XR chest 2V DATE OF EXAM: 07/19/2023 COMPARISON: 06/05/2022 TECHNIQUE: PA and lateral views submitted. HISTORY: Cough FINDINGS: The lungs are clear and there is no pneumothorax, pleural effusion, or focal pneumonia. Heart size normal and no overt failure. Osseous structures demonstrate hypertrophic and degenerative changes of the spine. Poststernotomy changes seen. Atherosclerotic change aorta. Hyperinflation suggests COPD. A rthropathy of the shoulders. IMPRESSION: 1. No acute process.
== END | disposition home or self-care (01) ==
LOC: RADXRMAIN 08:24
PROVIDERS: ATTEND Internal Medicine Geriatric Medicine
DX: J40 Bronchitis, not specified as acute or chronic (principal)
CPT/HCPCS: 71046

== ENCOUNTER → 2023-12-31 | Outpatient (CLI) | payer MEDICARE | END | disposition home or self-care (01) | LOC: LABWHC1 08:11 | PROVIDERS: ATTEND Urology | DX: C61 Malignant neoplasm of prostate (principal) | CPT/HCPCS: 36415; 84153 ==

== ENCOUNTER → 2024-06-30 | Outpatient (CLI) | payer MEDICARE | END | disposition home or self-care (01) | LOC: LABWHC1 10:07 | PROVIDERS: ATTEND Urology | DX: C61 Malignant neoplasm of prostate (principal) | CPT/HCPCS: 36415; 84153 ==

== ENCOUNTER → 2024-08-03 | Outpatient (CLI) | payer MEDICARE ==
--- NOTE | 2024-08-03 13:22 | MR ---
EXAMINATION TYPE: MR Prostate wo/w con DATE OF EXAM: 08/03/2024 7:56 AM COMPARISON: None. CLINICAL INDICATION: Male, 73 years old with history of C61 PROSTATE CX; Prostate cancer. TECHNIQUE: Multi-planar, multi-sequence imaging of the pelvis is performed prior to and following the uncomplicated administration of bolus intravenous gadolinium. IV Contrast: 9 mL Gadobutrol Interpretive Criteria: PI-RADS v2.1 SERUM PSA: - = 14.70 4-16- = 10.70 SURGICAL PATHOLOGY: No data available. FINDINGS: Prostatic dimensions: 5.4 x 5.1 x 4.8 cm. Ellipsoid Volume:69.22 (PSA density=0.21 ng/mL/mL) CENTRAL GLAND (Central and Transition Zones/CZ+TZ): Multiple bilateral, heterogenous appearing hypertrophic stromal nodules, without suspicious lesion. M edian lobe hypertrophy with protrusion into the base of the bladder. (PI-RADS 2) PERIPHERAL ZONE (PZ): Diffusion-weighted imaging is nondiagnostic due to bilateral hip arthroplasties. Low T2 signal left lateral peripheral zone mid gland measuring 4 mm image 15, right posterior lateral mid gland measuring 8 mm.. (PI-RADS 3) SEMINAL VESICLES (SV): Symmetric and unremarkable. PERIPROSTATIC TISSUES: Unremarkable. LYMPH NODES: No enlarged pelvic lymph node. REMAINING PELVIS: Bladder wall is within normal limits given distention. No abnormal free or organized intrapelvic fluid collection. No pathologic bowel dilation or mural thickening. Colonic diverticula are present. No hernia visualized OSSEOUS STRUCTURES: * No suspicious osseous abnormality. * Fixation changes to the bilateral hips and spine with susceptibility artifact. IMPRESSION: Limited exam secondary to hip arthroplasty susceptibility artifact. 1. Extremely limited exam secondary to magnetic susceptibility artifact. Diffusion-weighted sequences are nondiagnostic. Couple low T2 signal areas in the peripheral gland which are only evaluated on T2 -weighted imaging. Maximum PI-RADS score: 3 2. Moderate BPH, estimated gland volume 69.22 mL. 3. No suspicious osseous lesion. No lymphadenopathy. No evidence of prostate adenocarcinoma involving the periprostatic tissues. [facility], , 08/03/2024 1:19 PM
== END | disposition home or self-care (01) ==
LOC: RADMRIMAIN 06:39
PROVIDERS: ATTEND Urology
DX: C61 Malignant neoplasm of prostate (principal); N40.0 Benign prostatic hyperplasia without lower urinary tract symptoms
CPT/HCPCS: 72197; A9585

== ENCOUNTER → 2024-08-31 | Outpatient (CLI) | payer MEDICARE ==
--- NOTE | 2024-08-31 16:04 | XR ---
EXAMINATION TYPE: XR chest 2V DATE OF EXAM: 08/31/2024 3:55 PM COMPARISON: Chest radiographs from 07/19/2023 CLINICAL INDICATION: Male, 73 years old with history of R04.2 Hemoptysis; TECHNIQUE: XR chest 2V Frontal and lateral views of the chest. FINDINGS: Lungs/Pleura: There is no evidence of pleural effusion, focal consolidation, or pneumothorax. Pulmonary vascularity: Unremarkable. Heart/mediastinum: Cardiomediastinal silhouette is unremarkable. Post aortic valve repair changes. Musculoskeletal: No acute osseous pathology. There is lower spine fixation hardware is present. Midli ne sternotomy wires are noted. Other findings: None IMPRESSION: No acute cardiopulmonary disease/process. [facility], , 08/31/2024 4:01 PM
== END | disposition home or self-care (01) ==
LOC: RADXRMAIN 15:40
PROVIDERS: ATTEND Internal Medicine Geriatric Medicine
DX: R04.2 Hemoptysis (principal)
CPT/HCPCS: 71046